=== PATIENT | male | born 1945 | race Caucasian/White ===

== ENCOUNTER → 2016-04-29 | Outpatient (CLI) | payer MEDICARE, OTHER | END | disposition home or self-care (01) | LOC: LABWHC1 13:28 | PROVIDERS: ATTEND Internal Medicine | DX: N40.1 Benign prostatic hyperplasia with lower urinary tract symptoms (principal) | CPT/HCPCS: 36415; 84153 ==

== ENCOUNTER → 2016-05-19 | Outpatient (CLI) | payer MEDICARE, OTHER ==
--- NOTE | 2016-05-19 12:52 | XR ---
EXAMINATION TYPE: XR cervical spine comp DATE OF EXAM: 05/19/2016 12:04 PM COMPARISON: 01/25/2016 HISTORY: Pain Odontoid, frontal, lateral, and bilateral oblique views of the cervical spine are submitted. The odontoid is intact. There are no compression deformities. The prevertebral soft tissue structur es are within normal limits. Calcification soft tissue the neck likely related carotid artery calcif ication. Previous surgery involving the mediastinum noted. Hypertrophic changes at all levels with moderate degenerative disc disease C5-6 and C6-C7 with facet arthropathy extending from level C3-T1. Foraminal encroachment level C3-C7 bilaterally. IMPRESSION: 1. Multilevel degenerative disc disease and facet arthropathy with foraminal encroachment as discusse d above..
--- NOTE | 2016-05-19 12:57 | XR ---
EXAMINATION TYPE: XR shoulder complete RT DATE OF EXAM: 05/19/2016 12:04 PM COMPARISON: NONE HISTORY: Pain TECHNIQUE: Three views are submitted. FINDINGS: The osseous structures are intact. There is no acute fracture or dislocation. The AC joint is narro wed with hypertrophic changes. IMPRESSION: 1. AC joint arthropathy correlate for rotator cuff impingement.
== END ==
LOC: RADXRMAIN 11:38
PROVIDERS: ATTEND Internal Medicine
DX: M19.011 Primary osteoarthritis, right shoulder (principal); M99.71 Connective tissue and disc stenosis of intervertebral foramina of cervical region; M50.30 Other cervical disc degeneration, unspecified cervical region; M46.82 Other specified inflammatory spondylopathies, cervical region
CPT/HCPCS: 72050

== ENCOUNTER → 2016-08-13 | Outpatient (CLI) | payer MEDICARE ==
--- NOTE | 2016-08-13 12:55 | US ---
EXAMINATION TYPE: US groin extremity RT DATE OF EXAM: 08/13/2016 11:22 AM COMPARISON: NONE CLINICAL HISTORY: R10.9 ABD/PELVIC PAIN. Right sharp pain in groin. Patient states it feel like bein g stabbed with a hot poker. Patient states he has not been lifting anything heavy, but has been walk ing a lot lately. Patient has large body habitus. Scanned area of pain in right groin. Lymph node appearing lesion seen = 2.4 x 1.5 x 0.8 cm. Promine nt isoechoic lesion seen = 3.3 x 2.7 cm- no peristalsing or movement seen during valsalva maneuvers. Contralateral image taken. IMPRESSION: 1. Lymphadenopathy. 2. No obvious bowel involved hernia. A nonbowel containing hernia is not excluded.
== END ==
LOC: RADUSWWP 10:52
PROVIDERS: ATTEND Internal Medicine
DX: R59.1 Generalized enlarged lymph nodes (principal)

== ENCOUNTER → 2016-12-02 | Outpatient (CLI) | payer MEDICARE, OTHER ==
[2016-12-08 16:03] LABS: Mis test requested (Blood) Narcolepsy Genotype
== END | disposition home or self-care (01) ==
LOC: LABWHC1 13:52
PROVIDERS: ATTEND Psychiatry & Neurology Neurology
DX: G25.81 Restless legs syndrome (principal); G47.19 Other hypersomnia; Z86.73 Personal history of transient ischemic attack (TIA), and cerebral infarction without residual deficits
CPT/HCPCS: 36415; 81383; 82550

== ENCOUNTER → 2016-12-10 | Outpatient (CLI) | payer MEDICARE, OTHER ==
--- NOTE | 2016-12-10 16:54 | CONS ---
CONSULTATION DATE OF SERVICE: 12/10/2016 This is a 71-year-old gentleman who has been evaluated in the sleep center for obstructive sleep apnea-hypopnea syndrome. HISTORY OF PRESENT ILLNESS/SLEEP-WAKE EVALUATION: Patient's usual sleep schedule is from around 10:30 p.m. and then he wakes up from sleep multiple times. Finally he gets up around 6 a.m. Sometimes he has problems with falling asleep. He has a TV set in the bedroom. He snores. He has restless leg symptoms while falling asleep. He has taken Requip for that. He sweats during the night. He has several episodes of nocturia during the night time. No history of hypnagogic hallucinations, sleep paralysis or cataplexy. During the day he usually does not have time to take naps. [place] Sleepiness Scale although is increased at 11. PAST MEDICAL HISTORY: 1. Coronary artery disease, status post several stent insertions. 2. Hypertension. PAST SURGICAL HISTORY: 1. Tonsillectomy. 2. Pacemaker insertion. 3. Stent insertion in coronary arteries. 4. Bilateral knee replacement. 5. Left hand amputation in 1971. MEDICATIONS: 1. Flomax. 2. Requip. 3. Lisinopril. 4. Blood pressure pill; he does not remember the name. FAMILY HISTORY: Hypertension, angina, heart problems, stroke, arthritis, sleep apnea, snoring, cancer, insomnia, narcolepsy, restless legs. REVIEW OF SYSTEMS: Awakenings from sleep. Sleepiness during the day. Swelling of the legs. PHYSICAL EXAM: A pleasant gentleman without distress. VITAL SIGNS: BP 151/100, HR 60, RR 16, height 5 feet 6 inches, weight 344, BMI 55.5. Neck 19 inches in circumference. Temperature 97.8, oxygen saturation on room air 97%. HEENT: PERRLA, EOMI. Evaluation of oropharynx showed tongue protrudes midline; extremely low position of soft palate. NECK: Supple. No JVD. Thyroid is not palpable. LUNGS: Clear to percussion and to auscultation. Good air exchange. No wheezing or rhonchi. HEART: S1, S2 irregularly irregular. ABDOMEN: Obese. EXTREMITIES: Two plus bilateral ankle edema with signs of dermatitis. Status post amputation of the left hand. CASER: Awake, alert and oriented x3. Cranial nerves 2 to 7 intact. There is no fasciculation or atrophy noted. No focal deficits observed. IMPRESSION: 1. Snoring, multiple awakenings from sleep, extremely low position of soft palate, sleepiness, [place] Sleepiness Scale increased to 11, big neck at 19 inches; obstructive sleep apnea-hypopnea syndrome. 2. Morbid obesity; BMI 55.5. Patient is possibly preparing for bariatric surgery. 3. Hypertension. 4. Coronary artery disease, status post several stent insertions to coronary arteries. 5. Status post permanent pacemaker insertion. 6. Status post bilateral knee replacement. 7. Status post tonsillectomy. 8. 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 9. History of restless leg syndrome, on treatment with Requip. PLAN: 1. Polysomnography for evaluation of patient's breathing during sleep. 2. CPAP/BiPAP titration if sleep study confirms obstructive sleep apnea-hypopnea syndrome. 3. Preferable position during sleep on the side. 4. No driving if patient feels any sleepiness. Patient is aware of civil and criminal liability for unsafe driving. 5. I will see patient for follow up visit to explain results of testing and following plan. Thank you very much for referring this patient for consultation. Sincerely, Todd Choi MD, PhD, FAASM Diplomat of [place] [employer] [place] [employer] Supervisor [facility] [place] MMODL / MYRNAN: [id number] /
== END | disposition home or self-care (01) ==
LOC: SLEEP 13:24
PROVIDERS: ATTEND Internal Medicine
DX: G47.33 Obstructive sleep apnea (adult) (pediatric) (principal); E66.01 Morbid (severe) obesity due to excess calories; I10 Essential (primary) hypertension; I25.10 Atherosclerotic heart disease of native coronary artery without angina pectoris; Z98.890 Other specified postprocedural states; Z68.43 Body mass index [BMI] 50.0-59.9, adult; Z79.899 Other long term (current) drug therapy
CPT/HCPCS: 99201

== ENCOUNTER → 2016-12-28 | Outpatient (CLI) | payer MEDICARE, OTHER ==
[2016-12-28 08:01] LABS: CH 29.5; CHCM 31.4; HCT 39.5 % (39.0-53.0); HDW 2.42; HGB 12.6 gm/dL (13.0-17.5); MCH 30.1 pg (25.0-35.0); MCHC 31.9 g/dL (31.0-37.0); MCV 94.4 fL (80.0-100.0); Mean Platelet Volume 6.5; RBC 4.18 m/uL (4.30-5.90); RDW 12.8 % (11.5-15.5)
[2016-12-28 09:00] LABS: ALT 30 U/L (21-72); AST 24 U/L (17-59); Alkaline Phosphatase 68 U/L (38-126); Anion Gap 9 mmol/L; Blood Urea Nitrogen 26 mg/dL (9-20); Calcium 8.8 mg/dL (8.4-10.2); Carbon Dioxide 23 mmol/L (22-30); Chloride 107 mmol/L (98-107); Cholesterol 126 mg/dL (<200); Glucose 105 mg/dL (74-99); HDL Cholesterol 58 mg/dL (40-60); Non-African American GFR(MDRD) >60 (>60 ml/min/1.73 sqM); Potassium 4.4 mmol/L (3.5-5.1); Sodium 139 mmol/L (137-145); Total Bilirubin 0.5 mg/dL (0.2-1.3); Total Protein 6.6 g/dL (6.3-8.2)
== END | disposition home or self-care (01) ==
LOC: LABWHC1 07:05
PROVIDERS: ATTEND Internal Medicine
DX: I25.10 Atherosclerotic heart disease of native coronary artery without angina pectoris (principal); E78.2 Mixed hyperlipidemia; K21.0 Gastro-esophageal reflux disease with esophagitis; I11.9 Hypertensive heart disease without heart failure
CPT/HCPCS: 36415; 80053; 80061; 82272; 84439; 84443; 85027

== ENCOUNTER 2017-01-04 14:14 | Emergency (ER) | payer MEDICARE, OTHER ==
[2017-01-04 14:22] VITALS: PULSE 60; RESP 18; TEMP 98.1
[2017-01-04] MEDS ORDERED: SODIUM CHLORIDE 0.9% 1,000 ML IV STA (14:32)
--- NOTE | 2017-01-04 14:40 | ED ---
General Adult HPI - General Chief complaint: Recheck/Abnormal Lab/Rx Stated complaint: spitting up blood Time Seen by Provider: 01/04/17 14:24 Source: patient, RN notes reviewed Mode of arrival: ambulatory Limitations: no limitations - History of Present Illness Initial comments: patient 71-year-old male who presents emergency room today with a chief complaint of hemoptysis. He does admit that last night he began having a cough. He states; she's noticed that he's been coughing up some bright red blood. Patient does not that he is currently on a blood thinner ulcer multiple. Patient admits to nausea. Patient denies any other complaints or symptoms. Patient denies any recent fever, chills, shortness of breath, chest pain, back pain, abdominal pain, vomiting, numbness or tingling, dysuria or hematuria, constipation or diarrhea, headaches or visual changes, or any other complaints. - Related Data Home Medications Medication Instructions Recorded Confirmed Aspirin [Adult Low Dose Aspirin EC] 81 mg PO DAILY 01/09/15 01/04/17 Gabapentin 300 mg PO TID 01/09/15 01/04/17 Primidone [Mysoline] 50 mg PO TID-W/MEALS 01/09/15 01/04/17 Tamsulosin [Flomax] 0.4 mg PO HS 01/09/15 01/04/17 rOPINIRole HCL [Ropinirole HCl] 2 mg PO QAM 01/09/15 01/04/17 rOPINIRole HCL [Ropinirole HCl] 4 mg PO HS 01/09/15 01/04/17 Furosemide [Lasix] 40 mg PO QAM 03/16/15 01/04/17 Ferrous Sulfate [Iron (65 MG 325 mg PO DAILY 08/19/15 01/04/17 Elemental)] Atorvastatin [Lipitor] 40 mg PO HS 09/20/15 01/04/17 Diazepam [Valium] 20 mg PO HS PRN 01/09/16 01/04/17 Lisinopril [Lisinopril] 5 mg PO HS 01/09/16 01/04/17 Lisinopril [Lisinopril] 10 mg PO QAM 01/09/16 01/04/17 Metoprolol Tartrate [Metoprolol 25 mg PO BID 01/09/16 01/04/17 Tartrate] Rivaroxaban [Xarelto] 20 mg PO W/SUPPER 01/09/16 01/04/17 Previous Rx's Medication Instructions Recorded traMADol HCl [Ultram] 50 mg PO Q4H PRN #15 tab 03/01/16 Allergies Allergy/AdvReac Type Severity Reaction Status Date / Time No Known Allergies Allergy Verified 01/04/17 14:22 Review of Systems ROS Statement: Those systems with pertinent positive or pertinent negative responses have been documented in the HPI. ROS Other: All systems not noted in ROS Statement are negative. Past Medical History Past Medical History: Atrial Fibrillation, Chest Pain / Angina, CVA/TIA, GI Bleed, Hyperlipidemia, Hypertension, Myocardial Infarction ([place]), Musculoskeletal Disorder, Osteoarthritis (OA), Pneumonia Additional Past Medical History / Comment(s): 06/06/15 CP, HAD C. CATH, THEN TRIPLE CABG. lower GI BLEED 02/2015. RLS. MILD STROKE 08/19/15. LFA AMPUTATION , HAS PROSTHESIS. [place] X2, LAST NSTEMI 05/2015. SSS, HAS PACEMAKER - [facility]. Last Myocardial Infarction Date:: 05/2015 History of Any Multi-Drug Resistant Organisms: None Reported Past Surgical History: Adenoidectomy, Coronary Bypass/CABG, Heart Catheterization With Stent, Joint Replacement, Orthopedic Surgery, Pacemaker, Tonsillectomy Additional Past Surgical History / Comment(s): 10/07/15 Revision total L knee. Other surgical hx: Pacemaker St Ed. stent in 2004 to LAD, STENTS X4. TOTAL [place] Knee. Lt Hand/LFA TRAUMATIC AMP. Colonoscopy/polys removed(benign). TRIPLE CABG 06/06/15 Past Anesthesia/Blood Transfusion Reactions: No Reported Reaction Additional Past Anesthesia/Blood Transfusion Reaction / Comment(s): clausterphobia Date of Last Stent Placement:: 2004 Type of Cardiac Device: Permanent Pacemaker Device Placement Date:: 2005 Past Psychological History: No Psychological Hx Reported Smoking Status: Never smoker Past Alcohol Use History: None Reported Past Drug Use History: None Reported - Past Family History Father Family Medical History: Cancer Additional Family Medical History / Comment(s): bone cancer Mother Family Medical History: Myocardial Infarction ([place]) General Exam - General Exam Comments Initial Comments: General: The patient is awake and alert, in no distress, and does not appear acutely ill. Eye: Pupils are equal, round and reactive to light, extra-ocular movements are intact. No nystagmus. There is normal conjunctiva bilaterally. No signs of icterus. Ears, nose, mouth and throat: There are moist mucous membranes and no oral lesions. Neck: The neck is supple, there is no tenderness or JVD. Cardiovascular: There is a regular rate and rhythm. No murmur, rub or gallop is appreciated. Respiratory: Lungs are clear to auscultation, respirations are non-labored, breath sounds are equal. No wheezes, stridor, rales, or rhonchi. Gastrointestinal: Soft, non-distended, non-tender abdomen without masses or organomegaly noted. There is no rebound or guarding present. No CVA tenderness. Bowel sounds are unremarkable. Musculoskeletal: Normal ROM, no tenderness. Strength 5/5. Sensation intact. Pulses equal bilaterally 2+. Neurological: A&O x 3. CN II-XII intact, There are no obvious motor or sensory deficits. Coordination appears grossly intact. Speech is normal. Skin: Skin is warm and dry and no rashes or lesions are noted. Psychiatric: Cooperative, appropriate mood & affect, normal judgment. Limitations: no limitations Course Vital Signs 01/04/17 01/04/17 14:18 15:05 Temperature 98.1 F Pulse Rate 60 Respiratory 18 Rate Blood Pressure 209/98 195/87 O2 Sat by Pulse 97 Oximetry Medical Decision Making - Medical Decision Making Patient's labs been reviewed. Patient's rhemoglobin 12.5. This is stable compared to previous labs. Patient's reexamined at this time shows no signs of distress sitting up comfortably in the stretcher. He denies any symptoms. Patient chest x-rays negative. Case discussed with attending physician Dr. Borrero. Patient advised to follow-up family doctor over the next 2 days. Advised return here to emergency room if any symptoms increase or worsen or for concerns for states understanding and is in agreement. - Lab Data Result diagrams: 01/04/17 14:57 01/04/17 14:57 Lab Results 01/04/17 01/04/17 01/04/17 Range/Units 14:57 14:57 14:57 WBC 8.2 (3.8-10.6) k/uL RBC 4.22 L (4.30-5.90) m/uL Hgb 12.5 L (13.0-17.5) gm/dL Hct 39.0 (39.0-53.0) % MCV 92.3 (80.0-100.0) fL MCH 29.6 (25.0-35.0) pg MCHC 32.1 (31.0-37.0) g/dL RDW 12.8 (11.5-15.5) % Plt Count 211 (150-450) k/uL Neutrophils % 66 % Lymphocytes % 22 % Monocytes % 6 % Eosinophils % 4 % Basophils % 0 % Neutrophils # 5.4 (1.3-7.7) k/uL Lymphocytes # 1.8 (1.0-4.8) k/uL Monocytes # 0.5 (0-1.0) k/uL Eosinophils # 0.3 (0-0.7) k/uL Basophils # 0.0 (0-0.2) k/uL PT 12.8 H (9.0-12.0) sec INR 1.3 H (<1.2) APTT 27.4 (22.0-30.0) sec Sodium 137 (137-145) mmol/L Potassium 4.3 (3.5-5.1) mmol/L Chloride 106 (98-107) mmol/L Carbon Dioxide 21 L (22-30) mmol/L Anion Gap 10 mmol/L BUN 22 H (9-20) mg/dL Creatinine 0.99 (0.66-1.25) mg/dL Est GFR (MDRD) Af Amer >60 (>60 ml/min/1.73 sqM) Est GFR (MDRD) Non-Af >60 (>60 ml/min/1.73 sqM) Glucose 97 (74-99) mg/dL Calcium 8.7 (8.4-10.2) mg/dL Total Bilirubin 0.6 (0.2-1.3) mg/dL AST 25 (17-59) U/L ALT 31 (21-72) U/L Alkaline Phosphatase 68 (38-126) U/L Total Protein 7.1 (6.3-8.2) g/dL Albumin 3.9 (3.5-5.0) g/dL Disposition Clinical Impression: Hemoptysis Disposition: HOME SELF-CARE Condition: Good Instructions: Hemoptysis (ED) Additional Instructions: Please call family doctor over the next 2 days. Please return here to emergency room if any symptoms increase or worsen or for any other concerns. Referrals: Neville Pierre MD [Primary Care Provider] - 1-2 days Time of Disposition: 15:42
[2017-01-04 15:11] LABS: Basophils % (A) 0 %; CH 29.6; CHCM 32.2; Eosinophils # (A) 0.3 k/uL (0-0.7); Eosinophils % (A) 4 %; HDW 2.49; HGB 12.5 gm/dL (13.0-17.5); Luc # (Auto) 0.15; Luc % (Auto) 2; Lymphocytes # (A) 1.8 k/uL (1.0-4.8); Lymphocytes % (A) 22 %; MCH 29.6 pg (25.0-35.0); MCHC 32.1 g/dL (31.0-37.0); MCV 92.3 fL (80.0-100.0); Mean Platelet Volume 6.9; Monocytes # (A) 0.5 k/uL (0-1.0); Monocytes % (A) 6 %; Neutrophils # (A) 5.4 k/uL (1.3-7.7); Neutrophils % (A) 66 %; RBC 4.22 m/uL (4.30-5.90); RDW 12.8 % (11.5-15.5); WBC 8.2 k/uL (3.8-10.6); WBC (Perox) 8.15
[2017-01-04 15:13] LABS: ALT 31 U/L (21-72); AST 25 U/L (17-59); Alkaline Phosphatase 68 U/L (38-126); Anion Gap 10 mmol/L; Blood Urea Nitrogen 22 mg/dL (9-20); Calcium 8.7 mg/dL (8.4-10.2); Carbon Dioxide 21 mmol/L (22-30); Chloride 106 mmol/L (98-107); Glucose 97 mg/dL (74-99); Non-African American GFR(MDRD) >60 (>60 ml/min/1.73 sqM); Potassium 4.3 mmol/L (3.5-5.1); Sodium 137 mmol/L (137-145); Total Bilirubin 0.6 mg/dL (0.2-1.3); Total Protein 7.1 g/dL (6.3-8.2)
--- NOTE | 2017-01-04 15:17 | XR ---
EXAMINATION TYPE: XR chest 2V DATE OF EXAM: 01/04/2017 COMPARISON: 02/17/2016 HISTORY: Hemoptysis TECHNIQUE: Frontal and lateral views of the chest are obtained. FINDINGS: There is no focal air space opacity, pleural effusion, or pneumothorax seen. Multilead le ft-sided cardiac device is appreciated as well as sternotomy wires and mediastinal surgical clips. He art is again enlarged. The osseous structures are intact. Minimal degenerative changes of the thoraci c spine and right acromioclavicular joint are seen. IMPRESSION: No acute cardiopulmonary process.
[2017-01-04 15:20] LABS: INR 1.3 (<1.2); Partial Thromboplastin Time 27.4 sec (22.0-30.0); Prothrombin Time 12.8 sec (9.0-12.0)
[2017-01-04 15:56] VITALS: BP 170/67
== END 2017-01-04 15:56 | disposition home or self-care (01) ==
LOC: EC 14:14
DX: R04.2 Hemoptysis (principal); I48.91 Unspecified atrial fibrillation; E78.5 Hyperlipidemia, unspecified; I10 Essential (primary) hypertension; I25.2 Old myocardial infarction; M19.90 Unspecified osteoarthritis, unspecified site; Z86.73 Personal history of transient ischemic attack (TIA), and cerebral infarction without residual deficits; Z95.0 Presence of cardiac pacemaker; Z95.1 Presence of aortocoronary bypass graft; Z79.01 Long term (current) use of anticoagulants; Z79.82 Long term (current) use of aspirin; Z79.899 Other long term (current) drug therapy
CPT/HCPCS: 36415; 71020; 80053; 85025; 85610; 85730; 96360; 99283

== ENCOUNTER → 2017-01-28 | Outpatient (CLI) | payer MEDICARE, OTHER ==
[2017-01-28 09:35] VITALS: BP 147/74; PULSE 59; RESP 15; TEMP 97.7; BMI 56.2
[2017-01-28 11:39] LABS: HCT 38.8 % (39.0-53.0); HGB 12.3 gm/dL (13.0-17.5); Hypochromasia Slight; MCH 29.3 pg (25.0-35.0); MCHC 31.6 g/dL (31.0-37.0); MCV 92.6 fL (80.0-100.0); Mean Platelet Volume 7.6; Platelet Count 200 k/uL (150-450); RBC 4.19 m/uL (4.30-5.90); RDW 13.8 % (11.5-15.5); WBC 5.6 k/uL (3.8-10.6)
[2017-01-28 11:48] LABS: ALT 41 U/L (21-72); AST 30 U/L (17-59); Alkaline Phosphatase 77 U/L (38-126); Anion Gap 7 mmol/L; Blood Urea Nitrogen 34 mg/dL (9-20); Carbon Dioxide 28 mmol/L (22-30); Chloride 104 mmol/L (98-107); Cholesterol 136 mg/dL (<200); Glucose 118 mg/dL (74-99); HDL Cholesterol 64 mg/dL (40-60); LDL Cholesterol,Calculated 63 mg/dL (0-99); Potassium 4.9 mmol/L (3.5-5.1); Sodium 139 mmol/L (137-145); Total Bilirubin 0.3 mg/dL (0.2-1.3); Total Protein 7.4 g/dL (6.3-8.2); Triglycerides 44 mg/dL (<150)
[2017-01-28 15:56] LABS: Iron Saturation 20.44 (15.00-50.00)
[2017-01-28 16:05] LABS: Vitamin D 25 Hydroxy 25.4 ng/mL (30.0-100.0)
[2017-01-28 16:31] LABS: Folate, Serum 18.2 ng/mL
[2017-01-28 17:02] LABS: Hemoglobin A1C 5.5 % (4.0-6.0)
--- NOTE | 2017-04-01 19:40 | P.HPBAR ---
Bariatric H&P - History & Physicial H&P Date: 01/28/17 History & Physicial: Visit/CC: bariatric consult Patient initial contact: Initial weight: 158.122 kg Initial weight in pounds: 348.60 Height: 5 ft 6 in Initial BMI: 56.2 Last weight: Current weight: 158.122 kg Current weight in pounds: 348.60 Current BMI: 56.2 [place] body weight (based on NIH guidelines): 64.41 kg Excess body weight loss: 0.0% The patient is a 71 year-old M who presents for Bariatric Assessment. DATE OF CONSULTATION: 01/28/2017 REASON FOR EVALUATION: Morbid obesity. HISTORY OF PRESENT ILLNESS: Chava Spence is a 71-year-old gentleman with history of super morbid obesity as his body mass index is 56.3. His highest personal weight was 348 pounds as he presents today. He has developed end-stage osteoarthritis of the knees requiring bilateral knee replacements, sleep apnea, hypertensive heart disease with cardiomyopathy as well as resultant cardiac arrhythmia. He has tried weight loss including carbohydrate restriction without success. He is looking over 100 pound weight loss. He is looking into a safe option as he is on blood thinners. He presents with his son at bedside. He reports approval of weight loss surgery from his medical doctor including knocker out. At his height of 5 foot 6, his ideal body weight is 154 pounds. He is 194 pounds overweight. PAST MEDICAL HISTORY: 1. Morbid obesity. 2. Atrial fibrillation 3. Hyperlipidemia. 4. Hypertensive cardiomyopathy. 5. Hyperlipidemia. 6. Obstructive uropathy. 7. Neuropathy. 8. Angina. 9. CVA/TIA 10. Myocardial infarction. 11. Pneumonia. 12. Osteoarthritis of the knees. 13. GI Bleed. 14. Restless leg syndrome. PAST SURGICAL HISTORY: 1. CABG x 3 2. Cardiac catheterization 3. Pacemaker, [facility]. 4. Left forearm amputation. 5. Bilateral knee replacement with revision. 6. Colonoscopy with polypectomy. 7. Tonsillectomy. 8. Adenoidectomy. MEDICATIONS: 1. Catarpes. 2. Ropinirole. 3. Lipitor. 4. Aspirin. 5. Gabapentin. 6. Lasix. 7. Metoprolol 8. Lisinopril 9. Xarelto 10. Primidone. 11. Flomax ALLERGIES: Denies. SOCIAL HISTORY: No past tobacco use. FAMILY HISTORY: Pertinent for super morbid obesity. No reports of stomach or esophageal cancers. No reports of GI malignancies. REVIEW OF SYSTEMS: CONSTITUTIONAL: No reports of fevers or chills. At his height of 5 foot 6, his ideal body weight is 154 pounds. He is 194 pounds overweight. His highest personal weight was 348 pounds. BMI of 56.3. HEENT: Denies any active troubles with vision or hearing. ENDOCRINE: No reports of hypothyroidism. No reports of blood sugar glucose intolerance. RESPIRATORY: Has obstructive sleep apnea with CPAP machine. CARDIOVASCULAR: History of chest pain. History of hypertensive heart disease. GI: Denies any diarrhea, constipation. Previous GI bleed. MUSCULOSKELETAL: Has diffuse joint pain involving the knees. Previous knee replacements. NEURO: No reports of seizure disorders. No history of headaches. PSYCH: No reports of depression or suicidal ideation. SKIN: No skin cancers. No diffuse rash. HEMATOLOGIC: No family history of DVTs or pulmonary embolism. He is on Xarelto. PHYSICAL EXAM: VITAL SIGNS: 5 feet 6, 348 pounds, body mass index 56.3 Vital Signs Temp 97.7 F 01/28/17 09:17 Pulse 59 L 01/28/17 09:17 Resp 15 01/28/17 09:17 BP 147/74 01/28/17 09:17 Pulse Ox GENERAL: Well-developed pleasant male in no acute distress. He ambulates with a cane. HEENT: No scleral icterus. Extraocular movements grossly intact. Moist buccal mucosa. No nasal drainage. Hears conversational speech. NECK: Supple without lymphadenopathy. Has mild JVD distention. CHEST: Unlabored respirations with equal bilateral excursions. CARDIOVASCULAR: Irregular rate, irregular rhythm. Distal 2+ pulses. ABDOMEN: Obese, soft, nontender, nondistended. MUSCULOSKELETAL: 2+ pitting edema bilaterally. No clubbing or cyanosis. Left forearm amputation. NEURO: No focal or lateralizing signs. Cranial nerves 2 through 12 grossly within normal limits. PSYCH: Appropriate affect. Alert and oriented to person, place and time. SKIN: Good skin tugor. No diffuse rash. ASSESSMENT: 1. Super morbid obesity. 2. BMI 56.3. 3. Hypertensive heart disease with cardiomyopathy. 4. Chronic atrial fibrillation. 5. End stage bilateral knee osteoarthritis. 6. Coronary artery disease s/p re-vascularization. 7. Obstructive sleep apnea. 8. Neuropathy. 9. Chronic anticoagulant use. 10. Hyperlipidemia. 11. Family history of morbid obesity. 12. Previous stroke. 13. Previous angina. PLAN: 1. With his multiple medical co-morbidities and goal of weight loss over 100- pounds, a potential sleeve gastrectomy was reveiwed. 2. I do recommend proceeding with an upper endoscopy as he is also evaluating for a sleeve gastrectomy as well. He is aware that should Gee disease or severe erosive esophagitis be encountered, then alternative gastrectomy procedure such as the gastric bypass may be pursued 2. Recommend obtaining a bariatric metabolic panel to evaluate for micro- including macronutrient deficiencies. 3. Referral to the bariatric dietitian was made for gastrectomy-type diets as well as medical supervised weight loss. 4. Will need multiple medical clearances including from his knocker out. 5. Recommend EKG for extent of surgical intervention. 6. Benefits and risks of procedures including a band, sleeve, gastric bypass were reviewed per the [facility] outcomes calculator. Alternatives of a gastric balloon including duodenal switch were described. 7. Recommend follow-up upon completion of studies and labs. Thank you very much for this kind consultation. ADDENDUM: Laboratory Last Values WBC 5.6 k/uL (3.8-10.6) 01/28/17 10:58 RBC 4.19 m/uL (4.30-5.90) L 01/28/17 10:58 Hgb 12.3 gm/dL (13.0-17.5) L 01/28/17 10:58 Hct 38.8 % (39.0-53.0) L 01/28/17 10:58 MCV 92.6 fL (80.0-100.0) 01/28/17 10:58 MCH 29.3 pg (25.0-35.0) 01/28/17 10:58 MCHC 31.6 g/dL (31.0-37.0) 01/28/17 10:58 RDW 13.8 % (11.5-15.5) 01/28/17 10:58 Plt Count 200 k/uL (150-450) 01/28/17 10:58 Hypochromasia Slight 01/28/17 10:58 Sodium 139 mmol/L (137-145) 01/28/17 10:58 Potassium 4.9 mmol/L (3.5-5.1) 01/28/17 10:58 Chloride 104 mmol/L (98-107) 01/28/17 10:58 Carbon Dioxide 28 mmol/L (22-30) 01/28/17 10:58 Anion Gap 7 mmol/L 01/28/17 10:58 BUN 34 mg/dL (9-20) H 01/28/17 10:58 Creatinine 1.16 mg/dL (0.66-1.25) 01/28/17 10:58 Est GFR (MDRD) Af Amer >60 (>60 ml/min/1.73 sqM) 01/28/17 10:58 Est GFR (MDRD) Non-Af >60 (>60 ml/min/1.73 sqM) 01/28/17 10:58 Glucose 118 mg/dL (74-99) H 01/28/17 10:[address] Glu mg/dL 111 01/28/17 10:58 Hemoglobin A1c 5.5 % (4.0-6.0) 01/28/17 10:58 Calcium 9.0 mg/dL (8.4-10.2) 01/28/17 10:58 Iron 56 ug/dL (65-175) L 01/28/17 10:58 TIBC 274 ug/dL (228-460) 01/28/17 10:58 Iron Saturation 20.44 (15.00-50.00) 01/28/17 10:58 Ferritin 156.3 ng/mL (22.0-322.0) 01/28/17 10:58 Total Bilirubin 0.3 mg/dL (0.2-1.3) 01/28/17 10:58 AST 30 U/L (17-59) 01/28/17 10:58 ALT 41 U/L (21-72) 01/28/17 10:58 Alkaline Phosphatase 77 U/L (38-126) 01/28/17 10:58 Total Protein 7.4 g/dL (6.3-8.2) 01/28/17 10:58 Albumin 4.0 g/dL (3.5-5.0) 01/28/17 10:58 Triglycerides 44 mg/dL (<150) 01/28/17 10:58 Cholesterol 136 mg/dL (<200) 01/28/17 10:58 LDL Cholesterol, Calc 63 mg/dL (0-99) 01/28/17 10:58 HDL Cholesterol 64 mg/dL (40-60) H 01/28/17 10:58 Vitamin B1 76 ug/L (38-122) 01/28/17 10:58 Vitamin B12 428.0 pg/mL (200.0-944.0) 01/28/17 10:58 Vitamin D 25-Hydroxy 25.4 ng/mL (30.0-100.0) L 01/28/17 10:58 Folate 18.2 ng/mL 01/28/17 10:58 TSH 1.550 mIU/L (0.465-4.680) 01/28/17 10:58 Past Medical History Past Medical History: Atrial Fibrillation, Chest Pain / Angina, CVA/TIA, GI Bleed, Hyperlipidemia, Hypertension, Myocardial Infarction ([place]), Musculoskeletal Disorder, Osteoarthritis (OA), Pneumonia Additional Past Medical History / Comment(s): 06/06/15 CP, HAD C. CATH, THEN TRIPLE CABG. lower GI BLEED 02/2015. Restless Leg Syndrome. MILD STROKE . LFA AMPUTATION , HAS PROSTHESIS. [place] X2, LAST NSTEMI 05/2015. SSS, HAS PACEMAKER - [facility]. Last Myocardial Infarction Date:: 05/2015 History of Any Multi-Drug Resistant Organisms: None Reported Past Surgical History: Adenoidectomy, Coronary Bypass/CABG, Heart Catheterization With Stent, Joint Replacement, Orthopedic Surgery, Pacemaker, Tonsillectomy Additional Past Surgical History / Comment(s): 10/07/15 Revision total L knee. Other surgical hx: Pacemaker St Ed. stent in 2004 to LAD, STENTS X4. TOTAL [place] Knee. Lt Hand/LFA TRAUMATIC AMP. Colonoscopy/polys removed(benign). TRIPLE CABG 06/06/15 Past Anesthesia/Blood Transfusion Reactions: No Reported Reaction Additional Past Anesthesia/Blood Transfusion Reaction / Comm: clausterphobia. No history of blood transfusions Date of Last Stent Placement:: 2004 Type of Cardiac Device: Permanent Pacemaker Device Placement Date:: 2005 Past Psychological History: No Psychological Hx Reported Additional Psychological History / Comment(s): pt lives with his signif other, Pt states he has a cane and walker that he uses to ambulate. He has used [facility]. Smoking Status: Never smoker Past Alcohol Use History: None Reported Past Drug Use History: None Reported - Past Family History Father Family Medical History: Cancer Additional Family Medical History / Comment(s): bone cancer ; at age 67 Mother Family Medical History: Myocardial Infarction ([place]) Additional Family Medical History / Comment(s): at age 80 Surgical - Exam Vital Signs Temp Pulse Resp BP 97.7 F 59 L 15 147/74 01/28/17 09:17 01/28/17 09:17 01/28/17 09:17 01/28/17 09:17 Results - Labs 01/28/17 10:58 01/28/17 10:58 Bariatric Checklist Checklist: Plan: Checklist: EGD: 1. Hiatal hernia: 2. H. Pylori: HgbA1c: Vitamin D: Smoking: Never smoker Primary care physician referral: yudith velarde Psychiatry clearance: Cardiology clearance: Sleep study: Diet journal: VTE risk score: VTE risk level: Rehab needs at discharge:
== END | disposition home or self-care (01) ==
LOC: BARWHC3 08:59
PROVIDERS: ATTEND Surgery Plastic and Reconstructive Surgery
DX: Z48.815 Encounter for surgical aftercare following surgery on the digestive system (principal); E66.01 Morbid (severe) obesity due to excess calories; I48.2 Chronic atrial fibrillation; I25.10 Atherosclerotic heart disease of native coronary artery without angina pectoris; G47.33 Obstructive sleep apnea (adult) (pediatric); G62.9 Polyneuropathy, unspecified; E78.5 Hyperlipidemia, unspecified; I10 Essential (primary) hypertension; I25.2 Old myocardial infarction; E89.1 Postprocedural hypoinsulinemia; D50.8 Other iron deficiency anemias; D50.9 Iron deficiency anemia, unspecified; K91.2 Postsurgical malabsorption, not elsewhere classified; E44.0 Moderate protein-calorie malnutrition; E55.9 Vitamin D deficiency, unspecified; E11.9 Type 2 diabetes mellitus without complications; G47.30 Sleep apnea, unspecified; Z68.43 Body mass index [BMI] 50.0-59.9, adult; Z79.01 Long term (current) use of anticoagulants; Z79.82 Long term (current) use of aspirin
CPT/HCPCS: 84425; 80061; 80053; 82607; 82728; 82746; 83540; 83550; 84443; 85027; 82306; 83036; 36415; G0463; 99211

== ENCOUNTER → 2017-01-29 | Outpatient (CLI) | payer MEDICARE, OTHER | END | disposition home or self-care (01) | LOC: LABWHC1 07:40 | PROVIDERS: ATTEND Surgery Plastic and Reconstructive Surgery | DX: Z01.810 Encounter for preprocedural cardiovascular examination (principal); Z01.812 Encounter for preprocedural laboratory examination; D50.8 Other iron deficiency anemias; K91.2 Postsurgical malabsorption, not elsewhere classified; E44.0 Moderate protein-calorie malnutrition; E55.9 Vitamin D deficiency, unspecified; E11.9 Type 2 diabetes mellitus without complications; I11.9 Hypertensive heart disease without heart failure; G47.30 Sleep apnea, unspecified | CPT/HCPCS: 36415; 93005 ==

== ENCOUNTER 2017-02-10 08:22 | Day surgery (SDC) | payer MEDICARE, OTHER ==
[2017-02-09 13:23] VITALS: BMI 51.3
--- NOTE | 2017-02-10 07:42 | P.GSHP ---
History of Present Illness H&P Date: 02/10/17 CHIEF COMPLAINT: GERD HISTORY OF PRESENT ILLNESS: The patient is a 71-year-old male who presents reports gastroesophageal reflux disease. Upper endoscopy was offered for further evaluation and management. PAST MEDICAL HISTORY: Please see list. PAST SURGICAL HISTORY: Please see list. MEDICATIONS: Please see list. ALLERGIES: Please see list. SOCIAL HISTORY: No illicit drug use FAMILY HISTORY: No reports of Crohn disease or ulcerative colitis. REVIEW OF ORGAN SYSTEMS: CONSTITUTIONAL: No reports of fevers or chills. GI: Denies any blood in stools or constipation. PHYSICAL EXAM: VITAL SIGNS: Stable GENERAL: Well-developed and pleasant in no acute distress. HEENT: No scleral icterus. Extraocular movements grossly intact. Moist buccal mucosa. NECK: Supple without lymphadenopathy. CHEST: Unlabored respirations. Equal bilateral excursions. CARDIOVASCULAR: Regular rate and rhythm. Distal 2+ pulses. ABDOMEN: Soft, nondistended. MUSCULOSKELETAL: No clubbing, cyanosis, or edema. ASSESSMENT: 1. Gastroesophageal reflux disease PLAN: 1. Recommend proceeding with an upper endoscopy Past Medical History Past Medical History: Atrial Fibrillation, Chest Pain / Angina, CVA/TIA, GI Bleed, Hyperlipidemia, Hypertension, Myocardial Infarction ([place]), Musculoskeletal Disorder, Osteoarthritis ([place]), Pneumonia Additional Past Medical History / Comment(s): 06/06/15 CP, HAD C. CATH, THEN TRIPLE CABG. lower GI BLEED 02/2015. Restless Leg Syndrome. MILD STROKE . LFA AMPUTATION 1969'S, HAS PROSTHESIS. [place] X2, LAST NSTEMI 05/2015. SSS, HAS PACEMAKER - [facility]. Last Myocardial Infarction Date:: 05/2015 History of Any Multi-Drug Resistant Organisms: None Reported Past Surgical History: Adenoidectomy, Coronary Bypass/CABG, Heart Catheterization With Stent, Joint Replacement, Orthopedic Surgery, Pacemaker, Tonsillectomy Additional Past Surgical History / Comment(s): 10/07/15 Revision total L knee. Other surgical hx: Pacemaker St Ed. stent in 2004 to LAD, STENTS X4. TOTAL [place] Knee. Lt Hand/LFA TRAUMATIC AMP. Colonoscopy/polys removed(benign). TRIPLE CABG 06/06/15, HAD A TOOTH PULLED TODAY Past Anesthesia/Blood Transfusion Reactions: No Reported Reaction Additional Past Anesthesia/Blood Transfusion Reaction / Comment(s): claustrophobia. No history of blood transfusions Date of Last Stent Placement:: 2004 Type of Cardiac Device: Permanent Pacemaker Device Placement Date:: 2005 Smoking Status: Never smoker - Past Family History Father Family Medical History: Cancer Additional Family Medical History / Comment(s): bone cancer ; at age 67 Mother Family Medical History: Myocardial Infarction ([place]) Additional Family Medical History / Comment(s): at age 80 Medications and Allergies Home Medications Medication Instructions Recorded Confirmed Type Aspirin [Adult Low Dose Aspirin EC] 81 mg PO DAILY 01/09/15 02/09/17 History Gabapentin 300 mg PO TID 01/09/15 02/09/17 History Primidone [Mysoline] 50 mg PO TID-W/MEALS 01/09/15 02/09/17 History Tamsulosin [Flomax] 0.4 mg PO HS 01/09/15 02/09/17 History rOPINIRole HCL [Ropinirole HCl] 2 mg PO QAM 01/09/15 02/09/17 History rOPINIRole HCL [Ropinirole HCl] 4 mg PO HS 01/09/15 02/09/17 History Atorvastatin [Lipitor] 40 mg PO HS 09/20/15 02/09/17 History Lisinopril [Lisinopril] 5 mg PO HS 01/09/16 02/09/17 History Lisinopril [Lisinopril] 10 mg PO QAM 01/09/16 02/09/17 History Metoprolol Tartrate [Metoprolol 25 mg PO BID 01/09/16 02/09/17 History Tartrate] Rivaroxaban [Xarelto] 20 mg PO W/SUPPER 01/09/16 02/09/17 History Furosemide [Lasix] 20 mg PO DAILY 01/28/17 02/09/17 History cloNIDine HCL [Catapres] 0.1 mg PO BID 01/28/17 02/09/17 History Allergies Allergy/AdvReac Type Severity Reaction Status Date / Time No Known Allergies Allergy Verified 02/09/17 13:20
[~2017-02-10 08:22] MED LIST: LACTATED RINGERS 1,000 ML IV SCH
[2017-02-10 09:31] VITALS: TEMP 97.4
[2017-02-10 09:35] LABS: Glucose,Whole Blood 112 mg/dL (75-99)
[2017-02-10] MEDS ORDERED: LIDOCAINE 1% 20 ML VIAL (10MG/ML) FOR IV START INTRADERMA ONE (09:42)
[2017-02-10] MEDS ORDERED: LIDOCAINE 1% INJ 10MG/ML (20 ML MDV) ONE (09:49)
[2017-02-10] MEDS ORDERED: PROPOFOL 10 MG/ML 20 ML VIAL IV ONE (09:49)
[2017-02-10] MEDS ORDERED: MIDAZOLAM 2 MG/2 ML VIAL ONE (09:49)
[2017-02-10] MEDS ORDERED: fentaNYL (PF) 50 MCG/ML 2 ML AMP ONE (09:49)
--- NOTE | 2017-02-10 10:01 | P.PCN ---
Date of Procedure: 02/10/17 Description of Procedure: PREOPERATIVE DIAGNOSIS: Gastroesophageal reflux disease. Morbid obesity. POSTOPERATIVE DIAGNOSIS: Morbid obesity. Gastritis, acute with recent bleeding. Gastroesophageal reflux disease. Diaphragmatic hiatal hernia without obstruction. OPERATION: Esophagogastroduodenoscopy with biopsies along antrum. SURGEON: Samantha Lugo MD ANESTHESIA: MAC. INDICATIONS: The patient is a 71-year-old female who presents with a history of reflux disease. Benefits and risks of the procedure were described. Informed consent was obtained. DESCRIPTION: The patient was brought into the endoscopy suite and laid in the left lateral decubitus position. An Olympus gastroscope was passed along the posterior oropharynx down to the distal esophagus where the squamocolumnar junction was encountered at 35 cm from the incisors. The stomach was entered and no bile reflux was found. Additional findings are listed below. Biopsies with cold forceps were obtained of the antrum. The first through third portion of the duodenum was examined and unremarkable. Retroflexion of the scope confirmed Hill grade 3 lower esophageal valve. The squamocolumnar junction demostrated early and acute LA grade A erosive esophagitis. The stomach was desufflated. The patient tolerated the procedure well. FINDINGS: Squamocolumnar junction 39 cm from the incisors. Diaphragmatic hiatus at 40 cm. Hiatal hernia 1 cm, sliding type. Hill grade 4 lower esophageal valve. LA grade A erosive esophagitis. No active duodenitis. Active gastritis with recent bleeding. RECOMMENDATIONS: Start medical therapy. Further recommendations pending results of pathology report. Upper endoscopy as needed. Plan - Discharge Summary New Discharge Prescriptions: No Action rOPINIRole HCL [Ropinirole HCl] 2 mg PO QAM rOPINIRole HCL [Ropinirole HCl] 4 mg PO HS Tamsulosin [Flomax] 0.4 mg PO HS Gabapentin 300 mg PO TID Aspirin [Adult Low Dose Aspirin EC] 81 mg PO DAILY Primidone [Mysoline] 50 mg PO TID-W/MEALS Atorvastatin [Lipitor] 40 mg PO HS Rivaroxaban [Xarelto] 20 mg PO W/SUPPER Metoprolol Tartrate [Metoprolol Tartrate] 25 mg PO BID Lisinopril [Lisinopril] 10 mg PO QAM Lisinopril [Lisinopril] 5 mg PO HS cloNIDine HCL [Catapres] 0.1 mg PO BID Furosemide [Lasix] 20 mg PO DAILY Discharge Medication List Aspirin [Adult Low Dose Aspirin EC] 81 mg PO DAILY 01/09/15 [History] Gabapentin 300 mg PO TID 01/09/15 [History] Primidone [Mysoline] 50 mg PO TID-W/MEALS 01/09/15 [History] Tamsulosin [Flomax] 0.4 mg PO HS 01/09/15 [History] rOPINIRole HCL [Ropinirole HCl] 2 mg PO QAM 01/09/15 [History] rOPINIRole HCL [Ropinirole HCl] 4 mg PO HS 01/09/15 [History] Atorvastatin [Lipitor] 40 mg PO HS 09/20/15 [History] Lisinopril [Lisinopril] 5 mg PO HS 01/09/16 [History] Lisinopril [Lisinopril] 10 mg PO QAM 01/09/16 [History] Metoprolol Tartrate [Metoprolol Tartrate] 25 mg PO BID 01/09/16 [History] Rivaroxaban [Xarelto] 20 mg PO W/SUPPER 01/09/16 [History] Furosemide [Lasix] 20 mg PO DAILY 01/28/17 [History] cloNIDine HCL [Catapres] 0.1 mg PO BID 01/28/17 [History]
[2017-02-10 10:34] VITALS: RESP 18
[2017-02-10 10:38] VITALS: BP 161/96; PULSE 62
== END 2017-02-10 10:55 | disposition home or self-care (01) ==
LOC: ORWHC2ENDO 08:22
PROVIDERS: ATTEND Surgery Plastic and Reconstructive Surgery
DX: K21.0 Gastro-esophageal reflux disease with esophagitis (principal); K29.50 Unspecified chronic gastritis without bleeding; K44.9 Diaphragmatic hernia without obstruction or gangrene; I25.10 Atherosclerotic heart disease of native coronary artery without angina pectoris; I10 Essential (primary) hypertension; E78.5 Hyperlipidemia, unspecified; I48.91 Unspecified atrial fibrillation; G47.33 Obstructive sleep apnea (adult) (pediatric); M19.90 Unspecified osteoarthritis, unspecified site; G25.81 Restless legs syndrome; I25.2 Old myocardial infarction; E66.01 Morbid (severe) obesity due to excess calories; Z68.43 Body mass index [BMI] 50.0-59.9, adult; Z79.82 Long term (current) use of aspirin; Z79.01 Long term (current) use of anticoagulants; Z79.899 Other long term (current) drug therapy; Z86.73 Personal history of transient ischemic attack (TIA), and cerebral infarction without residual deficits; Z95.1 Presence of aortocoronary bypass graft; Z95.5 Presence of coronary angioplasty implant and graft; Z95.0 Presence of cardiac pacemaker; Z96.60 Presence of unspecified orthopedic joint implant; Z89.212 Acquired absence of left upper limb below elbow; Z80.8 Family history of malignant neoplasm of other organs or systems; Z82.49 Family history of ischemic heart disease and other diseases of the circulatory system
CPT/HCPCS: 43239; 88305; 88342; J2250; J2001; J3010; J2704

== ENCOUNTER → 2017-02-26 | Outpatient (CLI) | payer MEDICARE, OTHER ==
[2017-02-26 13:05] VITALS: BP 191/100; PULSE 60; TEMP 98.1; BMI 58.1
--- NOTE | 2017-04-19 05:45 | P.PN ---
Subjective Progress Note Date: 02/26/17 DATE OF SERVICE: 02/26/2017 CHIEF COMPLAINT: Morbid obesity. HISTORY OF PRESENT ILLNESS: Chava Spence is a 71-year-old gentleman with history of super morbid obesity, body mass index is 56.3. His highest personal weight was 348 pounds as he presents today. He has developed end-stage osteoarthritis of the knees requiring bilateral knee replacements, sleep apnea, hypertensive heart disease with cardiomyopathy as well as resultant cardiac arrhythmia. Upon his last visit, he is evaluating for sleeve gastrectomy. He has completed an upper endoscopy. His findings included blood within the stomach. He reports intermittent coughing including with blood. He is on Xarelto. He presents today with moderate anxiety including his findings of a hiatal hernia. His son is at bedside. He comes in today with moderate weight gain of 11 pounds in 1 month. Today he comes in at 359 pounds. At his height of 5 foot 6, his ideal body weight is 154 pounds. He is 205 pounds overweight. His body mass index is increased to 58.1. PAST MEDICAL HISTORY: 1. Morbid obesity. 2. Atrial fibrillation 3. Hyperlipidemia. 4. Hypertensive cardiomyopathy. 5. Hyperlipidemia. 6. Obstructive uropathy. 7. Neuropathy. 8. Angina. 9. CVA/TIA 10. Myocardial infarction. 11. Pneumonia. 12. Osteoarthritis of the knees. 13. GI Bleed. 14. Restless leg syndrome. PAST SURGICAL HISTORY: 1. CABG x 3 2. Cardiac catheterization 3. Pacemaker, [facility]. 4. Left forearm amputation. 5. Bilateral knee replacement with revision. 6. Colonoscopy with polypectomy. 7. Tonsillectomy. 8. Adenoidectomy. 9. Upper endoscopy. MEDICATIONS: 1. Catarpes. 2. Ropinirole. 3. Lipitor. 4. Aspirin. 5. Gabapentin. 6. Lasix. 7. Metoprolol 8. Lisinopril 9. Xarelto 10. Primidone. 11. Flomax ALLERGIES: Denies. SOCIAL HISTORY: No past tobacco use. FAMILY HISTORY: Pertinent for super morbid obesity. No reports of stomach or esophageal cancers. No reports of GI malignancies. REVIEW OF SYSTEMS: CONSTITUTIONAL: No reports of fevers or chills. At his height of 5 foot 6, his ideal body weight is 154 pounds. He is 205 pounds overweight. His highest personal weight is up to 359 pounds. BMI of 58.1. HEENT: Denies any active troubles with vision or hearing. ENDOCRINE: No reports of hypothyroidism. No reports of blood sugar glucose intolerance. RESPIRATORY: Has obstructive sleep apnea with CPAP machine. CARDIOVASCULAR: History of chest pain. History of hypertensive heart disease. GI: Denies any diarrhea, constipation. Previous GI bleed. MUSCULOSKELETAL: Has diffuse joint pain involving the knees. Previous knee replacements. NEURO: No reports of seizure disorders. No history of headaches. PSYCH: No reports of depression or suicidal ideation. SKIN: No skin cancers. No diffuse rash. HEMATOLOGIC: No family history of DVTs or pulmonary embolism. He is on Xarelto. PHYSICAL EXAM: VITAL SIGNS: 5 feet 6, 359 pounds, body mass index 58.1 Vital Signs Temp 98.1 F 02/26/17 12:58 Pulse 60 02/26/17 12:58 Resp BP 191/100 02/26/17 12:58 Pulse Ox GENERAL: Well-developed pleasant male in no acute distress. He ambulates with a cane. HEENT: No scleral icterus. Extraocular movements grossly intact. Moist buccal mucosa. No nasal drainage. Hears conversational speech. NECK: Supple without lymphadenopathy. CHEST: Unlabored respirations with equal bilateral excursions. CARDIOVASCULAR: Irregular rate, irregular rhythm. Distal 2+ pulses. ABDOMEN: Obese, soft, nontender, nondistended. MUSCULOSKELETAL: 2+ pitting edema bilaterally. No clubbing or cyanosis. Left forearm amputation. NEURO: No focal or lateralizing signs. Cranial nerves 2 through 12 grossly within normal limits. PSYCH: Appropriate affect. Alert and oriented to person, place and time. SKIN: Good skin tugor. No diffuse rash. Laboratory Last Values WBC 5.6 k/uL (3.8-10.6) 01/28/17 10:58 RBC 4.19 m/uL (4.30-5.90) L 01/28/17 10:58 Hgb 12.3 gm/dL (13.0-17.5) L 01/28/17 10:58 Hct 38.8 % (39.0-53.0) L 01/28/17 10:58 MCV 92.6 fL (80.0-100.0) 01/28/17 10:58 MCH 29.3 pg (25.0-35.0) 01/28/17 10:58 MCHC 31.6 g/dL (31.0-37.0) 01/28/17 10:58 RDW 13.8 % (11.5-15.5) 01/28/17 10:58 Plt Count 200 k/uL (150-450) 01/28/17 10:58 Hypochromasia Slight 01/28/17 10:58 Sodium 139 mmol/L (137-145) 01/28/17 10:58 Potassium 4.9 mmol/L (3.5-5.1) 01/28/17 10:58 Chloride 104 mmol/L (98-107) 01/28/17 10:58 Carbon Dioxide 28 mmol/L (22-30) 01/28/17 10:58 Anion Gap 7 mmol/L 01/28/17 10:58 BUN 34 mg/dL (9-20) H 01/28/17 10:58 Creatinine 1.16 mg/dL (0.66-1.25) 01/28/17 10:58 Est GFR (MDRD) Af Amer >60 (>60 ml/min/1.73 sqM) 01/28/17 10:58 Est GFR (MDRD) Non-Af >60 (>60 ml/min/1.73 sqM) 01/28/17 10:58 Glucose 118 mg/dL (74-99) H 01/28/17 10:[address] Glu mg/dL 111 01/28/17 10:58 Hemoglobin A1c 5.5 % (4.0-6.0) 01/28/17 10:58 Calcium 9.0 mg/dL (8.4-10.2) 01/28/17 10:58 Iron 56 ug/dL (65-175) L 01/28/17 10:58 TIBC 274 ug/dL (228-460) 01/28/17 10:58 Iron Saturation 20.44 (15.00-50.00) 01/28/17 10:58 Ferritin 156.3 ng/mL (22.0-322.0) 01/28/17 10:58 Total Bilirubin 0.3 mg/dL (0.2-1.3) 01/28/17 10:58 AST 30 U/L (17-59) 01/28/17 10:58 ALT 41 U/L (21-72) 01/28/17 10:58 Alkaline Phosphatase 77 U/L (38-126) 01/28/17 10:58 Total Protein 7.4 g/dL (6.3-8.2) 01/28/17 10:58 Albumin 4.0 g/dL (3.5-5.0) 01/28/17 10:58 Triglycerides 44 mg/dL (<150) 01/28/17 10:58 Cholesterol 136 mg/dL (<200) 01/28/17 10:58 LDL Cholesterol, Calc 63 mg/dL (0-99) 01/28/17 10:58 HDL Cholesterol 64 mg/dL (40-60) H 01/28/17 10:58 Vitamin B1 76 ug/L (38-122) 01/28/17 10:58 Vitamin B12 428.0 pg/mL (200.0-944.0) 01/28/17 10:58 Vitamin D 25-Hydroxy 25.4 ng/mL (30.0-100.0) L 01/28/17 10:58 Folate 18.2 ng/mL 01/28/17 10:58 TSH 1.550 mIU/L (0.465-4.680) 01/28/17 10:58 Final Pathologic Diagnosis GASTRIC ANTRUM, BIOPSY: CHRONIC GASTRITIS. IMMUNOPEROXIDASE STAIN NEGATIVE FOR HELICOBACTER PYLORI ORGANISMS (CONTROLS APPROPRIATE). EGD FINDINGS: Squamocolumnar junction 39 cm from the incisors. Diaphragmatic hiatus at 40 cm. Hiatal hernia 1 cm, sliding type. Hill grade 4 lower esophageal valve. LA grade A erosive esophagitis. No active duodenitis. Active gastritis with recent bleeding. ASSESSMENT: 1. Super morbid obesity. 2. BMI 56.3 up to 58.1. 3. Hypertensive heart disease with cardiomyopathy. 4. Chronic atrial fibrillation. 5. End stage bilateral knee osteoarthritis. 6. Coronary artery disease s/p re-vascularization. 7. Obstructive sleep apnea. 8. Neuropathy. 9. Chronic anticoagulant use. 10. Hyperlipidemia. 11. Family history of morbid obesity. 12. Previous stroke. 13. Previous angina. 14. Hypertensive urgency. 15. Iron deficiency anemia. 16. Anemia due to chronic blood loss. 17. Vitamin D deficiency. PLAN: 1. Recommend omeprazole as protectant as he is taken Xarelto. 2. Labs were reviewed demonstrating deficiency anemia. Recommend start of iron supplement. 3. Also recommend vitamin D supplement daily. 4. He is pending cardiology clearance prior to surgical intervention. 5. For his increased risk, sleeve gastrectomy was also described in detail for which the patient and family agreed. 6. He has hypertensive urgency for which follow-up with editorial project manager has recommended. 7. He has gained weight and recommend evaluation with the dietitian including low carb high-protein diet. Objective - Vital Signs Vital signs: Vital Signs Temp 98.1 F 02/26/17 12:58 Pulse 60 02/26/17 12:58 Resp BP 191/100 02/26/17 12:58 Pulse Ox Intake & Output 02/25/17 02/26/17 02/26/17 18:59 06:59 18:59 Weight 163.339 kg
== END | disposition home or self-care (01) ==
LOC: BARWHC3 10:20
PROVIDERS: ATTEND Surgery Plastic and Reconstructive Surgery
DX: E66.01 Morbid (severe) obesity due to excess calories (principal); I11.0 Hypertensive heart disease with heart failure; I48.2 Chronic atrial fibrillation; M17.0 Bilateral primary osteoarthritis of knee; I25.10 Atherosclerotic heart disease of native coronary artery without angina pectoris; G47.33 Obstructive sleep apnea (adult) (pediatric); G62.9 Polyneuropathy, unspecified; K29.50 Unspecified chronic gastritis without bleeding; G25.81 Restless legs syndrome; E78.5 Hyperlipidemia, unspecified; I25.2 Old myocardial infarction; I42.9 Cardiomyopathy, unspecified; I16.0 Hypertensive urgency; D50.0 Iron deficiency anemia secondary to blood loss (chronic); E55.9 Vitamin D deficiency, unspecified; Z96.653 Presence of artificial knee joint, bilateral; Z68.43 Body mass index [BMI] 50.0-59.9, adult; Z95.1 Presence of aortocoronary bypass graft; Z79.01 Long term (current) use of anticoagulants; Z83.49 Family history of other endocrine, nutritional and metabolic diseases; Z95.0 Presence of cardiac pacemaker; Z79.82 Long term (current) use of aspirin; Z79.899 Other long term (current) drug therapy
CPT/HCPCS: 99211

== ENCOUNTER → 2017-03-08 | Outpatient (CLI) | payer MEDICARE ==
[2017-03-08 15:04] VITALS: BMI 56.2
--- NOTE | 2017-04-05 11:31 | CONS ---
CONSULTATION This is a 71-year-old white male who has been scheduled for bariatric sleeve surgery by Dr. Samantha Lugo to be done on 04/05/2017. The patient was seen in my office for preoperative medical evaluation and clearance on 03/16/2017. PAST MEDICAL HISTORY: The patient has a past medical history of coronary artery disease, hypertensive cardiovascular disease, morbid obesity, degenerative arthritis of multiple joints, hyperlipidemia and chronic atrial fibrillation and the patient has a past history of coronary artery bypass graft, pacemaker for sick sinus syndrome. He also has a history of multiple orthopedic surgeries for degenerative arthritis of multiple joints. He has no known drug allergies. He does not smoke and he does not drink alcohol. FAMILY HISTORY: Strongly positive for heart disease. MEDICATIONS: Current medications include aspirin 81 mg p.o. daily, Lipitor 40 mg p.o. daily, Flomax 0.4 mg daily, ferrous sulfate 325 mg p.o. daily, Lasix of 40 mg p.o. daily, lisinopril 10 mg daily, metoprolol 25 mg b.i.d., Neurontin 300 mg p.o. t.i.d., sublingual nitroglycerin p.r.n., primidone 50 mg t.i.d., Requip 2 mg 1 tablet daily a.m. and 2 tablets daily at bedtime, Valium 10 mg p.o. daily at bedtime p.r.n., Xarelto 20 mg daily. REVIEW OF SYSTEMS: Patient denies any headache. Appetite has been good. Bowels regular. He has no chest pain. He has no cough. He has no abdominal pain. He has no polyuria or dysuria. He has no neurological symptoms other than the restless legs syndrome. PHYSICAL EXAMINATION: Physical examination reveals a 71-year-old white male, morbidly obese. He is alert and oriented. There is no jaundice. There is no generalized lymphadenopathy. There are no petechia or bruises. EXAMINATION OF THE ENT: Negative. NECK: Supple. There is no jugular venous distention. There is no goiter and there is no carotid bruit. HEART: Heart is in regular rhythm. A grade 2/6 systolic murmur heard over the precordium. LUNGS: Shows diminished breath sounds over both bases. ABDOMEN: Soft and nontender. There is no mass palpable. Examination of the lower extremities reveal no pitting edema. Neurologic examination does not reveal any localizing signs. His CBC, CMP, PT and INR unremarkable. IMPRESSION: 1. Morbid obesity, scheduled for bariatric sleeve surgery by Dr. Lugo. 2. Coronary artery disease with past history of myocardial infarction and coronary artery bypass graft and stent placement. 3. Chronic atrial fibrillation. 4. Hypertensive cardiovascular disease. 5. Degenerative arthritis multiple joints. 6. Restless legs syndrome. This patient has been scheduled for sleeve gastrectomy for morbid obesity by Dr. Lugo. Follow. Because of his multiple cardiac problems, the patient was referred to his crisis worker for cardiac clearance for the surgery. Apparently, the patient has moderate to high risk, but there is no absolute contraindication for this surgery. So patient may go for the surgery and the recommendations by the crisis worker will be forwarded to Dr. Lugo and also patient is on Xarelto and aspirin and he was advised to hold the Xarelto for 72 hours prior to surgery as recommended by the crisis worker and also he may hold the aspirin for 4 or 5 days prior to surgery. Thank you for asking me to see this patient in consultation. MMODL / IJN: [id number] /
== END | disposition home or self-care (01) ==
LOC: BARWHC3 08:50
PROVIDERS: ATTEND Surgery Plastic and Reconstructive Surgery
DX: Z48.815 Encounter for surgical aftercare following surgery on the digestive system (principal); E66.01 Morbid (severe) obesity due to excess calories; I25.10 Atherosclerotic heart disease of native coronary artery without angina pectoris; I48.2 Chronic atrial fibrillation; I25.2 Old myocardial infarction; I11.9 Hypertensive heart disease without heart failure; M15.3 Secondary multiple arthritis; M15.9 Polyosteoarthritis, unspecified; G25.81 Restless legs syndrome; Z68.43 Body mass index [BMI] 50.0-59.9, adult; Z79.82 Long term (current) use of aspirin; Z79.899 Other long term (current) drug therapy; Z79.01 Long term (current) use of anticoagulants; Z95.828 Presence of other vascular implants and grafts; Z95.1 Presence of aortocoronary bypass graft; Z98.84 Bariatric surgery status
CPT/HCPCS: 97804

== ENCOUNTER → 2017-03-11 | Outpatient (CLI) | payer MEDICARE ==
[2017-03-11 12:06] LABS: CH 28.8; CHCM 31.8; HCT 37.7 % (39.0-53.0); HDW 2.41; HGB 12.1 gm/dL (13.0-17.5); MCH 29.1 pg (25.0-35.0); MCHC 32.1 g/dL (31.0-37.0); MCV 90.9 fL (80.0-100.0); Mean Platelet Volume 7.1; RBC 4.14 m/uL (4.30-5.90); RDW 13.9 % (11.5-15.5); WBC 5.1 k/uL (3.8-10.6)
[2017-03-11 12:17] LABS: Anion Gap 9 mmol/L; Blood Urea Nitrogen 23 mg/dL (9-20); Calcium 9.1 mg/dL (8.4-10.2); Carbon Dioxide 24 mmol/L (22-30); Chloride 104 mmol/L (98-107); Glucose 103 mg/dL (74-99); Non-African American GFR(MDRD) >60 (>60 ml/min/1.73 sqM); Potassium 4.7 mmol/L (3.5-5.1); Sodium 137 mmol/L (137-145)
[2017-03-11 12:19] LABS: Appearance,Urine Clear (Clear); Bilirubin,Urine Negative (Negative); Glucose,Urine (UA) Negative (Negative); Ketones,Urine Negative (Negative); Leukocyte Esterase,Urine Negative (Negative); Mucus,Urine Rare /hpf; Nitrite,Urine Negative (Negative); PH, Urine 6.5 (5.0-8.0); Particle Count 1355; Protein,Urine Trace (Negative); RBC,Urine 5 /hpf (0-5); Specific Gravity,Urine 1.019 (1.001-1.035); Squamous Epithelial Cell,Urine <1 /hpf (0-4); UA Billing (MACRO vs. MICRO) MICRO; WBC,Urine 1 /hpf (0-5)
[2017-03-11 12:27] LABS: INR 1.3 (<1.2); Prothrombin Time 12.5 sec (9.0-12.0)
== END | disposition home or self-care (01) ==
LOC: LABPAT 11:19
PROVIDERS: ATTEND Internal Medicine
DX: Z01.812 Encounter for preprocedural laboratory examination (principal); Z79.01 Long term (current) use of anticoagulants
CPT/HCPCS: 36415; 80048; 81001; 85027; 85610; 85730

== ENCOUNTER → 2017-04-21 | Outpatient (CLI) | payer MEDICARE ==
[2017-04-21 14:34] VITALS: BP 176/75; PULSE 60; RESP 15; TEMP 97.8; BMI 54.0
--- NOTE | 2017-05-23 18:05 | P.PN ---
Subjective Progress Note Date: 04/21/17 DATE OF SERVICE: 04/21/2017 CHIEF COMPLAINT: Morbid obesity. HISTORY OF PRESENT ILLNESS: Chava Spence is a 71-year-old gentleman with history morbid obesity including hyperlipidemia, hypertensive heart disease, osteoarthritis and sleep apnea. He takes chronic anticoagulant for atrial fibrillation. He has completed dietary classes. His highest weight in the program is 359 pounds. Today he comes in with 25 pound weight loss since his last visit 2 months ago. He weighs 334 pounds. He is evaluating for sleeve gastrectomy. At his height of 5 foot 6, his ideal body weight is 154 pounds. He is 180 pounds overweight. His body mass index is increased to 54.1. PAST MEDICAL HISTORY: 1. Morbid obesity. 2. Atrial fibrillation 3. Hyperlipidemia. 4. Hypertensive cardiomyopathy. 5. Hyperlipidemia. 6. Obstructive uropathy. 7. Neuropathy. 8. Angina. 9. CVA/TIA 10. Myocardial infarction. 11. Pneumonia. 12. Osteoarthritis of the knees. 13. GI Bleed. 14. Restless leg syndrome. PAST SURGICAL HISTORY: 1. CABG x 3 2. Cardiac catheterization 3. Pacemaker, [facility]. 4. Left forearm amputation. 5. Bilateral knee replacement with revision. 6. Colonoscopy with polypectomy. 7. Tonsillectomy. 8. Adenoidectomy. 9. Upper endoscopy. MEDICATIONS: 1. Catarpes. 2. Ropinirole. 3. Lipitor. 4. Aspirin. 5. Gabapentin. 6. Lasix. 7. Metoprolol 8. Lisinopril 9. Xarelto 10. Primidone. 11. Flomax ALLERGIES: Denies. SOCIAL HISTORY: No past tobacco use. FAMILY HISTORY: Pertinent for super morbid obesity. No reports of stomach or esophageal cancers. No reports of GI malignancies. REVIEW OF SYSTEMS: CONSTITUTIONAL: No reports of fevers or chills. At his height of 5 foot 6, his ideal body weight is 154 pounds. He is 180 pounds overweight. His highest personal weight is up to 359 pounds. BMI of 58.1. HEENT: Denies any active troubles with vision or hearing. ENDOCRINE: No reports of hypothyroidism. No reports of blood sugar glucose intolerance. RESPIRATORY: Has obstructive sleep apnea with CPAP machine. CARDIOVASCULAR: History of chest pain. History of hypertensive heart disease. GI: Denies any diarrhea, constipation. Previous GI bleed. MUSCULOSKELETAL: Has diffuse joint pain involving the knees. Previous knee replacements. NEURO: No reports of seizure disorders. No history of headaches. PSYCH: No reports of depression or suicidal ideation. SKIN: No skin cancers. No diffuse rash. HEMATOLOGIC: No family history of DVTs or pulmonary embolism. He is on Xarelto. PHYSICAL EXAM: VITAL SIGNS: 5 feet 6, 334 pounds, body mass index 54.1 Vital Signs Temp 97.8 F 04/21/17 14:29 Pulse 60 04/21/17 14:29 Resp 15 04/21/17 14:29 BP 176/75 04/21/17 14:29 Pulse Ox GENERAL: Well-developed pleasant male in no acute distress. He ambulates with a cane. HEENT: No scleral icterus. Extraocular movements grossly intact. Moist buccal mucosa. No nasal drainage. Hears conversational speech. NECK: Supple without lymphadenopathy. CHEST: Unlabored respirations with equal bilateral excursions. CARDIOVASCULAR: Irregular rate, irregular rhythm. Distal 2+ pulses. ABDOMEN: Obese, soft, nontender, nondistended. MUSCULOSKELETAL: 1+ pitting edema bilaterally. No clubbing or cyanosis. Left forearm amputation. NEURO: No focal or lateralizing signs. Cranial nerves 2 through 12 grossly within normal limits. PSYCH: Appropriate affect. Alert and oriented to person, place and time. SKIN: Good skin tugor. No diffuse rash. ASSESSMENT: 1. Super morbid obesity. 2. BMI 58.1 down to 54.1. 3. Hypertensive heart disease with cardiomyopathy. 4. Chronic atrial fibrillation. 5. End stage bilateral knee osteoarthritis. 6. Coronary artery disease s/p re-vascularization. 7. Obstructive sleep apnea. 8. Neuropathy. 9. Chronic anticoagulant use. 10. Hyperlipidemia. 11. Family history of morbid obesity. 12. Previous stroke. 13. Previous angina. 14. Hypertensive urgency. 15. Iron deficiency anemia. 16. Anemia due to chronic blood loss. 17. Vitamin D deficiency. 18. Chronic anticoagulant use. PLAN: 1. Bariatric options between a sleeve, band and a Meek-en-Y gastric bypass were reviewed in detail. She elected for a Meek-en-Y gastric bypass. Robotic assisted approach described. 2. The [place] [facility] Data was also reviewed with benefits and risks as described. 3. An 8 page second-generation bariatric consent form was reviewed in detail including potential of bleeding, infection, leaks, adequate weight loss, nutritional deficiencies which he demonstrated understanding of the risks. 4. He has completed 2 week high-protein low caloric 800 kcal diet to address hepatomegaly. 5. Preoperative labs including compress metabolic panel and CBC with type and screen. 6. DVT prophylaxis per [place] [facility]. 7. Antibiotic prophylaxis. 8. Inpatient hospitalization anticipated for more than 2 nights. 9. All questions and concerns were addressed with the patient. 10. He is on a blood thinner and recommend discontinuing at least 3 days preprocedure. Objective - Vital Signs Vital signs: Vital Signs Temp 97.8 F 04/21/17 14:29 Pulse 60 04/21/17 14:29 Resp 15 04/21/17 14:29 BP 176/75 04/21/17 14:29 Pulse Ox Intake & Output 04/20/17 04/21/17 04/21/17 18:59 06:59 18:59 Weight 151.908 kg
== END | disposition home or self-care (01) ==
LOC: BARWHC3 13:27
PROVIDERS: ATTEND Surgery Plastic and Reconstructive Surgery
DX: E66.01 Morbid (severe) obesity due to excess calories (principal); E78.5 Hyperlipidemia, unspecified; I11.9 Hypertensive heart disease without heart failure; I48.2 Chronic atrial fibrillation; N13.9 Obstructive and reflux uropathy, unspecified; G62.9 Polyneuropathy, unspecified; I25.2 Old myocardial infarction; J18.9 Pneumonia, unspecified organism; I16.0 Hypertensive urgency; D50.9 Iron deficiency anemia, unspecified; E55.9 Vitamin D deficiency, unspecified; D50.0 Iron deficiency anemia secondary to blood loss (chronic); I42.9 Cardiomyopathy, unspecified; M17.0 Bilateral primary osteoarthritis of knee; I25.10 Atherosclerotic heart disease of native coronary artery without angina pectoris; G47.33 Obstructive sleep apnea (adult) (pediatric); K92.2 Gastrointestinal hemorrhage, unspecified; G25.81 Restless legs syndrome; Z95.1 Presence of aortocoronary bypass graft; Z95.0 Presence of cardiac pacemaker; Z89.212 Acquired absence of left upper limb below elbow; Z86.73 Personal history of transient ischemic attack (TIA), and cerebral infarction without residual deficits; Z96.653 Presence of artificial knee joint, bilateral; Z98.84 Bariatric surgery status; Z79.82 Long term (current) use of aspirin; Z79.899 Other long term (current) drug therapy; Z68.43 Body mass index [BMI] 50.0-59.9, adult; Z79.01 Long term (current) use of anticoagulants; Z83.49 Family history of other endocrine, nutritional and metabolic diseases
CPT/HCPCS: 99211

== ENCOUNTER → 2017-04-21 | Outpatient (CLI) | payer MEDICARE ==
[2017-04-21 16:14] LABS: Basophils # (A) 0.1 k/uL (0-0.2); Basophils % (A) 1 %; Eosinophils # (A) 0.6 k/uL (0-0.7); Eosinophils % (A) 9 %; HCT 39.5 % (39.0-53.0); HGB 13.2 gm/dL (13.0-17.5); Lymphocytes # (A) 1.9 k/uL (1.0-4.8); Lymphocytes % (A) 28 %; MCH 29.2 pg (25.0-35.0); MCHC 33.4 g/dL (31.0-37.0); MCV 87.3 fL (80.0-100.0); Mean Platelet Volume 7.6; Monocytes # (A) 0.4 k/uL (0-1.0); Monocytes % (A) 5 %; Neutrophils # (A) 3.8 k/uL (1.3-7.7); Neutrophils % (A) 56 %; Platelet Count 204 k/uL (150-450); RBC 4.53 m/uL (4.30-5.90); RDW 13.7 % (11.5-15.5); WBC 6.9 k/uL (3.8-10.6)
[2017-04-21 16:27] LABS: ALT 23 U/L (21-72); AST 31 U/L (17-59); Albumin 4.2 g/dL (3.5-5.0); Alkaline Phosphatase 85 U/L (38-126); Anion Gap 12 mmol/L; Blood Urea Nitrogen 42 mg/dL (9-20); Calcium 9.5 mg/dL (8.4-10.2); Carbon Dioxide 22 mmol/L (22-30); Chloride 103 mmol/L (98-107); Glucose 98 mg/dL (74-99); Potassium 4.7 mmol/L (3.5-5.1); Sodium 137 mmol/L (137-145); Total Bilirubin 0.5 mg/dL (0.2-1.3); Total Protein 7.5 g/dL (6.3-8.2)
== END | disposition home or self-care (01) ==
LOC: LABPAT 15:09
PROVIDERS: ATTEND Surgery Plastic and Reconstructive Surgery
DX: Z01.818 Encounter for other preprocedural examination (principal)
CPT/HCPCS: 36415; 80053; 85025; 86850; 86900; 86901

== ENCOUNTER 2017-04-26 06:32 | Inpatient (IN) | payer MEDICARE ==
[2017-04-19 13:48] VITALS: BMI 47.7
[~2017-04-26 06:32] MED LIST changes: +ENOXAPARIN 40 MG/0.4 ML SYRINGE SQ STA; -LACTATED RINGERS 1,000 ML IV SCH; +MIDAZOLAM 2 MG/2 ML VIAL IV PRN; +ceFAZolin 3 GM in SODIUM CHLORIDE 0.9% 100 ML IVPB NR
[2017-04-26] MEDS: ONDANSETRON 4 MG/2 ML VIAL IVP ONE ×2 (07:30→07:40)
[2017-04-26] MEDS: PANTOPRAZOLE 40 MG/10 ML VIAL IV STA ×2 (07:30→07:40)
[2017-04-26] MEDS: LIDOCAINE 1% 20 ML VIAL (10MG/ML) FOR IV START INTRADERMA PRN ×2 (07:30→07:39)
[2017-04-26] MEDS ORDERED: LIDOCAINE 1% 20 ML VIAL (10MG/ML) FOR IV START INTRADERMA ONE ×2 (07:30→07:39)
[2017-04-26] MEDS: DEXAMETHASONE SOD PHOSPHATE 10 MG/ML 1 ML VIAL IV ONE ×2 (07:30→07:40)
[2017-04-26] MEDS: CHLORHEXIDINE GLUCONATE 15 ML CUP MUCOUS MEM ONE ×2 (07:30→07:40)
[2017-04-26] MEDS: LACTATED RINGERS 1,000 ML IV SCH ×2 (07:30→07:38)
[2017-04-26] MEDS: SCOPOLAMINE 1.5MG/72HR PATCH TRANSDERM ONE ×2 (07:30→07:40)
--- NOTE | 2017-04-26 07:38 | P.GSHP ---
History of Present Illness H&P Date: 04/26/17 DATE OF SERVICE: 04/26/2017 CHIEF COMPLAINT: Morbid obesity. HISTORY OF PRESENT ILLNESS: Chava Spence is a 71-year-old gentleman with history of super morbid obesity, body mass index is 56.3. His highest personal weight was 348 pounds as he presents today. He has developed end-stage osteoarthritis of the knees requiring bilateral knee replacements, sleep apnea, hypertensive heart disease with cardiomyopathy as well as resultant cardiac arrhythmia. Upon his last visit, he is evaluating for sleeve gastrectomy. PAST MEDICAL HISTORY: 1. Morbid obesity. 2. Atrial fibrillation 3. Hyperlipidemia. 4. Hypertensive cardiomyopathy. 5. Hyperlipidemia. 6. Obstructive uropathy. 7. Neuropathy. 8. Angina. 9. CVA/TIA 10. Myocardial infarction. 11. Pneumonia. 12. Osteoarthritis of the knees. 13. GI Bleed. 14. Restless leg syndrome. PAST SURGICAL HISTORY: 1. CABG x 3 2. Cardiac catheterization 3. Pacemaker, St. Ed. 4. Left forearm amputation. 5. Bilateral knee replacement with revision. 6. Colonoscopy with polypectomy. 7. Tonsillectomy. 8. Adenoidectomy. 9. Upper endoscopy. MEDICATIONS: 1. Catarpes. 2. Ropinirole. 3. Lipitor. 4. Aspirin. 5. Gabapentin. 6. Lasix. 7. Metoprolol 8. Lisinopril 9. Xarelto 10. Primidone. 11. Flomax ALLERGIES: Denies. SOCIAL HISTORY: No past tobacco use. FAMILY HISTORY: Pertinent for super morbid obesity. No reports of stomach or esophageal cancers. No reports of GI malignancies. REVIEW OF SYSTEMS: CONSTITUTIONAL: No reports of fevers or chills. At his height of 5 foot 6, his ideal body weight is 154 pounds. He is 205 pounds overweight. His highest personal weight is up to 359 pounds. BMI of 58.1. HEENT: Denies any active troubles with vision or hearing. ENDOCRINE: No reports of hypothyroidism. No reports of blood sugar glucose intolerance. RESPIRATORY: Has obstructive sleep apnea with CPAP machine. CARDIOVASCULAR: History of chest pain. History of hypertensive heart disease. GI: Denies any diarrhea, constipation. Previous GI bleed. MUSCULOSKELETAL: Has diffuse joint pain involving the knees. Previous knee replacements. NEURO: No reports of seizure disorders. No history of headaches. PSYCH: No reports of depression or suicidal ideation. SKIN: No skin cancers. No diffuse rash. HEMATOLOGIC: No family history of DVTs or pulmonary embolism. He is on Xarelto. PHYSICAL EXAM: VITAL SIGNS: 5 feet 6, 359 pounds, body mass index 58.1 GENERAL: Well-developed pleasant male in no acute distress. He ambulates with a cane. HEENT: No scleral icterus. Extraocular movements grossly intact. Moist buccal mucosa. No nasal drainage. Hears conversational speech. NECK: Supple without lymphadenopathy. CHEST: Unlabored respirations with equal bilateral excursions. CARDIOVASCULAR: Irregular rate, irregular rhythm. Distal 2+ pulses. ABDOMEN: Obese, soft, nontender, nondistended. MUSCULOSKELETAL: 2+ pitting edema bilaterally. No clubbing or cyanosis. Left forearm amputation. NEURO: No focal or lateralizing signs. Cranial nerves 2 through 12 grossly within normal limits. PSYCH: Appropriate affect. Alert and oriented to person, place and time. SKIN: Good skin tugor. No diffuse rash. ASSESSMENT: 1. Super morbid obesity. 2. BMI 56.3 up to 58.1. 3. Hypertensive heart disease with cardiomyopathy. 4. Chronic atrial fibrillation. 5. End stage bilateral knee osteoarthritis. 6. Coronary artery disease s/p re-vascularization. 7. Obstructive sleep apnea. 8. Neuropathy. 9. Chronic anticoagulant use. 10. Hyperlipidemia. 11. Family history of morbid obesity. 12. Previous stroke. 13. Previous angina. 14. Hypertensive urgency. 15. Iron deficiency anemia. 16. Anemia due to chronic blood loss. 17. Vitamin D deficiency. PLAN: 1. He has agreed to proceed with a robotic-assisted sleeve gastrectomy. 2. Inpatient hospitalization more than 2 nights. 3. DVT prophylaxis. 4. Antibody prophylaxis. Past Medical History Past Medical History: Coronary Artery Disease (CAD), CVA/TIA, Hyperlipidemia, Hypertension, Myocardial Infarction (CO), Sleep Apnea/CPAP/BIPAP Additional Past Medical History / Comment(s): Restless Leg Syndrome. MILD STROKE 08/19/15-no effects, HAS PROSTHESIS on left hand. CO X2, Last Myocardial Infarction Date:: 2014 History of Any Multi-Drug Resistant Organisms: None Reported Past Surgical History: Adenoidectomy, Coronary Bypass/CABG, Heart Catheterization With Stent, Joint Replacement, Orthopedic Surgery, Pacemaker, Tonsillectomy Additional Past Surgical History / Comment(s): STENTS X 3. [place] Knee replacements/later revision of left knee. 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, TRIPLE CABG 06/06/15, Past Anesthesia/Blood Transfusion Reactions: No Reported Reaction Additional Past Anesthesia/Blood Transfusion Reaction / Comment(s): claustrophobia Date of Last Stent Placement:: 2004 Type of Cardiac Device: Permanent Pacemaker Device Placement Date:: 2005-St Ed Past Psychological History: No Psychological Hx Reported Additional Psychological History / Comment(s): claustrophobia Smoking Status: Never smoker Past Alcohol Use History: None Reported Past Drug Use History: None Reported - Past Family History Father Family Medical History: Cancer Additional Family Medical History / Comment(s): bone cancer Mother Family Medical History: Myocardial Infarction ([place]) Additional Family Medical History / Comment(s): at age 80 Medications and Allergies Home Medications Medication Instructions Recorded Confirmed Type Aspirin [Adult Low Dose Aspirin EC] 81 mg PO DAILY 01/09/15 04/21/17 History Gabapentin 300 mg PO TID 01/09/15 04/21/17 History Primidone [Mysoline] 50 mg PO TID 01/09/15 04/21/17 History Tamsulosin [Flomax] 0.4 mg PO HS 01/09/15 04/21/17 History rOPINIRole HCL [Ropinirole HCl] 2 mg PO QAM 01/09/15 04/21/17 History rOPINIRole HCL [Ropinirole HCl] 4 mg PO HS 01/09/15 04/21/17 History Atorvastatin [Lipitor] 40 mg PO HS 09/20/15 04/21/17 History Lisinopril [Lisinopril] 5 mg PO HS 01/09/16 04/21/17 History Lisinopril [Lisinopril] 10 mg PO QAM 01/09/16 04/21/17 History Rivaroxaban [Xarelto] 20 mg PO W/SUPPER 01/09/16 04/21/17 History Furosemide [Lasix] 20 mg PO DAILY 01/28/17 04/21/17 History cloNIDine HCL [Catapres] 0.2 mg PO BID 01/28/17 04/21/17 History Ferrous Sulfate [Feosol] 325 mg PO DAILY 02/28/17 04/21/17 History Cholecalciferol (Vitamin D3) 10,000 unit PO DAILY 04/19/17 04/21/17 History [Vitamin D3] Metoprolol Tartrate [Lopressor] 25 mg PO BID 04/19/17 04/21/17 History Omeprazole [PriLOSEC] 40 mg PO 1200 04/19/17 04/21/17 History Allergies Allergy/AdvReac Type Severity Reaction Status Date / Time No Known Allergies Allergy Verified 04/26/17 06:51
[2017-04-26] MEDS ORDERED: LIDOCAINE 1% INJ 10MG/ML (20 ML MDV) ONE (07:40)
[2017-04-26] MEDS ORDERED: GLYCOPYRROLATE 0.2 MG/ML 2 ML VIAL ONE (07:40)
[2017-04-26] MEDS ORDERED: SUCCINYLCHOLINE CHLORIDE 100 MG/5 ML SYR IV ONE (07:40)
[2017-04-26] MEDS ORDERED: MIDAZOLAM 2 MG/2 ML VIAL ONE (07:40)
[2017-04-26] MEDS ORDERED: ROCURONIUM BROMIDE 10 MG/ML 10 ML VIAL IV ONE (07:40)
[2017-04-26] MEDS ORDERED: PROPOFOL 10 MG/ML 20 ML VIAL IV ONE (07:40)
[2017-04-26] MEDS ORDERED: PHENYLEPHRINE-0.9% NACL SYG 1 MG/10 ML SYRINGE ONE (07:40)
[2017-04-26] MEDS ORDERED: NEOSTIGMINE 1 MG/ML 10 ML VIAL ONE (07:40)
[2017-04-26] MEDS ORDERED: fentaNYL (PF) 50 MCG/ML 2 ML AMP ONE (07:40)
[2017-04-26] MEDS ORDERED: BUPIVACAINE (PF) 0.25% 30 ML VIAL SQ ONE (08:13)
[2017-04-26] MEDS ORDERED: LACTATED RINGERS 1,000 ML IV ONE (09:55)
--- NOTE | 2017-04-26 10:53 | P.PCN ---
Date of Procedure: 04/26/17 Preoperative Diagnosis: morbid obesity Postoperative Diagnosis: morbid obesity Procedure(s) Performed: robotic-assisted sleeve gastrectomy, 40-[place] bougie, intraoperative EGD Anesthesia: GETA, local Surgeon: Samantha Lugo Estimated Blood Loss (ml): 20 Pathology: other (leeve gastrectomy) Condition: stable Disposition: floor Operative Findings: Thoracic length 22 cm, 9 [place], 2 greens negative leak test, no hepatomegaly
[2017-04-26] MEDS: HYDROmorphone 0.5 MG/0.5 ML SYRINGE IVP PRN ×4 (10:56→11:47)
[2017-04-26] MEDS ORDERED: NALOXONE 0.4 MG/ML 1 ML VIAL IV PRN (11:02)
[2017-04-26] MEDS ORDERED: diphenhydrAMINE 50 MG/ML 1 ML VIAL IVP PRN (11:02)
[2017-04-26] MEDS: MAGNESIUM SULFATE-D5W PMX 1 GM in DEXTROSE/WATER 1 100ML.BAG IVPB SCH ×2 (13:45→15:07)
[2017-04-26] MEDS: SIMETHICONE 40 MG/0.6 ML DROPS 2,000 MG/30 ML BOTTLE PO SCH ×3 (13:46→23:36)
[2017-04-26] MEDS: HYOSCYAMINE ORAL DROPS 1.875 MG/15 ML BOTTLE PO SCH ×3 (13:47→23:37)
[2017-04-26] MEDS: ALBUTEROL NEBULIZED 2.5 MG/3 ML INHALATION SCH ×3 (14:05→19:37)
[2017-04-26] MEDS: PRIMIDONE 50 MG TAB PO SCH ×2 (15:13→23:36)
[2017-04-26] MEDS: HYDROmorphone 4 MG/ML 1 ML SYRINGE IVP PRN ×2 (16:57→20:42)
[2017-04-26] MEDS: SODIUM FERRIC GLUCONAT-SUCROSE 125 MG in SODIUM CHLORIDE 0.9% 100 ML IVPB SCH (19:33)
[2017-04-26] MEDS: TAMSULOSIN 0.4 MG CAP.ER.24H PO SCH (20:43)
[2017-04-26] MEDS: cloNIDine HCL 0.2 MG TAB PO SCH (20:43)
[2017-04-26] MEDS: rOPINIRole HCL 4 MG TABLET PO SCH (20:43)
[2017-04-26] MEDS: METOPROLOL TARTRATE 25 MG TAB PO SCH (20:43)
[2017-04-26] MEDS: LISINOPRIL 5 MG TAB PO SCH (20:43)
[2017-04-27] MEDS: HYDROcodone/APAP 15 ML SOLUTION PO PRN ×3 (04:56→16:26)
[2017-04-27] MEDS: SIMETHICONE 40 MG/0.6 ML DROPS 2,000 MG/30 ML BOTTLE PO SCH ×3 (05:31→18:37)
[2017-04-27] MEDS: HYOSCYAMINE ORAL DROPS 1.875 MG/15 ML BOTTLE PO SCH ×3 (05:31→18:35)
[2017-04-27 07:04] LABS: Basophils % (A) 0 %; Eosinophils # (A) 0.1 k/uL (0-0.7); Eosinophils % (A) 1 %; HCT 36.5 % (39.0-53.0); HGB 11.7 gm/dL (13.0-17.5); Lymphocytes # (A) 1.4 k/uL (1.0-4.8); Lymphocytes % (A) 19 %; MCH 29.4 pg (25.0-35.0); MCHC 32.1 g/dL (31.0-37.0); MCV 91.8 fL (80.0-100.0); Mean Platelet Volume 7.1; Monocytes # (A) 0.4 k/uL (0-1.0); Monocytes % (A) 6 %; Neutrophils # (A) 5.7 k/uL (1.3-7.7); Neutrophils % (A) 73 %; Platelet Count 192 k/uL (150-450); RBC 3.97 m/uL (4.30-5.90); WBC 7.8 k/uL (3.8-10.6)
[2017-04-27 07:21] LABS: Anion Gap 6 mmol/L; Blood Urea Nitrogen 35 mg/dL (9-20); Calcium 8.7 mg/dL (8.4-10.2); Carbon Dioxide 27 mmol/L (22-30); Chloride 103 mmol/L (98-107); Magnesium 2.3 mg/dL (1.6-2.3); Phosphorus 3.8 mg/dL (2.5-4.5); Potassium 4.8 mmol/L (3.5-5.1); Sodium 136 mmol/L (137-145)
[2017-04-27 08:00] VITALS: RESP 16
[2017-04-27] MEDS: HYDROmorphone 4 MG/ML 1 ML SYRINGE IVP PRN ×2 (08:03→18:34)
[2017-04-27] MEDS: ALBUTEROL NEBULIZED 2.5 MG/3 ML INHALATION SCH ×4 (09:12→20:10)
[2017-04-27] MEDS: 1: MVI, ADULT NO.4 WITH VIT K 10 ML, THIAMINE 100 MG, FOLIC ACID 1 MG, POTASSIUM CHLORID IV SCH ×12 (09:47→21:37)
[2017-04-27] MEDS: FUROSEMIDE 20 MG TAB PO SCH (09:47)
[2017-04-27] MEDS: LISINOPRIL 10 MG TAB PO SCH (09:48)
[2017-04-27] MEDS: METOPROLOL TARTRATE 25 MG TAB PO SCH ×2 (09:48→21:36)
[2017-04-27] MEDS: cloNIDine HCL 0.2 MG TAB PO SCH ×2 (09:48→21:37)
[2017-04-27] MEDS: PANTOPRAZOLE 40 MG/10 ML VIAL IV SCH (09:48)
[2017-04-27] MEDS: PRIMIDONE 50 MG TAB PO SCH ×3 (09:48→21:37)
[2017-04-27] MEDS: ENOXAPARIN 40 MG/0.4 ML SYRINGE SQ SCH (09:48)
--- NOTE | 2017-04-27 11:59 | P.PN ---
Subjective Progress Note Date: 04/27/17 71-year-old male seen and examined. Physical therapy ambulating patient in the hallway this morning pulse ox sat on room air with activity 98% area heart rate in the 70s. States pain medication effective for pain control no nausea no vomiting surgical incision sites no redness noted Patient is postop april robotic-assisted sleeve gastrectomy, interoperative EGD for morbid obesity BMI 47 labs reviewed all within normal limits Objective - Vital Signs Vital signs: Vital Signs Temp 97.8 F 04/27/17 07:58 Pulse 60 04/27/17 07:58 Resp 16 04/27/17 07:58 BP 144/79 04/27/17 07:58 Pulse Ox 93 L 04/27/17 09:15 Intake & Output 04/26/17 04/27/17 04/27/17 18:59 06:59 18:59 Intake Total 1650 1690 Output Total 350 300 350 Balance 1300 1390 -350 Weight 151.046 kg Intake: IV 1650 Intake, IV Titration 1000 Amount Lactated Ringers 1,000 ml 1000 As IV .HeadMix ONE Rx#: [id number] Oral 690 Output: Urine 330 300 350 Estimated Blood Loss 20 Other: Voiding Method Urinal # Voids 1 1 1 - Exam Physical exam Pleasant 71-year-old gentleman oriented 3 cooperative Lungs adequate air movement bilaterally on room air sats are 98% no cough noted Heart S1-S2 audible regular no murmur noted denying chest pain Abdomen obese soft surgical tenderness appropriate surgical incision sites dressings dry no redness nondistended Extremities chronic venous stasis to the lower extremities left forearm amputation - Labs CBC & Chem 7: 04/27/17 06:38 04/27/17 06:38 Labs: Abnormal Lab Results - Last 24 Hours (Table) 04/27/17 04/27/17 Range/Units 06:38 06:38 RBC 3.97 L (4.30-5.90) m/uL Hgb 11.7 L (13.0-17.5) gm/dL Hct 36.5 L (39.0-53.0) % Sodium 136 L (137-145) mmol/L BUN 35 H (9-20) mg/dL Assessment and Plan Assessment: Impression Super Morbid obesity BMI 47 due to excessive calorie Hyperlipidemia Osteoarthritis bilateral knees Left forearm amputation Known coronary artery disease with prior coronary artery bypass grafting Sick sinus syndrome with a St. Ed pacemaker Family history of morbid obesity BMI 56 up from 47 Vitamin D deficiency Iron deficiency anemia Chronic anticoagulation use History of chronic atrial fibrillation on Xarelto Plan Continue postop bariatric surgical care PT OT eval Resume home meds as appropriate DVT and GI prophylaxis Pain control The above impression and plan of care have been discussed and directed by signing physician. Gosia Costa nurse practitioner acting as scribe for signing physician.
[2017-04-27 13:44] LABS: HCT 36.8 % (39.0-53.0); HGB 11.8 gm/dL (13.0-17.5); MCH 29.7 pg (25.0-35.0); MCHC 32.2 g/dL (31.0-37.0); MCV 92.4 fL (80.0-100.0); Mean Platelet Volume 6.6; Platelet Count 210 k/uL (150-450); RBC 3.98 m/uL (4.30-5.90); WBC 8.6 k/uL (3.8-10.6)
[2017-04-27] MEDS: SODIUM FERRIC GLUCONAT-SUCROSE 125 MG in SODIUM CHLORIDE 0.9% 100 ML IVPB SCH (18:43)
[2017-04-27] MEDS: rOPINIRole HCL 4 MG TABLET PO SCH (21:37)
[2017-04-27] MEDS: TAMSULOSIN 0.4 MG CAP.ER.24H PO SCH (21:37)
[2017-04-27] MEDS: LISINOPRIL 5 MG TAB PO SCH (21:37)
[2017-04-28] MEDS: HYDROcodone/APAP 15 ML SOLUTION PO PRN ×3 (00:55→11:34)
[2017-04-28] MEDS: HYOSCYAMINE ORAL DROPS 1.875 MG/15 ML BOTTLE PO SCH ×4 (00:56→11:36)
[2017-04-28] MEDS: SIMETHICONE 40 MG/0.6 ML DROPS 2,000 MG/30 ML BOTTLE PO SCH ×3 (00:56→11:35)
[2017-04-28] MEDS: 1: MVI, ADULT NO.4 WITH VIT K 10 ML, THIAMINE 100 MG, FOLIC ACID 1 MG, POTASSIUM CHLORID IV SCH ×6 (05:07)
[2017-04-28 07:09] VITALS: BP 118/62; TEMP 97.9
[2017-04-28] MEDS: ALBUTEROL NEBULIZED 2.5 MG/3 ML INHALATION SCH ×2 (08:00→11:44)
[2017-04-28 08:18] VITALS: PULSE 80
[2017-04-28] MEDS: ENOXAPARIN 40 MG/0.4 ML SYRINGE SQ SCH (09:04)
[2017-04-28] MEDS: METOPROLOL TARTRATE 25 MG TAB PO SCH (09:10)
[2017-04-28] MEDS: FUROSEMIDE 20 MG TAB PO SCH (09:10)
[2017-04-28] MEDS: cloNIDine HCL 0.2 MG TAB PO SCH (09:10)
[2017-04-28] MEDS: PRIMIDONE 50 MG TAB PO SCH (09:11)
[2017-04-28] MEDS: LISINOPRIL 10 MG TAB PO SCH (09:11)
[2017-04-28] MEDS: PANTOPRAZOLE 40 MG/10 ML VIAL IV SCH (09:11)
--- NOTE | 2017-04-28 10:29 | P.DS ---
Providers Date of admission: 04/26/17 06:32 Expected date of discharge: 04/28/17 Attending physician: Samantha Lugo Primary care physician: Stated None Hospital Course: 71-year-old male with a history of super morbid obesity with a BMI 56 developed end-stage osteoarthritis of the knees requiring bilateral knee replacement presented to undergo a robotic-assisted sleeve gastrectomy for morbid obesity.. There were no postop events. Patient was started on Lovenox postop. Patient does have a history of chronic atrial fibrillation on Xarelto outpatient. The decision was to hold his Xarelto this would be re-resumed in the outpatient setting by Dr. lugo patient was given instructions on how to give Lovenox subcu injections. Patient verbalized an understanding patient was seen by physical and occupational therapy able to ambulate in the hallway with the use of a cane . Tolerating the bariatric clear diet surgical incision sites the day of discharge were benign no redness. Abdomen was soft no nausea no vomiting. Patient was felt to be hemodynamically stable and appropriate proceed with a discharge to home Impression discharge diagnosis Super Morbid obesity BMI 47 due to excessive calorie Hyperlipidemia Osteoarthritis bilateral knees Left forearm amputation Known coronary artery disease with prior coronary artery bypass grafting Sick sinus syndrome with a St. Ed pacemaker Family history of morbid obesity BMI 56 up from 47 Vitamin D deficiency Iron deficiency anemia Chronic anticoagulation use History of chronic atrial fibrillation on Xarelto postop april robotic-assisted sleeve gastrectomy, interoperative EGD for morbid obesity BMI 47 The above impression and plan of care have been discussed and directed by signing physician. Gosia Costa nurse practitioner acting as scribe for signing physician. Plan - Discharge Summary Discharge Rx Participant: Yes New Discharge Prescriptions: New Enoxaparin [Lovenox] 40 mg SQ Q12H #5 syringe HYDROcodone/APAP [[place] Elixir 7.5-325Mg/15Ml] 15 ml PO Q6H PRN #300 solution PRN Reason: Pain Bisacodyl [Dulcolax] 5 mg PO DAILY PRN #10 tablet. PRN Reason: Constipation Ondansetron Odt [Zofran Odt] 4 mg PO Q8HR PRN #9 tab PRN Reason: Nausea Simethicone 40 mg/0.6 ml Drops [Mylicon Drops] 40 mg PO PCHS PRN #30 ml PRN Reason: Gas Continue Tamsulosin [Flomax] 0.4 mg PO HS Gabapentin 300 mg PO TID Primidone [Mysoline] 50 mg PO TID Lisinopril 5 mg PO HS Furosemide [Lasix] 20 mg PO DAILY Metoprolol Tartrate [Lopressor] 25 mg PO BID cloNIDine HCL [Catapres] 0.2 mg PO BID Lisinopril [Zestril] 10 mg PO DAILY rOPINIRole HCL [Requip] 4 mg PO HS rOPINIRole HCL [Requip] 2 mg PO DAILY Discontinued Aspirin [Adult Low Dose Aspirin EC] 81 mg PO DAILY Atorvastatin [Lipitor] 40 mg PO HS Rivaroxaban [Xarelto] 20 mg PO W/SUPPER Ferrous Sulfate [Feosol] 325 mg PO DAILY Cholecalciferol (Vitamin D3) [Vitamin D3] 10,000 unit PO DAILY No Action Omeprazole [PriLOSEC] 40 mg PO DAILY@1200 Discharge Medication List Gabapentin 300 mg PO TID 01/09/15 [History] Primidone [Mysoline] 50 mg PO TID 01/09/15 [History] Tamsulosin [Flomax] 0.4 mg PO HS 01/09/15 [History] Lisinopril 5 mg PO HS 01/09/16 [History] Furosemide [Lasix] 20 mg PO DAILY 01/28/17 [History] Metoprolol Tartrate [Lopressor] 25 mg PO BID 04/19/17 [History] Omeprazole [PriLOSEC] 40 mg PO DAILY@1200 04/19/17 [History] Lisinopril [Zestril] 10 mg PO DAILY 04/26/17 [History] cloNIDine HCL [Catapres] 0.2 mg PO BID 04/26/17 [History] rOPINIRole HCL [Requip] 2 mg PO DAILY 04/26/17 [History] rOPINIRole HCL [Requip] 4 mg PO HS 04/26/17 [History] Bisacodyl [Dulcolax] 5 mg PO DAILY PRN #10 tablet. 04/27/17 [Rx] Enoxaparin [Lovenox] 40 mg SQ Q12H #5 syringe 04/27/17 [Rx] HYDROcodone/APAP [[place] Elixir 7.5-325Mg/15Ml] 15 ml PO Q6H PRN #300 solution [Rx] Ondansetron Odt [Zofran Odt] 4 mg PO Q8HR PRN #9 tab 04/27/17 [Rx] Simethicone 40 mg/0.6 ml Drops [Mylicon Drops] 40 mg PO PCHS PRN #30 ml [Rx] Follow up Appointment(s)/Referral(s): [facility], [NON-STAFF] - Bariat[facility] Center,. [NON-STAFF] - 04/29/17 9:00 am (Call to confirm time) Patient Instructions/Handouts: Nutrition after Bariatric Surgery (GEN), Bowel Management After Bariatric Surgery (DC), Laparoscopic Sleeve Gastrectomy (DC) Activity/Diet/Wound Care/Special Instructions: No lifting over 4 pounds in 4 weeks. May shower. No bathtub soaks. Discharge Disposition: HOME WITH HOME HEALTH SERVICES
--- NOTE | 2017-05-19 22:57 | P.OP ---
Date of Procedure: 04/26/17 Description of Procedure: SURGEON: BRENDA MAHONEY MD DIAMOND EXPERT: 1. Zuly Taylor. PREOPERATIVE DIAGNOSES: 1. Super morbid obesity. 2. BMI 56.3 up to 58.1. 3. Hypertensive heart disease with cardiomyopathy. 4. Chronic atrial fibrillation. 5. End stage bilateral knee osteoarthritis. 6. Coronary artery disease s/p re-vascularization. 7. Obstructive sleep apnea. 8. Neuropathy. 9. Chronic anticoagulant use. 10. Hyperlipidemia. 11. Family history of morbid obesity. 12. Previous stroke. 13. Previous angina. 14. Hypertensive urgency. 15. Iron deficiency anemia. 16. Anemia due to chronic blood loss. 17. Vitamin D deficiency. POSTOPERATIVE DIAGNOSES: 1. Super morbid obesity. 2. BMI 56.3 up to 58.1. 3. Hypertensive heart disease with cardiomyopathy. 4. Chronic atrial fibrillation. 5. End stage bilateral knee osteoarthritis. 6. Coronary artery disease s/p re-vascularization. 7. Obstructive sleep apnea. 8. Neuropathy. 9. Chronic anticoagulant use. 10. Hyperlipidemia. 11. Family history of morbid obesity. 12. Previous stroke. 13. Previous angina. 14. Hypertensive urgency. 15. Iron deficiency anemia. 16. Anemia due to chronic blood loss. 17. Vitamin D deficiency. OPERATION: 1. Robotic assisted daVinci Xi laparoscopic sleeve gastrectomy with 40-Korean bougie, multiport. 2. Intraoperative esophagogastroduodenoscopy. ANESTHESIA: GETA, local ESTIMATED BLOOD LOSS: 20 mL SPECIMENS REMOVED: Sleeve gastrectomy COMPLICATIONS: None. Condition: stable Disposition: floor INDICATIONS: The patient is a 71-year-old male who comes in for evaluation in the bariatric program. At height of 5 feet 6 inches, he came in weighing 359 pounds. His ideal body weight is 154 pounds. Today he comes in weighing 332 pounds. He is 178 pounds overweight. He comes in for evaluation for sleeve gastrectomy. He did complete an upper endoscopy with findings consistent with gastritis. No moderate gastroesophageal reflux disease was identified at the time of his evaluation. Separately, he reports lifelong history of troubles with his weight. Now he presents for further evaluation and management. He has developed hypertension, obstructive sleep apnea including bilateral knee pain, hip pain, and back pain from osteoarthritis. He is evaluating for a sleeve gastrectomy. All surgical options for morbid obesity had been described using the [place] bariatric surgery collaborative comorbidity resolution including complication risk score. A second-generation bariatric consent form was described in detail including the possibility of protein malnutrition, leaks, gastrojejunal stricture, venous thrombosis, gastroesophageal reflux disease, need for further surgery for which she demonstrated understanding. Benefits and risks of the procedure were described at length. Informed consent was obtained. DESCRIPTION: The patient was brought into the operating room theater. He was placed on a split leg table. Preoperatively he had received Lovenox subcutaneously for DVT prophylaxis. Additionally he had undergone Peridex oral solution as an oral decontaminant. After general induction, the abdomen was prepped and draped in standard sterile fashion. The patient had previously voided prior to coming to the operating room. An [place] draping was placed along the abdomen. A robotic da Peyman Xi system was prepped and primed. At 15 cm from the xiphoid, proposed port sites were marked with indelible marker along the anterior axillary line bilaterally, mid axillary line bilaterally with each ports were marked 10 to 15 cm from each other. The administrative sales assistant port was marked along the left lateral abdominal wall. The robotic stapler port was marked for the right midclavicular line. A 5 mm 0 degrees laparoscopic trocar entry was performed along the left upper quadrant. The abdomen was insufflated to 15 mmHg pressure he tolerated well. Diagnostic laparoscopy demonstrated no injury to bowel, viscera, or mesentery. The liver surface was unremarkable. The liver edge was sharp consistent with high protein and low carb diet. No injury had occurred to the small bowel or viscera. Along the hiatus no evidence of large prominent hiatal hernia was encountered. Two 8 mm port was placed along the left upper abdominal wall after exchanging the 5 mm port. Please note that the ports were placed at least 20 cm away from the target anatomy. Care was taken to check each robotic arms were safely away from collision with the bed or the patient. At the epigastrium, a medium sized Wisam liver retractor was placed under direct visualization with the Iron Blueprint Assembler placed over the right shoulder of the patient. All robotic arms were used. Next, 12-mm robot stapler port was placed along the epigastrium. The camera 8- mm port was maintained along left upper quadrant. The patient was repositioned in reverse Trendelenburg position at 14-degrees after lowering the bed. The robot was docked along the left side of the patient. Using a grasper for arm 3, a vessel sealer for arm 2, including grasper for arm 1, the robotic system was docked and primed as described. Instruments were interchanged by the administrative sales assistant for stapler loads. The camera was placed at 30- degrees down. I had sat at the console. The pylorus was identified and 6 cm proximally along the greater curvature of the stomach, the short gastrics were mobilized towards to the angle of His using a vessel sealer. Hemostasis was excellent during this portion of the procedure. Next, the upper pole of the stomach was adherent to the left brandon, which was gently dissected free using atraumatic grasper. Moderate redundancy of the posterior upper pole of the stomach was identified. The nursing color blender placed a 40-Korean blunted bougie into the stomach. Robotic stapler green 45-mm loads followed by blue 45 mm loads were used to create the sleeve. Initial firing was across the antrum of the stomach towards the angle of His. The staple line was completely hemostatic and linear without corkscrewing. Hemostasis was excellent. The space from the angularis incisura of the sleeve was approximately 4 cm. I then went to the head of the bed to perform the intraoperative esophagogastroduodenoscopy leak test. The upper pole of the stomach was bathed using normal saline solution. The scope was withdrawn with careful inspection along the staple line for which no leaks were found along the entire length. Additionally, the sleeve was completely hemostatic without any encroachment along the angularis incisura. Its topology was a straight tube. No stricture was encountered upon placement of the scope. The GI tract was desufflated. The patient tolerated this portion of the procedure well. The scope was completely withdrawn. The robot was undocked. I then rescrubbed into case, whereby the irrigation fluid was aspirated from the abdominal cavity. Tisseel fibrin sealant was placed along the entire staple length. Once dried the Wisam liver retractor was removed. Attention was now brought to removal of the specimen. The distal end of the sleeve gastrectomy specimen was brought out through the 12 mm port. The specimen was gently removed en total sleeve gastrectomy specimen. No contamination had occurred during this process. All instruments and pneumoperitoneum including irrigation fluid was removed from the abdominal cavity. The 12 mm port site was irrigated with warm normal saline solution and diluted hydron peroxide. The 12-mm port site was reapproximated using 0 Vicryl and Sánchez-Laisha. The final incisions were closed using subcuticular running suture of 4-0 Monocryl. Dermabond was applied to the skin once the skin had been cleansed. OptiFoam dressing was placed along the stomach extraction site. At the end of the procedure, needle, sponge, and instrument count was verified correct by the reproduction technician. The patient was taken to the postanesthesia care unit in stable condition. He had tolerated the procedure well. Intraoperative films and findings were reviewed with the patient's family. FINDINGS: 1. Negative intraoperative esophagogastrojejunoscopy leak test. 2. No hepatomegaly or hiatus hernia. 3. Total of 9 staplers used including 2 - 45 mm green robot varsha and 7 - 45 mm blue robot loads used to create the gastric sleeve. 4. Xiphoid to umbilicus of 22 cm. 5. Moderate redundant upper posterior pole of the stomach.
== END 2017-04-28 12:20 | disposition home health service (06) | DRG 621 ==
LOC: 2ORWHC 06:32 → 3SUR 10:36
PROVIDERS: ADMIT Surgery Plastic and Reconstructive Surgery; ATTEND Surgery Plastic and Reconstructive Surgery
PROC: 8E0W4CZ Robotic Assisted Procedure of Trunk Region, Percutaneous Endoscopic Approach (ICD-10-PCS; 2017-04-26)
PROC: 0DJ08ZZ Inspection of Upper Intestinal Tract, Via Natural or Artificial Opening Endoscopic (ICD-10-PCS; 2017-04-26)
PROC: 0DB64Z3 Excision of Stomach, Percutaneous Endoscopic Approach, Vertical (ICD-10-PCS; principal; 2017-04-26 07:30)
DX: E66.01 Morbid (severe) obesity due to excess calories (principal); G62.9 Polyneuropathy, unspecified; I48.2 Chronic atrial fibrillation; D50.0 Iron deficiency anemia secondary to blood loss (chronic); I49.5 Sick sinus syndrome; E55.9 Vitamin D deficiency, unspecified; E78.5 Hyperlipidemia, unspecified; Z68.43 Body mass index [BMI] 50.0-59.9, adult; G25.81 Restless legs syndrome; F40.240 Claustrophobia; K29.70 Gastritis, unspecified, without bleeding; M47.9 Spondylosis, unspecified; M15.9 Polyosteoarthritis, unspecified; G47.33 Obstructive sleep apnea (adult) (pediatric); I11.9 Hypertensive heart disease without heart failure; I16.0 Hypertensive urgency; I25.10 Atherosclerotic heart disease of native coronary artery without angina pectoris; I25.2 Old myocardial infarction; K21.9 Gastro-esophageal reflux disease without esophagitis; Z79.01 Long term (current) use of anticoagulants; Z79.82 Long term (current) use of aspirin; Z79.899 Other long term (current) drug therapy; Z86.73 Personal history of transient ischemic attack (TIA), and cerebral infarction without residual deficits; Z95.1 Presence of aortocoronary bypass graft; Z96.653 Presence of artificial knee joint, bilateral; Z95.5 Presence of coronary angioplasty implant and graft; Z95.0 Presence of cardiac pacemaker; Z82.49 Family history of ischemic heart disease and other diseases of the circulatory system
CPT/HCPCS: 80051; 82310; 82565; 83735; 84100; 84520; 85025; 85027; 86850; 86900; 86901; 88307; 94640; 94760; 94762

== ENCOUNTER → 2017-05-03 | Outpatient (CLI) | payer MEDICARE ==
[2017-05-03 12:23] VITALS: BMI 52.6
--- NOTE | 2017-05-03 13:49 | US ---
EXAMINATION TYPE: US gallbladder DATE OF EXAM: 05/03/2017 COMPARISON: NONE CLINICAL HISTORY: Abdominal pain r 10.13. Epigastric pain and nausea x 2 days, morbidly obese patient EXAM MEASUREMENTS: Liver Length: 19.9 cm Gallbladder Wall: 0.2 cm CBD: 0.3 cm Right Kidney: 9.9 x 5.4 x 5.5 cm Difficult and limited study due to patient body habitus Pancreas: obscured by overlying midline bowel gas Liver: enlarged at 19.9cm Gallbladder: low level echoes seen within dependant portion Evidence for sonographic Modi's sign: no CBD: visualized portions wnl, limited by overlying bowel gas Right Kidney: cortical thinning IMPRESSION: 1. Hepatomegaly. Assessment for mass limited as discussed above. 2. Findings are most typical of gallbladder sludge with no evidence of wall thickening. 3. Correlate for chronic medical renal disease.
[2017-05-03 14:24] LABS: ALT 37 U/L (21-72); AST 38 U/L (17-59); Albumin 3.9 g/dL (3.5-5.0); Alkaline Phosphatase 86 U/L (38-126); Amylase 38 U/L (30-110); Anion Gap 10 mmol/L; Blood Urea Nitrogen 26 mg/dL (9-20); Calcium 9.1 mg/dL (8.4-10.2); Carbon Dioxide 29 mmol/L (22-30); Chloride 101 mmol/L (98-107); Glucose 96 mg/dL (74-99); Lipase 47 U/L (23-300); Magnesium 1.9 mg/dL (1.6-2.3); Potassium 4.5 mmol/L (3.5-5.1); Sodium 140 mmol/L (137-145); Total Bilirubin 0.5 mg/dL (0.2-1.3); Total Protein 6.9 g/dL (6.3-8.2)
[2017-05-03 14:47] LABS: HGB 11.6 gm/dL (13.0-17.5); MCH 29.2 pg (25.0-35.0); MCHC 31.4 g/dL (31.0-37.0); MCV 92.9 fL (80.0-100.0); Mean Platelet Volume 7.1; Platelet Count 232 k/uL (150-450); RBC 3.98 m/uL (4.30-5.90); WBC 5.5 k/uL (3.8-10.6)
[2017-05-06 17:28] VITALS: BP 180/69; PULSE 59; RESP 15; TEMP 97.6
--- NOTE | 2017-05-23 18:12 | P.PN ---
Subjective Progress Note Date: 05/03/17 DATE OF SERVICE: 05/03/2017 CHIEF COMPLAINT: Status post sleeve gastrectomy HISTORY OF PRESENT ILLNESS: Chava Spence is a 71-year-old gentleman who is status post sleeve gastrectomy 04/26/2017. He is 1 week out. He reports doing well at home. He has home healthcare. He complains of occasional epigastric abdominal pain extending to the back. He is tolerating liquids. Had a bowel movement without blood. He completed his Lovenox. His highest weight in the program is 359 pounds. He comes in weighing 325 pounds. He has lost 9 pounds in 2 weeks. Total lifetime weight loss is 34 pounds. At his height of 5 foot 6 , his ideal body weight is 154 pounds. Percent excess weight loss is 16 %. He is 171 pounds overweight. His body mass index is decreased from 58.1 to 52.6. PHYSICAL EXAM: VITAL SIGNS: 5 feet 6, 325 pounds, body mass index 52.6 Vital Signs Temp 97.6 F 05/03/17 12:11 Pulse 59 L 05/03/17 12:11 Resp 15 05/03/17 12:11 BP 180/69 05/03/17 12:11 Pulse Ox GENERAL: Well-developed and in no acute distress. HEENT: No scleral icterus. Extraocular movements grossly intact. Moist buccal mucosa. No nasal drainage. Hears conversational speech. NECK: Supple without lymphadenopathy. CHEST: Unlabored respirations with equal bilateral excursions. CARDIOVASCULAR: Irregular rate, irregular rhythm. Distal 2+ pulses. ABDOMEN: Obese, soft, nondistended. All incisions well approximated. No signs of infection or cellulitis. MUSCULOSKELETAL: 1+ pitting edema bilaterally. No clubbing or cyanosis. Left forearm amputation. NEURO: No focal or lateralizing signs. Cranial nerves 2 through 12 grossly within normal limits. PSYCH: Appropriate affect. Alert and oriented to person, place and time. SKIN: Good skin tugor. No diffuse rash. ASSESSMENT: 1. Super morbid obesity. 2. BMI 58.1 down to 52.6. 3. Hypertensive heart disease with cardiomyopathy. 4. Chronic atrial fibrillation. 5. End stage bilateral knee osteoarthritis. 6. Coronary artery disease s/p re-vascularization. 7. Obstructive sleep apnea. 8. Neuropathy. 9. Chronic anticoagulant use. 10. Hyperlipidemia. 11. Family history of morbid obesity. 12. Previous stroke. 13. Previous angina. 14. Hypertensive urgency. 15. Iron deficiency anemia. 16. Anemia due to chronic blood loss. 17. Vitamin D deficiency. 18. Status post sleeve gastrectomy 19. Epigastric abdominal pain. PLAN: 1. May start blood thinner tomorrow. 2. Immediate studies of ultrasound of gallbladder including amylase lipase to exclude pancreatitis ordered. 3. Follow-up in one week. Objective - Vital Signs Vital signs: Intake & Output 05/02/17 05/03/17 05/03/17 18:59 06:59 18:59 Weight 147.871 kg - Labs CBC & Chem 7: 05/03/17 13:45 05/03/17 13:45
== END | disposition home or self-care (01) ==
LOC: BARWHC3 11:53
PROVIDERS: ATTEND Surgery Plastic and Reconstructive Surgery
DX: K82.8 Other specified diseases of gallbladder (principal); R16.0 Hepatomegaly, not elsewhere classified; E66.01 Morbid (severe) obesity due to excess calories; Z68.43 Body mass index [BMI] 50.0-59.9, adult
CPT/HCPCS: 36415; 76705; 80053; 82150; 83690; 83735; 83970; 85027; 97803; 99213

== ENCOUNTER → 2017-05-05 | Outpatient (CLI) | payer MEDICARE ==
--- NOTE | 2017-05-05 10:14 | FL ---
EXAMINATION TYPE: FL barium swallow DATE OF EXAM: 05/05/2017 LAP BANDING LIMITED ESOPHAGRAM: CLINICAL HISTORY: Gastric sleeve procedure TECHNIQUE: Limited esophagram is performed utilizing 2-3 oz of barium. COMPARISON: None. FINDINGS: There are findings compatible with previous surgery. There is mild distention of the distal esophagus but no evidence of obstruction. Contrast freely passes from the esophagus into the stomach and subsequently small bowel. No reflux. There are tertiary contractions of esophagus no extravasati on. IMPRESSION: 1. No definite acute process. Postsurgical changes noted.
== END | disposition home or self-care (01) ==
LOC: RADFLWHC 09:04
PROVIDERS: ATTEND Surgery Plastic and Reconstructive Surgery
DX: R10.13 Epigastric pain (principal); Z98.890 Other specified postprocedural states
CPT/HCPCS: 74220

== ENCOUNTER → 2017-05-05 | Outpatient (CLI) | payer MEDICARE ==
[~2017-05-05] MED LIST changes: -ENOXAPARIN 40 MG/0.4 ML SYRINGE SQ STA; -MIDAZOLAM 2 MG/2 ML VIAL IV PRN; +ONDANSETRON 4 MG/2 ML VIAL IVP ONE; +SCOPOLAMINE 1.5MG/72HR PATCH TRANSDERM ONE; -ceFAZolin 3 GM in SODIUM CHLORIDE 0.9% 100 ML IVPB NR
[2017-05-05 10:25] VITALS: BP 153/71; PULSE 60; TEMP 97.5
[2017-05-05] MEDS: SODIUM CHLORIDE 0.9% 1,000 ML IV SCH ×2 (10:49→11:55)
[2017-05-05 13:45] VITALS: RESP 16; BMI 46.7
--- NOTE | 2017-05-23 18:18 | P.PN ---
Subjective Progress Note Date: 05/05/17 DATE OF SERVICE: 05/05/2017 CHIEF COMPLAINT: Status post sleeve gastrectomy HISTORY OF PRESENT ILLNESS: Chava Spence is a 71-year-old gentleman who is status post sleeve gastrectomy 04/26/2017. He is 2 weeks out. He has restarted his Xarelto. He comes in complaining of left flank pain. He is drinking large size gulps. He has a personal history of kidney stones. He presents with dehydration. Otherwise no reports of fevers or chills. His previous history of epigastric abdominal pain is completely resolved. His highest weight in the program is 359 pounds. He comes in weighing 325 pounds. He has lost 0 pounds in 2 days. Total lifetime weight loss is 34 pounds. At his height of 5 foot 6, his ideal body weight is 154 pounds. Percent excess weight loss is 16 %. He is 171 pounds overweight. His body mass index is decreased from 58.1 to 52.6. PHYSICAL EXAM: VITAL SIGNS: 5 feet 6, 325 pounds, body mass index 52.6 Vital Signs Temp 97.5 F L 05/05/17 15:30 Pulse 60 05/05/17 15:30 Resp 16 05/05/17 15:30 BP 153/71 05/05/17 10:20 Pulse Ox GENERAL: Well-developed and in no acute distress. HEENT: No scleral icterus. Extraocular movements grossly intact. Moist buccal mucosa. No nasal drainage. Hears conversational speech. NECK: Supple without lymphadenopathy. CHEST: Unlabored respirations with equal bilateral excursions. CARDIOVASCULAR: Irregular rate, irregular rhythm. Distal 2+ pulses. ABDOMEN: Obese, soft, nondistended. All incisions well approximated. No signs of infection or cellulitis. Tender along the left flank. MUSCULOSKELETAL: 1+ pitting edema bilaterally. No clubbing or cyanosis. Left forearm amputation. NEURO: No focal or lateralizing signs. Cranial nerves 2 through 12 grossly within normal limits. PSYCH: Appropriate affect. Alert and oriented to person, place and time. SKIN: Good skin tugor. No diffuse rash. ASSESSMENT: 1. Super morbid obesity. 2. BMI 58.1 down to 52.6. 3. Hypertensive heart disease with cardiomyopathy. 4. Chronic atrial fibrillation. 5. End stage bilateral knee osteoarthritis. 6. Coronary artery disease s/p re-vascularization. 7. Obstructive sleep apnea. 8. Neuropathy. 9. Chronic anticoagulant use. 10. Hyperlipidemia. 11. Family history of morbid obesity. 12. Previous stroke. 13. Previous angina. 14. Hypertensive urgency. 15. Iron deficiency anemia. 16. Anemia due to chronic blood loss. 17. Vitamin D deficiency. 18. Status post sleeve gastrectomy 19. Epigastric abdominal pain, resolved. 20. Left flank pain. 21. Personal history kidney stones. 22. Dietary surveillance and counseling. 23. Medical noncompliance to bariatric diet. PLAN: 1. Recommend completion of esophagram. 2. Bariatric labs negative for leukocytosis of infection. 3. Recommend CT of the abdomen and pelvis kidney stone protocol. 4. Recommend IV fluid hydration. 5. Recommend evaluation with bariatric dietitian as he is not following the dietary plan. ADDENDUM: Esophagram reviewed negative for leaks or reflux. Objective - Vital Signs Vital signs: Vital Signs Temp 97.5 F L 05/05/17 10:20 Pulse 60 05/05/17 10:20 Resp 18 05/05/17 10:20 BP 153/71 05/05/17 10:20 Pulse Ox Intake & Output 05/04/17 05/05/17 05/05/17 18:59 06:59 18:59 Weight 147.871 kg
== END | disposition home or self-care (01) ==
LOC: PROCWHC3 09:58
PROVIDERS: ATTEND Surgery Plastic and Reconstructive Surgery
DX: E66.01 Morbid (severe) obesity due to excess calories (principal); I11.9 Hypertensive heart disease without heart failure; I42.9 Cardiomyopathy, unspecified; I48.2 Chronic atrial fibrillation; M17.0 Bilateral primary osteoarthritis of knee; I25.10 Atherosclerotic heart disease of native coronary artery without angina pectoris; G47.33 Obstructive sleep apnea (adult) (pediatric); G62.9 Polyneuropathy, unspecified; E78.5 Hyperlipidemia, unspecified; I16.0 Hypertensive urgency; D50.9 Iron deficiency anemia, unspecified; D50.0 Iron deficiency anemia secondary to blood loss (chronic); E55.9 Vitamin D deficiency, unspecified; R10.9 Unspecified abdominal pain; Z71.3 Dietary counseling and surveillance; Z91.19 Patient's noncompliance with other medical treatment and regimen; Z86.79 Personal history of other diseases of the circulatory system; Z86.73 Personal history of transient ischemic attack (TIA), and cerebral infarction without residual deficits; Z87.442 Personal history of urinary calculi; Z98.84 Bariatric surgery status; Z83.49 Family history of other endocrine, nutritional and metabolic diseases; Z79.01 Long term (current) use of anticoagulants; Z68.43 Body mass index [BMI] 50.0-59.9, adult
CPT/HCPCS: 96360; 96361; 96374; J2405; G0463; 99211

== ENCOUNTER 2017-05-19 17:01 | Inpatient (IN) | payer MEDICARE ==
[2017-05-19 17:19] LABS: Glucose,Whole Blood 102 mg/dL (75-99)
--- NOTE | 2017-05-19 17:41 | ED ---
General Adult HPI - General Chief complaint: Weakness Stated complaint: Weakness Time Seen by Provider: 05/19/17 17:05 Source: patient, RN notes reviewed, old records reviewed Mode of arrival: EMS Limitations: no limitations - History of Present Illness Initial comments: This is a 71-year-old male to the ER for evaluation. This patient presents today for evaluation regards to weakness, restless leg, not feeling well. Patient has medical history of similar issue. Multiple medical comorbidities multiple falls, followed probable loss of consciousness, after patient's family was unable to get up stand and walk. Patient severely emotional describing events it isn't able to ambulate versus weakness - Related Data Home Medications Medication Instructions Recorded Confirmed Gabapentin 300 mg PO TID 01/09/15 05/19/17 Primidone [Mysoline] 50 mg PO TID 01/09/15 05/19/17 Tamsulosin [Flomax] 0.4 mg PO HS 01/09/15 05/19/17 Lisinopril 5 mg PO HS 01/09/16 05/19/17 Furosemide [Lasix] 20 mg PO QAM 01/28/17 05/19/17 Metoprolol Tartrate [Lopressor] 25 mg PO BID 04/19/17 05/19/17 Omeprazole [PriLOSEC] 40 mg PO QAM 04/19/17 05/19/17 Lisinopril [Zestril] 10 mg PO QAM 04/26/17 05/19/17 Aspirin [Adult Low Dose Aspirin EC] 81 mg PO QAM 05/05/17 05/19/17 Atorvastatin [Lipitor] 40 mg PO HS 05/05/17 05/19/17 Ferrous Sulfate [Feosol] 325 mg PO QAM 05/05/17 05/19/17 Rivaroxaban [Xarelto] 20 mg PO W/SUPPER 05/05/17 05/19/17 Cholecalciferol (Vitamin D3) 10,000 unit PO QAM 05/19/17 05/19/17 [Vitamin D3] cloNIDine HCL [Catapres] 0.1 mg PO BID 05/19/17 05/19/17 rOPINIRole HCL [Requip] 2 mg PO QAM 05/19/17 05/19/17 rOPINIRole HCL [Requip] 4 mg PO HS 02/28/18 02/28/18 Allergies Allergy/AdvReac Type Severity Reaction Status Date / Time No Known Allergies Allergy Verified 05/19/17 17:42 Review of Systems ROS Statement: Those systems with pertinent positive or pertinent negative responses have been documented in the HPI. ROS Other: All systems not noted in ROS Statement are negative. Past Medical History Past Medical History: Coronary Artery Disease (CAD), CVA/TIA, Hyperlipidemia, Hypertension, Myocardial Infarction (CA), Sleep Apnea/CPAP/BIPAP Additional Past Medical History / Comment(s): Restless Leg Syndrome. MILD STROKE 08/19/15-no effects, HAS PROSTHESIS on left hand. CA X2. DEHYDRATION. Bariatric sx on 04/26/2017 Last Myocardial Infarction Date:: 2014 History of Any Multi-Drug Resistant Organisms: None Reported Past Surgical History: Adenoidectomy, Coronary Bypass/CABG, Heart Catheterization With Stent, Joint Replacement, Orthopedic Surgery, Pacemaker, Tonsillectomy Additional Past Surgical History / Comment(s): STENTS X 3. [place] Knee replacements/later revision of left knee. 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, TRIPLE CABG 06/06/15, Past Anesthesia/Blood Transfusion Reactions: No Reported Reaction Additional Past Anesthesia/Blood Transfusion Reaction / Comment(s): claustrophobia Date of Last Stent Placement:: 2004 Type of Cardiac Device: Permanent Pacemaker Device Placement Date:: 2005-St Ed Past Psychological History: No Psychological Hx Reported Smoking Status: Never smoker - Past Family History Father Family Medical History: Cancer Additional Family Medical History / Comment(s): bone cancer Mother Family Medical History: Myocardial Infarction (CA) Additional Family Medical History / Comment(s): at age 80 General Exam - General Exam Comments Initial Comments: Restless legs, patient unable to sit still Limitations: no limitations General appearance: alert, anxious, in distress Head exam: Present: atraumatic, normocephalic, normal inspection Eye exam: Present: normal appearance, PERRL, EOMI. Absent: scleral icterus, conjunctival injection, periorbital swelling ENT exam: Present: normal exam, mucous membranes moist Neck exam: Present: normal inspection. Absent: tenderness, meningismus, lymphadenopathy Respiratory exam: Present: normal lung sounds bilaterally. Absent: respiratory distress, wheezes, rales, rhonchi, stridor Cardiovascular Exam: Present: regular rate, normal rhythm, normal heart sounds. Absent: systolic murmur, diastolic murmur, rubs, gallop, clicks GI/Abdominal exam: Present: soft, normal bowel sounds. Absent: distended, tenderness, guarding, rebound, rigid Extremities exam: Present: normal inspection, full ROM, normal capillary refill. Absent: tenderness, pedal edema, joint swelling, calf tenderness Back exam: Present: normal inspection Neurological exam: Present: alert, oriented X3, CN II-XII intact Psychiatric exam: Present: normal affect, normal mood Skin exam: Present: warm, dry, intact, normal color. Absent: rash Course Vital Signs 05/19/17 05/19/17 05/19/17 17:04 17:10 18:50 Temperature 97.9 F Pulse Rate 59 L 60 67 Respiratory 18 18 18 Rate Blood Pressure 161/72 172/75 176/81 O2 Sat by Pulse 100 97 97 Oximetry 05/19/17 05/19/17 19:00 20:12 Temperature Pulse Rate 66 60 Respiratory 18 18 Rate Blood Pressure 176/81 111/51 O2 Sat by Pulse 97 97 Oximetry - Reevaluation(s) Reevaluation #1: 05/19/17 19:18 Patient has mild improvement in symptoms with symptomatic management Reevaluation #2: 05/19/17 20:58 Patient account out get up and family, patient is unable to ambulate EKG Findings - EKG Comments: EKG Findings:: EKG shows paced rhythm rate of 60, WA 310, QRS 138, QTc 476 Medical Decision Making - Medical Decision Making 71 male the ER for evaluation of fall. Fall with weakness and inability to ambulate. Patient will be admitted for neurological evaluation. - Lab Data Result diagrams: 05/19/17 17:30 05/19/17 17:30 Lab Results 05/19/17 05/19/17 05/19/17 Range/Units 17:16 17:30 17:30 WBC 8.7 (3.8-10.6) k/uL RBC 4.31 (4.30-5.90) m/uL Hgb 12.7 L (13.0-17.5) gm/dL Hct 38.2 L (39.0-53.0) % MCV 88.6 (80.0-100.0) fL MCH 29.5 (25.0-35.0) pg MCHC 33.3 (31.0-37.0) g/dL RDW 13.2 (11.5-15.5) % Plt Count 235 (150-450) k/uL Neutrophils % 70 % Lymphocytes % 20 % Monocytes % 6 % Eosinophils % 3 % Basophils % 0 % Neutrophils # 6.1 (1.3-7.7) k/uL Lymphocytes # 1.7 (1.0-4.8) k/uL Monocytes # 0.5 (0-1.0) k/uL Eosinophils # 0.3 (0-0.7) k/uL Basophils # 0.0 (0-0.2) k/uL PT (9.0-12.0) sec INR (<1.2) APTT (22.0-30.0) sec Sodium (137-145) mmol/L Potassium (3.5-5.1) mmol/L Chloride (98-107) mmol/L Carbon Dioxide (22-30) mmol/L Anion Gap mmol/L BUN (9-20) mg/dL Creatinine (0.66-1.25) mg/dL Est GFR (MDRD) Af Amer (>60 ml/min/1.73 sqM) Est GFR (MDRD) Non-Af (>60 ml/min/1.73 sqM) Glucose (74-99) mg/dL POC Glucose (mg/dL) 102 H (75-99) mg/dL POC Glu Nursing Information Systems Coordinator ID Ambar Casanova Calcium (8.4-10.2) mg/dL Phosphorus (2.5-4.5) mg/dL Magnesium (1.6-2.3) mg/dL Total Bilirubin (0.2-1.3) mg/dL AST (17-59) U/L ALT (21-72) U/L Alkaline Phosphatase (38-126) U/L Total Creatine Kinase 217 H (55-170) U/L CK-MB (CK-2) 3.5 H* (0.0-2.4) ng/mL CK-MB (CK-2) Rel Index 1.6 Troponin I <0.012 (0.000-0.034) ng/mL Total Protein (6.3-8.2) g/dL Albumin (3.5-5.0) g/dL 05/19/17 05/19/17 Range/Units 17:30 17:30 WBC (3.8-10.6) k/uL RBC (4.30-5.90) m/uL Hgb (13.0-17.5) gm/dL Hct (39.0-53.0) % MCV (80.0-100.0) fL MCH (25.0-35.0) pg MCHC (31.0-37.0) g/dL RDW (11.5-15.5) % Plt Count (150-450) k/uL Neutrophils % % Lymphocytes % % Monocytes % % Eosinophils % % Basophils % % Neutrophils # (1.3-7.7) k/uL Lymphocytes # (1.0-4.8) k/uL Monocytes # (0-1.0) k/uL Eosinophils # (0-0.7) k/uL Basophils # (0-0.2) k/uL PT 14.5 H (9.0-12.0) sec INR 1.6 H (<1.2) APTT 28.9 (22.0-30.0) sec Sodium 141 (137-145) mmol/L Potassium 4.4 (3.5-5.1) mmol/L Chloride 104 (98-107) mmol/L Carbon Dioxide 26 (22-30) mmol/L Anion Gap 11 mmol/L BUN 20 (9-20) mg/dL Creatinine 1.00 (0.66-1.25) mg/dL Est GFR (MDRD) Af Amer >60 (>60 ml/min/1.73 sqM) Est GFR (MDRD) Non-Af >60 (>60 ml/min/1.73 sqM) Glucose 99 (74-99) mg/dL POC Glucose (mg/dL) (75-99) mg/dL POC Glu Nursing Information Systems Coordinator ID Calcium 9.8 (8.4-10.2) mg/dL Phosphorus 3.3 (2.5-4.5) mg/dL Magnesium 2.0 (1.6-2.3) mg/dL Total Bilirubin 0.6 (0.2-1.3) mg/dL AST 27 (17-59) U/L ALT 24 (21-72) U/L Alkaline Phosphatase 85 (38-126) U/L Total Creatine Kinase (55-170) U/L CK-MB (CK-2) (0.0-2.4) ng/mL CK-MB (CK-2) Rel Index Troponin I (0.000-0.034) ng/mL Total Protein 7.3 (6.3-8.2) g/dL Albumin 4.2 (3.5-5.0) g/dL - Radiology Data Radiology results: report reviewed (CT brain chest x-ray negative for acute disease), image reviewed Disposition Clinical Impression: Dizziness, Ataxia, Leg weakness, Fall, Head injury Disposition: ADMITTED IP TO THIS HOSP Condition: Fair Referrals: Neville Pierre MD [Primary Care Provider] - 1-2 days
[2017-05-19] MEDS ORDERED: diphenhydrAMINE 50 MG/ML 1 ML VIAL IVP STA (17:54)
[2017-05-19] MEDS ORDERED: MORPHINE SULFATE 4 MG/ML SYRINGE IVP STA (17:54)
[2017-05-19] MEDS ORDERED: LORazepam 2 MG/ML INJ IV STA (17:54)
[2017-05-19 18:28] LABS: Basophils % (A) 0 %; Eosinophils # (A) 0.3 k/uL (0-0.7); Eosinophils % (A) 3 %; HCT 38.2 % (39.0-53.0); HGB 12.7 gm/dL (13.0-17.5); Lymphocytes # (A) 1.7 k/uL (1.0-4.8); Lymphocytes % (A) 20 %; MCH 29.5 pg (25.0-35.0); MCHC 33.3 g/dL (31.0-37.0); MCV 88.6 fL (80.0-100.0); Mean Platelet Volume 7.4; Monocytes # (A) 0.5 k/uL (0-1.0); Monocytes % (A) 6 %; Neutrophils # (A) 6.1 k/uL (1.3-7.7); Neutrophils % (A) 70 %; Platelet Count 235 k/uL (150-450); RBC 4.31 m/uL (4.30-5.90); RDW 13.2 % (11.5-15.5); WBC 8.7 k/uL (3.8-10.6)
--- NOTE | 2017-05-19 18:38 | CT ---
EXAMINATION TYPE: CT brain [facility] [place] DATE OF EXAM: 05/19/2017 COMPARISON: 01/25/2016 HISTORY: multiple recent falls CT DLP: 1997 mGycm Automated exposure control for dose reduction was used. TECHNIQUE: CT scan of the head and cervical spine are performed without contrast. FINDINGS: There is a wedge-shaped 4 cm area of hypodensity in the right occipital lobe related to o ld cortical infarct. There is no mass effect nor midline shift. There is no sign of intracranial hemo rrhage. The calvarium is intact. There is no evidence of a fracture. Evaluation of cervical spine is limited due to motion. As best as one can tell the vertebra have normal alignment. There is mild face t arthropathy and endplate spur formation in the mid and lower cervical spine. The skull base is inta ct. IMPRESSION: There is old right occipital lobe cortical infarct. No acute intracranial abnormality. Cerebral atrop hy. No significant change compared to old exam. Spondylotic changes in the cervical spine. No acute abnormality. No significant change compared to ol d exam.
[2017-05-19 18:41] LABS: ALT 24 U/L (21-72); AST 27 U/L (17-59); Albumin 4.2 g/dL (3.5-5.0); Alkaline Phosphatase 85 U/L (38-126); Anion Gap 11 mmol/L; Blood Urea Nitrogen 20 mg/dL (9-20); Calcium 9.8 mg/dL (8.4-10.2); Carbon Dioxide 26 mmol/L (22-30); Chloride 104 mmol/L (98-107); Glucose 99 mg/dL (74-99); Phosphorus 3.3 mg/dL (2.5-4.5); Potassium 4.4 mmol/L (3.5-5.1); Sodium 141 mmol/L (137-145); Total Bilirubin 0.6 mg/dL (0.2-1.3); Total Protein 7.3 g/dL (6.3-8.2)
[2017-05-19 18:43] LABS: Creatine Kinase 217 U/L (55-170)
[2017-05-19 18:45] LABS: INR 1.6 (<1.2); Partial Thromboplastin Time 28.9 sec (22.0-30.0); Prothrombin Time 14.5 sec (9.0-12.0)
[2017-05-19 19:18] LABS: Troponin I <0.012 ng/mL (0.000-0.034)
--- NOTE | 2017-05-19 19:31 | XR ---
EXAMINATION TYPE: XR chest 2V DATE OF EXAM: 05/19/2017 COMPARISON: 01/04/2017 HISTORY: Altered mental status. Fell today. Weakness. TECHNIQUE: Frontal and lateral views of the chest are obtained. FINDINGS: There is mild pulmonary vascular congestion. Heart appears enlarged. There is a left axill ailyn pacemaker with the lead tips in the right ventricle. There are sternal wires. IMPRESSION: There is new heart failure compared to old exam. No pulmonary consolidation.
[2017-05-19 19:32] LABS: Creatine Kinase MB 3.5 ng/mL (0.0-2.4)
[2017-05-19 22:18] VITALS: BMI 51.7
[2017-05-19] MEDS ORDERED: HYDROcodone/APAP 7.5-325MG 1 EACH TAB PO PRN (22:35)
[2017-05-20] MEDS: HYDROcodone/APAP 7.5-325MG 1 EACH TAB PO PRN ×3 (06:24→20:37)
[2017-05-20] MEDS: CHOLECALCIFEROL 1,000 UNIT TAB PO SCH (08:46)
[2017-05-20] MEDS: ASPIRIN 81 MG PO SCH (08:47)
[2017-05-20] MEDS: GABAPENTIN 300 MG CAP PO SCH ×3 (08:47→20:38)
[2017-05-20] MEDS: PANTOPRAZOLE 40 MG TABLET PO SCH (08:47)
[2017-05-20] MEDS: FERROUS SULFATE 325 MG TAB PO SCH (08:47)
[2017-05-20] MEDS: LISINOPRIL 10 MG TAB PO SCH (08:47)
[2017-05-20] MEDS: cloNIDine HCL 0.1 MG TAB PO SCH ×2 (08:47→20:38)
[2017-05-20] MEDS: FUROSEMIDE 20 MG TAB PO SCH (08:47)
[2017-05-20] MEDS: PRIMIDONE 50 MG TAB PO SCH ×3 (08:47→20:38)
[2017-05-20] MEDS: METOPROLOL TARTRATE 25 MG TAB PO SCH ×2 (08:47→20:38)
[2017-05-20 08:59] LABS: Appearance,Urine Clear (Clear); Bilirubin,Urine Negative (Negative); Blood,Urine Trace (Negative); Color,Urine Yellow; Glucose,Urine (UA) Negative (Negative); Ketones,Urine Negative (Negative); Leukocyte Esterase,Urine Negative (Negative); Mucus,Urine Rare /hpf; PH, Urine 5.5 (5.0-8.0); Protein,Urine Negative (Negative); RBC,Urine 3 /hpf (0-5); Specific Gravity,Urine 1.015 (1.001-1.035); Urobilinogen,Urine <2.0 mg/dL (<2.0)
[2017-05-20] MEDS ORDERED: ENOXAPARIN 40 MG/0.4 ML SYRINGE SQ SCH (09:00)
--- NOTE | 2017-05-20 09:44 | P.CNNES ---
History of Present Illness Consult date: 05/20/17 Reason for Consult: Patient admitted with weakness and falls. History of Present Illness: This patient is a 71-year-old right-handed white male who was in his usual state of health until yesterday. The patient states that he had visited day pain specialist in [place] and was being considered for possible treatment for severe venous stasis in his lower extremities. Patient returned home and apparently yesterday evening had multiple falls. The patient states he was in his living room and fell over the couch and had to be helped up by his . He then went to the bathroom and apparently fell in the shower and EMS was called to the home. The patient was transported by EMS to the emergency room for further evaluation. He has a history of previous stroke in the past. He was seen in the ER by Dr. Borrero and was found to have evidence of some generalized weakness. He was sent for a computed tomography scan of the brain which revealed evidence of an old right occipital stroke. There was cerebral atrophy with no evidence of acute stroke or hemorrhage. CT of the cervical spine revealed no acute abnormality. Patient was evaluated with NIH stroke scale in the ER by Dr. Borrero and his NIH scale was 1.0. This was documented that 17:20 yesterday evening. Patient was subtotally admitted to hospital for further evaluation. He states he has been having weakness in both of his legs. He does have history of having undergone bilateral knee replacements as well as having restless leg syndrome and varicose veins in both lower extremities. He underwent bariatric surgery on 04/26/2017 as well for weight loss. The patient does have history of coronary artery bypass grafting done in 2005. He has a permanent pacemaker as well. He is currently taking Xarelto as he has a history of chronic atrial fibrillation. Cardiology has been consulted for further evaluation. Patient states he has been noticing generalized weakness. Does been harder for him to walk at home. He does have a walker that he uses to get about. We are recommending physical therapy to evaluate the patient and also Dr. Ponce for possible inpatient rehab. Patient states he did not experience any slurred speech or visual changes. He is being treated for his restless leg syndrome with Requip. He states he has not had multiple falls until the last few days. He also complains of generalized weakness. He does have some degree of anxiety and emotional disturbance causing him to be emotionally upset at times very easily. He is now doing better since admission. He states he does use his walker at home but in the bathroom specifically in the shower he fell due to generalized weakness. The patient does not appear to have suffered acute stroke based on his computed tomography scan of the brain results. We have recommended a follow-up computed tomography scan of the brain to be done tomorrow to further evaluate for acute stroke. He is unable to go for MRI of the brain as he has a permanent pacemaker. We will await further recommendations from cardiology regarding his chronic atrial fibrillation and use of his Xarelto. We will consult physical therapy and Dr. Ponce for further evaluation. Review of Systems Constitutional: Denies chills, Denies fever Eyes: denies blurred vision, denies pain Ears, nose, mouth and throat: Denies headache, Denies sore throat Cardiovascular: Denies chest pain, Denies shortness of breath Respiratory: Denies cough Gastrointestinal: Denies abdominal pain, Denies diarrhea, Denies nausea, Denies vomiting Musculoskeletal: Denies myalgias Integumentary: Denies pruritus, Denies rash Neurological: Reports ataxia, Reports gait dysfunction, Reports motor disturbance, Reports paresthesias, Denies numbness, Denies weakness Psychiatric: Denies anxiety, Denies depression Endocrine: Denies fatigue, Denies weight change Past Medical History Past Medical History: Atrial Fibrillation, Coronary Artery Disease (CAD), CVA/ TIA, Hyperlipidemia, Hypertension, Myocardial Infarction ([place]), Sleep Apnea/CPAP/ BIPAP Additional Past Medical History / Comment(s): morbid obesity, Restless Leg Syndrome. MILD STROKE 08/19/15-no effects, HAS PROSTHESIS on left hand. [place] X2. DEHYDRATION, BLE PVD and neuropathy Last Myocardial Infarction Date:: 2014 History of Any Multi-Drug Resistant Organisms: None Reported Past Surgical History: Adenoidectomy, Bariatric Surgery, Coronary Bypass/CABG, Heart Catheterization With Stent, Joint Replacement, Orthopedic Surgery, Pacemaker, Tonsillectomy Additional Past Surgical History / Comment(s): STENTS X 3. [place] Knee replacements/later revision of left knee. 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, TRIPLE CABG 06/06/15, Sleeve gastrectomy 04/26/17 Past Anesthesia/Blood Transfusion Reactions: No Reported Reaction Additional Past Anesthesia/Blood Transfusion Reaction / Comment(s): claustrophobia Date of Last Stent Placement:: 2004 Type of Cardiac Device: Permanent Pacemaker Device Placement Date:: 2005-St Ed Past Psychological History: No Psychological Hx Reported Additional Psychological History / Comment(s): claustrophobia Smoking Status: Never smoker Past Alcohol Use History: None Reported Past Drug Use History: None Reported - Past Family History Father Family Medical History: Cancer Additional Family Medical History / Comment(s): bone cancer Mother Family Medical History: Myocardial Infarction ([place]) Additional Family Medical History / Comment(s): at age 80 Medications and Allergies Home Medications Medication Instructions Recorded Confirmed Type Gabapentin 300 mg PO TID 01/09/15 05/19/17 History Primidone [Mysoline] 50 mg PO TID 01/09/15 05/19/17 History Tamsulosin [Flomax] 0.4 mg PO HS 01/09/15 05/19/17 History Lisinopril 5 mg PO HS 01/09/16 05/19/17 History Furosemide [Lasix] 20 mg PO QAM 01/28/17 05/19/17 History Metoprolol Tartrate [Lopressor] 25 mg PO BID 04/19/17 05/19/17 History Omeprazole [PriLOSEC] 40 mg PO QAM 04/19/17 05/19/17 History Lisinopril [Zestril] 10 mg PO QAM 04/26/17 05/19/17 History Aspirin [Adult Low Dose Aspirin EC] 81 mg PO QAM 05/05/17 05/19/17 History Atorvastatin [Lipitor] 40 mg PO HS 05/05/17 05/19/17 History Ferrous Sulfate [Feosol] 325 mg PO QAM 05/05/17 05/19/17 History Rivaroxaban [Xarelto] 20 mg PO W/SUPPER 05/05/17 05/19/17 History Cholecalciferol (Vitamin D3) 10,000 unit PO QAM 05/19/17 05/19/17 History [Vitamin D3] cloNIDine HCL [Catapres] 0.1 mg PO BID 05/19/17 05/19/17 History rOPINIRole HCL [Requip] 2 mg PO QAM 05/19/17 05/19/17 History rOPINIRole HCL [Requip] 4 mg PO HS 05/19/17 05/19/17 History Allergies Allergy/AdvReac Type Severity Reaction Status Date / Time No Known Allergies Allergy Verified 05/19/17 17:42 Physical Examination - Vital Signs Vital Signs: Vital Signs Temp Pulse Pulse Resp BP BP Pulse Ox 05/20/17 08:00 97.5 F L 60 18 117/46 100 05/20/17 04:00 60 16 05/19/17 23:20 60 16 05/19/17 22:05 98.2 F 63 16 140/53 99 05/19/17 21:46 98.3 F 60 18 113/56 97 05/19/17 20:12 60 18 111/51 97 05/19/17 19:00 66 18 176/81 97 05/19/17 18:50 67 18 176/81 97 05/19/17 17:10 60 18 172/75 97 05/19/17 17:04 97.9 F 59 L 18 161/72 100 Intake and Output 05/19/17 05/20/17 05/20/17 22:59 06:59 14:59 Intake Total 240 Output Total 150 Balance 90 Intake: Oral 240 Output: Urine 150 Other: Weight 163.747 kg 163.747 kg - Constitutional General appearance: average body habitus, cooperative - EENT EENT: PERRL, mucous membranes moist - Respiratory Respiratory: lungs clear, normal breath sounds - Cardiovascular Cardiovascular: regular rate, normal S1, normal S2 Extremities: no peripheral edema bilaterally - Gastrointestinal Gastrointestinal: normoactive bowel sounds - Integumentary Integumentary: normal - Neurologic Cranial nerve examination: PERRL, EOMI, VFF, V1/V2/V3 grossly intact, face symmetric, intact gag reflex, intact corneal reflex, normal palatal elevation Speech examination: intact Sensorimotor examination: intact Motor examination - right side: 3/5: hip flexors, knee extensors, dorsiflexion, toe extension (EHL), plantarflexion, 4/5: biceps, triceps, 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, 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, 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 Motor 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 - left side: 3/5: hip flexors, knee extensors, dorsiflexion, toe extension (EHL), plantarflexion, 4/5: biceps, triceps Detailed sensory examination: intact Reflex and gait examination: intact Reflexes: 1+: ankle, bicep, knee, tricep - Musculoskeletal Musculoskeletal: no pain - Psychiatric Psychiatric: mood/affect appropriate, cooperative Results - Laboratory Findings CBC and BMP: 05/19/17 17:30 05/19/17 17:30 Abnormal Lab Findings: Abnormal Labs 05/19/17 05/19/17 05/19/17 08:35 17:16 17:30 Hgb Hct PT INR POC Glucose (mg/dL) 102 H Total Creatine Kinase 217 H CK-MB (CK-2) 3.5 H* Urine Blood Trace H Urine Mucus Rare H 05/19/17 05/19/17 17:30 17:30 Hgb 12.7 L Hct 38.2 L PT 14.5 H INR 1.6 H POC Glucose (mg/dL) Total Creatine Kinase CK-MB (CK-2) Urine Blood Urine Mucus Assessment and Plan (1) Generalized weakness Current Visit: Yes Status: Acute Code(s): R53.1 - WEAKNESS SNOMED Code(s) : 72026711 (2) Atrial fibrillation Current Visit: Yes Status: Acute Code(s): I48.91 - UNSPECIFIED ATRIAL FIBRILLATION SNOMED Code(s): 01388812 (3) Multiple falls Current Visit: Yes Status: Acute Code(s): R29.6 - REPEATED FALLS SNOMED Code(s): 947587441 (4) Ataxic gait Current Visit: Yes Status: Acute Code(s): R26.0 - ATAXIC GAIT SNOMED Code( s): 74492086 Plan: This patient is a 71-year-old male with multiple complex medical issues including history of paroxysmal and chronic atrial fibrillation. He is currently on Xarelto for treatment of this condition. He was brought into the emergency room yesterday for evaluation of multiple falls. He had at least 3 falls at home one in the bathroom. EMS was called to the home and he was transported to the emergency room yesterday for evaluation. He was seen in the ER by Dr. Borrero. His NIH stroke scale was 1.0. He underwent computed tomography scan of the brain results which are noted above. Patient complains of generalized weakness. He does have multiple medical problems including history of bilateral knee surgeries and failed left knee replacement surgery. He has been ambulating at home with a walker. He is admitted for evaluation of TIA versus stroke. We have recommended a complete stroke evaluation for the patient. Patient will be evaluated by cardiology and physiatry regarding possible inpatient rehab placement due to his generalized weakness. We will have a repeat computed tomography scan of the brain done tomorrow for further evaluation. He is unable to have MRI of the brain as he has a permanent pacemaker. We will await further recommendations from the other specialists regarding his condition. His overall prognosis at this time remains very guarded. We will continue to follow his progress closely during this admission. Time with Patient: Greater than 30
[2017-05-20] MEDS ORDERED: FUROSEMIDE 20 MG TAB PO STA (13:07)
--- NOTE | 2017-05-20 15:19 | HP ---
HISTORY AND PHYSICAL DATE OF SERVICE: 05/20/2017. DATE OF ADMISSION: 05/19/2017 CHIEF COMPLAINT: Fall in the bathroom and unable to get up and ambulate and change in mental status. This is a 71-year-old white male who has multiple chronic medical problems and patient had a recurrent fall yesterday and patient then fell in his bathroom and he was extremely weak and he was not able to get up by himself and the EMS was called and patient was brought to the emergency room. Patient was evaluated extensively in the emergency room and he had a CT scan of the brain, which did not show any acute changes and this showed evidence of old stroke. Patient's chest x-ray showed mild congestion, otherwise no acute process. EKG did not show any acute changes. A he has a pacemaker. CBC showed a WBC count of 8.7, hemoglobin 12.7, platelet count 235,000 and sodium 141, potassium 4.9, BUN 20, creatinine 1.00, glucose 99. The patient was admitted to the hospital for further evaluation and treatment. PAST MEDICAL HISTORY: Reveals that he has history of coronary artery disease, acute myocardial infarction in the past and coronary artery bypass graft and also stent placement in the past. He also has advanced arthritis in multiple joints and has had bilateral total knee arthroplasties in the past. He also has a history of atrial fibrillation, restless legs syndrome, and recently he had a bariatric surgery and he has been losing weight following that. CURRENT MEDICATIONS: Include gabapentin 300 mg p.o. t.i.d., primidone 50 mg p.o. t.i.d., Flomax 0.4 mg p.o. daily at bedtime, lisinopril 5 mg p.o. daily at bedtime, Lasix 20 mg p.o. daily a.m., Lopressor 25 mg p.o. b.i.d., omeprazole 40 mg p.o. daily, lisinopril 10 mg p.o. daily, aspirin 81 mg p.o. daily, Lipitor 40 mg p.o. daily, ferrous sulfate 325 mg p.o. daily, Xarelto 20 mg p.o. daily. He is also taking vitamin D3 and clonidine 0.1 mg p.o. b.i.d., Requip 2 mg p.o. daily a.m. and Requip 4 mg p.o. daily at bedtime. Patient has no known drug allergies. FAMILY HISTORY: Positive for heart disease and arthritis. REVIEW OF SYSTEMS: Patient denies any headache. Appetite has been poor lately. Patient had recent bariatric surgery. He denies any chest pain or cough. He has no abdominal pain. He has no polyuria or dysuria. He has no neurological symptoms. PHYSICAL EXAMINATION: Reveals a 71-year-old white male, obese. He is alert and oriented, but he still has some memory problem, especially he does not remember what happened to him when the EMS came. His temperature 98.2, blood pressure 140/57. Examination of the ENT negative. Neck is supple. There is no jugular venous distention. There is no goiter and there is no carotid bruit. Heart is in sinus rhythm. The heart is an irregular. Lungs reveal diminished breath sounds of both bases. No rales or rhonchi. Abdomen is soft and nontender. There is no mass palpable. Examination of the lower extremities reveal no pitting edema. Neurologic examination does not reveal localizing signs. IMPRESSION: 1. Transient ischemic attack, rule out cerebrovascular accident. 2. Mental confusion and altered mental status. 3. Coronary artery disease with a past history of acute myocardial infarction and coronary artery bypass graft and stent placement and also has a pacemaker. 4. Hypertensive cardiovascular disease. 5. Hyperlipidemia. 6. Benign prostatic hypertrophy. 7. Degenerative arthritis multiple joints, status post bilateral total knee arthroplasty. 8. Restless legs syndrome. 9. Hyperlipidemia. PLAN: Patient will be admitted to the hospital and will have a Neurology consultation and also Cardiology consultation. Overall prognosis guarded. The diagnosis, prognosis and therapeutic plans were discussed in detail with the patient. MMODL / IJN: [id number] /
--- NOTE | 2017-05-20 17:03 | P.CONS ---
History of Present Illness - Chief Complaint Gait disturbance, recent frequent falls - History of Present Illness I had the op to see patient for inpatient rehab consultation with regard to gait disturbance and recent frequent falls. He was admitted to [facility] May 19, yesterday, with the above. Seen by Dr. Luke Baltazar who notes ataxic gait and weakness. PT reports minimal assistance for bed mobility, transfers, gait 30 feet with roller walker. Chest x-ray demonstrates new CHF. Head CT demonstrates old right cerebral infarct. C-spine CT demonstrates mild facet changes lower C-spine. CT is compromised by movement artifacts. Previous functional history as elicited from patient: 71-year-old right-handed white male who lives with significant other in one floor home. Retired. Significant other does cooking, laundry, driving. Patient describes independent with standing shower and gait with roller walker. Doesn't smoke or drink and never did. Family history mother with CT and father with cancer. Review of Systems Review of systems: ENT: Denies sneezes or discharge. Eyes: Denies discharge or photophobia. Cardiac: Denies chest pain or palpitation. Pulmonary: Denies cough or shortness of breath. Gastrointestinal: Denies nausea, emesis, constipation, diarrhea. Genitourinary: Denies discharge or frequency. Musculoskeletal: Pain in knees and legs. Neurologic: Perhaps mild generalized weakness. Endocrine: Denies shakes or sweats. Oncology: Denies cancers. Dermatologic: Denies rash, itching, pruritus. ALLERGY/immunology: Denies sneezes, rashes. Past Medical History Past Medical History: Atrial Fibrillation, Coronary Artery Disease (CAD), CVA/ TIA, Hyperlipidemia, Hypertension, Myocardial Infarction ([place]), Sleep Apnea/CPAP/ BIPAP Additional Past Medical History / Comment(s): morbid obesity, Restless Leg Syndrome. MILD STROKE 08/19/15-no effects, HAS PROSTHESIS on left hand. CT X2. DEHYDRATION, BLE PVD and neuropathy Last Myocardial Infarction Date:: 2014 History of Any Multi-Drug Resistant Organisms: None Reported Past Surgical History: Adenoidectomy, Bariatric Surgery, Coronary Bypass/CABG, Heart Catheterization With Stent, Joint Replacement, Orthopedic Surgery, Pacemaker, Tonsillectomy Additional Past Surgical History / Comment(s): STENTS X 3. [place] Knee replacements/later revision of left knee. 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, TRIPLE CABG 06/06/15, Sleeve gastrectomy 2/5/18 Past Anesthesia/Blood Transfusion Reactions: No Reported Reaction Additional Past Anesthesia/Blood Transfusion Reaction / Comm: claustrophobia Date of Last Stent Placement:: 2004 Type of Cardiac Device: Permanent Pacemaker Device Placement Date:: 2005-St Ed Past Psychological History: No Psychological Hx Reported Additional Psychological History / Comment(s): claustrophobia Smoking Status: Never smoker Past Alcohol Use History: None Reported Past Drug Use History: None Reported - Past Family History Father Family Medical History: Cancer Additional Family Medical History / Comment(s): bone cancer Mother Family Medical History: Myocardial Infarction ([place]) Additional Family Medical History / Comment(s): at age 80 Medications and Allergies Home Medications Medication Instructions Recorded Confirmed Type Gabapentin 300 mg PO TID 01/09/15 05/19/17 History Primidone [Mysoline] 50 mg PO TID 01/09/15 05/19/17 History Tamsulosin [Flomax] 0.4 mg PO HS 01/09/15 05/19/17 History Lisinopril 5 mg PO HS 01/09/16 05/19/17 History Furosemide [Lasix] 20 mg PO QAM 01/28/17 05/19/17 History Metoprolol Tartrate [Lopressor] 25 mg PO BID 04/19/17 05/19/17 History Omeprazole [PriLOSEC] 40 mg PO QAM 04/19/17 05/19/17 History Lisinopril [Zestril] 10 mg PO QAM 04/26/17 05/19/17 History Aspirin [Adult Low Dose Aspirin EC] 81 mg PO QAM 05/05/17 05/19/17 History Atorvastatin [Lipitor] 40 mg PO HS 05/05/17 05/19/17 History Ferrous Sulfate [Feosol] 325 mg PO QAM 05/05/17 05/19/17 History Rivaroxaban [Xarelto] 20 mg PO W/SUPPER 05/05/17 05/19/17 History Cholecalciferol (Vitamin D3) 10,000 unit PO QAM 05/19/17 05/19/17 History [Vitamin D3] cloNIDine HCL [Catapres] 0.1 mg PO BID 05/19/17 05/19/17 History rOPINIRole HCL [Requip] 2 mg PO QAM 05/19/17 05/19/17 History rOPINIRole HCL [Requip] 4 mg PO HS 05/19/17 05/19/17 History Allergies Allergy/AdvReac Type Severity Reaction Status Date / Time No Known Allergies Allergy Verified 05/19/17 17:42 Physical Exam Vitals: Vital Signs Temp Pulse Pulse Resp BP BP Pulse Ox 05/20/17 16:00 97.8 F 60 18 175/77 100 05/20/17 12:00 97.4 F L 60 18 140/66 99 05/20/17 08:00 97.5 F L 60 18 117/46 100 05/20/17 04:00 60 16 05/19/17 23:20 60 16 05/19/17 22:05 98.2 F 63 16 140/53 99 05/19/17 21:46 98.3 F 60 18 113/56 97 05/19/17 20:12 60 18 111/51 97 05/19/17 19:00 66 18 176/81 97 05/19/17 18:50 67 18 176/81 97 05/19/17 17:10 60 18 172/75 97 05/19/17 17:04 97.9 F 59 L 18 161/72 100 Intake and Output 05/20/17 05/20/17 05/20/17 06:59 14:59 22:59 Intake Total 540 Output Total 150 Balance 390 Intake: Oral 440 Other 100 Output: Urine 150 Other: Voiding Method Urinal # Voids 200 Weight 163.747 kg Skin: Atrophic. Cellulitic changes noted lower legs. General: Medium build and comfortable appearance. Head: Normocephalic, atraumatic. Eyes: Symmetric. Pupils equal round. Ears: Symmetric. Hearing within normal limits. Mouth: Clear. Neck: Supple. Carotid without bruit. Cardiac: Regular rate and rhythm. Lungs: Clear anteriorly and posteriorly. Abdomen: Soft active nontender. Extremities: Normal tone. See skin above. At least moderate arthritic changes noted all major joints. Neurological: Mental status: Alert, cooperative, pleasant. Cranial nerves: Symmetric facial tone and trapezius. Motor: Can elevate limbs off of bed. Sensation: Intact throughout. Hypersensitive in lowers, particularly forelegs. DTRs: Symmetric and equal throughout. Mobility: Would require obvious moderate assistance for bed mobility and sitting.. Results CBC & Chem 7: 05/19/17 17:30 05/19/17 17:30 Labs: Abnormal Lab Results - Last 24 Hours (Table) 05/19/17 05/19/17 05/19/17 Range/Units 08:35 17:16 17:30 Hgb (13.0-17.5) gm/dL Hct (39.0-53.0) % PT (9.0-12.0) sec INR (<1.2) POC Glucose (mg/dL) 102 H (75-99) mg/dL Total Creatine Kinase 217 H (55-170) U/L CK-MB (CK-2) 3.5 H* (0.0-2.4) ng/mL Urine Blood Trace H (Negative) Urine Mucus Rare H (None) /hpf 05/19/17 05/19/17 Range/Units 17:30 17:30 Hgb 12.7 L (13.0-17.5) gm/dL Hct 38.2 L (39.0-53.0) % PT 14.5 H (9.0-12.0) sec INR 1.6 H (<1.2) POC Glucose (mg/dL) (75-99) mg/dL Total Creatine Kinase (55-170) U/L CK-MB (CK-2) (0.0-2.4) ng/mL Urine Blood (Negative) Urine Mucus (None) /hpf Microbiology - Last 24 Hours (Table) 05/19/17 08:35 Urine Culture - Preliminary Urine,Voided Chest x-ray: report reviewed (New CHF.) CT Scan - head: report reviewed (Movement artifacts noted. Head CT with old right occipital attenuation. C-spine with mild facet changes lower C-spine.) Assessment and Plan (1) Ataxic gait Current Visit: Yes Status: Acute Code(s): R26.0 - ATAXIC GAIT SNOMED Code( s): 63468234 Plan: Impression: 1. Gait disturbance. 2. Ataxic gait. 3. Lower extremity weakness. 4. Lower extremity cellulitis. 5. Coronary artery disease with history of CT. 6. Active fibrillation. 7. Hypertension. 8. Dyslipidemia. 9. Sleep apnea. 10. History of stroke. Comments and plan: At this time PT ongoing. I have added OT. We'll follow therapies with yourself. Noted rehab unit currently full.
[2017-05-20] MEDS: MORPHINE SULFATE 4 MG/ML SYRINGE IVP PRN (17:57)
--- NOTE | 2017-05-20 18:55 | P.GSCN ---
History of Present Illness Consult date: 05/20/17 History of present illness: CHIEF COMPLAINT: Status post sleeve gastrectomy. HISTORY OF PRESENT ILLNESS: Chava Spence is a 71-year-old gentleman with history of super morbid obesity. His highest personal weight was 359 pounds. He has less than 4 weeks out from a sleeve gastrectomy. Despite multiple phone calls to the patient including request for follow-up at the bariatric center, the patient has missed at least 2 appointments in the last 2 weeks. He now presents after falling and having loss of consciousness. He denies any abdominal pain. Multiple diagnostic studies has been negative for acute bleed or hemorrhage of the brain. Since his procedure, his weight is unchanged. He has had difficulty following his post sleeve diet. He reports multiple social stressors including family members in the hospital. He denies any blood in stools. PAST MEDICAL HISTORY: 1. Morbid obesity. 2. Atrial fibrillation 3. Hyperlipidemia. 4. Hypertensive cardiomyopathy. 5. Hyperlipidemia. 6. Obstructive uropathy. 7. Neuropathy. 8. Angina. 9. CVA/TIA 10. Myocardial infarction. 11. Pneumonia. 12. Osteoarthritis of the knees. 13. GI Bleed. 14. Restless leg syndrome. PAST SURGICAL HISTORY: 1. CABG x 3 2. Cardiac catheterization 3. Pacemaker, St. Ed. 4. Left forearm amputation. 5. Bilateral knee replacement with revision. 6. Colonoscopy with polypectomy. 7. Tonsillectomy. 8. Adenoidectomy. 9. Upper endoscopy. 10. Sleeve gastrectomy. MEDICATIONS: 1. Catarpes. 2. Ropinirole. 3. Lipitor. 4. Aspirin. 5. Gabapentin. 6. Lasix. 7. Metoprolol 8. Lisinopril 9. Xarelto 10. Primidone. 11. Flomax ALLERGIES: Denies. SOCIAL HISTORY: No past tobacco use. FAMILY HISTORY: Pertinent for super morbid obesity. No reports of stomach or esophageal cancers. No reports of GI malignancies. REVIEW OF SYSTEMS: CONSTITUTIONAL: No reports of fevers or chills. His highest personal weight is up to 359 pounds. BMI of 58.1. HEENT: Denies any active troubles with vision or hearing. ENDOCRINE: No reports of hypothyroidism. No reports of blood sugar glucose intolerance. RESPIRATORY: Has obstructive sleep apnea with CPAP machine. CARDIOVASCULAR: History of chest pain. History of hypertensive heart disease. GI: Denies any diarrhea, constipation. Previous GI bleed. MUSCULOSKELETAL: Has diffuse joint pain involving the knees. Previous knee replacements. NEURO: No reports of seizure disorders. No history of headaches. PSYCH: No reports of depression or suicidal ideation. SKIN: No skin cancers. No diffuse rash. HEMATOLOGIC: No family history of DVTs or pulmonary embolism. He is on Xarelto. PHYSICAL EXAM: VITAL SIGNS: 5 feet 10, 360 pounds, body mass index 51.8 GENERAL: Well-developed pleasant male in no acute distress. HEENT: No scleral icterus. Extraocular movements grossly intact. Moist buccal mucosa. No nasal drainage. Hears conversational speech. NECK: Supple without lymphadenopathy. CHEST: Unlabored respirations with equal bilateral excursions. CARDIOVASCULAR: Irregular rate, irregular rhythm. Distal 2+ pulses. ABDOMEN: Obese, soft, nontender, nondistended. MUSCULOSKELETAL: No clubbing or cyanosis. Left forearm amputation. Superficial lacerations on bilateral anterior tibias. NEURO: No focal or lateralizing signs. Cranial nerves 2 through 12 grossly within normal limits. PSYCH: Appropriate affect. Alert and oriented to person, place and time. SKIN: Good skin tugor. No diffuse rash. Laboratory Last Values WBC 8.7 k/uL (3.8-10.6) 05/19/17 17:30 RBC 4.31 m/uL (4.30-5.90) 05/19/17 17:30 Hgb 12.7 gm/dL (13.0-17.5) L 05/19/17 17:30 Hct 38.2 % (39.0-53.0) L 05/19/17 17:30 MCV 88.6 fL (80.0-100.0) 05/19/17 17:30 MCH 29.5 pg (25.0-35.0) 05/19/17 17:30 MCHC 33.3 g/dL (31.0-37.0) 05/19/17 17:30 RDW 13.2 % (11.5-15.5) 05/19/17 17:30 Plt Count 235 k/uL (150-450) 05/19/17 17:30 Neutrophils % 70 % 05/19/17 17:30 Lymphocytes % 20 % 05/19/17 17:30 Monocytes % 6 % 05/19/17 17:30 Eosinophils % 3 % 05/19/17 17:30 Basophils % 0 % 05/19/17 17:30 Neutrophils # 6.1 k/uL (1.3-7.7) 05/19/17 17:30 Lymphocytes # 1.7 k/uL (1.0-4.8) 05/19/17 17:30 Monocytes # 0.5 k/uL (0-1.0) 05/19/17 17:30 Eosinophils # 0.3 k/uL (0-0.7) 05/19/17 17:30 Basophils # 0.0 k/uL (0-0.2) 05/19/17 17:30 PT 14.5 sec (9.0-12.0) H 05/19/17 17:30 INR 1.6 (<1.2) H 05/19/17 17:30 APTT 28.9 sec (22.0-30.0) 05/19/17 17:30 Sodium 141 mmol/L (137-145) 05/19/17 17:30 Potassium 4.4 mmol/L (3.5-5.1) 05/19/17 17:30 Chloride 104 mmol/L (98-107) 05/19/17 17:30 Carbon Dioxide 26 mmol/L (22-30) 05/19/17 17:30 Anion Gap 11 mmol/L 05/19/17 17:30 BUN 20 mg/dL (9-20) 05/19/17 17:30 Creatinine 1.00 mg/dL (0.66-1.25) 05/19/17 17:30 Est GFR (MDRD) Af Amer >60 (>60 ml/min/1.73 sqM) 05/19/17 17:30 Est GFR (MDRD) Non-Af >60 (>60 ml/min/1.73 sqM) 05/19/17 17:30 Glucose 99 mg/dL (74-99) 05/19/17 17:30 POC Glucose (mg/dL) 102 mg/dL (75-99) H 05/19/17 17:16 POC Glu Boy'S Adviser ID Ambar Casanova 05/19/17 17:16 Calcium 9.8 mg/dL (8.4-10.2) 05/19/17 17:30 Phosphorus 3.3 mg/dL (2.5-4.5) 05/19/17 17:30 Magnesium 2.0 mg/dL (1.6-2.3) 05/19/17 17:30 Total Bilirubin 0.6 mg/dL (0.2-1.3) 05/19/17 17:30 AST 27 U/L (17-59) 05/19/17 17:30 ALT 24 U/L (21-72) 05/19/17 17:30 Alkaline Phosphatase 85 U/L (38-126) 05/19/17 17:30 Total Creatine Kinase 217 U/L (55-170) H 05/19/17 17:30 CK-MB (CK-2) 3.5 ng/mL (0.0-2.4) H* 05/19/17 17:30 CK-MB (CK-2) Rel Index 1.6 05/19/17 17:30 Troponin I <0.012 ng/mL (0.000-0.034) 05/19/17 17:30 NT-Pro-B Natriuret Pep 1490 pg/mL 05/19/17 17:30 Total Protein 7.3 g/dL (6.3-8.2) 05/19/17 17:30 Albumin 4.2 g/dL (3.5-5.0) 05/19/17 17:30 Urine Color Yellow 05/19/17 08:35 Urine Appearance Clear (Clear) 05/19/17 08:35 Urine pH 5.5 (5.0-8.0) 05/19/17 08:35 Ur Specific [place] 1.015 (1.001-1.035) 05/19/17 08:35 Urine Protein Negative (Negative) 05/19/17 08:35 Urine Glucose (UA) Negative (Negative) 05/19/17 08:35 Urine Ketones Negative (Negative) 05/19/17 08:35 Urine Blood Trace (Negative) H 05/19/17 08:35 Urine Nitrite Negative (Negative) 05/19/17 08:35 Urine Bilirubin Negative (Negative) 05/19/17 08:35 Urine Urobilinogen <2.0 mg/dL (<2.0) 05/19/17 08:35 Ur Leukocyte Esterase Negative (Negative) 05/19/17 08:35 Urine RBC 3 /hpf (0-5) 05/19/17 08:35 Urine Mucus Rare /hpf (None) H 05/19/17 08:35 ASSESSMENT: 1. Super morbid obesity. 2. BMI 51.8 3. Hypertensive heart disease with cardiomyopathy. 4. Chronic atrial fibrillation. 5. End stage bilateral knee osteoarthritis. 6. Coronary artery disease s/p re-vascularization. 7. Obstructive sleep apnea. 8. Neuropathy. 9. Chronic anticoagulant use. 10. Hyperlipidemia. 11. Family history of morbid obesity. 12. Previous stroke. 13. Previous angina. 14. Hypertensive urgency. 15. Iron deficiency anemia. 16. Anemia due to chronic blood loss. 17. Vitamin D deficiency. 18. Status post sleeve gastrectomy. 19. Status post fall following loss of consciousness. PLAN: 1. He is due for bariatric labs as he is almost 1 month out. 2. His sleeve diet has been adjusted to low fiber including no straws and no carbonated beverages and low-carb high protein diet. 3. Patient is due for follow-up on May 24, should he be discharged within 24 hours. 4. Patient is stable from a surgical standpoint. Past Medical History Past Medical History: Atrial Fibrillation, Coronary Artery Disease (CAD), CVA/ TIA, Hyperlipidemia, Hypertension, Myocardial Infarction (ND), Sleep Apnea/CPAP/ BIPAP Additional Past Medical History / Comment(s): morbid obesity, Restless Leg Syndrome. MILD STROKE 08/19/15-no effects, HAS PROSTHESIS on left hand. [place] X2. DEHYDRATION, BLE PVD and neuropathy Last Myocardial Infarction Date:: 2014 History of Any Multi-Drug Resistant Organisms: None Reported Past Surgical History: Adenoidectomy, Bariatric Surgery, Coronary Bypass/CABG, Heart Catheterization With Stent, Joint Replacement, Orthopedic Surgery, Pacemaker, Tonsillectomy Additional Past Surgical History / Comment(s): STENTS X 3. [place] Knee replacements/later revision of left knee. 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, TRIPLE CABG 06/06/15, Sleeve gastrectomy 04/26/17 Past Anesthesia/Blood Transfusion Reactions: No Reported Reaction Additional Past Anesthesia/Blood Transfusion Reaction / Comm: claustrophobia Date of Last Stent Placement:: 2004 Type of Cardiac Device: Permanent Pacemaker Device Placement Date:: 2005-St Ed Past Psychological History: No Psychological Hx Reported Additional Psychological History / Comment(s): claustrophobia Smoking Status: Never smoker Past Alcohol Use History: None Reported Past Drug Use History: None Reported - Past Family History Father Family Medical History: Cancer Additional Family Medical History / Comment(s): bone cancer Mother Family Medical History: Myocardial Infarction (ND) Additional Family Medical History / Comment(s): at age 80 Medications and Allergies Home Medications Medication Instructions Recorded Confirmed Type Gabapentin 300 mg PO TID 01/09/15 05/19/17 History Primidone [Mysoline] 50 mg PO TID 01/09/15 05/19/17 History Tamsulosin [Flomax] 0.4 mg PO HS 01/09/15 05/19/17 History Lisinopril 5 mg PO HS 01/09/16 05/19/17 History Furosemide [Lasix] 20 mg PO QAM 01/28/17 05/19/17 History Metoprolol Tartrate [Lopressor] 25 mg PO BID 04/19/17 05/19/17 History Omeprazole [PriLOSEC] 40 mg PO QAM 04/19/17 05/19/17 History Lisinopril [Zestril] 10 mg PO QAM 04/26/17 05/19/17 History Aspirin [Adult Low Dose Aspirin EC] 81 mg PO QAM 05/05/17 05/19/17 History Atorvastatin [Lipitor] 40 mg PO HS 05/05/17 05/19/17 History Ferrous Sulfate [Feosol] 325 mg PO QAM 05/05/17 05/19/17 History Rivaroxaban [Xarelto] 20 mg PO W/SUPPER 05/05/17 05/19/17 History Cholecalciferol (Vitamin D3) 10,000 unit PO QAM 05/19/17 05/19/17 History [Vitamin D3] cloNIDine HCL [Catapres] 0.1 mg PO BID 05/19/17 05/19/17 History rOPINIRole HCL [Requip] 2 mg PO QAM 05/19/17 05/19/17 History rOPINIRole HCL [Requip] 4 mg PO HS 05/19/17 05/19/17 History Allergies Allergy/AdvReac Type Severity Reaction Status Date / Time No Known Allergies Allergy Verified 05/19/17 17:42 Surgical - Exam Vital Signs Temp Pulse Resp BP Pulse Ox 97.9 F 59 L 18 161/72 100 05/19/17 17:04 05/19/17 17:04 05/19/17 17:04 05/19/17 17:04 05/19/17 17:04 Results - Labs 05/19/17 17:30 05/19/17 17:30 Abnormal Lab Results - Last 24 Hours (Table) 05/19/17 05/19/17 05/19/17 Range/Units 08:35 17:30 17:30 PT 14.5 H (9.0-12.0) sec INR 1.6 H (<1.2) Total Creatine Kinase 217 H (55-170) U/L CK-MB (CK-2) 3.5 H* (0.0-2.4) ng/mL Urine Blood Trace H (Negative) Urine Mucus Rare H (None) /hpf Microbiology - Last 24 Hours (Table) 05/19/17 08:35 Urine Culture - Preliminary Urine,Voided
--- NOTE | 2017-05-20 18:56 | XR ---
EXAMINATION TYPE: XR knee complete bilateral DATE OF EXAM: 05/20/2017 COMPARISON: NONE HISTORY: Knee pain TECHNIQUE: 7 views FINDINGS: There are bilateral knee prostheses. Right components appear in intact. The left tibial com ponent has some lucency at the tibial condyles. I see no fracture. IMPRESSION: Bilateral knee prosthesis. There is some lucency on the tibial component of the prosthesi s at the tibial condyles of the left knee that may indicate some loosening. This could be a change co mpared to old exam of 10/07/2015.
[2017-05-20] MEDS: LISINOPRIL 5 MG TAB PO SCH (20:38)
[2017-05-20] MEDS: TAMSULOSIN 0.4 MG CAP.ER.24H PO SCH (20:38)
[2017-05-20] MEDS: rOPINIRole HCL 4 MG TABLET PO SCH (20:38)
[2017-05-20] MEDS: ATORVASTATIN 40 MG TAB PO SCH (20:38)
[2017-05-21] MEDS: MORPHINE SULFATE 4 MG/ML SYRINGE IVP PRN (02:55)
--- NOTE | 2017-05-21 08:43 | CT ---
EXAMINATION TYPE: CT brain wo con DATE OF EXAM: 05/21/2017 HISTORY: Multiple falls. History of stroke. Follow up scan. CT DLP: 1012.70 mGycm. Automated Exposure Control for Dose Reduction was Utilized. TECHNIQUE: CT scan of the head is performed without contrast. COMPARISON: CT scan of brain from 2 days ago and older studies. FINDINGS: There is artifact in the posterior fossa related to patient's strap buttons making evaluati on slightly suboptimal. There is no acute intracranial hemorrhage or midline shift identified. There is diffuse ventricular and sulcal prominence consistent with diffuse age-related cerebral atrophy. There is low-attenuation in the periventricular white matter consistent with chronic small vessel isc hemic change. There is old infarct right parietal level in the posterior watershed region redemonstra doroteo near axial image 29. Patchy soft tissue density bilateral external auditory canals is felt to ref lect cerumen. The globes are intact and the visualized sinuses are clear. The calvarium remains int act. IMPRESSION: No acute intracranial hemorrhage or midline shift. There is mild to moderate diffuse ag e-related cerebral atrophy and chronic small vessel ischemic change as well as old right occipital lo be infarct all redemonstrated. No significant change from prior studies.
[2017-05-21] MEDS: cloNIDine HCL 0.1 MG TAB PO SCH ×2 (09:12→20:43)
[2017-05-21] MEDS: ASPIRIN 81 MG PO SCH (09:12)
[2017-05-21] MEDS: CHOLECALCIFEROL 1,000 UNIT TAB PO SCH (09:12)
[2017-05-21] MEDS: FERROUS SULFATE 325 MG TAB PO SCH (09:12)
[2017-05-21] MEDS: LISINOPRIL 10 MG TAB PO SCH (09:13)
[2017-05-21] MEDS: FUROSEMIDE 20 MG TAB PO SCH (09:13)
[2017-05-21] MEDS: GABAPENTIN 300 MG CAP PO SCH ×3 (09:13→20:44)
[2017-05-21] MEDS: METOPROLOL TARTRATE 25 MG TAB PO SCH ×2 (09:13→20:44)
[2017-05-21] MEDS: PANTOPRAZOLE 40 MG TABLET PO SCH (09:14)
[2017-05-21] MEDS: PRIMIDONE 50 MG TAB PO SCH ×3 (09:14→20:44)
[2017-05-21] MEDS: HYDROcodone/APAP 7.5-325MG 1 EACH TAB PO PRN ×2 (09:23→16:13)
--- NOTE | 2017-05-21 12:34 | PN ---
PROGRESS NOTE DATE OF SERVICE: 05/21/2017 This is a 71-year-old white male who was admitted to the hospital following a fall in the bathroom and he was not able to get up by himself because of pain and weakness and the patient was brought to the emergency room and he has a history of stroke in the past and also he has multiple other comorbid conditions and he has coronary artery disease and has had a coronary artery bypass graft in the past. Also has had a stent placement. He also has degenerative arthritis of multiple joints and has had a total knee arthroplasty bilaterally. Recently, he had bariatric surgery for morbid obesity and he also has chronic atrial fibrillation. He has been on Xarelto. Patient was admitted to the hospital for further evaluation and treatment. The CT scan of the head did not show any evidence of any acute stroke and patient was seen by Dr. Ortiz in consultation. According to Dr. Ortiz patient might have had a TIA and patient was started on physical therapy and currently patient is improving. Patient was [facility] by [facility] and also by Dr. Ponce for evaluation for inpatient rehab. Patient is also getting physical therapy and occupational therapy, and patient is requesting that he will go for outpatient physical therapy when discharged. Clinically, patient is improving and his x-ray of the knees was taken because of his severe pain and it shows that there may be some loosening of the prosthesis in the left knee and will have Dr. Guzmán, who did the surgery, see the patient in consultation. Overall prognosis is guarded. MMODL / MYRNAN: [id number] /
--- NOTE | 2017-05-21 14:12 | P.PN ---
Subjective Progress Note Date: 05/21/17 This patient is a 71-year-old right-handed white male who is being evaluated for possible TIA versus stroke. Patient admitted yesterday with symptoms of weakness and difficulty walking. He underwent an initial computed tomography scan of the brain which failed to reveal any evidence of acute stroke. His symptoms suggest possibility of TIA. He is currently on Xarelto for treatment of chronic atrial fibrillation. He was seen by Dr. Avendano yesterday for possible inpatient rehab. Apparently he is a possible candidate for inpatient rehab. Patient himself however would like to go for outpatient physical therapy one discharge. He does have difficulty with bilateral knee arthritis. He is also undergone recent abdominal surgery and is being followed closely by Dr. Lugo. The patient had a repeat computed tomography scan of the brain done today which reveals no evidence of acute stroke. There was mild to moderate degree of diffuse cortical atrophy and small vessel ischemic changes. There was evidence of an old right occipital infarct which is unchanged from previous study. Patient has been doing better today. He is feeling some improvement in his strength in general. As noted he is being considered for possible discharge with outpatient PT OT evaluation. Patient states he is feeling better today. This case was discussed today with Dr. Pierre. Plan is for possible discharge home tomorrow. We will continue close neurological follow-up of this patient during this admission. His overall prognosis at this time remains guarded. Objective - Vital Signs Vital signs: Vital Signs Temp 97.5 F L 05/21/17 08:00 Pulse 60 05/21/17 08:00 Resp 20 05/21/17 08:00 BP 93/54 05/21/17 08:00 Pulse Ox 96 05/21/17 08:00 Intake & Output 05/20/17 05/21/17 05/21/17 18:59 06:59 18:59 Intake Total 940 240 Output Total 750 500 Balance 190 -260 Weight 145.5 kg Intake: Oral 840 240 Other 100 Output: Urine 750 500 Other: Voiding Method Urinal Urinal Urinal # Voids 200 1 - Exam Physical examination: PHYSICAL EXAMINATION: Patient is resting comfortably in bed. VITAL SIGNS: Blood pressure is [93/54]. Heart rate is [60]. Respiration is [20] . Temperature is [97.5]. HEENT: Head is atraumatic, neck is supple, there were no carotid bruits. CHEST: Lungs are clear to auscultation and percussion. CARDIAC: S1, S2 normal rate and rhythm. There is no murmur. ABDOMEN: Soft and nontender. Bowel sounds are present. EXTREMITIES: There is no pedal edema. Peripheral pulses are present. Neurological examination: Patient's neurological examination is unchanged from yesterday. Patient is more awake and alert today. Neurological examination is nonfocal. - Labs CBC & Chem 7: 05/19/17 17:30 05/19/17 17:30 Labs: Microbiology - Last 24 Hours (Table) 05/19/17 08:35 Urine Culture - Final Urine,Voided Assessment and Plan (1) Generalized weakness Current Visit: Yes Status: Acute Code(s): R53.1 - WEAKNESS SNOMED Code(s) : 22759056 (2) Atrial fibrillation Current Visit: Yes Status: Acute Code(s): I48.91 - UNSPECIFIED ATRIAL FIBRILLATION SNOMED Code(s): 25812823 (3) Multiple falls Current Visit: Yes Status: Acute Code(s): R29.6 - REPEATED FALLS SNOMED Code(s): 839198478 (4) Ataxic gait Current Visit: Yes Status: Acute Code(s): R26.0 - ATAXIC GAIT SNOMED Code( s): 18853276 Plan: This patient is a 71-year-old gentleman who is being followed for recent episode of generalized weakness and possible TIA versus stroke. Patient had a seconds CAT scan of the brain done today the results of which are noted above. There is no evidence of acute stroke or hemorrhage. He has evidence of an old right occipital lobe infarct. Patient has been evaluated by Dr. Ponce for possible inpatient rehab. Patient apparently once to do outpatient PT OT evaluation at discharge. He is being followed up with his general surgeon as he had recent abdominal surgery. Apparently his findings are stable. We will continue close neurological follow-up for the patient. He is to continue on Xarelto for management of his chronic atrial fibrillation. Patient would like to work with outpatient PT OT rather than inpatient rehab. This case was discussed today with Dr. Pierre. Plan is for possible discharge of this patient to home tomorrow. He should follow-up with outpatient physical therapy at [facility] as directed. His overall prognosis at this time remains guarded. We will continue close neurological follow-up of this patient during this admission.
--- NOTE | 2017-05-21 15:16 | CONS ---
CONSULTATION This is a 71-year-old gentleman with a history of chronic atrial fibrillation, underlying pacemaker, hypertension, hyperlipidemia, previous PCI and also aortocoronary bypass surgery. About 3 to 4 weeks ago, he underwent a gastric sleeve operation. Since then, apparently has not lost as much weight and he has been complaining of weakness, lack of energy and falling. He has also a lot of emotional issues as well. I was asked to see him mainly because of his underlying CAD. His CAD is pretty much stable with previous bypass surgery. He has undergone a gastric sleeve operation uneventfully. He has gone through his gastric sleeve operation uneventfully. He also has a history of hypertension, hyperlipidemia, both of which are under good control. He is here mainly because of complaining of weakness, lack of energy, and also falling spells. Patient indicates to me that he has fallen before, but now he is able to walk around and he does not want to go to any rehab facility, he wishes to go home. He feels very strongly that he has lost nearly 25 pounds since the sleeve operation, but Dr. Browning note suggests that the patient really has not lost much weight. Apparently is less than 4 weeks out from his gastric sleeve operation. He has not been very compliant and he is not following the diet as advised as well. However, he denies any chest discomfort. He is resting comfortably without symptoms. His depression seems to be better. He is actually doing well. His lower extremities reveal some ecchymotic changes, but no major issues. PAST MEDICAL HISTORY: 1. CAD with prior bypass surgery. 2. History of sick sinus syndrome with a permanent pacemaker. 3. Chronic atrial fibrillation. 4. Hypertension. 5. Hyperlipidemia. 6. Status post gastric sleeve surgery. PHYSICAL EXAMINATION: Blood pressure is 114/70, pulse rate is 64 per minute, regular. HEENT: Unremarkable. Fundus was not examined by me. NECK: Supple, there is JVD of 1 cm. No carotid bruit. Heart exam reveals S1, S2 with a short systolic murmur. Lungs revealed decent air entry. Abdomen is soft. Lower extremities reveal ecchymotic changes on the legs with some open wounds which may be related to some falling, but these are healing. EKG revealed an atrial paced with ventricular sensed beats, leftward axis, nonspecific ST-T changes and right bundle branch block pattern. IMPRESSION: 1. Patient is status post gastric sleeve surgery without much weight reduction. 2. Complains of some dizziness, lightheadedness and falls, but none of these are substantiated. Patient denies all of these and he tells me that he is quite stable, walks around and wishes to go home. 3. Stable coronary artery disease without any evidence of ongoing myocardial ischemia. 4. Hypertension. 5. Status post prior aortocoronary bypass surgery and no evidence of any ischemia. Stress test prior to his sleeve surgery did not reveal any significant ischemia. RECOMMENDATIONS: From a cardiac standpoint, no intervention necessary. He has a lot of social issues. These are being addressed by his PCP and Dr. Lugo. Patient can be discharged whenever it is okay with them, same medications cardiac-moreno including Xarelto which he takes for his atrial fibrillation. Thank you very much for the consult. KRYSTIANL / IJN: [id number] /
[2017-05-21] MEDS ORDERED: RIVAROXABAN 20 MG TAB PO SCH (17:30)
[2017-05-21] MEDS: ATORVASTATIN 40 MG TAB PO SCH (20:43)
[2017-05-21] MEDS: LISINOPRIL 5 MG TAB PO SCH (20:43)
[2017-05-21] MEDS: TAMSULOSIN 0.4 MG CAP.ER.24H PO SCH (20:44)
[2017-05-21] MEDS: rOPINIRole HCL 4 MG TABLET PO SCH (20:44)
[2017-05-21] MEDS: MORPHINE ORAL SOLN 10 MG/5 ML CUP PO PRN (20:48)
[2017-05-22] MEDS: HYDROcodone/APAP 7.5-325MG 1 EACH TAB PO PRN (05:41)
[2017-05-22 09:17] VITALS: RESP 16; TEMP 96.7
[2017-05-22] MEDS: MORPHINE ORAL SOLN 10 MG/5 ML CUP PO PRN (09:24)
[2017-05-22] MEDS: ASPIRIN 81 MG PO SCH (09:26)
[2017-05-22] MEDS: CHOLECALCIFEROL 1,000 UNIT TAB PO SCH (09:26)
[2017-05-22] MEDS: cloNIDine HCL 0.1 MG TAB PO SCH (09:26)
[2017-05-22] MEDS: FERROUS SULFATE 325 MG TAB PO SCH (09:26)
[2017-05-22] MEDS: FUROSEMIDE 20 MG TAB PO SCH (09:27)
[2017-05-22] MEDS: METOPROLOL TARTRATE 25 MG TAB PO SCH (09:27)
[2017-05-22] MEDS: GABAPENTIN 300 MG CAP PO SCH (09:27)
[2017-05-22] MEDS: LISINOPRIL 10 MG TAB PO SCH (09:27)
[2017-05-22] MEDS: PRIMIDONE 50 MG TAB PO SCH (09:28)
[2017-05-22] MEDS: PANTOPRAZOLE 40 MG TABLET PO SCH (09:28)
[2017-05-22 11:39] VITALS: BP 112/65; PULSE 62
--- NOTE | 2017-05-22 11:50 | P.CNOR ---
History of Present Illness - [facility] Consult date: 05/22/17 Consult reason: joint pain (Bilateral knee pain) History of present illness: This is a 71-year-old male admitted to [facility] with generalized weakness and inability to ambulate. He is approximately 4 weeks status post a gastric sleeve for weight loss. The patient states that he was a bit dizzy and lost his balance. He states that his knees have been painful recently. He has history of knee replacement with Dr. Guzmán. His most recent surgery was a revision of the left knee a couple of years ago. He states that while he is admitted in the hospital he would like his knees evaluated. He reports no fever or chills. Past Medical History Past Medical History: Atrial Fibrillation, Coronary Artery Disease (CAD), CVA/ TIA, Hyperlipidemia, Hypertension, Myocardial Infarction (AK), Sleep Apnea/CPAP/ BIPAP Additional Past Medical History / Comment(s): morbid obesity, Restless Leg Syndrome. MILD STROKE 08/19/15-no effects, HAS PROSTHESIS on left hand. [place] X2. DEHYDRATION, BLE PVD and neuropathy Last Myocardial Infarction Date:: 2014 History of Any Multi-Drug Resistant Organisms: None Reported Past Surgical History: Adenoidectomy, Bariatric Surgery, Coronary Bypass/CABG, Heart Catheterization With Stent, Joint Replacement, Orthopedic Surgery, Pacemaker, Tonsillectomy Additional Past Surgical History / Comment(s): STENTS X 3. [place] Knee replacements/later revision of left knee. 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, TRIPLE CABG 06/06/15, Sleeve gastrectomy 04/26/17 Past Anesthesia/Blood Transfusion Reactions: No Reported Reaction Additional Past Anesthesia/Blood Transfusion Reaction / Comm: claustrophobia Date of Last Stent Placement:: 2004 Type of Cardiac Device: Permanent Pacemaker Device Placement Date:: 2005- Past Psychological History: No Psychological Hx Reported Additional Psychological History / Comment(s): claustrophobia Smoking Status: Never smoker Past Alcohol Use History: None Reported Past Drug Use History: None Reported - Past Family History Father Family Medical History: Cancer Additional Family Medical History / Comment(s): bone cancer Mother Family Medical History: Myocardial Infarction ([place]) Additional Family Medical History / Comment(s): at age 80 Medications and Allergies Home Medications Medication Instructions Recorded Confirmed Type Gabapentin 300 mg PO TID 01/09/15 05/19/17 History Primidone [Mysoline] 50 mg PO TID 01/09/15 05/19/17 History Tamsulosin [Flomax] 0.4 mg PO HS 01/09/15 05/19/17 History Lisinopril 5 mg PO HS 01/09/16 05/19/17 History Furosemide [Lasix] 20 mg PO QAM 01/28/17 05/19/17 History Metoprolol Tartrate [Lopressor] 25 mg PO BID 04/19/17 05/19/17 History Omeprazole [PriLOSEC] 40 mg PO QAM 04/19/17 05/19/17 History Lisinopril [Zestril] 10 mg PO QAM 04/26/17 05/19/17 History Aspirin [Adult Low Dose Aspirin EC] 81 mg PO QAM 05/05/17 05/19/17 History Atorvastatin [Lipitor] 40 mg PO HS 05/05/17 05/19/17 History Ferrous Sulfate [Feosol] 325 mg PO QAM 05/05/17 05/19/17 History Rivaroxaban [Xarelto] 20 mg PO W/SUPPER 05/05/17 05/19/17 History Cholecalciferol (Vitamin D3) 10,000 unit PO QAM 05/19/17 05/19/17 History [Vitamin D3] cloNIDine HCL [Catapres] 0.1 mg PO BID 05/19/17 05/19/17 History rOPINIRole HCL [Requip] 2 mg PO QAM 05/19/17 05/19/17 History rOPINIRole HCL [Requip] 4 mg PO HS 05/19/17 05/19/17 History Allergies Allergy/AdvReac Type Severity Reaction Status Date / Time No Known Allergies Allergy Verified 05/19/17 17:42 Physical Examination This is a pleasant 71-year-old male in no acute distress. He is alert and oriented 3. Exam of the lower extremities reveals erythema and wounds to the anterior aspect of the lower legs. There are findings consistent with peripheral vascular disease and chronic venous stasis area evaluation of the knees reveals no obvious deformity. There is trace effusion to either knee. There is no erythema or ecchymosis. The patient can bend each knee to about 90 and has full extension. There is minimal pain with palpation about the medial or lateral joint line or to the patella. He has full foot ankle motion without difficulty or pain. Results X-rays of bilateral knees reveal a press fitted total knee components in the right knee which appears to be in good position and alignment with no evidence of loosening. X-rays of the left knee reveal a revised component in place. The femoral component is well-seated. The tibial component is in good position and alignment with some lucency noted under the implant. No fractures identified. - Labs Labs: Microbiology - Last 24 Hours (Table) 05/19/17 08:35 Urine Culture - Final Urine,Voided H & H 05/19/17 Range/Units 17:30 Hgb 12.7 L (13.0-17.5) gm/dL Hct 38.2 L (39.0-53.0) % Coagulation 05/19/17 Range/Units 17:30 INR 1.6 H (<1.2) Result Diagrams: 05/19/17 17:30 05/19/17 17:30 Assessment and Plan (1) Status post bilateral knee replacements Current Visit: Yes Status: Acute Code(s): Z96.653 - PRESENCE OF ARTIFICIAL KNEE JOINT, BILATERAL SNOMED Code(s): 061656905 (2) Generalized weakness Current Visit: Yes Status: Acute Code(s): R53.1 - WEAKNESS SNOMED Code(s) : 02229084 (3) Leg weakness Current Visit: Yes Status: Acute Code(s): M62.81 - MUSCLE WEAKNESS ( GENERALIZED) SNOMED Code(s): 358129392 (4) Peripheral vascular disease Current Visit: Yes Status: Acute Code(s): I73.9 - PERIPHERAL VASCULAR DISEASE, UNSPECIFIED SNOMED Code(s): 962941175 Plan: The clinical and x-ray findings are discussed with the patient. With his gait instability, is recommended that he have a brace for the left knee and use a walker for ambulation. It is discussed that it would require further workup to know for sure if there is some loosening to his tibial component. That may be done as an outpatient. There is also discussed that even if there were some loosening it would be a big surgery to revise the component. The patient is okay to remain in the brace and is to use a walker for ambulation at this time. The plan of care is discussed with the patient's stepson over the phone. The patient is to follow-up with Dr. Guzmán as an outpatient.
--- NOTE | 2017-05-22 13:26 | P.PN ---
Subjective Progress Note Date: 05/22/17 This patient is a 71-year-old male who was initially admitted to hospital with generalized weakness and possible TIA. Patient underwent recent follow-up CAT scan of the brain which came back negative for any evidence of acute stroke. He was seen today by orthopedic surgery for bilateral knee pain. He does have history of bilateral knee replacements. He was recommended to use a brace for his left knee and to use a walker for ambulation. Surgery was also discussed but this would be a major undertaking. Patient wants to use the brace and the walker to see how he is able to get along at home. Patient will follow-up with Dr. Guzmán as outpatient. We will continue to monitor his progress closely. Patient is being considered for possible discharge home with outpatient physical therapy to be done at [facility] once he is discharged. We will continue follow his progress closely. Objective - Vital Signs Vital signs: Vital Signs Temp 96.7 F L 05/22/17 09:16 Pulse 62 05/22/17 11:35 Resp 16 05/22/17 11:35 BP 112/65 05/22/17 11:35 Pulse Ox 98 05/22/17 11:35 Intake & Output 05/21/17 05/22/17 05/22/17 18:59 06:59 18:59 Intake Total 658 180 240 Output Total 250 Balance 408 180 240 Weight 140.1 kg Intake: Oral 658 180 240 Output: Urine 250 Other: Voiding Method Urinal Urinal # Voids 1 - Exam Physical examination: PHYSICAL EXAMINATION: Patient is resting comfortably in bed. VITAL SIGNS: Blood pressure is [112/65]. Heart rate is [62]. Respiration is [16] . Temperature is [97.0]. HEENT: Head is atraumatic, neck is supple, there were no carotid bruits. CHEST: Lungs are clear to auscultation and percussion. CARDIAC: S1, S2 normal rate and rhythm. There is no murmur. ABDOMEN: Soft and nontender. Bowel sounds are present. EXTREMITIES: There is no pedal edema. Peripheral pulses are present. Neurological examination: Patient's neurological examination is unchanged from yesterday. Patient is more awake and alert today. Neurological examination is nonfocal. - Labs CBC & Chem 7: 05/19/17 17:30 05/19/17 17:30 Labs: Microbiology - Last 24 Hours (Table) 05/19/17 08:35 Urine Culture - Final Urine,Voided Assessment and Plan (1) Generalized weakness Current Visit: Yes Status: Acute Code(s): R53.1 - WEAKNESS SNOMED Code(s) : 40986555 (2) Atrial fibrillation Current Visit: Yes Status: Acute Code(s): I48.91 - UNSPECIFIED ATRIAL FIBRILLATION SNOMED Code(s): 07503784 (3) Multiple falls Current Visit: Yes Status: Acute Code(s): R29.6 - REPEATED FALLS SNOMED Code(s): 988946301 (4) Ataxic gait Current Visit: Yes Status: Acute Code(s): R26.0 - ATAXIC GAIT SNOMED Code( s): 79039618 Plan: This patient is a 71-year-old gentleman who is being followed for recent episode of generalized weakness and possible TIA versus stroke. Patient had a seconds CAT scan of the brain done today the results of which are noted above. There is no evidence of acute stroke or hemorrhage. He has evidence of an old right occipital lobe infarct. Patient has been evaluated by Dr. Ponce for possible inpatient rehab. Patient apparently once to do outpatient PT OT evaluation at discharge. He is being followed up with his general surgeon as he had recent abdominal surgery. Apparently his findings are stable. We will continue close neurological follow-up for the patient. He is to continue on Xarelto for management of his chronic atrial fibrillation. Patient would like to work with outpatient PT OT rather than inpatient rehab. This case was discussed today with Dr. Pierre. Plan is for possible discharge of this patient to home tomorrow. He should follow-up with outpatient physical therapy at [facility] as directed. Patient was seen by orthopedic surgery today. They are recommending that he use a brace for the left knee and a walker for ambulation. His overall prognosis at this time remains guarded. We will continue close neurological follow-up of this patient during this admission. His overall prognosis at this time remains guarded.
== END 2017-05-22 15:20 | disposition home health service (06) | DRG 69 ==
LOC: EC 17:01 → 3OBS 20:55 → OBSVTOIN 05-20 09:59 → 6SEL 05-20 21:26
PROVIDERS: ADMIT Internal Medicine; ATTEND Internal Medicine
DX: G45.9 Transient cerebral ischemic attack, unspecified (principal); L03.119 Cellulitis of unspecified part of limb; G62.9 Polyneuropathy, unspecified; I48.2 Chronic atrial fibrillation; S09.90XA Unspecified injury of head, initial encounter; E66.01 Morbid (severe) obesity due to excess calories; D50.0 Iron deficiency anemia secondary to blood loss (chronic); E55.9 Vitamin D deficiency, unspecified; E78.5 Hyperlipidemia, unspecified; F32.9 Major depressive disorder, single episode, unspecified; F40.240 Claustrophobia; G25.81 Restless legs syndrome; G47.33 Obstructive sleep apnea (adult) (pediatric); I16.0 Hypertensive urgency; I25.10 Atherosclerotic heart disease of native coronary artery without angina pectoris; I25.2 Old myocardial infarction; I11.9 Hypertensive heart disease without heart failure; I73.9 Peripheral vascular disease, unspecified; I83.93 Asymptomatic varicose veins of bilateral lower extremities; N40.0 Benign prostatic hyperplasia without lower urinary tract symptoms; R29.6 Repeated falls; I87.8 Other specified disorders of veins; Z68.43 Body mass index [BMI] 50.0-59.9, adult; Z79.01 Long term (current) use of anticoagulants; Z79.82 Long term (current) use of aspirin; Z79.899 Other long term (current) drug therapy; Z98.84 Bariatric surgery status; Z96.653 Presence of artificial knee joint, bilateral; Z95.5 Presence of coronary angioplasty implant and graft; Z95.1 Presence of aortocoronary bypass graft; Z95.0 Presence of cardiac pacemaker; Z86.73 Personal history of transient ischemic attack (TIA), and cerebral infarction without residual deficits; Z89.112 Acquired absence of left hand; Z82.49 Family history of ischemic heart disease and other diseases of the circulatory system; W18.2XXA Fall in (into) shower or empty bathtub, initial encounter; Y93.E1 Activity, personal bathing and showering; Y92.002 Bathroom of unspecified non-institutional (private) residence as the place of occurrence of the external cause
CPT/HCPCS: 36415; 70450; 71046; 72125; 80053; 81001; 82550; 82553; 83735; 83880; 84100; 84484; 85025; 85610; 85730; 87086; 93005; 96374; 96375; 99285

== ENCOUNTER 2017-05-24 03:18 | Emergency (ER) | payer MEDICARE ==
[2017-05-24 03:37] VITALS: BP 112/72; PULSE 60; RESP 28
[2017-05-24] MEDS ORDERED: KETOROLAC 60 MG/2 ML VIAL IM STA (03:51)
--- NOTE | 2017-05-24 03:53 | ED ---
General Adult HPI - General Chief complaint: Extremity Injury, Lower Stated complaint: KNEE PAIN Time Seen by Provider: 05/24/17 03:20 Source: patient, RN notes reviewed Mode of arrival: wheelchair Limitations: no limitations - History of Present Illness Initial comments: This is a 8-year-old male who presents emergency Department complaining of right knee pain. Patient states he fell a couple days ago and then he came to the hospital at his knees evaluated he saw an orthopedic surgeon as well. Patient states he comes in tonight because the pain in the right knee is causing it to give out. Patient states he is taking his hydrocodone but is not working. Patient comes in today because he is wanting some more pain medicine however he drove himself in. Patient denies any new injury. - Related Data Home Medications Medication Instructions Recorded Confirmed Gabapentin 300 mg PO TID 01/09/15 05/19/17 Primidone [Mysoline] 50 mg PO TID 01/09/15 05/19/17 Tamsulosin [Flomax] 0.4 mg PO HS 01/09/15 05/19/17 Lisinopril 5 mg PO HS 01/09/16 05/19/17 Furosemide [Lasix] 20 mg PO QAM 01/28/17 05/19/17 Metoprolol Tartrate [Lopressor] 25 mg PO BID 04/19/17 05/19/17 Omeprazole [PriLOSEC] 40 mg PO QAM 04/19/17 05/19/17 Lisinopril [Zestril] 10 mg PO QAM 04/26/17 05/19/17 Aspirin [Adult Low Dose Aspirin EC] 81 mg PO QAM 05/05/17 05/19/17 Atorvastatin [Lipitor] 40 mg PO HS 05/05/17 05/19/17 Ferrous Sulfate [Feosol] 325 mg PO QAM 05/05/17 05/19/17 Rivaroxaban [Xarelto] 20 mg PO W/SUPPER 05/05/17 05/19/17 Cholecalciferol (Vitamin D3) 10,000 unit PO QAM 05/19/17 05/19/17 [Vitamin D3] cloNIDine HCL [Catapres] 0.1 mg PO BID 05/19/17 05/19/17 rOPINIRole HCL [Requip] 2 mg PO QAM 05/19/17 05/19/17 rOPINIRole HCL [Requip] 4 mg PO HS 05/19/17 05/19/17 Previous Rx's Medication Instructions Recorded HYDROcodone/APAP 7.5-325MG [[place] 1 tab PO Q8HR PRN #1 tab 05/22/17 7.5-325] Sulfamethox-Tmp 800-160Mg [Bactrim 1 tab PO Q12HR #1 tab 05/22/17 DS 800-160 mg] Allergies Allergy/AdvReac Type Severity Reaction Status Date / Time No Known Allergies Allergy Verified 05/24/17 03:37 Review of Systems ROS Statement: Those systems with pertinent positive or pertinent negative responses have been documented in the HPI. ROS Other: All systems not noted in ROS Statement are negative. Past Medical History Past Medical History: Atrial Fibrillation, Coronary Artery Disease (CAD), CVA/ TIA, Hyperlipidemia, Hypertension, Myocardial Infarction ([place]), Sleep Apnea/CPAP/ BIPAP Additional Past Medical History / Comment(s): morbid obesity, Restless Leg Syndrome. MILD STROKE 08/19/15-no effects, HAS PROSTHESIS on left hand. [place] X2. DEHYDRATION, BLE PVD and neuropathy Last Myocardial Infarction Date:: 2014 History of Any Multi-Drug Resistant Organisms: None Reported Past Surgical History: Adenoidectomy, Bariatric Surgery, Coronary Bypass/CABG, Heart Catheterization With Stent, Joint Replacement, Orthopedic Surgery, Pacemaker, Tonsillectomy Additional Past Surgical History / Comment(s): STENTS X 3. [place] Knee replacements/later revision of left knee. 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, TRIPLE CABG 06/06/15, Sleeve gastrectomy 04/26/17 Past Anesthesia/Blood Transfusion Reactions: No Reported Reaction Additional Past Anesthesia/Blood Transfusion Reaction / Comment(s): claustrophobia Date of Last Stent Placement:: 2004 Type of Cardiac Device: Permanent Pacemaker Device Placement Date:: 2005-St Ed Past Psychological History: No Psychological Hx Reported Smoking Status: Never smoker Past Alcohol Use History: None Reported Past Drug Use History: None Reported - Past Family History Father Family Medical History: Cancer Additional Family Medical History / Comment(s): bone cancer Mother Family Medical History: Myocardial Infarction ([place]) Additional Family Medical History / Comment(s): at age 80 General Exam - General Exam Comments Initial Comments: GENERAL Patient is well-developed and well-nourished. Patient is in mild distress. EYES Patient's pupils are equal and round. Extraocular motion is intact SKIN Unremarkable NEURO The patient is alert and oriented 3 PYSCH Patient has normal interpersonal interactions. MUSCULOSKELETAL Left knee is tender in the inferior medial aspect. Limitations: no limitations Course Vital Signs 05/24/17 03:32 Temperature 972 F H Pulse Rate 60 Respiratory 28 H Rate Blood Pressure 112/72 O2 Sat by Pulse 98 Oximetry Medical Decision Making - Medical Decision Making Acute the patient a shot of Toradol. I told the patient could give him any narcotics because he was driving home he stated that he just as soon go home and take some of his [place] and follow-up with the orthopedic surgeons. Disposition Clinical Impression: Knee pain Disposition: HOME SELF-CARE Instructions: Knee Pain (ED) Referrals: Neville Pierre MD [Primary Care Provider] - 1-2 days Time of Disposition: 04:05
[2017-05-24 04:30] VITALS: TEMP 97.2
== END 2017-05-24 04:17 | disposition home or self-care (01) ==
LOC: EC 03:18
DX: M25.561 Pain in right knee (principal); I48.91 Unspecified atrial fibrillation; I25.10 Atherosclerotic heart disease of native coronary artery without angina pectoris; E78.5 Hyperlipidemia, unspecified; I10 Essential (primary) hypertension; I25.2 Old myocardial infarction; I73.9 Peripheral vascular disease, unspecified; G25.81 Restless legs syndrome; G47.30 Sleep apnea, unspecified; Z99.89 Dependence on other enabling machines and devices; E66.01 Morbid (severe) obesity due to excess calories; Z68.41 Body mass index [BMI] 40.0-44.9, adult; Z86.73 Personal history of transient ischemic attack (TIA), and cerebral infarction without residual deficits; Z98.84 Bariatric surgery status; Z95.1 Presence of aortocoronary bypass graft; Z95.5 Presence of coronary angioplasty implant and graft; Z96.653 Presence of artificial knee joint, bilateral; Z79.82 Long term (current) use of aspirin; Z79.899 Other long term (current) drug therapy; W19.XXXD Unspecified fall, subsequent encounter
CPT/HCPCS: 99283; 96372; J1885

== ENCOUNTER 2017-10-11 10:55 | Emergency (ER) | payer MEDICARE ==
[2017-10-11 11:03] VITALS: TEMP 97.8
[2017-10-11] MEDS ORDERED: MORPHINE SULFATE 2 MG/ML SYRINGE IVP STA (11:09)
[2017-10-11] MEDS ORDERED: SODIUM CHLORIDE 0.9% 500 ML IV STA (11:09)
[2017-10-11] MEDS ORDERED: ONDANSETRON 4 MG/2 ML VIAL IVP STA (11:09)
--- NOTE | 2017-10-11 11:15 | ED ---
Extremity Problem HPI - General Source: patient, RN notes reviewed Mode of arrival: wheelchair Limitations: no limitations <Salvador Hall - Last Filed: 10/11/17 14:09> <Nik Jha - Last Filed: 10/11/17 14:24> - General Chief complaint: Extremity Problem,Nontraumatic Stated complaint: Groin pain Time Seen by Provider: 10/11/17 11:04 - History of Present Illness Initial comments: 71-year-old male presents emergency Department chief complaint right groin pain. Patient had worsening pain last 3 days with no injury. Patient states she is not sure if he has a hernia or something else. Denies any dysuria, hematuria, diarrhea constipation. Patient states that he had bariatric surgery over one year ago said no comp patients. Patient states his surgeon was Dr. Lugo. Patient states that this pain is groin is worse with movement. Patient denies any trauma. Patient states pain radiates towards his right buttocks and right groin region. (Salvador Hall) - Related Data Home Medications Medication Instructions Recorded Confirmed Gabapentin 300 mg PO TID 01/09/15 10/11/17 Primidone [Mysoline] 50 mg PO TID 01/09/15 10/11/17 Tamsulosin [Flomax] 0.4 mg PO HS 01/09/15 10/11/17 Lisinopril 5 mg PO HS 01/09/16 10/11/17 Furosemide [Lasix] 20 mg PO QAM 01/28/17 10/11/17 Metoprolol Tartrate [Lopressor] 25 mg PO BID 04/19/17 10/11/17 Omeprazole [PriLOSEC] 40 mg PO QAM 04/19/17 10/11/17 Lisinopril [Zestril] 10 mg PO QAM 04/26/17 10/11/17 Aspirin [Adult Low Dose Aspirin EC] 81 mg PO QAM 05/05/17 10/11/17 Atorvastatin [Lipitor] 40 mg PO HS 05/05/17 10/11/17 Ferrous Sulfate [Feosol] 325 mg PO QAM 05/05/17 10/11/17 Rivaroxaban [Xarelto] 20 mg PO AC-SUPPER 05/05/17 10/11/17 Cholecalciferol (Vitamin D3) 10,000 unit PO DAILY 05/19/17 10/11/17 [Vitamin D3] cloNIDine HCL [Catapres] 0.1 mg PO BID 05/19/17 10/11/17 rOPINIRole HCL [Requip] 2 mg PO QAM 05/19/17 10/11/17 rOPINIRole HCL [Requip] 4 mg PO HS 05/19/17 10/11/17 Allergies Allergy/AdvReac Type Severity Reaction Status Date / Time No Known Allergies Allergy Verified 10/11/17 11:46 Review of Systems ROS Other: All systems not noted in ROS Statement are negative. <Salvador Hall - Last Filed: 10/11/17 14:09> ROS Other: All systems not noted in ROS Statement are negative. <Nik Jha - Last Filed: 10/11/17 14:24> ROS Statement: Those systems with pertinent positive or pertinent negative responses have been documented in the HPI. Past Medical History Past Medical History: Atrial Fibrillation, Coronary Artery Disease (CAD), CVA/ TIA, Hyperlipidemia, Hypertension, Myocardial Infarction ([place]), Sleep Apnea/CPAP/ BIPAP Additional Past Medical History / Comment(s): morbid obesity, Restless Leg Syndrome. MILD STROKE 08/19/15-no effects, HAS PROSTHESIS on left hand. [place] X2. DEHYDRATION, BLE PVD and neuropathy Last Myocardial Infarction Date:: 2014 History of Any Multi-Drug Resistant Organisms: None Reported Past Surgical History: Adenoidectomy, Bariatric Surgery, Coronary Bypass/CABG, Heart Catheterization With Stent, Joint Replacement, Orthopedic Surgery, Pacemaker, Tonsillectomy Additional Past Surgical History / Comment(s): STENTS X 3. [place] Knee replacements/later revision of left knee. 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, TRIPLE CABG 06/06/15, Sleeve gastrectomy 04/26/17 Past Anesthesia/Blood Transfusion Reactions: No Reported Reaction Additional Past Anesthesia/Blood Transfusion Reaction / Comment(s): claustrophobia Date of Last Stent Placement:: 2004 Type of Cardiac Device: Permanent Pacemaker Device Placement Date:: 2005-St Ed Past Psychological History: No Psychological Hx Reported Smoking Status: Never smoker Past Alcohol Use History: None Reported Past Drug Use History: None Reported - Past Family History Father Family Medical History: Cancer Additional Family Medical History / Comment(s): bone cancer Mother Family Medical History: Myocardial Infarction ([place]) Additional Family Medical History / Comment(s): at age 80 <IsabelSalvador - Last Filed: 10/11/17 14:09> General Exam Limitations: no limitations General appearance: alert, in no apparent distress Neck exam: Present: normal inspection, full ROM. Absent: tenderness, meningismus, lymphadenopathy Respiratory exam: Present: normal lung sounds bilaterally. Absent: respiratory distress, wheezes, rales, rhonchi, stridor Cardiovascular Exam: Present: regular rate, normal rhythm, normal heart sounds. Absent: systolic murmur, diastolic murmur, rubs, gallop, clicks GI/Abdominal exam: Present: soft, normal bowel sounds. Absent: distended, tenderness, guarding, rebound, rigid exam: Present: normal inspection, other (Tenderness the right groin) Back exam: Absent: CVA tenderness (R), CVA tenderness (L) Skin exam: Present: warm, dry, intact, normal color. Absent: rash <IsabelSalvador Joyce - Last Filed: 10/11/17 14:09> Course <IsabelSalvador Maria Del Carmen - Last Filed: 10/11/17 14:09> <Nik Jha - Last Filed: 10/11/17 14:24> Vital Signs 10/11/17 10/11/17 11:02 14:15 Temperature 97.8 F Pulse Rate 60 61 Respiratory 20 16 Rate Blood Pressure 112/69 151/78 O2 Sat by Pulse 97 98 Oximetry - Reevaluation(s) Reevaluation #1: 10/11/17 14:22 I, Dr. Nik Jha, personally saw and examined the patient. I have reviewed and agree with the PA/TRANSFORMER BUILDER findings including all diagnostic interpretation and treatment plan. I was present for belcher portions of any procedures performed and the inclusive time noted for any critical care statement. Nik Jha D.O. (Nik Jha) Medical Decision Making - Lab Data Result diagrams: 10/11/17 12:05 10/11/17 12:05 <IsabelSalvador Maria Del Carmen - Last Filed: 10/11/17 14:09> - Lab Data Result diagrams: 10/11/17 12:05 10/11/17 12:05 <Nik Jha - Last Filed: 10/11/17 14:24> - Medical Decision Making 71-year-old male presents from for right-sided abdominal pain. Patient has a right inguinal hernia containing mesenteric fat. Patient has no other acute findings on CT. Patient's labwork was reviewed which is unremarkable. Patient follow-up with his surgeon Dr. Lugo. (Salvador Hall) - Lab Data Lab Results 10/11/17 10/11/17 10/11/17 Range/Units 12:05 12:05 12:14 WBC 4.8 (3.8-10.6) k/uL RBC 4.14 L (4.30-5.90) m/uL Hgb 12.1 L (13.0-17.5) gm/dL Hct 36.9 L (39.0-53.0) % MCV 89.3 (80.0-100.0) fL MCH 29.4 (25.0-35.0) pg MCHC 32.9 (31.0-37.0) g/dL RDW 13.1 (11.5-15.5) % Plt Count 176 (150-450) k/uL Neutrophils % 49 % Lymphocytes % 36 % Monocytes % 8 % Eosinophils % 5 % Basophils % 1 % Neutrophils # 2.4 (1.3-7.7) k/uL Lymphocytes # 1.7 (1.0-4.8) k/uL Monocytes # 0.4 (0-1.0) k/uL Eosinophils # 0.3 (0-0.7) k/uL Basophils # 0.0 (0-0.2) k/uL Sodium 138 (137-145) mmol/L Potassium 4.2 (3.5-5.1) mmol/L Chloride 107 (98-107) mmol/L Carbon Dioxide 24 (22-30) mmol/L Anion Gap 7 mmol/L BUN 20 (9-20) mg/dL Creatinine 1.00 (0.66-1.25) mg/dL Est GFR (CKD-EPI)AfAm 88 (>60 ml/min/1.73 sqM) Est GFR (CKD-EPI)NonAf 76 (>60 ml/min/1.73 sqM) Glucose 103 H (74-99) mg/dL Calcium 8.9 (8.4-10.2) mg/dL Total Bilirubin 0.4 (0.2-1.3) mg/dL AST 21 (17-59) U/L ALT 25 (21-72) U/L Alkaline Phosphatase 75 (38-126) U/L Total Protein 6.4 (6.3-8.2) g/dL Albumin 3.8 (3.5-5.0) g/dL Amylase 38 (30-110) U/L Lipase 76 (23-300) U/L Urine Color Colorless Urine Appearance Clear (Clear) Urine pH 5.0 (5.0-8.0) Ur Specific [place] 1.006 (1.001-1.035) Urine Protein Negative (Negative) Urine Glucose (UA) Negative (Negative) Urine Ketones Negative (Negative) Urine Blood Negative (Negative) Urine Nitrite Negative (Negative) Urine Bilirubin Negative (Negative) Urine Urobilinogen <2.0 (<2.0) mg/dL Ur Leukocyte Esterase Negative (Negative) Disposition Is patient prescribed a controlled substance at d/c from ED?: No Time of Disposition: 14:10 <Salvador Hall - Last Filed: 10/11/17 14:09> <Nik Jha - Last Filed: 10/11/17 14:24> Clinical Impression: Right inguinal hernia Disposition: HOME SELF-CARE Condition: Stable Instructions: Inguinal Hernia (ED) Additional Instructions: Please return to the Emergency Department if symptoms worsen or any other concerns. Referrals: Neville Pierre MD [Primary Care Provider] - 1-2 days Samantha Lugo MD [STAFF PHYSICIAN] - 1-2 days
[2017-10-11 12:24] LABS: Basophils % (A) 1 %; Eosinophils # (A) 0.3 k/uL (0-0.7); Eosinophils % (A) 5 %; HCT 36.9 % (39.0-53.0); HGB 12.1 gm/dL (13.0-17.5); Lymphocytes # (A) 1.7 k/uL (1.0-4.8); Lymphocytes % (A) 36 %; MCH 29.4 pg (25.0-35.0); MCHC 32.9 g/dL (31.0-37.0); MCV 89.3 fL (80.0-100.0); Mean Platelet Volume 8.5; Monocytes # (A) 0.4 k/uL (0-1.0); Monocytes % (A) 8 %; Neutrophils # (A) 2.4 k/uL (1.3-7.7); Neutrophils % (A) 49 %; Platelet Count 176 k/uL (150-450); RBC 4.14 m/uL (4.30-5.90); RDW 13.1 % (11.5-15.5); WBC 4.8 k/uL (3.8-10.6)
[2017-10-11 12:33] LABS: Albumin 3.8 g/dL (3.5-5.0); Calcium 8.9 mg/dL (8.4-10.2); Potassium 4.2 mmol/L (3.5-5.1); Total Bilirubin 0.4 mg/dL (0.2-1.3); Total Protein 6.4 g/dL (6.3-8.2)
[2017-10-11 12:40] LABS: Appearance,Urine Clear (Clear); Bilirubin,Urine Negative (Negative); Blood,Urine Negative (Negative); Color,Urine Colorless; Glucose,Urine (UA) Negative (Negative); Ketones,Urine Negative (Negative); Leukocyte Esterase,Urine Negative (Negative); Nitrite,Urine Negative (Negative); Protein,Urine Negative (Negative); Specific Gravity,Urine 1.006 (1.001-1.035); Urobilinogen,Urine <2.0 mg/dL (<2.0)
--- NOTE | 2017-10-11 14:06 | CT ---
EXAMINATION TYPE: CT abdomen pelvis w con DATE OF EXAM: 10/11/2017 COMPARISON: 05/10/2017 INDICATION: Abdominal pain DLP: 1991.6 mGycm, Automated exposure control for dose reduction was used. CONTRAST: 100 ml mL of Isovue 300. Study performed without Oral Contrast TECHNIQUE: Axial images were obtained from above the diaphragm to the pubic rami in the axial plane a t 5 mm thick sections. Reconstructed images are reviewed on the computer in the coronal plane. FINDINGS: Limited CT sections are obtained the lung bases. The lung bases are clear. Hiatal hernia is present . Postsurgical changes are within the stomach. CT ABDOMEN: Liver: Normal Spleen: Normal Pancreas: Normal Adrenal glands: The adrenal glands are normal. Gallbladder: Normal Kidneys: No masses are evident. No hydronephrosis is present. No cysts are present. Delayed images were obtained through the kidneys, which remain unremarkable. Aorta: Vascular calcification is within the aorta. Inferior vena cava: Normal. CT PELVIS: Loops of bowel within the abdomen and pelvis are normal. Scattered diverticuli are within the sigmo id colon. Study is performed without oral contrast limiting the evaluation. Appendix: Normal as visualized. Urinary bladder: Normal. Genitourinary structures: Prostate is slightly prominent median impression on the urinary bladder. No te is made of a right inguinal hernia containing mesenteric fat. Osseous structures: No suspicious lytic or sclerotic lesions. IMPRESSIONS: 1. Sigmoid diverticulosis without acute diverticulitis. 2. Slight prostate prominence. 3. Mesenteric fat containing right inguinal hernia. 4. Hiatal hernia.
[2017-10-11 14:16] VITALS: BP 151/78; PULSE 61; RESP 16
[2017-10-11] MEDS ORDERED: ACET/COD 300 MG/30 MG STARTER PACK 6 TAB BTL PO STA (14:23)
== END 2017-10-11 14:41 | disposition home or self-care (01) ==
LOC: EC 10:55
DX: K40.90 Unilateral inguinal hernia, without obstruction or gangrene, not specified as recurrent (principal); I48.91 Unspecified atrial fibrillation; I25.10 Atherosclerotic heart disease of native coronary artery without angina pectoris; E78.5 Hyperlipidemia, unspecified; I10 Essential (primary) hypertension; I25.2 Old myocardial infarction; G25.81 Restless legs syndrome; I73.9 Peripheral vascular disease, unspecified; G47.30 Sleep apnea, unspecified; E66.01 Morbid (severe) obesity due to excess calories; Z68.38 Body mass index [BMI] 38.0-38.9, adult; Z86.73 Personal history of transient ischemic attack (TIA), and cerebral infarction without residual deficits; Z95.1 Presence of aortocoronary bypass graft; Z95.5 Presence of coronary angioplasty implant and graft; Z95.0 Presence of cardiac pacemaker; Z96.653 Presence of artificial knee joint, bilateral; Z98.84 Bariatric surgery status; Z79.82 Long term (current) use of aspirin; Z79.01 Long term (current) use of anticoagulants; Z79.899 Other long term (current) drug therapy
CPT/HCPCS: 36415; 80053; 82150; 83690; 85025; 81003; 74177; 99284; 96374; 96375; 96361 ×2; J2405; J2270

== ENCOUNTER → 2017-10-27 | Outpatient (CLI) | payer MEDICARE ==
[2017-10-27 13:45] VITALS: BMI 43.5
[2017-10-27 14:00] VITALS: BP 142/84; PULSE 65; TEMP 98.2
--- NOTE | 2017-10-27 14:15 | P.PN ---
Subjective Progress Note Date: 10/27/17 HPI: Oly reports moving to [place] and was lost to follow up. He has not lost any weight. PLAN: 1. Hernia repair in 2 days 2. Get labs. 3. Follow-up next week. Objective - Vital Signs Vital signs: Vital Signs Temp 98.2 F 10/27/17 13:57 Pulse 65 10/27/17 13:57 Resp BP 142/84 10/27/17 13:57 Pulse Ox Intake & Output 10/26/17 10/27/17 10/27/17 18:59 06:59 18:59 Weight 122.47 kg
[2017-10-27 15:11] LABS: HCT 37.2 % (39.0-53.0); HGB 12.3 gm/dL (13.0-17.5); MCH 29.6 pg (25.0-35.0); MCHC 32.9 g/dL (31.0-37.0); MCV 89.9 fL (80.0-100.0); Mean Platelet Volume 7.7; Platelet Count 170 k/uL (150-450); RBC 4.14 m/uL (4.30-5.90); RDW 13.1 % (11.5-15.5); WBC 5.8 k/uL (3.8-10.6)
[2017-10-27 15:18] LABS: ALT 29 U/L (21-72); AST 21 U/L (17-59); Albumin 3.9 g/dL (3.5-5.0); Alkaline Phosphatase 74 U/L (38-126); Anion Gap 5 mmol/L; Blood Urea Nitrogen 23 mg/dL (9-20); Carbon Dioxide 27 mmol/L (22-30); Chloride 105 mmol/L (98-107); Cholesterol 113 mg/dL (<200); Glucose 96 mg/dL (74-99); HDL Cholesterol 47 mg/dL (40-60); LDL Cholesterol,Calculated 56 mg/dL (0-99); Magnesium 1.8 mg/dL (1.6-2.3); Phosphorus 2.9 mg/dL (2.5-4.5); Potassium 4.2 mmol/L (3.5-5.1); Sodium 137 mmol/L (137-145); Total Bilirubin 0.4 mg/dL (0.2-1.3); Total Protein 6.6 g/dL (6.3-8.2); Triglycerides 50 mg/dL (<150)
[2017-10-27 15:21] LABS: INR 1.3 (<1.2); Partial Thromboplastin Time 26.3 sec (22.0-30.0); Prothrombin Time 11.9 sec (9.0-12.0)
[2017-10-27 19:17] LABS: Iron Saturation 36.68 (15.00-50.00)
[2017-10-27 19:25] LABS: Folate, Serum 7.7 ng/mL; Vitamin D 25 Hydroxy 24.4 ng/mL (30.0-100.0)
[2017-10-27 20:49] LABS: Parathyroid Hormone Intact 61.5 pg/mL (14.0-72.0)
[2017-10-28 00:55] LABS: Hemoglobin A1C 5.3 % (4.0-6.0)
[2017-10-28 15:08] LABS: Zinc, Serum 62 ug/dL (60-130)
[2017-10-29 05:17] LABS: Vitamin B1 56 ug/L (38-122)
[2017-10-29 05:30] LABS: Vitamin A 52 ug/dL (38-106)
[2017-10-29 16:50] LABS: Selenium 114 mcg/L (63-160)
== END | disposition home or self-care (01) ==
LOC: BARWHC3 13:07
PROVIDERS: ATTEND Surgery Plastic and Reconstructive Surgery
DX: E66.01 Morbid (severe) obesity due to excess calories (principal); E21.1 Secondary hyperparathyroidism, not elsewhere classified; E89.1 Postprocedural hypoinsulinemia; D50.9 Iron deficiency anemia, unspecified; E44.0 Moderate protein-calorie malnutrition; E55.9 Vitamin D deficiency, unspecified; K74.1 Hepatic sclerosis; N19 Unspecified kidney failure; K50.90 Crohn's disease, unspecified, without complications; Z68.41 Body mass index [BMI] 40.0-44.9, adult
CPT/HCPCS: 84255; 84134; 84425; 80061; 80053; 82607; 82728; 82525; 82746; 83540; 83550; 83735; 84100; 84443; 84590; 84630; 85027; 85610; 85730; 82306; 83970; 83036; 97803; 36415; G0463; 99211

== ENCOUNTER → 2017-10-29 | Day surgery (SDC) | payer MEDICARE ==
[2017-10-22 15:12] VITALS: BMI 38.1
[~2017-10-29] MED LIST changes: +DEXAMETHASONE SOD PHOSPHATE 10 MG/ML 1 ML VIAL IV ONE; +GLYCOPYRROLATE 0.2 MG/ML 2 ML VIAL ONE; +HEPARIN SODIUM,PORCINE 5,000 UNIT/ML 1 ML VIAL SQ ONE; +LIDOCAINE 1% 20 ML VIAL (10MG/ML) FOR IV START INTRADERMA ONE; +LIDOCAINE 1% INJ 10MG/ML (20 ML MDV) ONE; +LIDOCAINE 1%-EPI 1:100,000 30 ML VIAL SQ ONE; +MIDAZOLAM 2 MG/2 ML VIAL IV PRN; +MIDAZOLAM 2 MG/2 ML VIAL ONE; +NEOSTIGMINE 1 MG/ML 10 ML VIAL ONE; +ONDANSETRON 4 MG/2 ML VIAL ONE; +PROPOFOL 10 MG/ML 20 ML VIAL IV ONE; +ROCURONIUM BROMIDE 10 MG/ML 10 ML VIAL IV ONE; -SCOPOLAMINE 1.5MG/72HR PATCH TRANSDERM ONE; +SUCCINYLCHOLINE CHLORIDE VIAL 200 MG/10 ML VIAL IV ONE; +diphenhydrAMINE 50 MG/ML 1 ML VIAL IVP ONE; +diphenhydrAMINE 50 MG/ML 1 ML VIAL IVP PRN; +fentaNYL (PF) 50 MCG/ML 2 ML AMP ONE
--- NOTE | 2017-10-29 07:00 | P.GSHP ---
History of Present Illness H&P Date: 10/29/17 CHIEF COMPLAINT: Inguinal hernia, right. HISTORY OF PRESENT ILLNESS: The patient is a 71-year-old male who presents with a history of swelling and pain along the right groin. He's noted increased swelling including pain of the area. Now he presents for repair of his inguinal hernia. PAST MEDICAL HISTORY: Please see list. PAST SURGICAL HISTORY: Please see list. MEDICATIONS: Please see list. ALLERGIES: Please see list. SOCIAL HISTORY: No illicit drug use FAMILY HISTORY: No reports of Crohn disease or ulcerative colitis. REVIEW OF ORGAN SYSTEMS: CONSTITUTIONAL: No reports of fevers or chills. No reports of weight loss despite prior attempts. GI: Denies any blood in stools or constipation. PHYSICAL EXAM: VITAL SIGNS: Stable GENERAL: Well-developed pleasant male in no acute distress. HEENT: No scleral icterus. Extraocular movements grossly intact. Moist buccal mucosa. NECK: Supple without lymphadenopathy. CHEST: Unlabored respirations. Equal bilateral excursions. CARDIOVASCULAR: Regular rate and rhythm. Distal 2+ pulses. ABDOMEN: Soft, nondistended. No peritoneal signs. Palpable defect of the right groin. MUSCULOSKELETAL: No clubbing, cyanosis, or edema. ASSESSMENT: 1. Inguinal hernia, right PLAN: 1. Recommend proceeding with a robotic inguinal repair with mesh with possible bilateral approach. 2. Benefits and risks of surgical intervention was discussed including possibility of open technique. 3. DVT prophylaxis. 4. Antibiotic prophylaxis. Past Medical History Past Medical History: Atrial Fibrillation, Coronary Artery Disease (CAD), CVA/ TIA, Hyperlipidemia, Hypertension, Myocardial Infarction ([place]), Sleep Apnea/CPAP/ BIPAP Additional Past Medical History / Comment(s): Restless Leg Syndrome. MILD STROKE 08/19/15-no effects, HAS PROSTHESIS on left hand. [place] X2. DEHYDRATION, BLE PVD and neuropathy Last Myocardial Infarction Date:: 2014 History of Any Multi-Drug Resistant Organisms: None Reported Past Surgical History: Adenoidectomy, Bariatric Surgery, Coronary Bypass/CABG, Heart Catheterization With Stent, Joint Replacement, Orthopedic Surgery, Pacemaker, Tonsillectomy Additional Past Surgical History / Comment(s): STENTS X 3. [place] Knee replacements/later revision of left knee. 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, TRIPLE CABG 06/06/15, Sleeve gastrectomy 04/26/17 Past Anesthesia/Blood Transfusion Reactions: Motion Sickness Additional Past Anesthesia/Blood Transfusion Reaction / Comment(s): claustrophobia Date of Last Stent Placement:: 2004 Type of Cardiac Device: Permanent Pacemaker Device Placement Date:: 2005-St Ed Smoking Status: Never smoker - Past Family History Father Family Medical History: Cancer Additional Family Medical History / Comment(s): bone cancer Mother Family Medical History: Myocardial Infarction ([place]) Additional Family Medical History / Comment(s): at age 80 Medications and Allergies Home Medications Medication Instructions Recorded Confirmed Type Gabapentin 300 mg PO TID 01/09/15 10/27/17 History Primidone [Mysoline] 50 mg PO TID 01/09/15 10/27/17 History Tamsulosin [Flomax] 0.4 mg PO HS 01/09/15 10/27/17 History Lisinopril 5 mg PO HS 01/09/16 10/27/17 History Furosemide [Lasix] 20 mg PO QAM 01/28/17 10/27/17 History Metoprolol Tartrate [Lopressor] 25 mg PO BID 04/19/17 10/27/17 History Omeprazole [PriLOSEC] 40 mg PO QAM 04/19/17 10/27/17 History Lisinopril [Zestril] 10 mg PO QAM 04/26/17 10/27/17 History Aspirin [Adult Low Dose Aspirin EC] 81 mg PO QAM 05/05/17 10/27/17 History Atorvastatin [Lipitor] 40 mg PO HS 05/05/17 10/27/17 History Ferrous Sulfate [Feosol] 325 mg PO QAM 05/05/17 10/27/17 History Cholecalciferol (Vitamin D3) 10,000 unit PO DAILY 05/19/17 10/27/17 History [Vitamin D3] cloNIDine HCL [Catapres] 0.1 mg PO BID 05/19/17 10/27/17 History rOPINIRole HCL [Requip] 2 mg PO QAM 05/19/17 10/27/17 History rOPINIRole HCL [Requip] 4 mg PO HS 05/19/17 10/27/17 History Acetaminophen Tab [Tylenol Tab] 650 mg PO Q4H PRN 10/22/17 10/27/17 History Rivaroxaban [Xarelto] 20 mg PO 1800 10/22/17 10/27/17 History Allergies Allergy/AdvReac Type Severity Reaction Status Date / Time No Known Allergies Allergy Verified 10/27/17 13:55
[2017-10-29] MEDS: LACTATED RINGERS 1,000 ML IV SCH ×2 (09:47→10:58)
[2017-10-29 09:57] LABS: INR 1.3 (<1.2); Prothrombin Time 12.3 sec (9.0-12.0)
--- NOTE | 2017-10-29 12:30 | P.OP ---
Date of Procedure: 10/29/17 Description of Procedure: SURGEON: BRENDA MAHONEY MD PREOPERATIVE DIAGNOSES: 1. Initial right inguinal hernia. 2. Ischemic cardiomyopathy 3. Morbid obesity due to excess calories, BMI 38.2 4. History of sleeve gastrectomy 5. Hypertensive heart disease POSTOPERATIVE DIAGNOSES: 1. Initial right inguinal hernia. 2. Ischemic cardiomyopathy 3. Morbid obesity due to excess calories, BMI 38.2 4. History of sleeve gastrectomy 5. Hypertensive heart disease OPERATION: 1. Robotic-assisted da Peyman Xi laparoscopic right inguinal hernia repair with mesh, 11.[address] ANESTHESIA: General with local anesthetic ESTIMATED BLOOD LOSS: 5 mL. SPECIMENS REMOVED: Incarcerated right inguinal hernia sac COMPLICATIONS: None. INDICATIONS: The patient is a 71-year-old gentleman who presents with history of right groin pain. Now presents for definitive surgical intervention. Laparoscopic versus open and robotic approaches were discussed. Benefits and risks including bleeding, infection, injury to the vas deferens as well as sterility and chronic groin pain were reviewed. Placement of mesh was also described. Informed consent was obtained. DESCRIPTION: In the preoperative area, the patient was marked with indelible marker along the inguinal hernia. The patient was brought to the operating room and initially laid in supine position. The abdomen had been prepped and draped in standard sterile fashion. Ioban draping was also placed. Prior to incision, a timeout protocol was confirmed with surgical team regarding patient's name including procedures to be performed and location along the right groin. Initial positioning for the robotic assisted ports were selected whereby 20 cm superior to the target anatomy, 0 degree 5 mm laparoscopic trocar entry was performed at the left upper quadrant. The abdomen was insufflated to 15 mmHg which he had tolerated well. Diagnostic laparoscopy demonstrated a indirect inguinal hernia along the right groin. Next, along the epigastrium, 8 mm robot trocar was placed. An 8-mm robotic trocar was placed under direct visualization at the right upper quadrant. An 8 mm port was placed at the left upper quadrant. All trocars were positioned between 8 to 10-cm apart from each other. The [employer] robot was primed, draped, prepared for docking along the left side of the patient. I then went to the 27 bards console. The hospital aides and assistants teacher was at bedside for exchange of the robot arms and equipment. No hernia was identified along the left groin. The right inguinal hernia sac was evaginated whereby the peritoneum was scored using Endo scissors with cautery. Once completely reduced into the abdominal cavity, the peritoneal sac of the hernia was stripped along a indirect inguinal hernia. The sac was resected and then passed off for further pathological analysis. The size of the hernia defect was 3 cm with intraoperative films obtained. Using a 2-0 VLOC, the peritoneal defect of the right inguinal hernia site was closed using a running suture. The defect was found to be completely closed with complete reduction of the right direct inguinal hernia was confirmed. As an onlay, an 11.[address] mesh by [employer] was initially cut in half and entered into the abdominal cavity via the 8 mm trocar. The mesh was tacked to the pelvis using 2-0 VLOC 9-inch length sutures. The robot was undocked from the patient's bedside. I then rescrubbed into the case. Insufflation was released from the abdominal cavity and all instruments were removed from the abdominal cavity. The rest of incisions were reapproximated using 4-0 Monocryl in a running subcuticular fashion. Local anesthetic was placed along the incision including for a right groin block. Incisions were cleansed using dilute hydrogen peroxide. Liquid glue was applied to the skin. At the end of the procedure, the needle, sponge and instrument counts had been verified correct by the surgical forceps fabricator. The patient had tolerated the procedure well and was taken to the postanesthesia care unit in stable condition. Console time 26 minutes Plan - Discharge Summary New Discharge Prescriptions: No Action Tamsulosin [Flomax] 0.4 mg PO HS Gabapentin 300 mg PO TID Primidone [Mysoline] 50 mg PO TID Lisinopril 5 mg PO HS Furosemide [Lasix] 20 mg PO QAM Omeprazole [PriLOSEC] 40 mg PO QAM Metoprolol Tartrate [Lopressor] 25 mg PO BID Lisinopril [Zestril] 10 mg PO QAM Aspirin [Adult Low Dose Aspirin EC] 81 mg PO QAM Ferrous Sulfate [Feosol] 325 mg PO QAM Atorvastatin [Lipitor] 40 mg PO HS rOPINIRole HCL [Requip] 4 mg PO HS cloNIDine HCL [Catapres] 0.1 mg PO BID rOPINIRole HCL [Requip] 2 mg PO QAM Cholecalciferol (Vitamin D3) [Vitamin D3] 10,000 unit PO DAILY Rivaroxaban [Xarelto] 20 mg PO 1800 Acetaminophen Tab [Tylenol Tab] 650 mg PO Q4H PRN PRN Reason: Pain Discharge Medication List Gabapentin 300 mg PO TID 01/09/15 [History] Primidone [Mysoline] 50 mg PO TID 01/09/15 [History] Tamsulosin [Flomax] 0.4 mg PO HS 01/09/15 [History] Lisinopril 5 mg PO HS 01/09/16 [History] Furosemide [Lasix] 20 mg PO QAM 01/28/17 [History] Metoprolol Tartrate [Lopressor] 25 mg PO BID 04/19/17 [History] Omeprazole [PriLOSEC] 40 mg PO QAM 04/19/17 [History] Lisinopril [Zestril] 10 mg PO QAM 04/26/17 [History] Aspirin [Adult Low Dose Aspirin EC] 81 mg PO QAM 05/05/17 [History] Atorvastatin [Lipitor] 40 mg PO HS 05/05/17 [History] Ferrous Sulfate [Feosol] 325 mg PO QAM 05/05/17 [History] Cholecalciferol (Vitamin D3) [Vitamin D3] 10,000 unit PO DAILY 05/19/17 [History ] cloNIDine HCL [Catapres] 0.1 mg PO BID 05/19/17 [History] rOPINIRole HCL [Requip] 2 mg PO QAM 05/19/17 [History] rOPINIRole HCL [Requip] 4 mg PO HS 05/19/17 [History] Acetaminophen Tab [Tylenol Tab] 650 mg PO Q4H PRN 10/22/17 [History] Rivaroxaban [Xarelto] 20 mg PO 1800 10/22/17 [History]
[2017-10-29] MEDS: fentaNYL (PF) 50 MCG/ML 2 ML AMP IV PRN ×2 (12:36→12:41)
[2017-10-29 12:45] VITALS: TEMP 97.8
[2017-10-29 12:52] VITALS: PULSE 60
[2017-10-29 13:06] VITALS: RESP 16
[2017-10-29] MEDS: HYDROmorphone 1 MG/ML 1 ML SYRINGE IVP ONE ×2 (13:13→13:22)
[2017-10-29 14:23] VITALS: BP 105/53
== END | disposition home or self-care (01) ==
LOC: OR 07:21
PROVIDERS: ATTEND Surgery Plastic and Reconstructive Surgery
DX: K40.90 Unilateral inguinal hernia, without obstruction or gangrene, not specified as recurrent (principal); I48.91 Unspecified atrial fibrillation; I25.10 Atherosclerotic heart disease of native coronary artery without angina pectoris; E78.5 Hyperlipidemia, unspecified; I11.9 Hypertensive heart disease without heart failure; I25.2 Old myocardial infarction; G47.33 Obstructive sleep apnea (adult) (pediatric); G25.81 Restless legs syndrome; I73.9 Peripheral vascular disease, unspecified; I25.5 Ischemic cardiomyopathy; K21.9 Gastro-esophageal reflux disease without esophagitis; G62.9 Polyneuropathy, unspecified; E66.01 Morbid (severe) obesity due to excess calories; Z68.38 Body mass index [BMI] 38.0-38.9, adult; Z79.01 Long term (current) use of anticoagulants; Z79.82 Long term (current) use of aspirin; Z79.899 Other long term (current) drug therapy; Z86.73 Personal history of transient ischemic attack (TIA), and cerebral infarction without residual deficits; Z99.89 Dependence on other enabling machines and devices; Z95.1 Presence of aortocoronary bypass graft; Z95.5 Presence of coronary angioplasty implant and graft; Z96.653 Presence of artificial knee joint, bilateral; Z95.810 Presence of automatic (implantable) cardiac defibrillator; Z98.84 Bariatric surgery status; Z80.8 Family history of malignant neoplasm of other organs or systems
CPT/HCPCS: 49650; 85610; 88302; C1781; J2250; J0330; J1200; J1644; J1100; J2710; J0690; J2405; J2001; J3010; J1170; J2704

== ENCOUNTER → 2018-06-15 | Outpatient (CLI) | payer MEDICARE ==
--- NOTE | 2018-06-15 12:07 | XR ---
EXAM TYPE: LUMBAR SPINE X RAY SERIES COMPARISON: NONE HISTORY: Pain TECHNIQUE: 4 views are submitted. FINDINGS: Alignment is anatomic. The pedicles are intact. The transverse processes are intact. There is no s pondylolysis or spondylolisthesis. Hypertrophic and degenerative changes are seen with multilevel fa cet arthropathy. No definite compression deformities. No anterolisthesis. IMPRESSION: 1. Multilevel moderate to severe hypertrophic and degenerative disc disease with facet arthropathy. S uspect foraminal encroachment at levels L4-S1.
--- NOTE | 2018-06-15 12:09 | XR ---
EXAMINATION TYPE: XR thoracic spine complete DATE OF EXAM: 06/15/2018 COMPARISON: NONE HISTORY: Pain Alignment is anatomic. There is no compression deformities. Postsurgical changes involving the media stinum and cardiac device noted. There is multilevel moderate to severe hypertrophic and degenerative disc disease. No compression deformities. IMPRESSION: 1. Multilevel moderate to severe degenerative disc disease
== END | disposition home or self-care (01) ==
LOC: RADXRMAIN 11:39
PROVIDERS: ATTEND Internal Medicine
DX: M51.37 Other intervertebral disc degeneration, lumbosacral region (principal); M51.34 Other intervertebral disc degeneration, thoracic region; M46.97 Unspecified inflammatory spondylopathy, lumbosacral region
CPT/HCPCS: 72072; 72110

== ENCOUNTER 2018-08-02 18:14 | Emergency (ER) | payer MEDICARE ==
[2018-08-02 18:20] VITALS: PULSE 89; TEMP 97.3
[2018-08-02] MEDS ORDERED: ACETAMINOPHEN TAB 325 MG TAB PO STA (18:31)
[2018-08-02] MEDS ORDERED: KETOROLAC 30 MG/ML 1 ML VIAL IM STA (18:31)
[2018-08-02] MEDS ORDERED: LIDOCAINE 5% PATCH TOPICAL STA (18:31)
[2018-08-02] MEDS ORDERED: DIAZEPAM 5 MG/ML 2 ML INJ IM ONE (18:31)
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
[2018-08-02 18:56] VITALS: BP 176/78; RESP 18
== END 2018-08-02 19:43 | disposition home or self-care (01) ==
LOC: EC 18:14
DX: M62.838 Other muscle spasm (principal); M25.511 Pain in right shoulder; I48.91 Unspecified atrial fibrillation; I25.10 Atherosclerotic heart disease of native coronary artery without angina pectoris; E78.5 Hyperlipidemia, unspecified; I10 Essential (primary) hypertension; I25.2 Old myocardial infarction; G47.30 Sleep apnea, unspecified; G25.81 Restless legs syndrome; Z79.82 Long term (current) use of aspirin; Z79.01 Long term (current) use of anticoagulants; Z79.899 Other long term (current) drug therapy; Z91.048 Other nonmedicinal substance allergy status; Z95.1 Presence of aortocoronary bypass graft; Z95.5 Presence of coronary angioplasty implant and graft; Z96.653 Presence of artificial knee joint, bilateral; Z95.0 Presence of cardiac pacemaker
CPT/HCPCS: 99283; 96372 ×2; J3360; J1885

== ENCOUNTER → 2018-12-02 | Outpatient (CLI) | payer MEDICARE ==
[2018-12-02 17:31] LABS: African American GFR (CKD) 53.1 (60.0-200.0); BUN/Creat Ratio 21.33 Ratio (12.00-20.00); Calcium 9.3 mg/dL (8.7-10.3); Non-African American GFR(CKD) 45.9 (60.0-200.0); Potassium 4.4 mmol/L (3.5-5.5)
== END | disposition home or self-care (01) ==
LOC: LABWHC1 09:11
PROVIDERS: ATTEND Nurse Practitioner
DX: I10 Essential (primary) hypertension (principal); R60.1 Generalized edema
CPT/HCPCS: 36415; 80048; 83735

== ENCOUNTER 2019-02-09 12:39 | Inpatient (IN) | payer OTHER, MEDICARE ==
[2019-02-09] MEDS ORDERED: DIPH,PERTUS(ACELL)TETVAC-LF 0.5 ML VIAL IM ONE (12:45)
[2019-02-09] MEDS ORDERED: MORPHINE SULFATE 4 MG/ML SYRINGE IVP STA (12:47)
[2019-02-09] MEDS ORDERED: HYDROmorphone 1 MG/ML 1 ML SYRINGE IVP STA (13:33)
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
--- NOTE | 2019-02-09 13:43 | XR ---
AP pelvis HISTORY: Trauma and pain Single frontal view of the pelvis Bone mineralization is mildly reduced. Mild joint space loss in the hips. Alignment is maintained. De generative disc changes in the visualized spine. Suspect vascular calcifications are present. Patient is rotated. IMPRESSION: No radiographically apparent fracture or dislocation. Follow-up as indicated.
--- NOTE | 2019-02-09 13:45 | XR ---
Left leg HISTORY: Trauma and pain Frontal and lateral views of the left leg submitted on a total 4 images, correlation to prior knee 05/20/2017 Bone mineralization is reduced. There is soft tissue swelling present. Patient is status post left kn ee arthroplasty, heterotopic new bone present about the knee. Alignment is stable. Surgical clips are present in the soft tissues of the medial left leg. There is a plantar calcaneal spur. Enthesophyte present at the insertion of the Achilles tendon. Degenerative changes are present at the intertarsal joints. IMPRESSION: No fracture or dislocation is evident.
[2019-02-09 14:38] LABS: Appearance,Urine Clear (Clear); Bilirubin,Urine Negative (Negative); Blood,Urine Negative (Negative); Color,Urine Light Yellow; Glucose,Urine (UA) Negative (Negative); Ketones,Urine Negative (Negative); Leukocyte Esterase,Urine Negative (Negative); Nitrite,Urine Negative (Negative); PH, Urine 6.5 (5.0-8.0); Protein,Urine Negative (Negative); Specific Gravity,Urine 1.009 (1.001-1.035); Urobilinogen,Urine <2.0 mg/dL (<2.0)
[2019-02-09] MEDS ORDERED: LIDOCAINE 1% INJ 10MG/ML (20 ML MDV) SQ ONE (14:43)
[2019-02-09 14:44] LABS: Total Bilirubin 0.9 mg/dL (0.2-1.3); Total Protein 7.3 g/dL (6.3-8.2)
[2019-02-09 14:45] LABS: Potassium 4.6 mmol/L (3.5-5.1)
[2019-02-09 14:47] LABS: Basophils # (A) 0.1 k/uL (0-0.2); Basophils % (A) 1 %; Eosinophils # (A) 0.3 k/uL (0-0.7); Eosinophils % (A) 3 %; HCT 36.4 % (39.0-53.0); HGB 12.3 gm/dL (13.0-17.5); Lymphocytes # (A) 1.8 k/uL (1.0-4.8); Lymphocytes % (A) 21 %; MCH 30.3 pg (25.0-35.0); MCV 89.3 fL (80.0-100.0); Mean Platelet Volume 6.4; Monocytes # (A) 0.4 k/uL (0-1.0); Monocytes % (A) 5 %; Neutrophils # (A) 5.8 k/uL (1.3-7.7); Neutrophils % (A) 68 %; Platelet Count 205 k/uL (150-450); RBC 4.07 m/uL (4.30-5.90); RDW 13.1 % (11.5-15.5); WBC 8.5 k/uL (3.8-10.6)
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
[2019-02-09 15:35] LABS: INR 1.2 (<1.2); Partial Thromboplastin Time 30.6 sec (22.0-30.0); Prothrombin Time 12.8 sec (9.0-12.0)
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
[2019-02-09] MEDS ORDERED: LIDOCAINE 1%-EPI 1:100,000 20 ML VIAL SQ STA (15:54)
[2019-02-09 15:58] LABS: Amphetamine Screen,Urine Not Detected (NotDetected); Barbiturate Screen,Urine Not Detected (NotDetected); Benzodiazepines Screen,Urine Not Detected (NotDetected); Cocaine Screen,Urine Not Detected (NotDetected); Methadone Screen, Urine Not Detected (NotDetected); Opiate Screen,Urine Detected (NotDetected); Oxycodone Screen, Urine Not Detected (NotDetected); Phencyclidine Screen,Urine Not Detected (NotDetected); Tricyclic Antidepressant,Urine Not Detected (NotDetected); Urn Cannabinoid Scrn Not Detected (NotDetected)
[2019-02-09] MEDS ORDERED: NALOXONE 0.4 MG/ML 1 ML VIAL IV PRN (16:59)
[2019-02-09] MEDS: ONDANSETRON 4 MG/2 ML VIAL IVP PRN (17:21)
[2019-02-09] MEDS: HYDROmorphone 1 MG/ML 1 ML SYRINGE IVP PRN (18:31)
[2019-02-09 18:40] VITALS: BMI 38.2
[2019-02-09] MEDS: METOPROLOL TARTRATE 25 MG TAB PO SCH (21:55)
[2019-02-09] MEDS: ATORVASTATIN 40 MG TAB PO SCH (21:55)
[2019-02-09] MEDS: CHOLECALCIFEROL 1,000 UNIT TAB PO SCH (21:55)
[2019-02-09] MEDS: PRIMIDONE 50 MG TAB PO SCH (21:55)
[2019-02-09] MEDS: rOPINIRole HCL 4 MG TABLET PO SCH (21:55)
[2019-02-09] MEDS: TAMSULOSIN 0.4 MG CAP.ER.24H PO SCH (21:55)
[2019-02-09] MEDS: cloNIDine HCL 0.2 MG TAB PO SCH (21:55)
[2019-02-09] MEDS: LISINOPRIL 5 MG TAB PO SCH (21:55)
[2019-02-09 23:49] LABS: Glucose,Whole Blood 151 mg/dL (75-99)
[2019-02-10] MEDS: ONDANSETRON 4 MG/2 ML VIAL IVP PRN ×2 (00:51→10:48)
[2019-02-10 01:09] LABS: Basophils # (A) 0.1 k/uL (0-0.2); Basophils % (A) 1 %; Eosinophils % (A) 0 %; HGB 11.1 gm/dL (13.0-17.5); Lymphocytes # (A) 1.3 k/uL (1.0-4.8); Lymphocytes % (A) 17 %; MCH 29.8 pg (25.0-35.0); MCHC 32.7 g/dL (31.0-37.0); MCV 91.1 fL (80.0-100.0); Mean Platelet Volume 6.7; Monocytes # (A) 0.5 k/uL (0-1.0); Monocytes % (A) 7 %; Neutrophils # (A) 5.8 k/uL (1.3-7.7); Neutrophils % (A) 75 %; Platelet Count 208 k/uL (150-450); RBC 3.74 m/uL (4.30-5.90); RDW 13.3 % (11.5-15.5); WBC 7.8 k/uL (3.8-10.6)
[2019-02-10 01:18] LABS: Calcium 8.7 mg/dL (8.4-10.2); Potassium 4.6 mmol/L (3.5-5.1)
[2019-02-10 01:35] LABS: Glucose,Whole Blood 136 mg/dL (75-99)
[2019-02-10 01:40] LABS: Creatine Kinase MB 2.5 ng/mL (0.0-2.4)
[2019-02-10 01:42] LABS: Troponin I 0.095 ng/mL (0.000-0.034)
[2019-02-10] MEDS: SODIUM CHLORIDE 0.9% 1,000 ML IV SCH ×2 (02:16→12:06)
[2019-02-10 07:08] LABS: Basophils # (A) 0.2 k/uL (0-0.2); Basophils % (A) 3 %; Eosinophils % (A) 0 %; HCT 37.6 % (39.0-53.0); HGB 11.6 gm/dL (13.0-17.5); Hypochromasia Moderate; Lymphocytes # (A) 0.9 k/uL (1.0-4.8); Lymphocytes % (A) 15 %; MCHC 30.8 g/dL (31.0-37.0); Monocytes # (A) 0.4 k/uL (0-1.0); Monocytes % (A) 6 %; Neutrophils # (A) 4.8 k/uL (1.3-7.7); Neutrophils % (A) 75 %; Platelet Count 195 k/uL (150-450); RBC 3.87 m/uL (4.30-5.90); RDW 13.2 % (11.5-15.5); WBC 6.3 k/uL (3.8-10.6)
[2019-02-10 07:09] LABS: Magnesium 2.1 mg/dL (1.6-2.3); Phosphorus 3.4 mg/dL (2.5-4.5); Potassium 4.6 mmol/L (3.5-5.1)
[2019-02-10 07:17] LABS: MCV 97.3 fL (80.0-100.0)
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
[2019-02-10] MEDS ORDERED: HYDROcodone/APAP 5-325MG 1 EACH TAB PO PRN ×2 (07:57)
[2019-02-10] MEDS: CHOLECALCIFEROL 1,000 UNIT TAB PO SCH ×2 (08:04→21:02)
[2019-02-10] MEDS: PRIMIDONE 50 MG TAB PO SCH ×3 (08:04→21:01)
[2019-02-10] MEDS: FERROUS SULFATE 325 MG TAB PO SCH (08:04)
[2019-02-10] MEDS: PANTOPRAZOLE 40 MG/10 ML VIAL IV SCH (08:05)
[2019-02-10] MEDS ORDERED: ASPIRIN 81 MG PO SCH (09:00)
[2019-02-10] MEDS: METOPROLOL TARTRATE 25 MG TAB PO SCH ×2 (09:24→21:01)
[2019-02-10] MEDS: FUROSEMIDE 40 MG TAB PO SCH (09:32)
[2019-02-10] MEDS: LISINOPRIL 10 MG TAB PO SCH (10:12)
[2019-02-10] MEDS: cloNIDine HCL 0.2 MG TAB PO SCH ×2 (10:12→21:01)
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
[2019-02-10] MEDS ORDERED: METOCLOPRAMIDE 5 MG/ML 2 ML VIAL IVP PRN (11:08)
[2019-02-10] MEDS ORDERED: METOCLOPRAMIDE 5 MG/ML 2 ML VIAL IVP STA (11:08)
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
[2019-02-10 11:44] LABS: Glucose,Whole Blood 144 mg/dL (75-99)
--- NOTE | 2019-02-10 12:05 | ECHOF ---
Referral Reason:low BP/ lethargic MEASUREMENTS -------- HEIGHT: 0.0 cm WEIGHT: 0.0 kg BP: RVIDd: 3.6 cm (< 3.3) IVSd: 1.6 cm (0.6 - 1.1) LVIDd: 4.6 cm (3.9 - 5.3) LVPWd: 1.6 cm (0.6 - 1.1) IVSs: 2.2 cm LVIDs: 3.0 cm LVPWs: 2.2 cm LA Diam: 4.2 cm (2.7 - 3.8) Ao Diam: 3.6 cm (2.0 - 3.7) AV Cusp: 2.5 cm (1.5 - 2.6) MV EXCURSION: 12.685 mm (> 18.000) MV EF SLOPE: 45 mm/s (70 - 150) EPSS: 0.6 cm MV E Darin: 0.77 m/s MV DecT: 259 ms MV A Darin: 0.69 m/s MV E/A Ratio: 1.11 AR PHT: 1252 ms RAP: 5.00 mmHg RVSP: 42.20 mmHg FINDINGS -------- Paced rhythm. This was a technically difficult study with suboptimal apical views. The left ventricular size is normal. There is moderate concentric left ventricular hypertrophy. O verall left ventricular systolic function is normal with, an EF between 55 - 60 %. The right ventricle is mildly enlarged. The left atrium is mildly dilated. The right atrium is normal in size. 5.0mg of Lumason was utilized for enhancement of images Interatrial and interventricular septum intact. Lipomatous Hypertrophy of the atrial septum is pre sent Aortic valve is trileaflet and is mildly thickened. Trace to mild aortic regurgitation. The mitral valve leaflets are mildly thickened. There is trace to mild mitral regurgitation. Mild tricuspid regurgitation present. There is mild pulmonary hypertension. The right ventricular systolic pressure, as measured by Doppler, is 42.20mmHg. Trace/mild (physiologic) pulmonic regurgitation. The aortic root size is normal. Normal inferior vena cava with normal inspiratory collapse consistent with estimated right atrial pre ssure of 5 mmHg. There is no pericardial effusion. CONCLUSIONS -------- 1. Paced rhythm. 2. This was a technically difficult study with suboptimal apical views. 3. The left ventricular size is normal. 4. There is moderate concentric left ventricular hypertrophy. 5. Overall left ventricular systolic function is normal with, an EF between 55 - 60 %. 6. The right ventricle is mildly enlarged. 7. The left atrium is mildly dilated. 8. The right atrium is normal in size. 9. 5.0mg of Lumason was utilized for enhancement of images 10. Interatrial and interventricular septum intact. 11. Lipomatous Hypertrophy of the atrial septum is present 12. Aortic valve is trileaflet and is mildly thickened. 13. Trace to mild aortic regurgitation. 14. The mitral valve leaflets are mildly thickened. 15. There is trace to mild mitral regurgitation. 16. Mild tricuspid regurgitation present. 17. There is mild pulmonary hypertension. 18. The right ventricular systolic pressure, as measured by Doppler, is 42.20mmHg. 19. Trace/mild (physiologic) pulmonic regurgitation. 20. The aortic root size is normal. 21. Normal inferior vena cava with normal inspiratory collapse consistent with estimated right atrial pressure of 5 mmHg. 22. There is no pericardial effusion. [employer]ER: GABY Ennis
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
[2019-02-10] MEDS ORDERED: IPRATROPIUM-ALBUTEROL 3 ML NEB INHALATION PRN (13:43)
[2019-02-10] MEDS: ACETAMINOPHEN IV (For NPO) 1,000 MG in EMPTY BAG 1 BAG IVPB SCH ×2 (13:47→17:32)
[2019-02-10] MEDS: IPRATROPIUM-ALBUTEROL 3 ML NEB INHALATION SCH ×2 (15:47→19:15)
[2019-02-10] MEDS: traMADol 50 MG TAB PO PRN (16:35)
[2019-02-10] MEDS ORDERED: RIVAROXABAN 20 MG TAB PO SCH (17:30)
[2019-02-10] MEDS: TAMSULOSIN 0.4 MG CAP.ER.24H PO SCH (21:01)
[2019-02-10] MEDS: rOPINIRole HCL 4 MG TABLET PO SCH (21:01)
[2019-02-10] MEDS: HEPARIN SODIUM,PORCINE 5,000 UNIT/ML 1 ML VIAL SQ SCH (21:01)
[2019-02-10] MEDS: ATORVASTATIN 40 MG TAB PO SCH (21:02)
[2019-02-10] MEDS: LISINOPRIL 5 MG TAB PO SCH (21:02)
[2019-02-11] MEDS: ACETAMINOPHEN IV (For NPO) 1,000 MG in EMPTY BAG 1 BAG IVPB SCH ×2 (00:06→06:57)
[2019-02-11] MEDS: traMADol 50 MG TAB PO PRN ×3 (01:35→18:09)
[2019-02-11] MEDS: SODIUM CHLORIDE 0.9% 1,000 ML IV SCH ×2 (01:38→17:06)
[2019-02-11 05:27] LABS: Magnesium 1.8 mg/dL (1.6-2.3); Phosphorus 2.9 mg/dL (2.5-4.5)
[2019-02-11 05:41] LABS: HCT 29.3 % (39.0-53.0); MCH 30.5 pg (25.0-35.0); MCHC 33.8 g/dL (31.0-37.0); Mean Platelet Volume 6.2; Platelet Count 168 k/uL (150-450); RBC 3.24 m/uL (4.30-5.90); WBC 6.1 k/uL (3.8-10.6)
[2019-02-11 05:49] LABS: Calcium 8.2 mg/dL (8.4-10.2); Potassium 3.7 mmol/L (3.5-5.1)
[2019-02-11 05:50] LABS: HGB 9.9 gm/dL (13.0-17.5); MCV 90.3 fL (80.0-100.0)
[2019-02-11] MEDS: IPRATROPIUM-ALBUTEROL 3 ML NEB INHALATION SCH ×4 (07:55→19:11)
[2019-02-11] MEDS: LISINOPRIL 10 MG TAB PO SCH (09:40)
[2019-02-11] MEDS: PRIMIDONE 50 MG TAB PO SCH ×3 (09:41→21:07)
[2019-02-11] MEDS: FERROUS SULFATE 325 MG TAB PO SCH (09:41)
[2019-02-11] MEDS: CHOLECALCIFEROL 1,000 UNIT TAB PO SCH ×2 (09:41→21:07)
[2019-02-11] MEDS: METOPROLOL TARTRATE 25 MG TAB PO SCH ×2 (09:41→21:07)
[2019-02-11] MEDS: cloNIDine HCL 0.2 MG TAB PO SCH ×2 (09:41→21:07)
[2019-02-11] MEDS: HEPARIN SODIUM,PORCINE 5,000 UNIT/ML 1 ML VIAL SQ SCH ×2 (09:42→21:08)
[2019-02-11] MEDS: PANTOPRAZOLE 40 MG/10 ML VIAL IV SCH (09:42)
[2019-02-11] MEDS: FUROSEMIDE 40 MG TAB PO SCH (09:42)
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
[2019-02-11] MEDS: ONDANSETRON 4 MG/2 ML VIAL IVP PRN ×2 (12:58→21:08)
[2019-02-11] MEDS: LISINOPRIL 5 MG TAB PO SCH (21:07)
[2019-02-11] MEDS: ATORVASTATIN 40 MG TAB PO SCH (21:07)
[2019-02-11] MEDS: TAMSULOSIN 0.4 MG CAP.ER.24H PO SCH (21:07)
[2019-02-11] MEDS: HYDROmorphone 1 MG/ML 1 ML SYRINGE IVP PRN (21:08)
[2019-02-11] MEDS: rOPINIRole HCL 4 MG TABLET PO SCH (21:08)
[2019-02-12] MEDS: SODIUM CHLORIDE 0.9% 1,000 ML IV SCH ×2 (04:56→22:31)
[2019-02-12] MEDS ORDERED: PANTOPRAZOLE 40 MG TABLET PO SCH (07:30)
[2019-02-12] MEDS: IPRATROPIUM-ALBUTEROL 3 ML NEB INHALATION SCH ×4 (08:36→19:58)
[2019-02-12] MEDS: FUROSEMIDE 40 MG TAB PO SCH (09:41)
[2019-02-12] MEDS: HEPARIN SODIUM,PORCINE 5,000 UNIT/ML 1 ML VIAL SQ SCH ×2 (09:41→20:13)
[2019-02-12] MEDS: LISINOPRIL 10 MG TAB PO SCH (09:42)
[2019-02-12] MEDS: FERROUS SULFATE 325 MG TAB PO SCH (09:42)
[2019-02-12] MEDS: METOPROLOL TARTRATE 25 MG TAB PO SCH ×2 (09:42→20:10)
[2019-02-12] MEDS: PRIMIDONE 50 MG TAB PO SCH ×3 (09:42→20:10)
[2019-02-12] MEDS: CHOLECALCIFEROL 1,000 UNIT TAB PO SCH ×2 (09:42→20:10)
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
[2019-02-12] MEDS ORDERED: diphenhydrAMINE 50 MG/ML 1 ML VIAL ONE (10:31)
[2019-02-12] MEDS ORDERED: diphenhydrAMINE 50 MG/ML 1 ML VIAL IVP STA ×2 (10:31→10:33)
[2019-02-12] MEDS ORDERED: methylPREDNISolone SOD SUCCI 125 MG/2 ML VIAL IV STA (10:31)
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
[2019-02-12] MEDS: cloNIDine HCL 0.2 MG TAB PO SCH ×2 (14:55→20:11)
[2019-02-12] MEDS ORDERED: diphenhydrAMINE 50 MG/ML 1 ML VIAL IVP PRN (15:19)
[2019-02-12] MEDS: traMADol 50 MG TAB PO PRN (18:02)
[2019-02-12] MEDS: ATORVASTATIN 40 MG TAB PO SCH (20:10)
[2019-02-12] MEDS: TAMSULOSIN 0.4 MG CAP.ER.24H PO SCH (20:10)
[2019-02-12] MEDS: rOPINIRole HCL 4 MG TABLET PO SCH (20:11)
[2019-02-13 05:45] LABS: Basophils # (A) 0.1 k/uL (0-0.2); Basophils % (A) 1 %; Eosinophils % (A) 0 %; HGB 11.7 gm/dL (13.0-17.5); Lymphocytes % (A) 12 %; MCH 30.7 pg (25.0-35.0); MCHC 34.5 g/dL (31.0-37.0); Mean Platelet Volume 6.5; Monocytes # (A) 0.4 k/uL (0-1.0); Monocytes % (A) 4 %; Neutrophils # (A) 7.5 k/uL (1.3-7.7); Neutrophils % (A) 83 %; Platelet Count 211 k/uL (150-450); RBC 3.82 m/uL (4.30-5.90); RDW 13.2 % (11.5-15.5)
[2019-02-13 06:03] LABS: ALT 15 U/L (21-72); AST 22 U/L (17-59); African American GFR (CKD) >90 (>60 ml/min/1.73 sqM); Albumin 3.4 g/dL (3.5-5.0); Alkaline Phosphatase 66 U/L (38-126); Anion Gap 6 mmol/L; Blood Urea Nitrogen 24 mg/dL (9-20); Calcium 8.6 mg/dL (8.4-10.2); Carbon Dioxide 27 mmol/L (22-30); Chloride 104 mmol/L (98-107); Glucose 119 mg/dL (74-99); Non-African American GFR(CKD) 80 (>60 ml/min/1.73 sqM); Potassium 3.9 mmol/L (3.5-5.1); Sodium 137 mmol/L (137-145); Total Bilirubin 0.5 mg/dL (0.2-1.3); Total Protein 6.1 g/dL (6.3-8.2)
[2019-02-13] MEDS ORDERED: ceFAZolin 1,000 MG in SODIUM CHLORIDE 0.9% IRRIGATIO 250 ML IRRIGATION ONE (06:34)
[2019-02-13 06:45] LABS: Glucose,Whole Blood 98 mg/dL (75-99)
[2019-02-13] MEDS ORDERED: SODIUM CHLORIDE 0.9% 1,000 ML IV SCH (06:45)
[2019-02-13] MEDS: PANTOPRAZOLE 40 MG/10 ML VIAL IVP SCH (06:47)
[2019-02-13] MEDS: IPRATROPIUM-ALBUTEROL 3 ML NEB INHALATION SCH ×4 (07:27→19:41)
[2019-02-13] MEDS ORDERED: LIDOCAINE 1% INJ 10MG/ML (20 ML MDV) ONE ×2 (07:49→08:22)
[2019-02-13] MEDS ORDERED: MIDAZOLAM 2 MG/2 ML VIAL IVP ONE ×2 (07:55→08:10)
[2019-02-13] MEDS ORDERED: LIDOCAINE 1% INJ 10MG/ML (20 ML MDV) SQ ONE ×2 (07:57→08:23)
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
[2019-02-13] MEDS ORDERED: fentaNYL (PF) 50 MCG/ML 2 ML AMP ONE (08:18)
[2019-02-13] MEDS ORDERED: fentaNYL (PF) 50 MCG/ML 2 ML AMP IVP ONE (08:23)
[2019-02-13] MEDS ORDERED: IV FLUID CONTINUATION 1,000 ML IV ONE (08:27)
[2019-02-13] MEDS ORDERED: HYDROmorphone 1 MG/ML 1 ML SYRINGE IVP ONE (08:35)
[2019-02-13] MEDS ORDERED: predniSONE 10 MG TAB PO SCH (09:00)
[2019-02-13] MEDS ORDERED: PANTOPRAZOLE 40 MG/10 ML VIAL IVP SCH (09:00)
[2019-02-13] MEDS ORDERED: ACETAMINOPHEN TAB 325 MG TAB PO PRN (09:01)
[2019-02-13] MEDS ORDERED: HEPARIN SODIUM,PORCINE 5,000 UNIT/ML 1 ML VIAL SQ STA (09:11)
--- NOTE | 2019-02-13 09:35 | CE ---
CARDIAC ELECTROPHYSIOLOGY REPORT DATE OF SERVICE: 02/13/2019. PROCEDURE: 1. Transvenous temporary pacemaker placement from right femoral venous approach. 2. Explantation of existing pulse generator, which was a [employer] device from the left infraclavicular location. 3. Placement of a new [employer] pulse generator. PERFORMED BY: Dr. Bianca Ron Moderate conscious sedation time was 44 minutes. Patient was administered Versed, Dilaudid and fentanyl. His oxygen saturation, hemodynamics and EKG were monitored closely. CLINICAL INFORMATION: Mr. Chava Spence is a gentleman with history of CAD, prior bypass surgery, sick sinus syndrome, paroxysmal atrial fibrillation who also has sick sinus syndrome with an underlying permanent pacemaker that was placed in 2005. Because of battery depletion in [facility], he was advised to have procedure performed on February 24, but prior to that, he came to the hospital with an episode of syncope, but there was no clear documentation whether there was pacemaker malfunction or not. However, he was advised to have a pulse generator change while he was in the hospital. His Xarelto was held and he was advised to have the pulse generator performed today. Risks, benefits, options and rationale were explained. The patient understood all details and wished to proceed with the procedure. DETAILS OF THE PROCEDURE: Under strict aseptic precautions and local anesthesia, a 6-[place] introducer was placed in the right femoral vein. Under fluoroscopic guidance, a 5-[place] balloon tipped pacemaker was positioned in the right ventricular apex. Good position was achieved under fluoroscopic guidance and the thresholds were obtained. The threshold was 0.3 mV. The patient was set at a backup rate of 50 with a mA of 5. I then and proceeded with the pulse generator change. The patient was administered antibiotic as per protocol as I began the incision. Under fluoroscopic guidance, the pulse generator was visualized. A linear incision was made parallel to the previous existing incision somewhat medial to it. Blunt dissection was carried out carefully and the pulse generator was explanted. This was in a unipolar mode and therefore the backup pacemaker kicked in, which was a temporary pacemaker. The leads were unscrewed from pulse generator and the new pulse generator was then used and the leads were again attached to the new pulse generator and screwed in appropriately. The lead numbers were checked prior to the screwing in the leads. The pulse generator was then placed in the old pocket and the wound was closed in 2 layers with excellent hemostasis. Patient tolerated the procedure well without complications. 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 Atrial lead which was an old lead was reconnected. It was also manufactured by [employer] Tendril SDX 1688TC/52, serial number [id number]. Initial implant was in 2005 and the same lead was used today. 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 Tendril SDX 1688TC/58, serial number [id number]. Initial implant date was January 18, 2010 and the same lead was now used. Atrial threshold was 0.75 V at 0.4 milliseconds with an atrial sensing P waves of 2.8. The lead impedance was 410 ohms. Ventricular threshold was 1.375 V at 0.4 milliseconds in a bipolar mode. The underlying temporary pacemaker leads were sensed at R-wave of 6.9, lead impedance was 400 ohms. Pacemaker was set at DDDR mode with a low rate of 60, high rate of 120, AV paced delay of 180 milliseconds and sensed AV delay of 150 milliseconds. The patient tolerated the procedure well and he will be sent to the room in the next few minutes. There was no family members available. Details were discussed with the patient. MMNICKOLASL / IJN: [id number] /
[2019-02-13] MEDS: SODIUM CHLORIDE 0.9% 1,000 ML IV SCH ×3 (09:51→15:36)
[2019-02-13] MEDS: CHOLECALCIFEROL 1,000 UNIT TAB PO SCH ×2 (09:52→20:42)
[2019-02-13] MEDS: cloNIDine HCL 0.2 MG TAB PO SCH ×2 (09:53→20:43)
[2019-02-13] MEDS: FUROSEMIDE 40 MG TAB PO SCH (09:53)
[2019-02-13] MEDS: PRIMIDONE 50 MG TAB PO SCH ×3 (09:53→20:43)
[2019-02-13] MEDS: FERROUS SULFATE 325 MG TAB PO SCH (09:53)
[2019-02-13] MEDS: METOPROLOL TARTRATE 25 MG TAB PO SCH ×2 (09:53→20:43)
[2019-02-13] MEDS: predniSONE 20 MG TAB PO SCH (10:55)
[2019-02-13] MEDS: HEPARIN SODIUM,PORCINE 5,000 UNIT/ML 1 ML VIAL SQ SCH (11:47)
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
[2019-02-13] MEDS: traMADol 50 MG TAB PO PRN (16:12)
[2019-02-13] MEDS ORDERED: RIVAROXABAN 20 MG TAB PO SCH (17:30)
[2019-02-13] MEDS: rOPINIRole HCL 4 MG TABLET PO SCH (18:35)
[2019-02-13] MEDS: ATORVASTATIN 40 MG TAB PO SCH (20:42)
[2019-02-13] MEDS: TAMSULOSIN 0.4 MG CAP.ER.24H PO SCH (20:43)
[2019-02-14 05:32] LABS: Basophils % (A) 1 %; Eosinophils % (A) 0 %; HCT 31.9 % (39.0-53.0); HGB 10.8 gm/dL (13.0-17.5); Lymphocytes # (A) 1.8 k/uL (1.0-4.8); Lymphocytes % (A) 25 %; MCH 30.6 pg (25.0-35.0); MCHC 33.7 g/dL (31.0-37.0); MCV 90.7 fL (80.0-100.0); Mean Platelet Volume 6.1; Monocytes # (A) 0.3 k/uL (0-1.0); Monocytes % (A) 4 %; Neutrophils % (A) 69 %; Platelet Count 244 k/uL (150-450); RBC 3.52 m/uL (4.30-5.90); RDW 13.8 % (11.5-15.5); WBC 7.2 k/uL (3.8-10.6)
[2019-02-14 05:33] VITALS: TEMP 97.6
[2019-02-14 05:36] LABS: Calcium 8.6 mg/dL (8.4-10.2); Potassium 3.4 mmol/L (3.5-5.1)
[2019-02-14] MEDS: SODIUM CHLORIDE 0.9% 1,000 ML IV SCH (06:51)
[2019-02-14 07:46] VITALS: RESP 12
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
[2019-02-14] MEDS: IPRATROPIUM-ALBUTEROL 3 ML NEB INHALATION SCH ×2 (08:23→11:04)
[2019-02-14] MEDS: CHOLECALCIFEROL 1,000 UNIT TAB PO SCH (08:53)
[2019-02-14] MEDS: METOPROLOL TARTRATE 25 MG TAB PO SCH (08:55)
[2019-02-14] MEDS: FUROSEMIDE 40 MG TAB PO SCH (08:55)
[2019-02-14] MEDS: PRIMIDONE 50 MG TAB PO SCH (08:55)
[2019-02-14] MEDS: cloNIDine HCL 0.2 MG TAB PO SCH (08:55)
[2019-02-14] MEDS: FERROUS SULFATE 325 MG TAB PO SCH (08:55)
[2019-02-14] MEDS: PANTOPRAZOLE 40 MG/10 ML VIAL IVP SCH (08:55)
[2019-02-14] MEDS: predniSONE 20 MG TAB PO SCH (08:55)
[2019-02-14] MEDS ORDERED: NEOMYCIN-BACITRACIN-POLY OINT 14 GM TUBE TOPICAL SCH (09:00)
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
[2019-02-14] MEDS ORDERED: Potassium Replacement Protocol 1 EACH MISC MISCELLANE PRN (10:07)
[2019-02-14] MEDS ORDERED: POTASSIUM CHLORIDE ER 20 MEQ TAB.ER PO STA (10:29)
[2019-02-14 10:48] VITALS: BP 146/84; PULSE 60
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
[2019-02-18] MEDS ORDERED: predniSONE 20 MG TAB PO SCH (09:00)
[2019-02-21] MEDS ORDERED: predniSONE 10 MG TAB PO SCH (09:00)
[2019-02-24] MEDS ORDERED: predniSONE 20 MG TAB PO SCH (09:00)
[2019-02-26] MEDS ORDERED: predniSONE 10 MG TAB PO SCH (09:00)
== END 2019-02-14 13:09 | disposition home or self-care (01) | DRG 988 ==
LOC: EC 12:39 → 3SCARD 17:00 → 2SICU 02-10 01:43
PROVIDERS: ADMIT Family Medicine; ATTEND Family Medicine
PROC: 3E0234Z Introduction of Serum, Toxoid and Vaccine into Muscle, Percutaneous Approach (ICD-10-PCS; 2019-02-09)
PROC: 0HQLXZZ Repair Left Lower Leg Skin, External Approach (ICD-10-PCS; 2019-02-09)
PROC: 05HC33Z Insertion of Infusion Device into Left Basilic Vein, Percutaneous Approach (ICD-10-PCS; 2019-02-13)
PROC: 0JPT0PZ Removal of Cardiac Rhythm Related Device from Trunk Subcutaneous Tissue and Fascia, Open Approach (ICD-10-PCS; principal; 2019-02-13 07:30)
PROC: 0JH606Z Insertion of Pacemaker, Dual Chamber into Chest Subcutaneous Tissue and Fascia, Open Approach (ICD-10-PCS; 2019-02-13 17:35)
DX: S20.219A Contusion of unspecified front wall of thorax, initial encounter (principal); J98.11 Atelectasis; I48.19 Other persistent atrial fibrillation; I95.9 Hypotension, unspecified; G62.9 Polyneuropathy, unspecified; I49.5 Sick sinus syndrome; I07.1 Rheumatic tricuspid insufficiency; S81.812A Laceration without foreign body, left lower leg, initial encounter; Z45.010 Encounter for checking and testing of cardiac pacemaker pulse generator [battery]; Z23 Encounter for immunization; I45.10 Unspecified right bundle-branch block; T78.3XXA Angioneurotic edema, initial encounter; T46.4X5A Adverse effect of angiotensin-converting-enzyme inhibitors, initial encounter; R41.82 Altered mental status, unspecified; E78.5 Hyperlipidemia, unspecified; I25.10 Atherosclerotic heart disease of native coronary artery without angina pectoris; I25.2 Old myocardial infarction; I10 Essential (primary) hypertension; G47.33 Obstructive sleep apnea (adult) (pediatric); G25.81 Restless legs syndrome; M21.932 Unspecified acquired deformity of left forearm; K40.20 Bilateral inguinal hernia, without obstruction or gangrene, not specified as recurrent; E66.9 Obesity, unspecified; R79.89 Other specified abnormal findings of blood chemistry; R51 Headache; R29.6 Repeated falls; I73.9 Peripheral vascular disease, unspecified; Z79.01 Long term (current) use of anticoagulants; Z79.899 Other long term (current) drug therapy; Z98.84 Bariatric surgery status; Z95.0 Presence of cardiac pacemaker; Z86.73 Personal history of transient ischemic attack (TIA), and cerebral infarction without residual deficits; Z98.890 Other specified postprocedural states; Z95.1 Presence of aortocoronary bypass graft; Z95.5 Presence of coronary angioplasty implant and graft; Z96.653 Presence of artificial knee joint, bilateral; Z91.048 Other nonmedicinal substance allergy status; Z88.8 Allergy status to other drugs, medicaments and biological substances; V43.52XA Car driver injured in collision with other type car in traffic accident, initial encounter; Y92.414 Local residential or business street as the place of occurrence of the external cause; Z82.49 Family history of ischemic heart disease and other diseases of the circulatory system; Z80.8 Family history of malignant neoplasm of other organs or systems
CPT/HCPCS: 12004; 33228; 36410; 36415; 70450; 71045; 71275; 72125; 72170; 76937; 80048; 80053; 80306; 80320; 81003; 82550; 82553; 83735; 84100; 84484; 85025; 85027; 85610; 85730; 86850; 86900; 86901; 90471; 90715; 93005; 93306; 94640; 96374; 96375; 99285

== ENCOUNTER → 2019-03-07 | Outpatient (CLI) | payer MEDICARE | END | disposition home or self-care (01) | LOC: RADUSWWP 11:56 | PROVIDERS: ATTEND Family Medicine | DX: I73.9 Peripheral vascular disease, unspecified (principal); Z88.8 Allergy status to other drugs, medicaments and biological substances | CPT/HCPCS: 93922 ==

== ENCOUNTER 2019-11-15 17:09 | Emergency (ER) | payer MEDICARE, OTHER ==
[2019-11-15 17:27] VITALS: PULSE 60; TEMP 98.1
[2019-11-15] MEDS ORDERED: SODIUM CHLORIDE 0.9% 500 ML 500 ML IV STA (17:53)
[2019-11-15] MEDS ORDERED: SODIUM CHLORIDE 0.9% 1,000 ML IV STA (17:53)
[2019-11-15 18:23] LABS: Basophils % (A) 1 %; Eosinophils # (A) 0.2 k/uL (0-0.7); Eosinophils % (A) 4 %; HCT 36.3 % (39.0-53.0); Lymphocytes # (A) 1.6 k/uL (1.0-4.8); Lymphocytes % (A) 30 %; MCH 28.8 pg (25.0-35.0); MCV 87.2 fL (80.0-100.0); Mean Platelet Volume 7.4; Monocytes # (A) 0.3 k/uL (0-1.0); Monocytes % (A) 5 %; Neutrophils # (A) 3.2 k/uL (1.3-7.7); Neutrophils % (A) 59 %; Platelet Count 175 k/uL (150-450); RBC 4.16 m/uL (4.30-5.90); RDW 13.2 % (11.5-15.5); WBC 5.4 k/uL (3.8-10.6)
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
[2019-11-15 18:31] LABS: Albumin 3.5 g/dL (3.5-5.0); Calcium 8.6 mg/dL (8.4-10.2); Magnesium 1.8 mg/dL (1.6-2.3); Potassium 3.7 mmol/L (3.5-5.1); Total Bilirubin 0.4 mg/dL (0.2-1.3)
[2019-11-15 18:38] VITALS: RESP 16
[2019-11-15 18:40] VITALS: BP 107/65
== END 2019-11-15 18:47 | disposition home or self-care (01) ==
LOC: EC 17:09
DX: I95.9 Hypotension, unspecified (principal); E86.0 Dehydration; G25.81 Restless legs syndrome; I48.91 Unspecified atrial fibrillation; I25.10 Atherosclerotic heart disease of native coronary artery without angina pectoris; E78.5 Hyperlipidemia, unspecified; I10 Essential (primary) hypertension; G47.33 Obstructive sleep apnea (adult) (pediatric); I25.2 Old myocardial infarction; Z79.01 Long term (current) use of anticoagulants; Z79.82 Long term (current) use of aspirin; Z79.899 Other long term (current) drug therapy; Z88.8 Allergy status to other drugs, medicaments and biological substances; Z91.048 Other nonmedicinal substance allergy status; Z95.0 Presence of cardiac pacemaker; Z95.1 Presence of aortocoronary bypass graft; Z95.5 Presence of coronary angioplasty implant and graft; Z96.653 Presence of artificial knee joint, bilateral; Z89.112 Acquired absence of left hand; Z86.73 Personal history of transient ischemic attack (TIA), and cerebral infarction without residual deficits
CPT/HCPCS: 36415; 80053; 82550; 83735; 85025; 93005; 96360; 99285

== ENCOUNTER 2020-06-03 02:40 | Emergency (ER) | payer MEDICARE, OTHER ==
[2020-06-03 02:54] VITALS: RESP 20; TEMP 97.9
[2020-06-03 03:40] LABS: Basophils # (A) 0.1 k/uL (0-0.2); Basophils % (A) 1 %; Eosinophils # (A) 0.5 k/uL (0-0.7); Eosinophils % (A) 7 %; HCT 42.7 % (39.0-53.0); HGB 14.1 gm/dL (13.0-17.5); Lymphocytes # (A) 2.1 k/uL (1.0-4.8); Lymphocytes % (A) 31 %; MCH 29.5 pg (25.0-35.0); MCHC 33.1 g/dL (31.0-37.0); MCV 89.3 fL (80.0-100.0); Mean Platelet Volume 7.4; Monocytes # (A) 0.5 k/uL (0-1.0); Monocytes % (A) 7 %; Neutrophils # (A) 3.5 k/uL (1.3-7.7); Neutrophils % (A) 52 %; Platelet Count 251 k/uL (150-450); RBC 4.79 m/uL (4.30-5.90); RDW 12.7 % (11.5-15.5); WBC 6.7 k/uL (3.8-10.6)
[2020-06-03 03:48] LABS: INR 1.1 (<1.2); Partial Thromboplastin Time 25.4 sec (22.0-30.0)
--- NOTE | 2020-06-03 03:48 | ED ---
Syncope HPI - General Chief Complaint: Syncope Stated Complaint: Syncope Time Seen by Provider: 06/03/20 02:43 Source: EMS Mode of arrival: EMS Limitations: no limitations - History of Present Illness Initial Comments: This patient is a 74-year-old man who presents to be evaluated after having syncopal episode. The patient states that he had been seated and then does not remember the rest of episode. Bystanders had stated that his eyes rolled back a nd he passed out. There was no trauma. He had been in a sitting position. The patient denies chest pain, palpitations, dyspnea or other symptoms. MD Complaint: loss of consciousness Onset/Timin -: hour(s) Prodromal Symptoms: other -: second(s) Witnessed: yes - by bystander Injuries Sustained Associated with Event: None Current Symptoms: back to baseline Context: at rest Treatments Prior to Arrival: none - Related Data Home Medications Medication Instructions Recorded Confirmed Primidone [Mysoline] 50 mg PO TID 01/09/15 11/15/19 Tamsulosin [Flomax] 0.4 mg PO DAILY 01/09/15 11/15/19 Metoprolol Tartrate [Lopressor] 25 mg PO BID 04/19/17 11/15/19 Ferrous Sulfate [Iron (65 MG 325 mg PO DAILY 05/05/17 11/15/19 Elemental)] rOPINIRole HCL [Requip] 4 mg PO BID 05/19/17 11/15/19 Rivaroxaban [Xarelto] 20 mg PO PC-BRKFST 10/22/17 11/15/19 Cholecalciferol [Vitamin D3 (25 5,000 unit PO BID 02/09/19 11/15/19 Mcg = 1000 Iu)] Eszopiclone [Lunesta] 3 mg PO HS 02/09/19 11/15/19 Furosemide [Lasix] 40 mg PO DAILY PRN 02/09/19 11/15/19 cloNIDine HCL [Catapres] 0.2 mg PO BID 02/09/19 11/15/19 Aspirin EC [Ecotrin Low Dose] 81 mg PO DAILY 11/15/19 11/15/19 Losartan Potassium 50 mg PO DAILY 11/15/19 11/15/19 Nitroglycerin Sl Tabs [Nitrostat] 0.4 mg SUBLINGUAL Q5M PRN 11/15/19 11/15/19 Previous Rx's Medication Instructions Recorded Acetaminophen Tab [Tylenol] 650 mg PO Q6HR PRN tab 02/14/19 Allergies Allergy/AdvReac Type Severity Reaction Status Date / Time adhesive tape Allergy Rash/Hives Verified 11/15/19 18:28 lisinopril Allergy Rash/Hives Verified 11/15/19 18:28 Review of Systems ROS Statement: Those systems with pertinent positive or pertinent negative responses have been documented in the HPI. ROS Other: All systems not noted in ROS Statement are negative. Constitutional: Denies: fever, chills Respiratory: Denies: cough, dyspnea Cardiovascular: Reports: syncope. Denies: chest pain, palpitations, orthopnea, edema Gastrointestinal: Denies: abdominal pain, nausea, vomiting, diarrhea Genitourinary: Denies: dysuria, hematuria Musculoskeletal: Denies: back pain Skin: Denies: rash Neurological: Denies: headache, weakness, numbness, paresthesias, confusion, vertigo Past Medical History Past Medical History: Atrial Fibrillation, Coronary Artery Disease (CAD), CVA/TIA, Hyperlipidemia, Hypertension, Myocardial Infarction ([place]), Sleep Apnea/CPAP/BIPAP Additional Past Medical History / Comment(s): Restless Leg Syndrome. MILD STROKE 08/19/15-no effects, HAS PROSTHESIS on left hand. [place] X2. DEHYDRATION, BLE PVD and neuropathy, September 2017: dx with Bilateral inguinal hernia Last Myocardial Infarction Date:: 2014 History of Any Multi-Drug Resistant Organisms: None Reported Past Surgical History: Adenoidectomy, Bariatric Surgery, Coronary Bypass/CABG, Heart Catheterization With Stent, Joint Replacement, Orthopedic Surgery, Pacemaker, Tonsillectomy Additional Past Surgical History / Comment(s): STENTS X 3. [place] Knee replacements/later revision of left knee. 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, TRIPLE CABG 06/06/15, Sleeve gastrectomy 04/26/17 Past Anesthesia/Blood Transfusion Reactions: Motion Sickness Additional Past Anesthesia/Blood Transfusion Reaction / Comment(s): claustrophobia Date of Last Stent Placement:: 2004 Type of Cardiac Device: Permanent Pacemaker Device Placement Date:: 2005- Past Psychological History: No Psychological Hx Reported Smoking Status: Never smoker Past Alcohol Use History: None Reported Past Drug Use History: None Reported - Past Family History Father Family Medical History: Cancer Additional Family Medical History / Comment(s): bone cancer Mother Family Medical History: Myocardial Infarction ([place]) Additional Family Medical History / Comment(s): at age 80 General Exam Limitations: no limitations General appearance: alert, in no apparent distress Head exam: Present: atraumatic, normocephalic Eye exam: Present: normal appearance. Absent: scleral icterus, conjunctival injection ENT exam: Present: normal oropharynx Neck exam: Present: normal inspection, full ROM Respiratory exam: Present: normal lung sounds bilaterally. Absent: respiratory distress, wheezes, rales, rhonchi, stridor Cardiovascular Exam: Present: regular rate, normal rhythm, normal heart sounds. Absent: systolic murmur, diastolic murmur, rubs, gallop GI/Abdominal exam: Present: soft. Absent: distended, tenderness, guarding, rebound, rigid, mass Extremities exam: Present: normal inspection, normal capillary refill, other (Left hand amputation). Absent: pedal edema, calf tenderness Back exam: Present: normal inspection Neurological exam: Present: alert, oriented X3, CN II-XII intact. Absent: motor sensory deficit Skin exam: Present: warm, dry, intact, normal color. Absent: rash Course Vital Signs 06/03/20 06/03/20 02:46 03:57 Temperature 97.9 F Pulse Rate 71 76 Respiratory 20 20 Rate Blood Pressure 197/82 196/97 O2 Sat by Pulse 99 99 Oximetry EKG Findings - EKG Results: EKG: interpreted by GISEL, sinus rhythm (With PVC, rate 73 bpm) - Blocks, [place], Hypertrophy, ST Abn: AV and intraventricular conduction: left bundle branch block (fixe d/intermittent, complete/incomplete) QRS axis and voltage: right axis deviation (+90 to +180) Medical Decision Making - Medical Decision Making This patient is 74-year-old man here for evaluation of syncopal episode. Fol lowing the workup he states that he has continued to feel well and he would like to go home. We discussed that at this point there is no weight to rule out life-threatening intermittent arrhythmia. The patient states she understands this, but there is a lot going on with his sister's health and that he must leave. He states he will follow-up with the vtc technician and he is able. He will return should there be any further symptoms. - Lab Data Result diagrams: 06/03/20 03:29 06/03/20 03:29 Lab Results 06/03/20 06/03/20 06/03/20 Range/Units 03:29 03:29 03:29 WBC 6.7 (3.8-10.6) k/uL RBC 4.79 (4.30-5.90) m/uL Hgb 14.1 (13.0-17.5) gm/dL Hct 42.7 (39.0-53.0) % MCV 89.3 (80.0-100.0) fL MCH 29.5 (25.0-35.0) pg MCHC 33.1 (31.0-37.0) g/dL RDW 12.7 (11.5-15.5) % Plt Count 251 (150-450) k/uL MPV 7.4 Neutrophils % 52 % Lymphocytes % 31 % Monocytes % 7 % Eosinophils % 7 % Basophils % 1 % Neutrophils # 3.5 (1.3-7.7) k/uL Lymphocytes # 2.1 (1.0-4.8) k/uL Monocytes # 0.5 (0-1.0) k/uL Eosinophils # 0.5 (0-0.7) k/uL Basophils # 0.1 (0-0.2) k/uL PT 12.0 (9.0-12.0) sec INR 1.1 (<1.2) APTT 25.4 (22.0-30.0) sec Sodium (137-145) mmol/L Potassium (3.5-5.1) mmol/L Chloride (98-107) mmol/L Carbon Dioxide (22-30) mmol/L Anion Gap mmol/L BUN (9-20) mg/dL Creatinine (0.66-1.25) mg/dL Est GFR (CKD-EPI)AfAm (>60 ml/min/1.73 sqM) Est GFR (CKD-EPI)NonAf (>60 ml/min/1.73 sqM) Glucose (74-99) mg/dL Calcium (8.4-10.2) mg/dL Total Bilirubin (0.2-1.3) mg/dL AST (17-59) U/L ALT (4-49) U/L Alkaline Phosphatase (38-126) U/L Troponin I (0.000-0.034) ng/mL Total Protein (6.3-8.2) g/dL Albumin (3.5-5.0) g/dL Urine Color Yellow Urine Appearance Clear (Clear) Urine pH 5.5 (5.0-8.0) Ur Specific [place] 1.025 (1.001-1.035) Urine Protein Negative (Negative) Urine Glucose (UA) Negative (Negative) Urine Ketones Negative (Negative) Urine Blood Small H (Negative) Urine Nitrite Negative (Negative) Urine Bilirubin Negative (Negative) Urine Urobilinogen <2.0 (<2.0) mg/dL Ur Leukocyte Esterase Negative (Negative) Urine RBC 5 (0-5) /hpf Urine WBC 2 (0-5) /hpf Amorphous Sediment Rare H (None) /hpf Hyaline Casts 1 (0-2) /lpf Urine Mucus Occasional H (None) /hpf 06/03/20 06/03/20 Range/Units 03:29 03:29 WBC (3.8-10.6) k/uL RBC (4.30-5.90) m/uL Hgb (13.0-17.5) gm/dL Hct (39.0-53.0) % MCV (80.0-100.0) fL MCH (25.0-35.0) pg MCHC (31.0-37.0) g/dL RDW (11.5-15.5) % Plt Count (150-450) k/uL MPV Neutrophils % % Lymphocytes % % Monocytes % % Eosinophils % % Basophils % % Neutrophils # (1.3-7.7) k/uL Lymphocytes # (1.0-4.8) k/uL Monocytes # (0-1.0) k/uL Eosinophils # (0-0.7) k/uL Basophils # (0-0.2) k/uL PT (9.0-12.0) sec INR (<1.2) APTT (22.0-30.0) sec Sodium 143 (137-145) mmol/L Potassium 4.3 (3.5-5.1) mmol/L Chloride 109 H (98-107) mmol/L Carbon Dioxide 27 (22-30) mmol/L Anion Gap 7 mmol/L BUN 21 H (9-20) mg/dL Creatinine 0.99 (0.66-1.25) mg/dL Est GFR (CKD-EPI)AfAm 87 (>60 ml/min/1.73 sqM) Est GFR (CKD-EPI)NonAf 75 (>60 ml/min/1.73 sqM) Glucose 99 (74-99) mg/dL Calcium 9.3 (8.4-10.2) mg/dL Total Bilirubin 0.5 (0.2-1.3) mg/dL AST 23 (17-59) U/L ALT 9 (4-49) U/L Alkaline Phosphatase 65 (38-126) U/L Troponin I <0.012 (0.000-0.034) ng/mL Total Protein 7.2 (6.3-8.2) g/dL Albumin 4.2 (3.5-5.0) g/dL Urine Color Urine Appearance (Clear) Urine pH (5.0-8.0) Ur Specific [place] (1.001-1.035) Urine Protein (Negative) Urine Glucose (UA) (Negative) Urine Ketones (Negative) Urine Blood (Negative) Urine Nitrite (Negative) Urine Bilirubin (Negative) Urine Urobilinogen (<2.0) mg/dL Ur Leukocyte Esterase (Negative) Urine RBC (0-5) /hpf Urine WBC (0-5) /hpf Amorphous Sediment (None) /hpf Hyaline Casts (0-2) /lpf Urine Mucus (None) /hpf Disposition Clinical Impression: Syncope, HTN (hypertension) Disposition: Left Against Medical Advice Condition: Undetermined Instructions (If sedation given, give patient instructions): Syncope (ED), H ypertension (ED) Is patient prescribed a controlled substance at d/c from ED?: No Referrals: Davey Srivastava MD [Primary Care Provider] - 1-2 days
[2020-06-03 03:51] LABS: Albumin 4.2 g/dL (3.5-5.0); Calcium 9.3 mg/dL (8.4-10.2); Potassium 4.3 mmol/L (3.5-5.1); Total Bilirubin 0.5 mg/dL (0.2-1.3); Total Protein 7.2 g/dL (6.3-8.2)
[2020-06-03 03:59] VITALS: BP 196/97; PULSE 76
[2020-06-03 04:21] LABS: Amorphous Sediment,Urine Rare /hpf; Appearance,Urine Clear (Clear); Bilirubin,Urine Negative (Negative); Blood,Urine Small (Negative); Color,Urine Yellow; Glucose,Urine (UA) Negative (Negative); Hyaline Casts,Urine 1 /lpf (0-2); Ketones,Urine Negative (Negative); Leukocyte Esterase,Urine Negative (Negative); Mucus,Urine Occasional /hpf; Nitrite,Urine Negative (Negative); PH, Urine 5.5 (5.0-8.0); Protein,Urine Negative (Negative); RBC,Urine 5 /hpf (0-5); Specific Gravity,Urine 1.025 (1.001-1.035); Urobilinogen,Urine <2.0 mg/dL (<2.0); WBC,Urine 2 /hpf (0-5)
--- NOTE | 2020-06-03 04:22 | XR ---
EXAM: XR Chest, 2 Views CLINICAL HISTORY: ITS.REASON XR Reason: syncope TECHNIQUE: Frontal and lateral views of the chest. COMPARISON: Chest x-ray dated 02/14/2019 FINDINGS: Lungs: Unremarkable. Pleural space: Unremarkable. Heart: Unremarkable. Mediastinum: Unremarkable. Bones/joints: Evidence of prior median sternotomy. Tubes, lines and devices: Dual-chamber cardiac pacemaker is noted. IMPRESSION: No acute findings in the chest.
== END 2020-06-03 05:24 | disposition left against medical advice (07) ==
LOC: EC 02:40
DX: R55 Syncope and collapse (principal); I10 Essential (primary) hypertension; I25.10 Atherosclerotic heart disease of native coronary artery without angina pectoris; I25.2 Old myocardial infarction; I48.91 Unspecified atrial fibrillation; Z79.82 Long term (current) use of aspirin; Z86.73 Personal history of transient ischemic attack (TIA), and cerebral infarction without residual deficits
CPT/HCPCS: 36415; 71046; 80053; 81001; 84484; 85025; 85610; 85730; 93005; 99284

== ENCOUNTER → 2021-05-21 | Outpatient (CLI) | payer MEDICARE ==
[2021-05-21 13:13] LABS: Basophils # (A) 0.04 X 10*3/uL (0.00-0.10); Basophils % (A) 0.8 %; Eosinophils # (A) 0.32 X 10*3/uL (0.04-0.35); Eosinophils % (A) 6.3 %; HCT 34.6 % (39.6-50.0); HGB 10.9 g/dL (13.0-17.0); Immature Grans, Automated 0.2 %; Lymphocytes # (A) 1.82 X 10*3/uL (0.90-5.00); Lymphocytes % (A) 35.9 %; MCH 28.5 pg (27.0-32.0); MCHC 31.5 g/dL (32.0-37.0); MCV 90.3 fL (80.0-97.0); Mean Platelet Volume 10.4 fL (9.5-12.2); Monocytes # (A) 0.36 X 10*3/uL (0.20-1.00); Monocytes % (A) 7.1 %; NRBC Per 100 WBC 0 /100 WBCS (0.0-0.0); Neutrophils # (A) 2.52 X 10*3/uL (1.80-7.70); Neutrophils % (A) 49.7 %; Platelet Count 230 X 10*3/uL (140-440); RBC 3.83 X 10*6/uL (4.40-5.60); RDW 13.4 % (11.5-14.5); WBC 5.07 X 10*3/uL (4.50-10.00)
== END | disposition home or self-care (01) ==
LOC: LABWHC1 07:14
PROVIDERS: ATTEND Internal Medicine Gastroenterology
DX: K92.1 Melena (principal)
CPT/HCPCS: 36415; 85025

== ENCOUNTER 2021-11-23 07:33 | Emergency (ER) | payer MEDICARE ==
[2021-11-23 07:45] VITALS: RESP 18; TEMP 97.5
[2021-11-23] MEDS ORDERED: ORPHENADRINE 30 MG/ML 2 ML VIAL IM STA (07:49)
[2021-11-23] MEDS ORDERED: KETOROLAC 15 MG/ML 1 ML VIAL IVP STA (07:49)
[2021-11-23] MEDS ORDERED: KETOROLAC 15 MG/ML 1 ML VIAL IM STA (08:05)
--- NOTE | 2021-11-23 08:08 | ED ---
Neck Injury/Pain HPI - General Chief Complaint: Neck Pain/Injury Stated Complaint: Neck pain Time Seen by Provider: 11/23/21 07:49 Source: patient, RN notes reviewed Mode of arrival: ambulatory Limitations: no limitations - History of Present Illness Initial Comments: Patient is a 76-year-old male presenting to the emergency room with complaints of neck pain and stiffness. He reports that he had some mild neck pain when he went to bed last night and when he woke this morning the pain was significant with impaired range of motion in all directions due to pain. He denies any headache, sore throat, dizziness, focal neurological deficits, nausea, vomiting, chest pain, shortness of breath, or chills. He has not taking any medication at home for his symptoms. He has had issues with neck pain in the past but has been quite some time since the pain was severe. He has a past medical history significant for hypertension, hyperlipidemia, sleep apnea, CAD with [place], TIA and restless leg syndrome. - Related Data Home Medications Medication Instructions Recorded Confirmed Primidone [Mysoline] 50 mg PO TID@0600,08,209901/09/15 04/25/21 Tamsulosin [Flomax] 0.4 mg PO DAILY@1800 01/09/15 04/25/21 Metoprolol Tartrate [Lopressor] 25 mg PO BID@599,209904/19/17 04/25/21 Ferrous Sulfate [Iron (65 MG 325 mg PO DAILY@0600 05/05/17 04/25/21 Elemental)] rOPINIRole HCL [Requip] 2 mg PO DAILY@0600 PRN 05/19/17 04/25/21 Rivaroxaban [Xarelto] 20 mg PO -BRKFST 10/22/17 04/25/21 Furosemide [Lasix] 40 mg PO DAILY@0600 02/09/19 04/25/21 cloNIDine HCL [Catapres] 0.2 mg PO BID@599,209902/09/19 04/25/21 Aspirin EC [Ecotrin Low Dose] 81 mg PO PC-BRKFST 11/15/19 04/25/21 Losartan Potassium 50 mg PO DAILY@0600 11/15/19 04/25/21 Cholecalciferol (Vitamin D3) 250 mcg PO HS@209904/25/21 04/25/21 [Vitamin D3 (125 MCG = 5,000 IU)] rOPINIRole HCL [Requip] 4 mg PO HS@2100 PRN 04/25/21 04/25/21 Previous Rx's Medication Instructions Recorded Cyclobenzaprine HCl 5 mg PO TID 5 Days #15 tab 11/23/21 Allergies Allergy/AdvReac Type Severity Reaction Status Date / Time adhesive tape Allergy Rash/Hives Verified 11/23/21 07:45 lisinopril Allergy Rash/Hives Verified 11/23/21 07:45 Review of Systems ROS Statement: Those systems with pertinent positive or pertinent negative responses have been documented in the HPI. ROS Other: All systems not noted in ROS Statement are negative. Past Medical History Past Medical History: No Reported History, Atrial Fibrillation, Coronary Artery Disease (CAD), CVA/TIA, Hyperlipidemia, Hypertension, Myocardial Infarction ([place]), Sleep Apnea/CPAP/BIPAP Additional Past Medical History / Comment(s): Restless Leg Syndrome. MILD STROKE 08/19/15-no effects, HAS PROSTHESIS on left hand. [place] X2. DEHYDRATION, BLE PVD and neuropathy, September 2017: dx with Bilateral inguinal hernia Last Myocardial Infarction Date:: 2014 History of Any Multi-Drug Resistant Organisms: None Reported Past Surgical History: Adenoidectomy, Bariatric Surgery, Coronary Bypass/CABG, Heart Catheterization With Stent, Joint Replacement, Orthopedic Surgery, Pacemaker, Tonsillectomy Additional Past Surgical History / Comment(s): STENTS X 3. [place] Knee replacements/later revision of left knee. 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, TRIPLE CABG 06/06/15, Sleeve gastrectomy 04/26/17 Past Anesthesia/Blood Transfusion Reactions: Motion Sickness Additional Past Anesthesia/Blood Transfusion Reaction / Comment(s): claustrophobia Date of Last Stent Placement:: 2004 Type of Cardiac Device: Permanent Pacemaker Device Placement Date:: 2005- Past Psychological History: No Psychological Hx Reported Smoking Status: Never smoker Past Alcohol Use History: None Reported Past Drug Use History: None Reported - Past Family History Father Family Medical History: Cancer Additional Family Medical History / Comment(s): bone cancer Mother Family Medical History: Myocardial Infarction ([place]) Additional Family Medical History / Comment(s): at age 80 General Exam General appearance: alert, in no apparent distress Head exam: Present: atraumatic, normocephalic, normal inspection Eye exam: Present: normal appearance, PERRL, EOMI. Absent: scleral icterus, conjunctival injection, periorbital swelling ENT exam: Present: normal exam, mucous membranes moist Neck exam: Present: tenderness. Absent: meningismus, full ROM, lymphadenopathy Respiratory exam: Absent: respiratory distress, accessory muscle use Extremities exam: Present: normal inspection. Absent: pedal edema, joint swelling Back exam: Present: normal inspection, muscle spasm (Cervical spine), paraspinal tenderness (Cervical spine), vertebral tenderness (Cervical spine) Neurological exam: Present: alert, oriented X3, CN II-XII intact Psychiatric exam: Present: normal affect, normal mood Skin exam: Present: warm, dry, intact, normal color. Absent: rash Course Vital Signs 11/23/21 11/23/21 07:43 09:28 Temperature 97.5 F L Pulse Rate 55 L 60 Respiratory 18 18 Rate Blood Pressure 163/77 163/94 O2 Sat by Pulse 99 100 Oximetry Medical Decision Making - Medical Decision Making 76-year-old male presenting to the emergency room with complaints of severe neck pain without radiation or trauma. Due to severity will check x-ray of the cervical spine. No indication for other diagnostic imaging or laboratory studies at this time. Will give muscle relaxer along with anti-inflammatory monitor response. Mild improvement from Toradol and Norflex still with significant pain and range of motion impairment. Will give Solu-Medrol IM. X-ray shows no acute fractures or dislocations mild degenerative disc disease and soft tissue within normal l imits. No indication for further diagnostic imaging. Pain stable after steroid injection. No indication for further imaging or workup. Will discharge home with muscle relaxer. Range of motion encouraged. Case discussed with Dr. Nicole - Radiology Data Radiology results: report reviewed, image reviewed X-ray cervical spine shows no fracture or dislocation. Mild degenerative disc disease. Soft tissue within normal limits. Disposition Clinical Impression: Torticollis Disposition: HOME SELF-CARE Condition: Stable Instructions (If sedation given, give patient instructions): Spasmodic Torticollis (ED) Additional Instructions: Please utilize muscle relaxer as needed for neck pain. Utilize Tylenol and ibuprofen [id number] as needed for pain as well. Range of motion as tolerated encouraged. Avoid prolonged stationary position of the neck. Please follow-up with your primary care provider. Please return to the Emergency Department if symptoms worsen or any other concerns. Prescriptions: Cyclobenzaprine HCl 5 mg PO TID 5 Days #15 tab Is patient prescribed a controlled substance at d/c from ED?: No Referrals: None,Stated [REFERRING] - 1-2 days Time of Disposition: 09:12
--- NOTE | 2021-11-23 08:35 | XR ---
EXAMINATION TYPE: XR cervical spine comp DATE OF EXAM: 11/23/2021 8:28 AM INDICATION: Patient age:Male; 76 years old; Reason for study: neck pain; PHH. COMPARISON: CT brain C-spine 02/09/2019, cervical spine radiographs 05/19/2016. TECHNIQUE: The cervical spine was imaged in 4 projections. Frontal, lateral, odontoid and bilateral o blique. FINDINGS: No acute fracture. Grade 1 anterolisthesis of C4 on C5 is redemonstrated. There are osteophytes noted throughout the cervical spine on the anterior and lateral aspects of the vertebral bodies. Multileve l disc space narrowing is most pronounced at C5-C6. Pedicles are intact. Soft tissues are within nor mal limits. The odontoid appears intact. Partial visualization of cardiac pacemaking leads. Postsurgi sherly changes in the mediastinum with surgical clips. Median sternotomy wires. IMPRESSION: 1. No fracture or dislocation. 2. Mild degenerative disc disease changes of the cervical spine.
[2021-11-23] MEDS ORDERED: methylPREDNISolone SOD SUCCI 125 MG/2 ML VIAL IM ONE (08:59)
[2021-11-23 09:29] VITALS: BP 163/94; PULSE 60
== END 2021-11-23 10:08 | disposition home or self-care (01) ==
LOC: EC 07:33
DX: M43.6 Torticollis (principal); I48.91 Unspecified atrial fibrillation; I10 Essential (primary) hypertension; I25.2 Old myocardial infarction; E78.5 Hyperlipidemia, unspecified; I25.10 Atherosclerotic heart disease of native coronary artery without angina pectoris; Z86.73 Personal history of transient ischemic attack (TIA), and cerebral infarction without residual deficits; Z95.1 Presence of aortocoronary bypass graft; Z91.048 Other nonmedicinal substance allergy status; Z88.8 Allergy status to other drugs, medicaments and biological substances; Z79.899 Other long term (current) drug therapy; Z79.02 Long term (current) use of antithrombotics/antiplatelets; Z79.82 Long term (current) use of aspirin
CPT/HCPCS: 72050; 99283; 96372; J2360; J2930; J1885

== ENCOUNTER 2021-11-23 23:46 | Emergency (ER) | payer MEDICARE ==
[2021-11-24 00:01] VITALS: TEMP 97.5
[2021-11-24 01:46] LABS: Appearance,Urine Clear (Clear); Bilirubin,Urine Negative (Negative); Blood,Urine Trace (Negative); Color,Urine Yellow; Glucose,Urine (UA) 3+ (Negative); Hyaline Casts,Urine 5 /lpf (0-2); Ketones,Urine Trace (Negative); Leukocyte Esterase,Urine Negative (Negative); Mucus,Urine Few /hpf; Nitrite,Urine Negative (Negative); PH, Urine 5.5 (5.0-8.0); Protein,Urine 1+ (Negative); RBC,Urine 6 /hpf (0-5); Specific Gravity,Urine 1.035 (1.001-1.035); Squamous Epithelial Cell,Urine <1 /hpf (0-4); WBC,Urine 2 /hpf (0-5)
--- NOTE | 2021-11-24 01:50 | US ---
EXAMINATION TYPE: US scrotum with doppler. Grayscale and color Doppler Duplex imaging performed of michael bustos scrotum. DATE OF EXAM: 11/24/2021 COMPARISON: NONE CLINICAL HISTORY: right testicle pain. Right testicular pain EXAM MEASUREMENTS: TESTICLES: Right Testicle: 4.1 x 1.8 x 2.4 cm, mildly heterogeneous Left Testicle: 5.0 x 2.3 x 2.9 cm, mildly heterogeneous EPIDIDYMIS HEAD: Right Epididymis: 1.1 cm Left Epididymis: 1.5 cm Doppler performed to assess for testicular vascularity; good bilateral color flow seen, difficult to obtain waveforms due to patient constantly moving his legs during exam. Presence of hydroceles: Bilateral Presence of varicoceles: no IMPRESSION: Exam somewhat limited as above. No evidence of testicular torsion or mass. There is bilat eral hydroceles
[2021-11-24] MEDS ORDERED: LEVOFLOXACIN 500 MG TAB PO STA (02:58)
[2021-11-24] MEDS ORDERED: HYDROcodone/APAP 5-325MG 1 EACH TAB PO STA (02:58)
--- NOTE | 2021-11-24 03:05 | ED ---
General Adult HPI - General Chief complaint: Urogenital Stated complaint: Pain in Genitals Time Seen by Provider: 11/24/21 02:35 Source: patient, RN notes reviewed, old records reviewed Mode of arrival: ambulatory Limitations: no limitations - History of Present Illness Initial comments: Patient is a 76-year-old male with past medical history remarkable for cardiac disease, hypertension is presents emergency Department complaining of right- sided testicular pain. Pain has been ongoing for multiple days, however it seems to be getting worse over the last day or so. Describes it as sharp. Radiates from his testicle up into his groin. Worse when bending over. Denies any hip pain. Denies any abdominal pain, nausea and vomiting. Denies any chest pain, shortness of breath. His no other acute complaints at this time. Denies nausea or vomiting. Denies any urethral discharge. His pain is somewhat relieved when elevating testicle. I evaluated the patient when he was placed in a room. - Related Data Home Medications Medication Instructions Recorded Confirmed Primidone [Mysoline] 50 mg PO TID@0600,08,209901/09/15 04/25/21 Tamsulosin [Flomax] 0.4 mg PO DAILY@1800 01/09/15 04/25/21 Metoprolol Tartrate [Lopressor] 25 mg PO BID@06,209904/19/17 04/25/21 Ferrous Sulfate [Iron (65 MG 325 mg PO DAILY@0600 05/05/17 04/25/21 Elemental)] rOPINIRole HCL [Requip] 2 mg PO DAILY@0600 PRN 05/19/17 04/25/21 [facility]aroxaban [[facility]to] [facility] 10/22/17 04/25/21 Furosemide [Lasix] 40 mg PO DAILY@0600 02/09/19 04/25/21 cloNIDine HCL [Catapres] 0.2 mg PO BID@599,209902/09/19 04/25/21 Aspirin EC [Ecotrin Low Dose] 81 mg PO -[facility] 11/15/19 04/25/21 Losartan Potassium 50 mg PO DAILY@0600 11/15/19 04/25/21 Cholecalciferol (Vitamin D3) 250 mcg PO HS@209904/25/21 04/25/21 [Vitamin D3 (125 MCG = 5,000 IU)] rOPINIRole HCL [Requip] 4 mg PO HS@2100 PRN 04/25/21 04/25/21 Previous Rx's Medication Instructions Recorded Cyclobenzaprine HCl 5 mg PO TID 5 Days #15 tab 11/23/21 levoFLOXacin 500 mg PO DAILY 10 Days #10 tablet 11/24/21 Allergies Allergy/AdvReac Type Severity Reaction Status Date / Time adhesive tape Allergy Rash/Hives Verified 11/23/21 07:45 lisinopril Allergy Rash/Hives Verified 11/23/21 07:45 Review of Systems ROS Statement: Those systems with pertinent positive or pertinent negative responses have been documented in the HPI. Review of Systems: CONST: Denies fever EYES: Denies blurry vision ENT: Denies nasal congestion C/V: Denies Chest pain RESP: Denies shortness of breath GI: Denies abdominal pain : Endorses right-sided testicular pain. SKIN: Denies rash. MSK: Denies joint pain. NEURO: Denies headache ROS Other: All systems not noted in ROS Statement are negative. Past Medical History Past Medical History: Atrial Fibrillation, Coronary Artery Disease (CAD), CVA/TIA, Hyperlipidemia, Hypertension, Myocardial Infarction ([place]), Sleep Apne a/CPAP/BIPAP Additional Past Medical History / Comment(s): Restless Leg Syndrome. MILD STROKE 08/19/15-no effects, HAS PROSTHESIS on left hand. [place] X2. DEHYDRATION, BLE PVD and neuropathy, September 2017: dx with Bilateral inguinal hernia Last Myocardial Infarction Date:: 2014 History of Any Multi-Drug Resistant Organisms: None Reported Past Surgical History: Adenoidectomy, Bariatric Surgery, Coronary Bypass/CABG, Heart Catheterization With Stent, Joint Replacement, Orthopedic Surgery, Pacemaker, Tonsillectomy Additional Past Surgical History / Comment(s): STENTS X 3. [place] Knee replacements/later revision of left knee. 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, TRIPLE CABG 06/06/15, Sleeve gastrectomy 04/26/17 Past Anesthesia/Blood Transfusion Reactions: Motion Sickness Additional Past Anesthesia/Blood Transfusion Reaction / Comment(s): claustrophobia Date of Last Stent Placement:: 2004 Type of Cardiac Device: Permanent Pacemaker Device Placement Date:: 2005-St Ed Past Psychological History: No Psychological Hx Reported Smoking Status: Never smoker Past Alcohol Use History: None Reported Past Drug Use History: None Reported - Past Family History Father Family Medical History: Cancer Additional Family Medical History / Comment(s): bone cancer Mother Family Medical History: Myocardial Infarction ([place]) Additional Family Medical History / Comment(s): at age 80 General Exam - General Exam Comments Initial Comments: General: Appears in no acute distress. HEAD: Normal with no signs of head trauma. EYES: EOMI ENT: Hearing grossly intact, normal oropharynx. RESPIRATORY: Clear breath sounds bilaterally. No wheezes, rales, or rhonchi. C/V: Regular rate and rhythm. S1 and S2 auscultated, no edema, peripheral pulses 2+ and intact throughout ABD: Abd is soft, nontender, nondistended : Testicle mildly tender on palpation. No skin changes. Tenderness seems to radiate up towards groin. No urethral discharge. No other findings. EXT: Normal range of motion, no obvious deformity SKIN: No rashes or lesions observed on exposed skin. NEURO: Alert and oriented 4. Limitations: no limitations Course Vital Signs 11/23/21 23:55 Temperature 97.5 F L Pulse Rate 70 Respiratory 16 Rate Blood Pressure 171/77 O2 Sat by Pulse 98 Oximetry Medical Decision Making - Medical Decision Making Based on the patient's presentation and physical exam, he presents with complaints of right testicular pain. Patient was evaluated in triage initially. Urine studies were obtained as well as a ultrasound of the scrotum. Urinalysis is remarkable for 3+ glucose, trace ketones, trace blood. No signs of acute infection. Scrotal ultrasound revealed bilateral hydroceles. No evidence of torsion. On evaluation when he was placed in a room, after the patient. Exam was as above. I discussed with him that I'm concerned that he may have epididymitis. He will be started on antibiotics and given a dose here. He'll be given [place]. He is ibuprofen and Motrin as needed. He was in agreement with this plan. Strict return precautions were discussed. Discussed elevating the testicle for further pain relief. I will provide the patient with a prescription for levofloxacin 500 mg daily for 7 days. I instructed the patient to follow up with their PCP in the next 1-3 days. I explained that the patient should return to the emergency department if they experience any worsening symptoms. Strict return precautions were discussed with the patient. The patient expressed understanding of these instructions. I answered all questions that the patient had. The patient was discharged home in good condition with their prescriptions and follow up tricia leonard. - Lab Data Lab Results 11/24/21 Range/Units 01:14 Urine Color Yellow Urine Appearance Clear (Clear) Urine pH 5.5 (5.0-8.0) Ur Specific [place] 1.035 (1.001-1.035) Urine Protein 1+ H (Negative) Urine Glucose (UA) 3+ H (Negative) Urine Ketones Trace H (Negative) Urine Blood Trace H (Negative) Urine Nitrite Negative (Negative) Urine Bilirubin Negative (Negative) Urine Urobilinogen 2.0 (<2.0) mg/dL Ur Leukocyte Esterase Negative (Negative) Urine RBC 6 H (0-5) /hpf Urine WBC 2 (0-5) /hpf Ur Squamous Epith Cells <1 (0-4) /hpf Hyaline Casts 5 H (0-2) /lpf Urine Mucus Few H (None) /hpf Disposition Clinical Impression: Epididymitis Disposition: HOME SELF-CARE Condition: Good Instructions (If sedation given, give patient instructions): Epididymitis (ED) Prescriptions: levoFLOXacin 500 mg PO DAILY 10 Days #10 tablet Is patient prescribed a controlled substance at d/c from ED?: No Referrals: Davey Srivastava MD [Primary Care Provider] - 1-2 days Time of Disposition: 03:05
[2021-11-24 03:45] VITALS: BP 141/75; PULSE 74; RESP 18
== END 2021-11-24 03:45 | disposition home or self-care (01) ==
LOC: EC 23:46
DX: Z91.048 Other nonmedicinal substance allergy status (principal); N45.1 Epididymitis; E78.5 Hyperlipidemia, unspecified; Z82.49 Family history of ischemic heart disease and other diseases of the circulatory system; Z88.8 Allergy status to other drugs, medicaments and biological substances
CPT/HCPCS: 76870; 81001; 93975; 99284

== ENCOUNTER 2021-12-03 00:18 | Emergency (ER) | payer MEDICARE ==
[2021-12-03 00:46] VITALS: BP 147/88; PULSE 94; RESP 16; TEMP 97.6
[2021-12-03] MEDS ORDERED: ONDANSETRON 4 MG/2 ML VIAL IVP STA (02:01)
[2021-12-03] MEDS ORDERED: SODIUM CHLORIDE 0.9% 1,000 ML IV STA (02:01)
[2021-12-03] MEDS ORDERED: HYDROmorphone 1 MG/ML 1 ML SYRINGE IVP STA (02:01)
--- NOTE | 2021-12-03 02:43 | CT ---
EXAMINATION TYPE: CT abdomen pelvis wo con DATE OF EXAM: 12/03/2021 COMPARISON: None HISTORY: Right groin pain. Pt has epididymitis. CT DLP: 886.3 mGycm Automated exposure control for dose reduction was used. Images obtained from the diaphragm to the floor the pelvis with no contrast. Lung bases are clear. No pleural effusion. Heart size is normal. No pericardial effusion. Liver and s pleen are intact. There is previous gastric surgery. No pancreatic mass. Gallbladder appears normal. The bile ducts are not dilated. There is no adrenal mass. Kidneys have normal size. No hydronephrosis. Ureters are not dilated. No re troperitoneal adenopathy. Appendix is posterior and inferior and appears normal. Bladder distends smo othly. There is minimal prostate calcification. Prostate measures 5.4 cm. No inguinal hernia. No free fluid in the pelvis. No pelvic mass. There are multiple sigmoid diverticula. There is no mesenteric edema. No ascites or free air. No sign of a bowel obstruction. The lumbar vert ebrae have normal alignment. No compression fracture. There is degenerative spurring in the lumbar sp ine. The bony pelvis is intact. The hip joints are intact. There is mild disc space narrowing at L4-5 . IMPRESSION: Normal appendix. Sigmoid diverticulosis without diverticulitis. Enlarged prostate.
--- NOTE | 2021-12-03 02:49 | ED ---
General Adult HPI - General Source: patient, RN notes reviewed Mode of arrival: wheelchair Limitations: no limitations <Sachin Nixon - Last Filed: 12/03/21 02:53> <Ajay Lamb - Last Filed: 12/03/21 04:07> - General Chief complaint: Urogenital Stated complaint: Hernia Pain Time Seen by Provider: 12/03/21 01:53 - History of Present Illness Initial comments: This is a pleasant 76-year-old male with a history of atrial fibrillation, CVA, and coronary artery disease. Patient presents today with ongoing right groin pain. Patient was seen here on November 22 and had an ultrasound done and was subsequently treated for epididymitis. Patient saw his primary care physician this morning and was told he likely had a right inguinal hernia. Patient has an appointment in the morning with Dr. Valenzuela but due to the pain he was unable to wait for evaluation. Patient states the pain is in the right groin. Exacerbated by palpation. No alleviating factors. No headache, no fever or chills, no changes in vision or hearing, no sore throat or difficulty with speech, no neck pain, no chest pain or shortness of breath, no nausea or vomiting, no changes in urination or bowel movements, no numbness or tingling, no extremity pain, no skin rashes or lesions. Past medical, surgical, social, and family history reviewed. (Sachin Nixon) - Related Data Home Medications Medication Instructions Recorded Confirmed Primidone [Mysoline] 50 mg PO TID@0600,0800,209901/09/15 04/25/21 Tamsulosin [Flomax] 0.4 mg PO DAILY@1800 01/09/15 04/25/21 Metoprolol Tartrate [Lopressor] 25 mg PO BID@0600,2100 04/19/17 04/25/21 Ferrous Sulfate [Iron (65 MG 325 mg PO DAILY@0600 05/05/17 04/25/21 Elemental)] rOPINIRole HCL [Requip] 2 mg PO DAILY@0600 PRN 05/19/17 04/25/21 Rivaroxaban [Xarelto] 20 mg PO PC-[facility] 10/22/17 04/25/21 Furosemide [Lasix] 40 mg PO DAILY@0600 02/09/19 04/25/21 cloNIDine HCL [Catapres] 0.2 mg PO BID@0600,2100 02/09/19 04/25/21 Aspirin EC [Ecotrin Low Dose] 81 mg PO PC-[facility] 11/15/19 04/25/21 Losartan Potassium 50 mg PO DAILY@0600 11/15/19 04/25/21 Cholecalciferol (Vitamin D3) 250 mcg PO HS@2100 04/25/21 04/25/21 [Vitamin D3 (125 MCG = 5,000 IU)] rOPINIRole HCL [Requip] 4 mg PO HS@2100 PRN 04/25/21 04/25/21 Previous Rx's Medication Instructions Recorded Cyclobenzaprine HCl 5 mg PO TID 5 Days #15 tab 11/23/21 levoFLOXacin 500 mg PO DAILY 10 Days #10 tablet 11/24/21 Allergies Allergy/AdvReac Type Severity Reaction Status Date / Time adhesive tape Allergy Rash/Hives Verified 11/23/21 07:45 lisinopril Allergy Rash/Hives Verified 11/23/21 07:45 Review of Systems ROS Other: All systems not noted in ROS Statement are negative. <Sachin Nixon - Last Filed: 12/03/21 02:53> ROS Other: All systems not noted in ROS Statement are negative. <Ajay Lamb - Last Filed: 12/03/21 04:07> ROS Statement: Those systems with pertinent positive or pertinent negative responses have been documented in the HPI. Past Medical History Past Medical History: Atrial Fibrillation, Coronary Artery Disease (CAD), CVA/TIA, Hyperlipidemia, Hypertension, Myocardial Infarction ([place]), Sleep Apnea/CPAP/BIPAP Additional Past Medical History / Comment(s): Restless Leg Syndrome. MILD STROKE 08/19/15-no effects, HAS PROSTHESIS on left hand. [place] X2. DEHYDRATION, BLE PVD and neuropathy, September 2017: dx with Bilateral inguinal hernia Last Myocardial Infarction Date:: 2014 History of Any Multi-Drug Resistant Organisms: None Reported Past Surgical History: Adenoidectomy, Bariatric Surgery, Coronary Bypass/CABG, Heart Catheterization With Stent, Joint Replacement, Orthopedic Surgery, Pacemaker, Tonsillectomy Additional Past Surgical History / Comment(s): STENTS X 3. [place] Knee replacements/later revision of left knee. 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, TRIPLE CABG 06/06/15, Sleeve gastrectomy 04/26/17 Past Anesthesia/Blood Transfusion Reactions: Motion Sickness Additional Past Anesthesia/Blood Transfusion Reaction / Comment(s): claustrophobia Date of Last Stent Placement:: 2004 Type of Cardiac Device: Permanent Pacemaker Device Placement Date:: 2005-St Ed Past Psychological History: No Psychological Hx Reported Smoking Status: Never smoker Past Alcohol Use History: None Reported Past Drug Use History: None Reported - Past Family History Father Family Medical History: Cancer Additional Family Medical History / Comment(s): bone cancer Mother Family Medical History: Myocardial Infarction ([place]) Additional Family Medical History / Comment(s): at age 80 <HussainSachin Alison Ybarra Filed: 12/03/21 02:53> General Exam Limitations: no limitations General appearance: alert, in no apparent distress, in distress (Secondary to pain) Head exam: Present: atraumatic, normocephalic, normal inspection Eye exam: Present: normal appearance, PERRL, EOMI. Absent: scleral icterus, conjunctival injection, periorbital swelling ENT exam: Present: normal exam, normal oropharynx, mucous membranes moist, normal external ear exam Neck exam: Present: normal inspection, full ROM. Absent: tenderness, menin gismus, lymphadenopathy Respiratory exam: Present: normal lung sounds bilaterally. Absent: respiratory distress, wheezes, rales, rhonchi, stridor, chest wall tenderness, accessory muscle use Cardiovascular Exam: Present: regular rate, normal rhythm, normal heart sounds. Absent: systolic murmur, diastolic murmur, rubs, gallop, clicks GI/Abdominal exam: Present: soft, normal bowel sounds. Absent: distended, tenderness, guarding, rebound, rigid exam: Present: normal inspection, vertical testicular lie, circumcision, other (Patient has tenderness in the right inguinal area on palpation. There is no rash or lesion. No erythema.). Absent: testicular tenderness, urethral discharge, scrotal swelling Extremities exam: Present: normal inspection, full ROM, normal capillary refill. Absent: tenderness, pedal edema, joint swelling, calf tenderness Back exam: Present: normal inspection Neurological exam: Present: alert, oriented X3, CN II-XII intact Psychiatric exam: Present: normal affect, normal mood Skin exam: Present: warm, dry, intact, normal color. Absent: rash <HussainSachin Alison Ybarra Filed: 12/03/21 02:53> - General Exam Comments Initial Comments: Vital signs stable, patient afebrile. Patient does not appear to be ill or toxic. (Sachin Nixon) Course Vital Signs 12/03/21 00:43 Temperature 97.6 F Pulse Rate 94 Respiratory 16 Rate Blood Pressure 147/88 O2 Sat by Pulse 98 Oximetry Medical Decision Making <Sachin Nixon - Last Filed: 12/03/21 02:53> - Lab Data Result diagrams: 12/03/21 03:20 12/03/21 03:20 <Ajay Lamb - Last Filed: 12/03/21 04:07> - Medical Decision Making Patient's computed tomography scan shows no evidence of renal stone. No evidence of hernia. No definitive cause for the patient's right groin/inguinal pain. The case was discussed in detail with ED attending physician. Presentation, findings, treatment plan discussed in detail. Supervising physician Dr. Lamb Patient will be endorsed to the supervisor contact and service clerks physician at 3 AM for further evaluation and disposition. (Sachin Nixon) Laboratory testing unremarkable, on exam the patient does have a reducible right inguinal hernia. He has an appointment at 11 AM with general surgery today which is 5 hours away. His pain is controlled in the emergency department. Stable for discharge. (Ajay Lamb) - Lab Data Lab Results 12/03/21 12/03/21 12/03/21 Range/Units 03:20 03:20 03:20 WBC 6.6 (3.8-10.6) k/uL RBC 4.14 L (4.30-5.90) m/uL Hgb 12.6 L (13.0-17.5) gm/dL Hct 37.5 L (39.0-53.0) % MCV 90.5 (80.0-100.0) fL MCH 30.5 (25.0-35.0) pg MCHC 33.7 (31.0-37.0) g/dL RDW 13.1 (11.5-15.5) % Plt Count 226 (150-450) k/uL MPV 7.5 Neutrophils % 75 % Lymphocytes % 16 % Monocytes % 5 % Eosinophils % 2 % Basophils % 1 % Neutrophils # 5.0 (1.3-7.7) k/uL Lymphocytes # 1.1 (1.0-4.8) k/uL Monocytes # 0.3 (0-1.0) k/uL Eosinophils # 0.1 (0-0.7) k/uL Basophils # 0.0 (0-0.2) k/uL Sodium 133 L (137-145) mmol/L Potassium 4.3 (3.5-5.1) mmol/L Chloride 99 (98-107) mmol/L Carbon Dioxide 25 (22-30) mmol/L Anion Gap 9 mmol/L BUN 34 H (9-20) mg/dL Creatinine 1.22 (0.66-1.25) mg/dL Est GFR (CKD-EPI)AfAm 67 (>60 ml/min/1.73 sqM) Est GFR (CKD-EPI)NonAf 58 (>60 ml/min/1.73 sqM) Glucose 120 H (74-99) mg/dL Plasma Lactic Acid Teddy (0.7-2.0) mmol/L Calcium 8.6 (8.4-10.2) mg/dL Total Bilirubin 0.7 (0.2-1.3) mg/dL AST 26 (17-59) U/L ALT 12 (4-49) U/L Alkaline Phosphatase 77 (38-126) U/L Total Protein 6.3 (6.3-8.2) g/dL Albumin 3.9 (3.5-5.0) g/dL Lipase 149 (23-300) U/L Urine Color Yellow Urine Appearance Cloudy (Clear) Urine pH 5.5 (5.0-8.0) Ur Specific [place] 1.026 (1.001-1.035) Urine Protein Trace H (Negative) Urine Glucose (UA) Negative (Negative) Urine Ketones 1+ H (Negative) Urine Blood Negative (Negative) Urine Nitrite Negative (Negative) Urine Bilirubin Negative (Negative) Urine Urobilinogen 4.0 (<2.0) mg/dL Ur Leukocyte Esterase Negative (Negative) Urine RBC 2 (0-5) /hpf Urine WBC 1 (0-5) /hpf Ur Squamous Epith Cells <1 (0-4) /hpf Calcium Oxalate Crystal Many H (None) /hpf Hyaline Casts 67 H (0-2) /lpf Urine Mucus Moderate H (None) /hpf Urine Yeast (Budding) Rare H (None) /hpf 09/14/22 Range/Units 03:20 WBC (3.8-10.6) k/uL RBC (4.30-5.90) m/uL Hgb (13.0-17.5) gm/dL Hct (39.0-53.0) % MCV (80.0-100.0) fL MCH (25.0-35.0) pg MCHC (31.0-37.0) g/dL RDW (11.5-15.5) % Plt Count (150-450) k/uL MPV Neutrophils % % Lymphocytes % % Monocytes % % Eosinophils % % Basophils % % Neutrophils # (1.3-7.7) k/uL Lymphocytes # (1.0-4.8) k/uL Monocytes # (0-1.0) k/uL Eosinophils # (0-0.7) k/uL Basophils # (0-0.2) k/uL Sodium (137-145) mmol/L Potassium (3.5-5.1) mmol/L Chloride (98-107) mmol/L Carbon Dioxide (22-30) mmol/L Anion Gap mmol/L BUN (9-20) mg/dL Creatinine (0.66-1.25) mg/dL Est GFR (CKD-EPI)AfAm (>60 ml/min/1.73 sqM) Est GFR (CKD-EPI)NonAf (>60 ml/min/1.73 sqM) Glucose (74-99) mg/dL Plasma Lactic Acid Teddy 1.1 (0.7-2.0) mmol/L Calcium (8.4-10.2) mg/dL Total Bilirubin (0.2-1.3) mg/dL AST (17-59) U/L ALT (4-49) U/L Alkaline Phosphatase (38-126) U/L Total Protein (6.3-8.2) g/dL Albumin (3.5-5.0) g/dL Lipase (23-300) U/L Urine Color Urine Appearance (Clear) Urine pH (5.0-8.0) Ur Specific [place] (1.001-1.035) Urine Protein (Negative) Urine Glucose (UA) (Negative) Urine Ketones (Negative) Urine Blood (Negative) Urine Nitrite (Negative) Urine Bilirubin (Negative) Urine Urobilinogen (<2.0) mg/dL Ur Leukocyte Esterase (Negative) Urine RBC (0-5) /hpf Urine WBC (0-5) /hpf Ur Squamous Epith Cells (0-4) /hpf Calcium Oxalate Crystal (None) /hpf Hyaline Casts (0-2) /lpf Urine Mucus (None) /hpf Urine Yeast (Budding) (None) /hpf Disposition <Sachin Nixon - Last Filed: 12/03/21 02:53> Is patient prescribed a controlled substance at d/c from ED?: No Time of Disposition: 04:07 <Ajay Lamb - Last Filed: 12/03/21 04:07> Clinical Impression: Right groin pain, Inguinal hernia Disposition: HOME SELF-CARE Condition: Fair Instructions (If sedation given, give patient instructions): Inguinal Hernia (ED) Referrals: Davey Srivastava MD [Primary Care Provider] - 1-2 days Bhavin Valenzuela DO [Doctor of Osteopathic Medicine] - 12/03/21
[2021-12-03 03:38] LABS: Basophils % (A) 1 %; Eosinophils # (A) 0.1 k/uL (0-0.7); Eosinophils % (A) 2 %; HCT 37.5 % (39.0-53.0); HGB 12.6 gm/dL (13.0-17.5); Lymphocytes # (A) 1.1 k/uL (1.0-4.8); Lymphocytes % (A) 16 %; MCH 30.5 pg (25.0-35.0); MCHC 33.7 g/dL (31.0-37.0); MCV 90.5 fL (80.0-100.0); Mean Platelet Volume 7.5; Monocytes # (A) 0.3 k/uL (0-1.0); Monocytes % (A) 5 %; Neutrophils % (A) 75 %; Platelet Count 226 k/uL (150-450); RBC 4.14 m/uL (4.30-5.90); RDW 13.1 % (11.5-15.5); WBC 6.6 k/uL (3.8-10.6)
[2021-12-03 03:50] LABS: Albumin 3.9 g/dL (3.5-5.0); Appearance,Urine Cloudy (Clear); Bilirubin,Urine Negative (Negative); Blood,Urine Negative (Negative); Budding Yeast,Urine Rare /hpf; Calcium 8.6 mg/dL (8.4-10.2); Calcium Oxalate Crystals,Urine Many /hpf; Color,Urine Yellow; Glucose,Urine (UA) Negative (Negative); Hyaline Casts,Urine 67 /lpf (0-2); Ketones,Urine 1+ (Negative); Leukocyte Esterase,Urine Negative (Negative); Mucus,Urine Moderate /hpf; Nitrite,Urine Negative (Negative); PH, Urine 5.5 (5.0-8.0); Potassium 4.3 mmol/L (3.5-5.1); Protein,Urine Trace (Negative); RBC,Urine 2 /hpf (0-5); Specific Gravity,Urine 1.026 (1.001-1.035); Squamous Epithelial Cell,Urine <1 /hpf (0-4); Total Bilirubin 0.7 mg/dL (0.2-1.3); Total Protein 6.3 g/dL (6.3-8.2); WBC,Urine 1 /hpf (0-5)
== END 2021-12-03 05:08 | disposition home or self-care (01) ==
LOC: EC 00:18
DX: K40.90 Unilateral inguinal hernia, without obstruction or gangrene, not specified as recurrent (principal); I25.10 Atherosclerotic heart disease of native coronary artery without angina pectoris; Z86.73 Personal history of transient ischemic attack (TIA), and cerebral infarction without residual deficits; E78.5 Hyperlipidemia, unspecified; I10 Essential (primary) hypertension; I25.2 Old myocardial infarction; Z91.048 Other nonmedicinal substance allergy status; Z88.8 Allergy status to other drugs, medicaments and biological substances
CPT/HCPCS: 36415; 80053; 83605; 83690; 85025; 81001; 74176; 96374; 96375; 96361; 99284; J2405; J1170

== ENCOUNTER 2021-12-31 16:57 | Inpatient (IN) | payer MEDICARE ==
[2021-12-31] MEDS ORDERED: SODIUM CHLORIDE 0.9% 500 ML 500 ML IV STA (17:20)
[2021-12-31 18:07] LABS: Appearance,Urine Clear (Clear); Bilirubin,Urine Negative (Negative); Blood,Urine Negative (Negative); Color,Urine Colorless; Glucose,Urine (UA) Negative (Negative); Ketones,Urine Negative (Negative); Leukocyte Esterase,Urine Negative (Negative); Nitrite,Urine Negative (Negative); Protein,Urine Negative (Negative); Specific Gravity,Urine 1.007 (1.001-1.035); Urobilinogen,Urine <2.0 mg/dL (<2.0)
--- NOTE | 2021-12-31 18:15 | XR ---
EXAMINATION TYPE: XR chest 1V portable DATE OF EXAM: 12/31/2021 COMPARISON: 06/03/2020 HISTORY: Syncope TECHNIQUE: 2 views FINDINGS: Heart is normal. Lungs are clear of consolidation. There are no hilar masses. There is left axillary pacemaker. No pleural effusion. IMPRESSION: No active cardiopulmonary disease. Normal heart. No change.
--- NOTE | 2021-12-31 18:18 | CT ---
EXAMINATION TYPE: CT brain linh wo con DATE OF EXAM: 12/31/2021 COMPARISON: 02/09/2019 HISTORY: Fall, AMS CT DLP: 1532.8 mGycm Automated exposure control for dose reduction was used. Images of the brain and cervical spine obtained with no contrast. There is some cerebral cortical atrophy. There is a 4 cm area of hypodensity right posterior temporal lobe and occipital lobe consistent with old infarct. There is some white matter hypodensity around t he occipital horns of the lateral ventricles. There is no midline shift. No sign of intracranial hemo rrhage. The calvarium is intact. There is normal aeration of the mastoid sinuses. The cervical vertebra have normal alignment. There is degenerative spurring anteriorly throughout the cervical spine. No compression fracture. There is mild cervical facet arthropathy. The prevertebral soft tissues are intact. IMPRESSION: Cervical spondylotic changes which are more noticeable at C5-6 and C6-7. No change. No evidence of acute traumatic injury of the brain and cervical spine. 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 Ch ronic small vessel ischemia similar to old exam.
--- NOTE | 2021-12-31 18:27 | ED ---
General Adult HPI - General Chief complaint: Syncope Stated complaint: AMS Time Seen by Provider: 12/31/21 17:09 Source: patient, family, RN notes reviewed, old records reviewed Mode of arrival: wheelchair Limitations: no limitations - History of Present Illness Initial comments: 76-year-old male had presented for evaluation of likely syncope. Patient just gotten out of the shower, he was found in his bedroom on the floor. Uncertain exactly how long he was unconscious. He does not have any specific pain complaints. He is currently anticoagulated and has history of pacemaker and previous history of CVA. He denies headache. Denies chest pain. - Related Data Home Medications Medication Instructions Recorded Confirmed Primidone [Mysoline] 50 mg PO TID 01/09/15 12/31/21 Tamsulosin [Flomax] 0.4 mg PO DAILY 01/09/15 12/31/21 Metoprolol Tartrate [Lopressor] 25 mg PO BID 04/19/17 12/31/21 Ferrous Sulfate [Iron (65 MG 325 mg PO DAILY 05/05/17 12/31/21 Elemental)] rOPINIRole HCL [Requip] 2 - 4 mg PO DAILY PRN 05/19/17 12/31/21 Rivaroxaban [Xarelto] 20 mg PO DAILY 10/22/17 12/31/21 Furosemide [Lasix] 40 mg PO DAILY 02/09/19 12/31/21 cloNIDine HCL [Catapres] 0.2 mg PO BID 02/09/19 12/31/21 Aspirin EC [Ecotrin Low Dose] 81 mg PO DAILY 11/15/19 12/31/21 Losartan Potassium 25 mg PO DAILY 11/15/19 12/31/21 rOPINIRole HCL [Requip] 4 mg PO HS@2100 PRN 04/25/21 12/31/21 Cholecalciferol [Vitamin D3 (25 50 mcg PO DAILY 12/31/21 12/31/21 Mcg = 1000 Iu)] Famotidine 40 mg PO DAILY 12/31/21 12/31/21 Allergies Allergy/AdvReac Type Severity Reaction Status Date / Time adhesive tape Allergy Rash/Hives Verified 12/31/21 20:03 lisinopril Allergy Rash/Hives Verified 12/31/21 20:03 Review of Systems ROS Statement: Those systems with pertinent positive or pertinent negative responses have been documented in the HPI. ROS Other: All systems not noted in ROS Statement are negative. Past Medical History Past Medical History: Atrial Fibrillation, Coronary Artery Disease (CAD), CVA/TIA, Hyperlipidemia, Hypertension, Myocardial Infarction (ME), Sleep Apnea/CPAP/BIPAP Additional Past Medical History / Comment(s): Restless Leg Syndrome. MILD STROKE 08/19/15-no effects, HAS PROSTHESIS on left hand. [place] X2. DEHYDRATION, BLE PVD and neuropathy, September 2017: dx with Bilateral inguinal hernia Last Myocardial Infarction Date:: 2014 History of Any Multi-Drug Resistant Organisms: None Reported Past Surgical History: Adenoidectomy, Bariatric Surgery, Coronary Bypass/CABG, Heart Catheterization With Stent, Joint Replacement, Orthopedic Surgery, Pacemaker, Tonsillectomy Additional Past Surgical History / Comment(s): STENTS X 3. [place] Knee replacements/later revision of left knee. 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, TRIPLE CABG 06/06/15, Sleeve gastrectomy 04/26/17 Past Anesthesia/Blood Transfusion Reactions: Motion Sickness Additional Past Anesthesia/Blood Transfusion Reaction / Comment(s): claustrophobia Date of Last Stent Placement:: 2004 Type of Cardiac Device: Permanent Pacemaker Device Placement Date:: Past Psychological History: No Psychological Hx Reported Smoking Status: Never smoker Past Alcohol Use History: None Reported Past Drug Use History: None Reported - Past Family History Father Family Medical History: Cancer Additional Family Medical History / Comment(s): bone cancer Mother Family Medical History: Myocardial Infarction ([place]) Additional Family Medical History / Comment(s): at age 80 General Exam Limitations: no limitations General appearance: alert, in no apparent distress Head exam: Present: atraumatic, normocephalic Eye exam: Present: normal appearance, PERRL ENT exam: Present: mucous membranes dry Neck exam: Present: normal inspection. Absent: tenderness, meningismus Respiratory exam: Present: normal lung sounds bilaterally. Absent: respiratory distress, wheezes Cardiovascular Exam: Present: regular rate, normal rhythm GI/Abdominal exam: Present: soft. Absent: distended, tenderness, guarding Extremities exam: Present: normal capillary refill, pedal edema Neurological exam: Present: alert, oriented X3, CN II-XII intact. Absent: motor sensory deficit Psychiatric exam: Present: normal affect, normal mood Skin exam: Present: warm, dry, intact Course Vital Signs 12/31/21 12/31/21 12/31/21 17:00 18:02 20:26 Temperature 97.5 F L 97.5 F L Pulse Rate 56 L 59 L 61 Respiratory 20 18 16 Rate Blood Pressure 132/73 154/82 167/85 O2 Sat by Pulse 98 100 Oximetry EKG Findings - EKG Comments: EKG Findings:: EKG: Paced rhythm rate 61 QRS duration 178, QTC 538 Medical Decision Making - Medical Decision Making 76-year-old male with likely syncopal episode. Patient has paced rhythm. He's hemodynamically stable upon arrival. There was concern for head injury, CT was performed which shows an evolving old right temporal infarct. No intracranial hemorrhage. Chest x-ray negative. Laboratory testing including CBC, CMP and urinalysis unremarkable. Patient does appear dehydrated. He will be observed admitted to Dr. Louis for hydration, telemetry, and evaluation by neurology. - Lab Data Result diagrams: 12/31/21 17:53 12/31/21 17:53 Lab Results 12/31/21 12/31/21 12/31/21 Range/Units 17:53 17:53 17:53 WBC 4.5 (3.8-10.6) k/uL RBC 4.09 L (4.30-5.90) m/uL Hgb 12.6 L (13.0-17.5) gm/dL Hct 36.6 L (39.0-53.0) % MCV 89.7 (80.0-100.0) fL MCH 30.7 (25.0-35.0) pg MCHC 34.3 (31.0-37.0) g/dL RDW 13.0 (11.5-15.5) % Plt Count 203 (150-450) k/uL MPV 7.4 Neutrophils % 63 % Lymphocytes % 27 % Monocytes % 5 % Eosinophils % 3 % Basophils % 1 % Neutrophils # 2.8 (1.3-7.7) k/uL Lymphocytes # 1.2 (1.0-4.8) k/uL Monocytes # 0.2 (0-1.0) k/uL Eosinophils # 0.1 (0-0.7) k/uL Basophils # 0.0 (0-0.2) k/uL PT 17.6 H (9.0-12.0) sec INR 1.7 H (<1.2) APTT 34.6 H (22.0-30.0) sec Sodium 136 L (137-145) mmol/L Potassium 4.1 (3.5-5.1) mmol/L Chloride 102 (98-107) mmol/L Carbon Dioxide 24 (22-30) mmol/L Anion Gap 10 mmol/L BUN 18 (9-20) mg/dL Creatinine 0.98 (0.66-1.25) mg/dL Est GFR (CKD-EPI)AfAm 88 (>60 ml/min/1.73 sqM) Est GFR (CKD-EPI)NonAf 76 (>60 ml/min/1.73 sqM) Glucose 112 H (74-99) mg/dL Calcium 9.1 (8.4-10.2) mg/dL Magnesium 1.9 (1.6-2.3) mg/dL Total Bilirubin 0.9 (0.2-1.3) mg/dL AST 28 (17-59) U/L ALT 17 (4-49) U/L Alkaline Phosphatase 68 (38-126) U/L Total Protein 6.7 (6.3-8.2) g/dL Albumin 4.1 (3.5-5.0) g/dL Urine Color Urine Appearance (Clear) Urine pH (5.0-8.0) Ur Specific [place] (1.001-1.035) Urine Protein (Negative) Urine Glucose (UA) (Negative) Urine Ketones (Negative) Urine Blood (Negative) Urine Nitrite (Negative) Urine Bilirubin (Negative) Urine Urobilinogen (<2.0) mg/dL Ur Leukocyte Esterase (Negative) 12/31/21 Range/Units 17:53 WBC (3.8-10.6) k/uL RBC (4.30-5.90) m/uL Hgb (13.0-17.5) gm/dL Hct (39.0-53.0) % MCV (80.0-100.0) fL MCH (25.0-35.0) pg MCHC (31.0-37.0) g/dL RDW (11.5-15.5) % Plt Count (150-450) k/uL MPV Neutrophils % % Lymphocytes % % Monocytes % % Eosinophils % % Basophils % % Neutrophils # (1.3-7.7) k/uL Lymphocytes # (1.0-4.8) k/uL Monocytes # (0-1.0) k/uL Eosinophils # (0-0.7) k/uL Basophils # (0-0.2) k/uL PT (9.0-12.0) sec INR (<1.2) APTT (22.0-30.0) sec Sodium (137-145) mmol/L Potassium (3.5-5.1) mmol/L Chloride (98-107) mmol/L Carbon Dioxide (22-30) mmol/L Anion Gap mmol/L BUN (9-20) mg/dL Creatinine (0.66-1.25) mg/dL Est GFR (CKD-EPI)AfAm (>60 ml/min/1.73 sqM) Est GFR (CKD-EPI)NonAf (>60 ml/min/1.73 sqM) Glucose (74-99) mg/dL Calcium (8.4-10.2) mg/dL Magnesium (1.6-2.3) mg/dL Total Bilirubin (0.2-1.3) mg/dL AST (17-59) U/L ALT (4-49) U/L Alkaline Phosphatase (38-126) U/L Total Protein (6.3-8.2) g/dL Albumin (3.5-5.0) g/dL Urine Color Colorless Urine Appearance Clear (Clear) Urine pH 7.0 (5.0-8.0) Ur Specific [place] 1.007 (1.001-1.035) Urine Protein Negative (Negative) Urine Glucose (UA) Negative (Negative) Urine Ketones Negative (Negative) Urine Blood Negative (Negative) Urine Nitrite Negative (Negative) Urine Bilirubin Negative (Negative) Urine Urobilinogen <2.0 (<2.0) mg/dL Ur Leukocyte Esterase Negative (Negative) Disposition Clinical Impression: CVA (cerebral vascular accident), Pacemaker, Multiple falls, Dehydration, Syncope Disposition: ADMITTED IP TO THIS [facility] Condition: Stable Is patient prescribed a controlled substance at d/c from ED?: No Time of Disposition: 20:28
[2021-12-31] MEDS ORDERED: NALOXONE 0.4 MG/ML 1 ML VIAL IV PRN (19:56)
[2021-12-31 20:08] LABS: Basophils % (A) 1 %; Eosinophils # (A) 0.1 k/uL (0-0.7); Eosinophils % (A) 3 %; HCT 36.6 % (39.0-53.0); HGB 12.6 gm/dL (13.0-17.5); Lymphocytes # (A) 1.2 k/uL (1.0-4.8); Lymphocytes % (A) 27 %; MCH 30.7 pg (25.0-35.0); MCHC 34.3 g/dL (31.0-37.0); MCV 89.7 fL (80.0-100.0); Mean Platelet Volume 7.4; Monocytes # (A) 0.2 k/uL (0-1.0); Monocytes % (A) 5 %; Neutrophils # (A) 2.8 k/uL (1.3-7.7); Neutrophils % (A) 63 %; Platelet Count 203 k/uL (150-450); RBC 4.09 m/uL (4.30-5.90); WBC 4.5 k/uL (3.8-10.6)
[2021-12-31] MEDS ORDERED: LORazepam 2 MG/ML INJ IV STA (20:15)
[2021-12-31 20:16] LABS: INR 1.7 (<1.2); Partial Thromboplastin Time 34.6 sec (22.0-30.0); Prothrombin Time 17.6 sec (9.0-12.0)
[2021-12-31 20:19] LABS: Albumin 4.1 g/dL (3.5-5.0); Calcium 9.1 mg/dL (8.4-10.2); Magnesium 1.9 mg/dL (1.6-2.3); Potassium 4.1 mmol/L (3.5-5.1); Total Bilirubin 0.9 mg/dL (0.2-1.3); Total Protein 6.7 g/dL (6.3-8.2)
[2021-12-31] MEDS: SODIUM CHLORIDE 0.9% 1,000 ML IV SCH (20:22)
[2022-01-01] MEDS ORDERED: LORazepam 1 MG TAB PO STA (05:45)
[2022-01-01] MEDS: SODIUM CHLORIDE 0.9% 1,000 ML IV SCH (08:42)
[2022-01-01] MEDS: ACETAMINOPHEN TAB 325 MG TAB PO PRN ×2 (09:05→20:11)
--- NOTE | 2022-01-01 10:47 | US ---
EXAMINATION TYPE: US carotid duplex BILAT DATE OF EXAM: 01/01/2022 COMPARISON: US 2016 CLINICAL HISTORY: stroke. Stroke. Hypertension, hyperlipidemia. TECHNIQUE: Carotid duplex ultrasound examination. Indirect Doppler criteria was utilized. FINDINGS: EXAM MEASUREMENTS: RIGHT: Peak Systolic Velocity (PSV) cm/sec ----- Right CCA: 62.5 ----- Right ICA: 73.8 ----- Right ECA: 66.8 ICA/CCA ratio: 1.2 RIGHT: End Diastole cm/sec ----- Right CCA: 7.5 ----- Right ICA: 14.5 ----- Right ECA: 13.6 LEFT: Peak Systolic Velocity (PSV) cm/sec ----- Left CCA: 75.7 ----- Left ICA: 114.7 ----- Left ECA: 118.9 ICA/CCA ratio: 1.5 LEFT: End Diastole cm/sec ----- Left CCA: 15.3 ----- Left ICA: 25.4 ----- Left ECA: 2.6 VERTEBRALS (direction of flow): Right Vertebral: Antegrade Left Vertebral: Antegrade Rhythm: Normal LACTATION NURSE NOTES: No elevated velocities at this time. Plaque seen within bilateral bulbs and bilate ral prox ICA. IMPRESSION: Atherosclerotic plaque with no significant hemodynamic stenosis. Criteria for Assigning % of Stenosis / Diameter reduction (Estimation based on the indirect measurements of the internal carotid artery velocities (ICA PSV). 1. Normal (no stenosis)=ICA PSV < 125 cm/s: ratio < 2.0: ICA EDV<40 cm/s. 2. Less than 50% stenosis=ICA PSV < 125 cm/s: ratio < 2.0: ICA EDV<40 cm/s. 3. 50 to 69% stenosis=ICA PSV of 125 to 230 cm/s: ration 2.0 ? 4.0: ICA EDV 40-100 cm/s. 4. Greater than 70% stenosis to near occlusion= ICA PSV > 230 cm/s: ratio > 4.0: ICA EDV > 100 cm/s. 5. Near occlusion= ICA PSV velocities may be low or undetectable: variable ratio and ICA EDV. 6. Total occlusion=unable to detect flow.
--- NOTE | 2022-01-01 11:17 | P.CNNES ---
History of Present Illness Consult date: 01/01/22 Requesting physician: Ajay Lamb Reason for Consult: subacute cva History of Present Illness: This is a 76-year-old gentleman with history of stroke, atrial fibrillation on Xarelto, coronary artery disease status post stent, CABG, restless leg syndrome, sick sinus syndrome status post pacemaker who presented emergency department because of visual hallucination and a syncopal episode. Patient's sons at bedside with help so with a history. According to the son yesterday early in the morning patient had visual hallucination and he stated that the he saw somebody is placing [place] trees, he also thought a neighbor was chasing after his gun. Around between 4:30- 5:00 patient's son now one to check up on his father and he found him on the floor to side and his eyes were initially closed no foaming around the mouth and no jerk in of any extremities but he did have urinary incontinence. Unknown downtime. Patient stated that he took a shower then was walking back to his bedroom and passed out. He denies any chest pain, palpitation, any dizziness prior to episode that. Denies feeling lightheadedness. He denies any history of seizures. Son felt the patient was slurring his speech yesterday which resolved. According to the patient's son and he has not had any visual hallucination prior to this. Denies having any prior syncopal episodes in the past that he recalls. Patient is on Xarelto, aspirin 81 mg. Some other workup during this hospital visit consisted of: Initial vital signs his blood pressure 132/73 with a heart rate of 56, respiratory of 20, pulse ox of 98% room air and temperature of 97.5 Fahrenheit oral. Initial white blood cells 4.5 thousand. Initial serum glucoses 112, calcium, magnesium AST and ALT is within normal limits. Sodium on presentation is 136. CT of the head is reported as old right posterior temporal occipital cortical infarct which has progressed compared to old exam and the comparison was 2019. Chronic small vessel ischemic as similar to old exam. I personally did not appreciate any acute or subacute ischemia or any intracerebral hemorrhage. I do not appreciate an old stroke over the right occipital temporal region and it's very hard for me to state that this is subacute comparing it from a 2019 I think his changes are old over the right occipital temporal region. CT cervical spine is reported as nuchal spondylitic changes which are more noticeable at C5-C6 and C6-C7. No change. Carotid Duplex was reported as atherosclerotic plaque with no significant hemodynamic stenosis. EKG is reported as left chronic and to clear pacemaker. Abnormal rhythm EKG. Review of Systems Review of system: The 12 point system was reviewed and apparent positive and negative per HPI. Past Medical History Past Medical History: Atrial Fibrillation, Coronary Artery Disease (CAD), CVA/TIA, Hyperlipidemia, Hypertension, Myocardial Infarction (CO), Sleep Apnea/CPAP/BIPAP Additional Past Medical History / Comment(s): Restless Leg Syndrome. MILD STROKE 08/19/15-no effects, HAS PROSTHESIS on left hand. [place] X2. DEHYDRATION, BLE PVD and neuropathy, September 2017: dx with Bilateral inguinal hernia Last Myocardial Infarction Date:: 2014 History of Any Multi-Drug Resistant Organisms: None Reported Past Surgical History: Adenoidectomy, Bariatric Surgery, Coronary Bypass/CABG, Heart Catheterization With Stent, Joint Replacement, Orthopedic Surgery, Pacemaker, Tonsillectomy Additional Past Surgical History / Comment(s): STENTS X 3. [place] Knee rep lacements/later revision of left knee. 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, TRIPLE CABG 06/06/15, Sleeve gastrectomy 04/26/17 Past Anesthesia/Blood Transfusion Reactions: Motion Sickness Additional Past Anesthesia/Blood Transfusion Reaction / Comment(s): cla ustrophobia Date of Last Stent Placement:: 2004 Type of Cardiac Device: Permanent Pacemaker Device Placement Date:: 2005-St Ed Past Psychological History: No Psychological Hx Reported Smoking Status: Never smoker Past Alcohol Use History: None Reported Past Drug Use History: None Reported - Past Family History Father Family Medical History: Cancer Additional Family Medical History / Comment(s): bone cancer Mother Family Medical History: Myocardial Infarction ([place]) Additional Family Medical History / Comment(s): at age 80 Medications and Allergies Home Medications Medication Instructions Recorded Confirmed Type Primidone [Mysoline] 50 mg PO TID 01/09/15 12/31/21 History Tamsulosin [Flomax] 0.4 mg PO DAILY 01/09/15 12/31/21 History Metoprolol Tartrate [Lopressor] 25 mg PO BID 04/19/17 12/31/21 History Ferrous Sulfate [Iron (65 MG 325 mg PO DAILY 05/05/17 12/31/21 History Elemental)] rOPINIRole HCL [Requip] 2 - 4 mg PO DAILY PRN 05/19/17 12/31/21 History Rivaroxaban [Xarelto] 20 mg PO DAILY 10/22/17 12/31/21 History Furosemide [Lasix] 40 mg PO DAILY 02/09/19 12/31/21 History cloNIDine HCL [Catapres] 0.2 mg PO BID 02/09/19 12/31/21 History Aspirin EC [Ecotrin Low Dose] 81 mg PO DAILY 11/15/19 12/31/21 History Losartan Potassium 25 mg PO DAILY 11/15/19 12/31/21 History rOPINIRole HCL [Requip] 4 mg PO HS@2100 PRN 04/25/21 12/31/21 History Cholecalciferol [Vitamin D3 (25 50 mcg PO DAILY 12/31/21 12/31/21 History Mcg = 1000 Iu)] Famotidine 40 mg PO DAILY 12/31/21 12/31/21 History Allergies Allergy/AdvReac Type Severity Reaction Status Date / Time adhesive tape Allergy Rash/Hives Verified 12/31/21 20:03 lisinopril Allergy Rash/Hives Verified 12/31/21 20:03 Physical Examination - Vital Signs Vital Signs: Vital Signs Temp Pulse Resp BP Pulse Ox 01/01/22 08:42 60 18 151/79 99 01/01/22 02:19 60 18 135/63 12/31/21 20:26 97.5 F L 61 16 167/85 12/31/21 18:02 59 L 18 154/82 100 12/31/21 17:00 97.5 F L 56 L 20 132/73 98 Intake and Output 12/31/21 01/01/22 01/01/22 22:59 06:59 14:59 Other: Weight 97.069 kg GENERAL: The patient is lying in bed and is not in acute distress. CHEST: The heart rate is regular rate rhythm. No murmurs to auscultation. No carotid bruit bilaterally. LUNG: Clear to auscultation bilaterally no wheezing noted throughout. Not la bored breathing. ABDOMEN/GI: Bowel sounds present in all 4 quadrants. No tenderness to palpation throughout. NEUROLOGICAL: Higher mental function: The patient is awake, alert, oriented to self, place and time. Patient is following commands. No aphasia and no neglect. Cranial nerves: The pupils are round, equal and reactive to light and accommodation. Visual retana are full to confrontation throughout. Extraocular movement is intact no nystagmus is noted. Facial sensation is normal to touch throughout. The facial strength is normal throughout. Hearing is normal bilaterally to hand rub. Tongue is midline and moved [id number] without any difficulty. No dysarthria is noted. Shoulder shrug is normal bilaterally. Motor: The strength is 5 over 5 throughout. He has old amputated left distal upper extremity (from old injury). Normal tone and bulk. Cerebellum: Normal finger to nose bilaterally. Sensation: Sensation is normal to touch throughout. Reflexes (right/left): 1+ throughout. Plantars are mute bilaterally. Results - Laboratory Findings CBC and BMP: 12/31/21 17:53 12/31/21 17:53 Abnormal Lab Findings: Abnormal Labs 12/31/21 12/31/21 12/31/21 17:53 17:53 17:53 RBC 4.09 L Hgb 12.6 L Hct 36.6 L PT 17.6 H INR 1.7 H APTT 34.6 H Sodium 136 L Glucose 112 H Assessment and Plan Assessment: Syncopal episode of unknown etiology rule out seizure especially with a history of stroke. Also rule out cardiac in etiology especially with significant cardiac etiology Acute Visual hallucination: Unknown etiology. Rule out seizure since his history of prior stroke can cause cortical irritability (occipital). Cannot rule out other causes. History of old stroke (right occipital/temporal region). I do not think he has subacute stroke from comparison imaging reported as progression (especially compared to 2019 imaging) and I feel old. History of atrial fibrillation on Xarelto History of coronary artery disease status post stent, CABG Restless leg syndrome Sick sinus syndrome status post pacemaker Plan: I ordered a routine EEG to rule out any seizure or discharges. If EEG is normal and the patient continues to have further visual hallucination or syncopal episodes recommend prolonged EEG as an outpatient Cannot obtain MRI since the patient has a pacemaker. Ordered 2-D echo, orthostatic vitals, vitamin B12, folate, TSH and lipid panel. From a neurology perspective Xarelto and his home dose of aspirin can be resumed. I started the patient on Lipitor 20mg qhs. Every 4 hours neuro checks Placed on cardiac monitoring Ordered PT and OT and [employer] Cardiology is consulted We'll defer rest of medical management to primary team For DVT prophylaxis Xarelto sufficient. Upon discharge recommend the patient to follow-up with a neurologist as outpatient within 1-2 weeks. Plan discussed with the patient and his son. Thank you for the consultation. Time with Patient: Greater than 30
[2022-01-01 12:51] LABS: Basophils % (A) 1 %; Eosinophils # (A) 0.3 k/uL (0-0.7); Eosinophils % (A) 5 %; HCT 37.1 % (39.0-53.0); HGB 12.4 gm/dL (13.0-17.5); Lymphocytes # (A) 1.4 k/uL (1.0-4.8); Lymphocytes % (A) 27 %; MCH 30.6 pg (25.0-35.0); MCHC 33.3 g/dL (31.0-37.0); MCV 91.6 fL (80.0-100.0); Monocytes # (A) 0.4 k/uL (0-1.0); Monocytes % (A) 7 %; Neutrophils % (A) 58 %; Platelet Count 195 k/uL (150-450); RBC 4.04 m/uL (4.30-5.90); RDW 13.1 % (11.5-15.5); WBC 5.1 k/uL (3.8-10.6)
[2022-01-01 13:04] LABS: African American GFR (CKD) >90 (>60 ml/min/1.73 sqM); Anion Gap 8 mmol/L; Blood Urea Nitrogen 19 mg/dL (9-20); Calcium 8.8 mg/dL (8.4-10.2); Carbon Dioxide 22 mmol/L (22-30); Chloride 105 mmol/L (98-107); Glucose 103 mg/dL (74-99); Magnesium 1.8 mg/dL (1.6-2.3); Non-African American GFR(CKD) 80 (>60 ml/min/1.73 sqM); Potassium 4.4 mmol/L (3.5-5.1); Sodium 135 mmol/L (137-145)
[2022-01-01] MEDS: FAMOTIDINE 20 MG TAB PO SCH (13:54)
[2022-01-01] MEDS: ASPIRIN 81 MG PO SCH (13:54)
[2022-01-01] MEDS: TAMSULOSIN 0.4 MG CAP.ER.24H PO SCH (13:54)
[2022-01-01] MEDS: LOSARTAN 25 MG TAB PO SCH (13:55)
[2022-01-01] MEDS: RIVAROXABAN 20 MG TAB PO SCH (13:55)
[2022-01-01] MEDS: METOPROLOL TARTRATE 25 MG TAB PO SCH ×2 (13:56→20:12)
[2022-01-01 18:41] LABS: HDL Cholesterol 54.7 mg/dL (40.00-60.00); Triglycerides 43.1 mg/dL (0.00-149.00)
[2022-01-01 19:16] LABS: Chol/HDL Ratio 2.72 Ratio; LDL Cholesterol,Direct Reflex 83.7 mg/dL (0.00-129.00)
[2022-01-01] MEDS: PANTOPRAZOLE 40 MG/10 ML VIAL IVP SCH (19:54)
[2022-01-01] MEDS: ATORVASTATIN 20 MG TAB PO SCH (20:11)
[2022-01-01] MEDS: PRIMIDONE 50 MG TAB PO SCH ×2 (20:12→21:29)
[2022-01-01] MEDS ORDERED: rOPINIRole HCL 4 MG TABLET PO PRN (21:00)
--- NOTE | 2022-01-02 05:00 | EEG ---
ELECTROENCEPHALOGRAM REPORT DATE OF SERVICE: 01/01/2022 CLINICAL HISTORY: This is a 76-year-old gentleman who had a syncopal episode and visual hallucination. The video EEG is obtained to evaluate for seizure epileptiform activity. RELEVANT MEDICATION: The patient is not on any antiepileptic drugs. EEG TYPE: A routine 21-channel EEG is performed with video using the 10/20 electrode placement system. DESCRIPTION: Wakefulness is only obtained. During awake state, the posterior-dominant rhythm consists of low to moderate voltage of 9-9.5 hertz activity. There is no physiological sleep architecture. There is no focal slowing. Interictal and ictal is none. ACTIVATION PROCEDURE: Photic stimulation and hyperventilation is not performed. CLINICAL INTERPRETATION: This is a normal routine EEG. There is no focal slowing, epileptiform discharges or seizure on the EEG. Clinical correlation is recommended. HOLLIE / NADEEN: [id number] / [id number]
[2022-01-02] MEDS: SODIUM CHLORIDE 0.9% 1,000 ML IV SCH ×2 (05:28→17:18)
[2022-01-02 09:44] LABS: African American GFR (CKD) >90 (>60 ml/min/1.73 sqM); Anion Gap 8 mmol/L; Blood Urea Nitrogen 21 mg/dL (9-20); Calcium 8.2 mg/dL (8.4-10.2); Carbon Dioxide 23 mmol/L (22-30); Chloride 104 mmol/L (98-107); Glucose 111 mg/dL (74-99); Non-African American GFR(CKD) 81 (>60 ml/min/1.73 sqM); Potassium 3.7 mmol/L (3.5-5.1); Sodium 135 mmol/L (137-145)
[2022-01-02] MEDS: PANTOPRAZOLE 40 MG/10 ML VIAL IVP SCH (10:39)
[2022-01-02] MEDS: TAMSULOSIN 0.4 MG CAP.ER.24H PO SCH (10:40)
[2022-01-02] MEDS: RIVAROXABAN 20 MG TAB PO SCH (10:40)
[2022-01-02] MEDS: CYANOCOBALAMIN 500 MCG TAB PO SCH (10:40)
[2022-01-02] MEDS: LOSARTAN 25 MG TAB PO SCH (10:40)
[2022-01-02] MEDS: FAMOTIDINE 20 MG TAB PO SCH (10:40)
[2022-01-02] MEDS: ASPIRIN 81 MG PO SCH (10:40)
[2022-01-02] MEDS: METOPROLOL TARTRATE 25 MG TAB PO SCH ×2 (10:40→20:04)
[2022-01-02] MEDS: FERROUS SULFATE 325 MG TAB PO SCH (10:40)
[2022-01-02] MEDS: PRIMIDONE 50 MG TAB PO SCH ×3 (10:40→20:04)
--- NOTE | 2022-01-02 11:28 | P.HPIM ---
History of Present Illness H&P Date: 01/01/22 This is a pleasant 76-year-old gentleman with history of recent hernia repair- states off of pain medication ,atrial fibrillation, CAD, CABG, catheterization with stent, sick sinus syndrome with permanent pacemaker ,CVA/TIA, hyperlipidemia, hypertension, [place], sleep apnea, restless leg syndrome, TIA, n europathy, sleeve gastrectomy brought into the ER secondary to syncope-downtime unknown, visual and auditory hallucinations. He reports he "heard two guys talking and approach his porch the day prior and then earlier this morning saw a police car, overheard their voices stating they were coming for him, also witnessed 2 guys putting his [place] tree in their car". Proceeded to shower ,ambulated into his bedroom, then "blacked out, landing on his left hip." Denied any chest pain, palpitations or shortness of breath,denied any lightheadedness, dizziness or focal deficits prior to event. Son had informed ER that patient had slurred speech, currently resolved. Patient also reports that "his mind continuously runs never stops, unable to sleep, can't turn it off". 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 Chest x-ray reported nonacute. Carotid Doppler reported no significant hemodynamic stenosis. EKG pending cardiology review. Afebrile, normal WBC, INR 1.7, sodium 135, potassium 4.5, renal function stable, blood sugars controlled, magnesium 1.8, UA negative. Review of Systems ROS Statement: Those systems with pertinent positive or pertinent negative responses have been documented in the HPI. ROS Other: All systems not noted in ROS Statement are negative. Past Medical History Past Medical History: Atrial Fibrillation, Coronary Artery Disease (CAD), CVA/TIA, Hyperlipidemia, Hypertension, Myocardial Infarction ([place]), Sleep Apnea/CPAP/BIPAP Additional Past Medical History / Comment(s): Restless Leg Syndrome. MILD STROKE 08/19/15-no effects, HAS PROSTHESIS on left hand. [place] X2. DEHYDRATION, BLE PVD and neuropathy, September 2017: dx with Bilateral inguinal hernia Last Myocardial Infarction Date:: 2015 History of Any Multi-Drug Resistant Organisms: None Reported Past Surgical History: Adenoidectomy, Bariatric Surgery, Coronary Bypass/CABG, Heart Catheterization With Stent, Joint Replacement, Orthopedic Surgery, Pacemaker, Tonsillectomy Additional Past Surgical History / Comment(s): STENTS X 3. [place] Knee replacements/later revision of left knee. 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, TRIPLE CABG 06/06/15, Sleeve gastrectomy 04/26/17 Past Anesthesia/Blood Transfusion Reactions: Motion Sickness Additional Past Anesthesia/Blood Transfusion Reaction / Comment(s): claustrophobia Date of Last Stent Placement:: 2004 Type of Cardiac Device: Permanent Pacemaker Device Placement Date:: 2005-[facility] Past Psychological History: No Psychological Hx Reported Smoking Status: Never smoker Past Alcohol Use History: None Reported Past Drug Use History: None Reported - Past Family History Father Family Medical History: Cancer Additional Family Medical History / Comment(s): bone cancer Mother Family Medical History: Myocardial Infarction ([place]) Additional Family Medical History / Comment(s): at age 80 Medications and Allergies Home Medications Medication Instructions Recorded Confirmed Type Primidone [Mysoline] 50 mg PO TID 01/09/15 12/31/21 History Tamsulosin [Flomax] 0.4 mg PO DAILY 01/09/15 12/31/21 History Metoprolol Tartrate [Lopressor] 25 mg PO BID 04/19/17 12/31/21 History Ferrous Sulfate [Iron (65 MG 325 mg PO DAILY 05/05/17 12/31/21 History Elemental)] rOPINIRole HCL [Requip] 2 - 4 mg PO DAILY PRN 05/19/17 12/31/21 History Rivaroxaban [Xarelto] 20 mg PO DAILY 10/22/17 12/31/21 History Furosemide [Lasix] 40 mg PO DAILY 02/09/19 12/31/21 History cloNIDine HCL [Catapres] 0.2 mg PO BID 02/09/19 12/31/21 History Aspirin EC [Ecotrin Low Dose] 81 mg PO DAILY 11/15/19 12/31/21 History Losartan Potassium 25 mg PO DAILY 11/15/19 12/31/21 History rOPINIRole HCL [Requip] 4 mg PO HS@2100 PRN 04/25/21 12/31/21 History Cholecalciferol [Vitamin D3 (25 50 mcg PO DAILY 12/31/21 12/31/21 History Mcg = 1000 Iu)] Famotidine 40 mg PO DAILY 12/31/21 12/31/21 History Allergies Allergy/AdvReac Type Severity Reaction Status Date / Time adhesive tape Allergy Rash/Hives Verified 12/31/21 20:03 lisinopril Allergy Rash/Hives Verified 12/31/21 20:03 Physical Exam Vitals: Vital Signs Temp Pulse Resp BP Pulse Ox 01/01/22 13:55 60 18 134/74 98 01/01/22 08:42 60 18 151/79 99 01/01/22 02:19 60 18 135/63 12/31/21 20:26 97.5 F L 61 16 167/85 12/31/21 18:02 59 L 18 154/82 100 VITAL SIGNS: [as above] GENERAL: sitting up in bed, no acute distress HEENT: Conjunctivae normal. eyes normal. NECK: Supple, No JVD. No thyroid enlargement. No LNs CARDIOVASCULAR: S1, S2 regular. No murmur. RESPIRATION: Nonlabored, Breath sounds diminished in the bases. No rhonchi or crackles. No wheezing. ABDOMEN: Soft, nontender, nondistended . No guarding. no masses palpable. Bowel sounds heard. LEGS: Discoloration of bilateral lower extremes, trace edema, pulses present, diminished . PSYCHIATRY: Alert and oriented X3, mood and affect normal. NERVOUS SYSTEM: Cranial N 2-12 grossly normal. Moves all limbs. No focal deficits. Strength and sensation grossly intact. Skin: bilateral lower leg pigmentation,Chronic left hand amputation. Lymphatic system. No LN neck axilla. Results CBC & Chem 7: 01/01/22 12:03 01/02/22 08:17 Labs: Abnormal Lab Results - Last 24 Hours (Table) 12/31/21 12/31/21 12/31/21 Range/Units 17:53 17:53 17:53 RBC 4.09 L (4.30-5.90) m/uL Hgb 12.6 L (13.0-17.5) gm/dL Hct 36.6 L (39.0-53.0) % PT 17.6 H (9.0-12.0) sec INR 1.7 H (<1.2) APTT 34.6 H (22.0-30.0) sec Sodium 136 L (137-145) mmol/L Glucose 112 H (74-99) mg/dL 01/01/22 01/01/22 Range/Units 12:03 12:03 RBC 4.04 L (4.30-5.90) m/uL Hgb 12.4 L (13.0-17.5) gm/dL Hct 37.1 L (39.0-53.0) % PT (9.0-12.0) sec INR (<1.2) APTT (22.0-30.0) sec Sodium 135 L (137-145) mmol/L Glucose 103 H (74-99) mg/dL Assessment and Plan Assessment: Syncope, etiology unclear, possible CVA, possible seizure, possible cardiac source, in a patient with history of CVA. Acute hallucinations, visual and auditory, accompanied by"racing, nonstop mind", sleep deprivation Recent hernia repair with Dr. Valenzuela,12/12/21-states has weaned off of pain meds. CAD, history of stent, CABG,PPM for sick sinus syndrome chronic atrial fibrillation, anticoagulated on Xarelto Hypertension Hyperlipidemia Restless leg syndrome Obesity, BMI 31.6 Sleep apnea, does not wear CPAP at home Peripheral vascular disease with Neuropathy Plan: Continue on current medication regime ,monitoring and symptomatic treatme nt. Cardiology consult in place, recommendations pending. Psychiatry consult initiated .Evaluated by neurology with workup in progress; EEG, echo, TSH pending. PT/OT. Prognosis guarded given multiple complex medical issues. The impression and plan of care has been dictated as directed. : I performed a history and examination of this patient, discussed the same with the dictator. I agree with the dictator's note ,documented as a scribe. Any additional findings or plans will be noted.
--- NOTE | 2022-01-02 11:43 | XR ---
Left hip HISTORY: Trauma and pain 2 views of the left hip, comparison CT scan 12/03/2021 Bone mineralization, joint spaces and alignment are stable. IMPRESSION: No acute fracture or dislocation.
--- NOTE | 2022-01-02 12:13 | P.CRDCN ---
History of Present Illness History of present illness: This is Dr. Scott dictating an H/P on this patient The patient was interviewed and examined IMPRESSION / ASSESSMENT: Episode of loss of consciousness after coming out of the shower Past history of atrial fibrillation permanent pacemaker [facility] history of CVA PLAN: Check orthostatics Interrogated pacemaker to look for any ventricular arrhythmias or pacemaker malfunction HPI Patient got out of the shower and possibly had a syncopal spell We are not sure how long he was unconscious He has underlying atrial fibrillation and a permanent pacemaker that was implanted several years back and the generator change was performed by Dr. Ron who was his primary physician He has a history of previous CVA At this time he is alert oriented Denies any chest discomfort dizziness lightheadedness ROS: No fever chills or rigors, no cough, phlegm or expectoration, no nausea, vomiting or diarrhea, no hematuria, dysuria, no musculoskeletal complaints, no strokes or seizures, no skin lesions. EXAMINATION: 135/66. His mercury pulse rate is in the 60s afebrile Heart sounds S1 and S2 are normal Pacemaker site is healed well Breath sounds are clear no rhonchi no crackles No lower extremity edema Above her wrist amputation left arm REVIEW OF LABS, ECG & MEDICAL DATA twelve-lead EKG shows underlying atrial fibrillation and atrial paced rhythm occasional PVC Hemoglobin 12.4 Electrolytes normal Troponin normal Past Medical History Past Medical History: Atrial Fibrillation, Coronary Artery Disease (CAD), CVA/ TIA, Hyperlipidemia, Hypertension, Myocardial Infarction ([place]), Sleep Apnea/CPAP/BIPAP Additional Past Medical History / Comment(s): Restless Leg Syndrome. MILD STROKE 08/19/15-no effects, HAS PROSTHESIS on left hand. [place] X2. DEHYDRATION, BLE PVD and neuropathy, September 2017: dx with Bilateral inguinal hernia Last Myocardial Infarction Date:: 2014 History of Any Multi-Drug Resistant Organisms: None Reported Past Surgical History: Adenoidectomy, Bariatric Surgery, Coronary Bypass/CABG, Heart Catheterization With Stent, Joint Replacement, Orthopedic Surgery, Pacemaker, Tonsillectomy Additional Past Surgical History / Comment(s): STENTS X 3. [place] Knee replacements/later revision of left knee. 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, TRIPLE CABG 06/06/15, Sleeve gastrectomy 04/26/17 Past Anesthesia/Blood Transfusion Reactions: Motion Sickness Additional Past Anesthesia/Blood Transfusion Reaction / Comment(s): claustrophobia Date of Last Stent Placement:: 2004 Type of Cardiac Device: Permanent Pacemaker Device Placement Date:: 2005-[facility] Past Psychological History: No Psychological Hx Reported Smoking Status: Never smoker Past Alcohol Use History: None Reported Past Drug Use History: None Reported - Past Family History Father Family Medical History: Cancer Additional Family Medical History / Comment(s): bone cancer Mother Family Medical History: Myocardial Infarction ([place]) Additional Family Medical History / Comment(s): at age 80 Medications and Allergies Home Medications Medication Instructions Recorded Confirmed Type Primidone [Mysoline] 50 mg PO TID 01/09/15 12/31/21 History Tamsulosin [Flomax] 0.4 mg PO DAILY 01/09/15 12/31/21 History Metoprolol Tartrate [Lopressor] 25 mg PO BID 04/19/17 12/31/21 History Ferrous Sulfate [Iron (65 MG 325 mg PO DAILY 05/05/17 12/31/21 History Elemental)] rOPINIRole HCL [Requip] 2 - 4 mg PO DAILY PRN 05/19/17 12/31/21 History Rivaroxaban [Xarelto] 20 mg PO DAILY 10/22/17 12/31/21 History Furosemide [Lasix] 40 mg PO DAILY 02/09/19 12/31/21 History cloNIDine HCL [Catapres] 0.2 mg PO BID 02/09/19 12/31/21 History Aspirin EC [Ecotrin Low Dose] 81 mg PO DAILY 11/15/19 12/31/21 History Losartan Potassium 25 mg PO DAILY 11/15/19 12/31/21 History rOPINIRole HCL [Requip] 4 mg PO HS@2100 PRN 04/25/21 12/31/21 History Cholecalciferol [Vitamin D3 (25 50 mcg PO DAILY 12/31/21 12/31/21 History Mcg = 1000 Iu)] Famotidine 40 mg PO DAILY 12/31/21 12/31/21 History Allergies Allergy/AdvReac Type Severity Reaction Status Date / Time adhesive tape Allergy Rash/Hives Verified 12/31/21 20:03 lisinopril Allergy Rash/Hives Verified 12/31/21 20:03 Physical Exam Vitals: Vital Signs Temp Pulse Pulse Resp BP BP Pulse Ox 01/02/22 08:00 98.5 F 58 L 17 157/92 98 01/02/22 04:00 97.8 F 67 19 135/66 97 01/02/22 00:00 64 18 127/64 99 01/01/22 20:00 60 19 103/63 100 01/01/22 18:15 97.2 F L 60 16 130/65 01/01/22 13:55 60 18 134/74 98 Intake and Output 01/01/22 01/02/22 01/02/22 22:59 06:59 14:59 Output Total 110 200 Balance -110 -200 Output: Urine 110 200 Other: Voiding Method Diaper Diaper Incontinent Incontinent # Voids 1 Weight 97.069 kg Results 01/01/22 12:03 01/02/22 08:17 Lipids 01/01/22 Range/Units 12:03 Triglycerides 43.10 (0.00-149.00) mg/dL Cholesterol 149.00 (0.00-200.00) mg/dL HDL Cholesterol 54.70 (40.00-60.00) mg/dL Cholesterol/HDL Ratio 2.72 Ratio CBC 01/01/22 Range/Units 12:03 WBC 5.1 (3.8-10.6) k/uL RBC 4.04 L (4.30-5.90) m/uL Hgb 12.4 L (13.0-17.5) gm/dL Hct 37.1 L (39.0-53.0) % Plt Count 195 (150-450) k/uL Comprehensive Metabolic Panel 01/01/22 01/02/22 Range/Units 12:03 08:17 Sodium 135 L 135 L (137-145) mmol/L Potassium 4.4 3.7 (3.5-5.1) mmol/L Chloride 105 104 (98-107) mmol/L Carbon Dioxide 22 23 (22-30) mmol/L BUN 19 21 H (9-20) mg/dL Creatinine 0.93 0.92 (0.66-1.25) mg/dL Glucose 103 H 111 H (74-99) mg/dL Calcium 8.8 8.2 L (8.4-10.2) mg/dL Current Medications Generic Name Dose Route Start Last Admin Trade Name Freq PRN Reason Stop Dose Admin Acetaminophen 650 mg 12/31/21 19:56 01/01/22 20:11 Acetaminophen Tab 325 Mg Tab PO 650 mg Q6HR PRN Administration Mild Pain or Fever > 100.5 Aspirin 81 mg 01/01/22 13:15 01/02/22 10:40 Aspirin 81 Mg PO 81 mg DAILY KRUNAL Administration Atorvastatin Calcium 20 mg 01/01/22 21:00 01/01/22 20:11 Atorvastatin 20 Mg Tab PO 20 mg HS KRUNAL Administration Cyanocobalamin 1,000 mcg 01/02/22 09:00 01/02/22 10:40 Cyanocobalamin 500 Mcg Tab PO 1,000 mcg DAILY KRUNAL Administration Famotidine 40 mg 01/01/22 13:15 01/02/22 10:40 Famotidine 20 Mg Tab PO 40 mg DAILY KRUNAL Administration Ferrous Sulfate 325 mg 01/02/22 09:00 01/02/22 10:40 Ferrous Sulfate 325 Mg Tab PO 325 mg DAILY KRUNAL Administration Sodium Chloride 1,000 mls @ 75 mls/hr 12/31/21 20:00 01/02/22 05:28 Saline 0.9% IV Not Given .[id number] KRUNAL Losartan Potassium 25 mg 01/01/22 13:15 01/02/22 10:40 Losartan 25 Mg Tab PO 25 mg DAILY KRUNAL Administration Melatonin 5 mg 01/02/22 21:00 Melatonin 5 Mg Tablet PO HS KRUNAL Metoprolol Tartrate 25 mg 01/01/22 13:15 01/02/22 10:40 Metoprolol Tartrate 25 Mg Tab PO 25 mg BID KRUNAL Administration Naloxone HCl 0.2 mg 12/31/21 19:56 Naloxone 0.4 Mg/Ml 1 Ml Vial IV Q2M PRN Opioid Reversal Pantoprazole Sodium 40 mg 01/01/22 18:00 01/02/22 10:39 Pantoprazole 40 Mg/10 Ml Vial IVP 01/02/22 23:00 40 mg DAILY KRUNAL Administration Pantoprazole Sodium 40 mg 01/03/22 07:30 Pantoprazole 40 Mg Tablet PO [id number] KRUNAL Primidone 50 mg 01/01/22 16:00 01/02/22 10:40 Primidone 50 Mg Tab PO 50 mg TID KRUNAL Administration Rivaroxaban 20 mg 01/01/22 13:15 01/02/22 10:40 Rivaroxaban 20 Mg Tab PO 20 mg DAILY KRUNAL Administration Protocol Ropinirole HCl 4 mg 01/01/22 21:00 Ropinirole Hcl 4 Mg Tablet PO HS@2100 PRN RESTLESS LEGS Tamsulosin HCl 0.4 mg 01/01/22 13:15 01/02/22 10:40 Tamsulosin 0.4 Mg Cap.Er.24h PO 0.4 mg DAILY KRUNAL Administration Intake and Output 01/01/22 01/02/22 01/02/22 22:59 06:59 14:59 Output Total 110 200 Balance -110 -200 Output: Urine 110 200 Other: Voiding Method Diaper Diaper Incontinent Incontinent # Voids 1 Weight 97.069 kg 01/01/22 12:03 01/02/22 08:17
--- NOTE | 2022-01-02 12:15 | P.PN ---
Subjective Progress Note Date: 01/02/22 The patient is seen at bedside and is accompanied with his son. Patient denies any further visual hallucination or any new neurological deficits. Denies any further episodes of slurring of speech. The son agrees with his father's statement. The son stated that patient has not been getting sleep at home because of health issues. Objective - Vital Signs Vital signs: Vital Signs Temp 98.5 F 01/02/22 08:00 Pulse 58 L 01/02/22 08:00 Resp 17 01/02/22 08:00 BP 157/92 01/02/22 08:00 Pulse Ox 98 01/02/22 08:00 FiO2 Intake & Output 01/01/22 01/02/22 01/02/22 18:59 06:59 18:59 Output Total 110 200 Balance -110 -200 Weight 97.069 kg Output: Urine 110 200 Other: Voiding Method Diaper Diaper Incontinent Incontinent # Voids 1 - Exam GENERAL: The patient is lying in bed and is not in acute distress. NEUROLOGICAL: Higher mental function: The patient is awake, alert, oriented to self, place and time. Patient is following commands. No aphasia and no neglect. Cranial nerves: The pupils are round, equal and reactive to light and accommodation. Visual retana are full to confrontation throughout. Extraocular movement is intact no nystagmus is noted. Facial sensation is normal to touch throughout. The facial strength is normal throughout. Hearing is normal bilaterally to hand rub. Tongue is midline and moved [id number] without any difficulty. No dysarthria is noted. Shoulder shrug is normal bilaterally. Motor: The strength is 5 over 5 throughout. He has old amputated left distal upper extremity (from old injury). Normal tone and bulk. Cerebellum: Normal finger to nose bilaterally. Sensation: Sensation is normal to touch throughout. Reflexes (right/left): 1+ throughout. Plantars are mute bilaterally. Some other workup during this hospital visit consisted of: Lipid panel: TG 43, Cholestrol 149, LDL 83 and HDL 54. Vitamin B12: 363 (low normal). Serum folate is 8.80 TSH: 0.991 CT of the head is reported as old right posterior temporal occipital cortical infarct which has progressed compared to old exam and the comparison was 2019. Chronic small vessel ischemic as similar to old exam. I personally did not appreciate any acute or subacute ischemia or any intracerebral hemorrhage. I do not appreciate an old stroke over the right occipital temporal region and it's very hard for me to state that this is subacute comparing it from a 2019 I think his changes are old over the right occipital temporal region. CT cervical spine is reported as nuchal spondylitic changes which are more noticeable at C5-C6 and C6-C7. No change. Carotid Duplex was reported as atherosclerotic plaque with no significant hemodynamic stenosis. EKG is reported as left chronic and to clear pacemaker. Abnormal rhythm EKG. Routine EEG is normal. There is no focal slowing, epileptiform discharges or seizure on the EEG. - Labs CBC & Chem 7: 01/01/22 12:03 01/02/22 08:17 Labs: Abnormal Lab Results - Last 24 Hours (Table) 01/01/22 01/01/22 01/02/22 Range/Units 12:03 12:03 08:17 RBC 4.04 L (4.30-5.90) m/uL Hgb 12.4 L (13.0-17.5) gm/dL Hct 37.1 L (39.0-53.0) % Sodium 135 L 135 L (137-145) mmol/L BUN 21 H (9-20) mg/dL Glucose 103 H 111 H (74-99) mg/dL Calcium 8.2 L (8.4-10.2) mg/dL Assessment and Plan Assessment: Syncopal episode of unknown etiology. Routine EEG is normal. Acute transient Visual hallucination: Unknown etiology. History of old stroke (right occipital/temporal region). I do not think he has subacute stroke from comparison imaging reported as progression (especially compared to 2019 imaging) and I feel old. Low normal vitamin B12. His ?dysarthria at home could be due to TIA vs related to his confusion. History of atrial fibrillation on Xarelto History of coronary artery disease status post stent, CABG Restless leg syndrome Sick sinus syndrome status post pacemaker Plan: If EEG is normal and the patient continues to have further visual hallucination or syncopal episodes recommend prolonged EEG as an outpatient Cannot obtain MRI since the patient has a pacemaker. Pending 2D echo. Because of low normal vitamin B12: I started the patient on B12 1000mcg daily. From a neurology perspective Xarelto and his home dose of aspirin can be resume d. I started the patient on Lipitor 20mg qhs. Every 4 hours neuro checks On cardiac monitoring PT and OT and SENIOR DATA MINING ANALYST are consulted Cardiology is consulted We'll defer rest of medical management to primary team For DVT prophylaxis Xarelto sufficient. Upon discharge recommend the patient to follow-up with a neurologist as outpatient within 1-2 weeks. If he has any memory loss, recommend detail cognitive testing as outpatient. Plan discussed with the patient and his son. Otherwise no additional work-up. Please notify neurology team if any further concerns. Time with Patient: Less than 30
--- NOTE | 2022-01-02 13:15 | P.PN ---
Subjective Progress Note Date: 01/02/22 H&P Date: 01/01/22 This is a pleasant 76-year-old gentleman with history of recent hernia repair- states off of pain medication ,atrial fibrillation, CAD, CABG, catheterization with stent, sick sinus syndrome with permanent pacemaker ,CVA/TIA, hyperlipidemia, hypertension, PA, sleep apnea, restless leg syndrome, TIA, neuropathy, sleeve gastrectomy brought into the ER secondary to syncope-downtime unknown, visual and auditory hallucinations. He reports he "heard two guys talking and approach his porch the day prior and then earlier this morning saw a police car, overheard their voices stating they were coming for him, also witnessed 2 guys putting his [place] tree in their car". Proceeded to shower ,ambulated into his bedroom, then "blacked out, landing on his left hip." Denied any chest pain, palpitations or shortness of breath,denied any lightheadedness, dizziness or focal deficits prior to event. Son had informed ER that patient had slurred speech, currently resolved. Patient also reports that "his mind continuously runs never stops, unable to sleep, can't turn it off". 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 Chest x-ray reported nonacute. Carotid Doppler reported no significant hemodynamic stenosis. EKG pending cardiology review. Troponin negative. Afebrile, normal WBC, INR 1.7, sodium 135, potassium 4.5, renal function stable, blood sugars controlled, magnesium 1.8, UA negative. 01/02/2022 evaluated by cardiology with recommendations noted, orthostatic vital signs pending, pacemaker interrogation pending. Telemetry atrial fibrillation with controlled ventricular rate. EEG reported normal , no focal slowing, epileptoform discharges or seizures. Hip x-ray reported no acute fracture or dislocation. Son at bedside, states father is back to baseline. No further visual or auditory hallucinations. Continues to complain of inability sleeping. Objective - Vital Signs Vital signs: Vital Signs Temp 97.8 F 01/02/22 04:00 Pulse 67 01/02/22 04:00 Resp 19 01/02/22 04:00 BP 135/66 01/02/22 04:00 Pulse Ox 97 01/02/22 04:00 FiO2 Intake & Output 01/01/22 01/02/22 01/02/22 18:59 06:59 18:59 Output Total 110 200 Balance -110 -200 Weight 97.069 kg Output: Urine 110 200 Other: Voiding Method Diaper Diaper Incontinent Incontinent # Voids 1 - Exam VITAL SIGNS: [as above] GENERAL: sitting up at bedside, no acute distress, conversing appropriately HEENT: Conjunctivae normal. eyes normal. MMM. NECK: Supple, No JVD. No thyroid enlargement. CARDIOVASCULAR: S1, S2 regular. No murmur. RESPIRATION: Nonlabored, Breath sounds diminished in the bases. No rhonchi or crackles. No wheezing. ABDOMEN: Soft, nontender, nondistended . No guarding. Positive Bowel sounds. LEGS: Discoloration of bilateral lower extremes, trace edema, pulses present, diminished. PSYCHIATRY: Alert and oriented X3, mood and affect normal. NERVOUS SYSTEM: Cranial N 2-12 grossly normal. No focal deficits. Strength and sensation grossly intact. Skin: bilateral lower leg pigmentation,Chronic left hand amputation. - Labs CBC & Chem 7: 01/01/22 12:03 01/02/22 08:17 Labs: Abnormal Lab Results - Last 24 Hours (Table) 01/01/22 01/01/22 01/02/22 Range/Units 12:03 12:03 08:17 RBC 4.04 L (4.30-5.90) m/uL Hgb 12.4 L (13.0-17.5) gm/dL Hct 37.1 L (39.0-53.0) % Sodium 135 L 135 L (137-145) mmol/L BUN 21 H (9-20) mg/dL Glucose 103 H 111 H (74-99) mg/dL Calcium 8.2 L (8.4-10.2) mg/dL Assessment and Plan Assessment: Syncope, etiology unclear, possible CVA,TIA, possible seizure, possible cardiac source, in a patient with history of CVA. Subacute stroke doubtful as per neurology. Acute hallucinations, visual and auditory, accompanied by"racing, nonstop mind", sleep deprivation Acute delirium, acute metabolic encephalopathy secondary to suspected sleep deprivation Recent hernia repair with Dr. Valenzuela,12/12/21-states has weaned off of pain meds. CAD, history of stent, CABG,PPM for sick sinus syndrome chronic atrial fibrillation, anticoagulated on Xarelto Hypertension Hyperlipidemia Restless leg syndrome Obesity, BMI 31.6 Sleep apnea, does not wear CPAP at home Peripheral vascular disease with Neuropathy Plan: Continue on current medication regime ,monitoring and symptomatic treatment.Echo pending.Pacemaker interrogations and orthostatic vital signs pending. Psychiatry consult in place, recommendations pending. PT/OT. Discha rge planning in progress for tomorrow. Prognosis guarded given multiple complex medical issues. The impression and plan of care has been dictated as directed. : I performed a history and examination of this patient, discussed the same with the dictator. I agree with the dictator's note ,documented as a scribe. Any additional findings or plans will be noted.
--- NOTE | 2022-01-02 13:16 | CA ---
Transthoracic Echo Report Name: Chava Spence Age: 76 Gender: M : 1945 Exam Date: 01/02/2022 09:11 Exam Location: [facility] Ht (in): 69 Wt (lb): 214 Ordering Physician: Judah Cruz MD Attending/Referring Phys: Ecommerce Marketing Manager Ashley Ellis RDCS Procedure CPT: Indications: Syncope Cardiac Hx: Technical Quality: Contrast 1: Total Dose (mL): Contrast 2: Total Dose (mL): MEASUREMENTS (Male / Female) Normal Values 2D ECHO LV Diastolic Diameter PLAX 4.5 cm 4.2 - 5.9 / 3.9 - 5.3 cm LV Systolic Diameter PLAX 3.5 cm IVS Diastolic Thickness 1.4 cm 0.6 - 1.0 / 0.6 - 0.9 cm LVPW Diastolic Thickness 2.0 cm 0.6 - 1.0 / 0.6 - 0.9 cm LV Relative Wall Thickness 0.8 RV Internal Dim ED PLAX 3.9 cm LA Systolic Diameter LX 5.4 cm 3.0 - 4.0 / 2.7 - 3.8 cm LA Volume 124.2 cm??? 18 - 58 / 22 - 52 cm??? M-MODE Aortic Root Diameter MM 3.0 cm LA Systolic Diameter MM 5.6 cm LA Ao Ratio MM 1.9 MV E Point Septal Separation 0.8 cm AV Cusp Separation MM 1.4 cm DOPPLER AI Peak Velocity 353.7 cm/s AI Peak Gradient 50.0 mmHg AI Pressure Half Time 812.5 ms TR Peak Velocity 281.9 cm/s TR Peak Gradient 31.8 mmHg Right Ventricular Systolic Press 36.8 mmHg FINDINGS Left Ventricle Left ventricular ejection fraction is estimated at 50%. Right Ventricle Normal right ventricular size and function. Mild pulmonary hypertension. Right Atrium Normal right atrial size. Left Atrium Severely increased left atrial diameter. Severely increased left atrial volume. Moderately increased left atrial area. Mitral Valve Structurally normal mitral valve. Mild mitral regurgitation. Aortic Valve Trileaflet aortic valve. Mild aortic regurgitation. Tricuspid Valve Structurally normal tricuspid valve. Pulmonic Valve Structurally normal pulmonic valve. Pericardium Normal pericardium. Aorta Normal size aortic root and proximal ascending aorta. CONCLUSIONS Left ventricular ejection fraction 50% RVSP 36 Moderate to severely dilated left atrium Mild mitral regurgitation Mild aortic regurgitation Previewed by: Dr. Kingsley Bourgeois DO (Electronically Signed) Final Date: 02 January 2022 13:15
[2022-01-02] MEDS ORDERED: QUEtiapine 25 MG TAB PO PRN (14:22)
--- NOTE | 2022-01-02 14:30 | P.CN ---
Psychiatric Consult - . Consult date: 01/02/22 Consult:: 01/02/22 11:52 IDENTIFYING DATA: This patient is a 76-year-old male, currently lives with his significant other in a mobile home, has 2 kids. REASON FOR REFERRAL: Psychiatry was consulted for racing thoughts, sleep deprivation and hallucinations. HISTORY OF PRESENT ILLNESS: The patient presented to the hospital on 12/31 for a syncopal episode. Apparently patient got out of the shower and fell at home according to ER report. Patient had a computed tomography scan which showed an evolving right temporal infarct and no acute hemorrhages. Urinalysis was negative. Patient was endorsing acute hallucinations and also racing thoughts and possibly delusions. Nursing care patient states that patient has been anxious at night and not sleeping well. She also claims that patient had delusions/paranoia however knows that this is not occurring. Patient was seen today in his bed and agreeable speech language specialist. His stepson was present and helpful with the information. Patient is alert and oriented 3, polite and appropriate. He states that for the past several weeks he has been gradually becoming more paranoid and also believes that someone was in his backyard and hiding from him. He claims that he tried to look for this person however "no one was there". Claims that this is the first time this is happened to him. He also apparently is made statements about the neighbors plotting against him and displaying some levels of paranoia at home about other people and "seeing things" that aren't really there. Patient also got his hold of his gun and was in defense however his stepson was able to retrieve the gun and lock it away from him. He claims that he realizes that people aren't there however still sees them. He is denying any anxiety or any depression at this time. There is reports that patient was having racing thoughts and anxiety at nighttime and not sleeping well. Patient has a fair appetite. Patient has no change in his gait and not displaying any tremors today. At this time patient denies any suicidal or homical ideations, intent or plan. Patient denies any auditory hallucinations. Patients admits to using no recreational drugs or cigarettes PAST PSYCHIATRIC HISTORY: Patient has no previous psychiatric history. Patient denies being on any psychiatric medications. Patient denies any previous psychiatric hospitalizations. Patient denies any psychiatric outpatient follow- up. Patient denies any history of suicide attempts in the past. Past Medical History: Atrial Fibrillation, Coronary Artery Disease (CAD), CVA/TIA, Hyperlipidemia, Hypertension, Myocardial Infarction (AK), Sleep Apnea/CPAP/BIPAP Additional Past Medical History / Comment(s): Restless Leg Syndrome. MILD STROKE 08/19/15-no effects, HAS PROSTHESIS on left hand. [place] X2. DEHYDRATION, BLE PVD and neuropathy, September 2017: dx with Bilateral inguinal hernia ALLERGIES: as per EMR. CHEMICAL DEPENDENCY HISTORY: as per HPI. FAMILY PSYCHIATRIC/SUBSTANCE USE HISTORY: denies SOCIAL HISTORY: Patient was born and raised in [place] and then moved to [place]. He states that he completed up to 10th grade in school. 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 He states that he has 2 kids. He currently lives with his significant other in a mobile home. He denies any legal history in the past. MENTAL STATUS EXAM: General Appearance: Patient appears to be polite, stated age is alert, pleasant, and attempts to be cooperative. Patient appears to have fair hygiene and grooming wearing hospital gown with fair eye contact. Behavior: Patient is calmly lying in bed without any agitated behavior. Cooperative Speech: Patient's speech is fluent and nonpressured. Mood/Affect: Patient reports their mood is "ok", affect is congruent Suicidality/Homicidality: Patient denies having any suicidal or homicidal ideation intent or plan. Perceptions: Patient admits to having visual hallucinations. Denying any auditory hallucinations at this time. Though content/process: There is no evidence of any delusional thought content and thought process is linear and goal-directed. Logical. Mild paranoia. Memory and concentration: AOX3, grossly intact for the purposes of this session. 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 -Delirium precautions recommended with patient including - avoiding use of narcotics and POLICE BOOKING OFFICER sedatives, limit anticholinergic medications when possible, frequent re-orientation, minimize use of restraints, open window shades during the day and close them at night -Would recommend the following medication changes/additions: seroquel 25 mg qhs scheduled for psychosis/anxiety/sleep. If patient isnt sleeping after an hour or so after dose then consider giving additional seroquel 25mg dose prn for insomnia. -mold loft worker to provide patient with outpatient mental health/psychiatry resources for appropriate follow up upon discharge -Communicated plan to patient's nurse -Will continue to follow along tomorrow. -Please contact with any questions. 01/02/22 14:23
[2022-01-02] MEDS: ATORVASTATIN 20 MG TAB PO SCH (20:04)
[2022-01-02] MEDS ORDERED: QUEtiapine 25 MG TAB PO SCH (21:00)
[2022-01-02] MEDS ORDERED: MELATONIN 5 MG TABLET PO SCH (21:00)
[2022-01-03] MEDS: ACETAMINOPHEN TAB 325 MG TAB PO PRN (06:28)
[2022-01-03] MEDS: SODIUM CHLORIDE 0.9% 1,000 ML IV SCH (06:29)
[2022-01-03] MEDS ORDERED: PANTOPRAZOLE 40 MG TABLET PO SCH (07:30)
[2022-01-03] MEDS: FAMOTIDINE 20 MG TAB PO SCH (08:52)
[2022-01-03] MEDS: METOPROLOL TARTRATE 25 MG TAB PO SCH (08:52)
[2022-01-03] MEDS: TAMSULOSIN 0.4 MG CAP.ER.24H PO SCH (08:52)
[2022-01-03] MEDS: FERROUS SULFATE 325 MG TAB PO SCH (08:52)
[2022-01-03] MEDS: CYANOCOBALAMIN 500 MCG TAB PO SCH (08:52)
[2022-01-03] MEDS: LOSARTAN 25 MG TAB PO SCH (08:52)
[2022-01-03] MEDS: PRIMIDONE 50 MG TAB PO SCH (08:52)
[2022-01-03] MEDS: RIVAROXABAN 20 MG TAB PO SCH (08:52)
[2022-01-03] MEDS: ASPIRIN 81 MG PO SCH (08:52)
[2022-01-03 09:00] VITALS: PULSE 60; RESP 18; TEMP 97.5
--- NOTE | 2022-01-03 11:43 | P.PN ---
Subjective Progress Note Date: 01/03/22 This is Augusto Morris NP, I'm dictating on behalf of Dr. Scott's H&P and A&P. Patient was interviewed and examined. This pleasant 76-year-old male who initially presented to the hospital with complaints of a syncopal episode after her shower. Patient has been walking on the unit, reporting no dizziness, lightheadedness, or any more episodes of syncope. GENERAL: Well-appearing, well-nourished and in no acute distress. NECK: Supple without JVD or thyromegaly. LUNGS: Breath sounds clear to auscultation bilaterally. Respiration equal and unlabored. No wheezes, rales or rhonchi. HEART: Regular rate and rhythm without murmurs, rubs or gallops. S1 and S2 heard. EXTREMITIES: Normal range of motion, no edema. No clubbing or cyanosis. Peripheral pulses intact and strong. VITALS: [Temp 97.5, pulse 60, respirations 18, blood pressure 138/84, O2 saturation 100% on room air] TELEMETRY: [Atrial fibrillation with controlled ventricular response] LABS: [Sodium 135, potassium 3.7, B1 21, creatinine 0.92, calcium 8.2, triglycerides 43.1, cholesterol 149, LDL 83.7, HDL 54.7, TSH 0.991] IMPRESSION: [Episode of loss of consciousness after coming out of the shower Past history of atrial fibrillation permanent pacemaker at [facility]'s medical History of CVA] PLAN: [Complete orthostatic vital signs If orthostatic vital signs were okay, patient may be discharged. Advised patient to use a chair while taking a shower. He should dry himself off of sitting and take his time getting out. Thank you for allowing us to participate in the care of this patient. Objective - Vital Signs Vital signs: Vital Signs Temp 97.5 F L 01/03/22 08:00 Pulse 60 01/03/22 08:00 Resp 18 01/03/22 08:00 BP 138/84 01/03/22 08:00 Pulse Ox 100 01/03/22 08:00 FiO2 Intake & Output 01/02/22 01/03/22 01/03/22 18:59 06:59 18:59 Intake Total 480 Output Total 200 Balance 280 Intake: Oral 480 Output: Urine 200 Other: Voiding Method Toilet Toilet Toilet Urinal Diaper Diaper # Voids 3 2 1 - Labs CBC & Chem 7: 01/01/22 12:03 01/02/22 08:17
--- NOTE | 2022-01-03 12:12 | P.DS ---
Providers Date of admission: 12/31/21 19:56 Expected date of discharge: 01/03/22 Attending physician: Chip Louis Consults: 12/31/21 19:56 Consult Physician Routine Consulting Provider: Judah Cruz Consult Reason/Comments: Subacute CVA Do you want consulting provider notified?: Yes 01/01/22 08:55 Consult Physician Routine Consulting Provider: Helena Johnson Consult Reason/Comments: syncope, pacer Do you want consulting provider notified?: Yes 01/01/22 17:47 Consult Physician Routine Consulting Provider: Gamaliel Nuñez Consult Reason/Comments: Racing continous mind, unable to sleep, hallucinations Do you want consulting provider notified?: Yes Primary care physician: Davey Srivastava - Discharge Diagnosis(es) (1) Sleep deprivation Current Visit: Yes Status: Acute (2) Syncope Current Visit: Yes Status: Acute (3) H/O: CVA (cerebrovascular accident) Current Visit: Yes Status: Acute (4) H/O myocardial infarction, greater than 8 weeks Current Visit: Yes Status: Acute (5) Atrial fibrillation Current Visit: No Status: Acute (6) CAD (coronary artery disease) Current Visit: No Status: Acute (7) HTN (hypertension) Current Visit: No Status: Acute (8) Hyperlipemia Current Visit: No Status: Acute Hospital Course: 01/01/22 This is a pleasant 76-year-old gentleman with history of recent hernia repair- states off of pain medication ,atrial fibrillation, CAD, CABG, catheterization with stent, sick sinus syndrome with permanent pacemaker ,CVA/TIA, hyperlipidemia, hypertension, VT, sleep apnea, restless leg syndrome, TIA, neuropathy, sleeve gastrectomy brought into the ER secondary to syncope-downtime unknown, visual and auditory hallucinations. He reports he "heard two guys talking and approach his porch the day prior and then earlier this morning saw a police car, overheard their voices stating they were coming for him, also witnessed 2 guys putting his [place] tree in their car". Proceeded to shower ,ambulated into his bedroom, then "blacked out, landing on his left hip." Denied any chest pain, palpitations or shortness of breath,denied any lightheadedness, dizziness or focal deficits prior to event. Son had informed ER that patient had slurred speech, currently resolved. Patient also reports that "his mind continuously runs never stops, unable to sleep, can't turn it off". 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 Chest x-ray reported nonacute. Carotid Doppler reported no significant hemodynamic stenosis. EKG pending cardiology review. Troponin negative. Afebrile, normal WBC, INR 1.7, sodium 135, potassium 4.5, renal function stable, blood sugars controlled, magnesium 1.8, UA negative. 01/02/2022 evaluated by cardiology with recommendations noted, orthostatic vital signs pending, pacemaker interrogation pending. Telemetry atrial fibrillation with controlled ventricular rate. EEG reported normal , no focal slowing, epileptoform discharges or seizures. Hip x-ray reported no acute fracture or dislocation. Son at bedside, states father is back to baseline. No further visual or auditory hallucinations. Continues to complain of inability sleeping. 01/03/2022: Patient is feeling well and without complaint at this time. He had a loss of consciousness coming out of the shower along with some visual hallucinations and racing thoughts. He has a pacer for atrial fibrillation. He is anticoagulated. He has a history of old CVA. He reports trouble sleeping and a great deal of insomnia over the past several days before this incident. Cardiology seen him and recommended pacemaker interrogation and orthostatic blood pressures along with 2-D echo. These results were as expected showing his atrial fibrillation. No significant changes in his 2-D echo. T Neurology feels that this is not a recurrent CVA. They have reviewed the CT brain Psych and seen him and recommended surgical bedtime. He reports he slept very well last night. He feels much improved. Patient Condition at Discharge: Stable Plan - Discharge Summary Discharge Rx Participant: No New Discharge Prescriptions: New Atorvastatin [Lipitor] 20 mg PO DAILY #90 tab QUEtiapine [SEROquel] 25 mg PO HS #60 tab Acetaminophen Tab [Tylenol] 650 mg PO Q6HR PRN tab PRN Reason: Mild Pain Or Fever > 100.5 Continue Tamsulosin [Flomax] 0.4 mg PO DAILY Primidone [Mysoline] 50 mg PO TID Metoprolol Tartrate [Lopressor] 25 mg PO BID Ferrous Sulfate [Iron (65 MG Elemental)] 325 mg PO DAILY rOPINIRole HCL [Requip] 2 - 4 mg PO DAILY PRN PRN Reason: RESTLESS LEGS Rivaroxaban [Xarelto] 20 mg PO DAILY Furosemide [Lasix] 40 mg PO DAILY cloNIDine HCL [Catapres] 0.2 mg PO BID Losartan Potassium 25 mg PO DAILY Aspirin EC [Ecotrin Low Dose] 81 mg PO DAILY rOPINIRole HCL [Requip] 4 mg PO HS@2100 PRN PRN Reason: RESTLESS LEGS Famotidine 40 mg PO DAILY Cholecalciferol [Vitamin D3 (25 Mcg = 1000 Iu)] 50 mcg PO DAILY Discharge Medication List Primidone [Mysoline] 50 mg PO TID 01/09/15 [History] Tamsulosin [Flomax] 0.4 mg PO DAILY 01/09/15 [History] Metoprolol Tartrate [Lopressor] 25 mg PO BID 04/19/17 [History] Ferrous Sulfate [Iron (65 MG Elemental)] 325 mg PO DAILY 05/05/17 [History] rOPINIRole HCL [Requip] 2 - 4 mg PO DAILY PRN 05/19/17 [History] Rivaroxaban [Xarelto] 20 mg PO DAILY 10/22/17 [History] Furosemide [Lasix] 40 mg PO DAILY 02/09/19 [History] cloNIDine HCL [Catapres] 0.2 mg PO BID 02/09/19 [History] Aspirin EC [Ecotrin Low Dose] 81 mg PO DAILY 11/15/19 [History] Losartan Potassium 25 mg PO DAILY 11/15/19 [History] rOPINIRole HCL [Requip] 4 mg PO HS@2100 PRN 04/25/21 [History] Cholecalciferol [Vitamin D3 (25 Mcg = 1000 Iu)] 50 mcg PO DAILY 12/31/21 [History] Famotidine 40 mg PO DAILY 12/31/21 [History] Acetaminophen Tab [Tylenol] 650 mg PO Q6HR PRN tab 01/03/22 [Rx] Atorvastatin [Lipitor] 20 mg PO DAILY #90 tab 01/03/22 [Rx] QUEtiapine [SEROquel] 25 mg PO HS #60 tab 01/03/22 [Rx] Follow up Appointment(s)/Referral(s): Davey Srivastava MD [Primary Care Provider] - 1-2 days Discharge Disposition: HOME SELF-CARE
[2022-01-03 14:13] VITALS: BP 165/77
== END 2022-01-03 14:10 | disposition home or self-care (01) | DRG 312 ==
LOC: EC 16:57 → 3SCARD 19:56
PROVIDERS: ADMIT Family Medicine; ATTEND Family Medicine
PROC: 4A10X4Z Monitoring of Central Nervous Electrical Activity, External Approach (ICD-10-PCS; principal; 2022-01-01)
DX: R55 Syncope and collapse (principal); G93.41 Metabolic encephalopathy; I48.20 Chronic atrial fibrillation, unspecified; R44.0 Auditory hallucinations; I48.21 Permanent atrial fibrillation; I73.9 Peripheral vascular disease, unspecified; I49.5 Sick sinus syndrome; E86.0 Dehydration; R44.1 Visual hallucinations; R32 Unspecified urinary incontinence; R47.81 Slurred speech; W18.30XA Fall on same level, unspecified, initial encounter; Y92.013 Bedroom of single-family (private) house as the place of occurrence of the external cause; I10 Essential (primary) hypertension; I25.10 Atherosclerotic heart disease of native coronary artery without angina pectoris; E78.5 Hyperlipidemia, unspecified; G62.9 Polyneuropathy, unspecified; G25.81 Restless legs syndrome; E66.9 Obesity, unspecified; Z72.820 Sleep deprivation; G47.30 Sleep apnea, unspecified; R29.6 Repeated falls; I25.2 Old myocardial infarction; Z68.31 Body mass index [BMI] 31.0-31.9, adult; Z98.84 Bariatric surgery status; Z95.1 Presence of aortocoronary bypass graft; Z95.0 Presence of cardiac pacemaker; Z96.698 Presence of other orthopedic joint implants; Z96.653 Presence of artificial knee joint, bilateral; Z88.8 Allergy status to other drugs, medicaments and biological substances; Z91.048 Other nonmedicinal substance allergy status; Z79.899 Other long term (current) drug therapy; Z79.01 Long term (current) use of anticoagulants; Z79.82 Long term (current) use of aspirin; Z86.73 Personal history of transient ischemic attack (TIA), and cerebral infarction without residual deficits; Z82.49 Family history of ischemic heart disease and other diseases of the circulatory system; Z80.8 Family history of malignant neoplasm of other organs or systems; F40.240 Claustrophobia; G47.00 Insomnia, unspecified; M47.812 Spondylosis without myelopathy or radiculopathy, cervical region; Z95.5 Presence of coronary angioplasty implant and graft; Z87.19 Personal history of other diseases of the digestive system; Z89.112 Acquired absence of left hand
CPT/HCPCS: 36415; 70450; 71045; 72125; 73502; 80048; 80053; 80061; 81003; 82607; 82746; 83721; 83735; 84443; 84484; 85025; 85610; 85730; 93005; 93306; 93880; 95816; 96365; 96366; 96367; 96375; 99285

== ENCOUNTER 2022-06-02 10:06 | Inpatient (IN) | payer MEDICARE ==
[2022-06-02] MEDS ORDERED: SODIUM CHLORIDE 0.9% 1,000 ML IV ONE (10:28)
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
[2022-06-02 11:10] LABS: Glucose,Whole Blood 86 mg/dL (70-110)
[2022-06-02 11:14] LABS: Basophils # (A) 0.1 k/uL (0-0.2); Basophils % (A) 1 %; Eosinophils # (A) 0.3 k/uL (0-0.7); Eosinophils % (A) 7 %; HCT 43.2 % (39.0-53.0); HGB 14.6 gm/dL (13.0-17.5); Lymphocytes # (A) 1.5 k/uL (1.0-4.8); Lymphocytes % (A) 30 %; MCH 30.3 pg (25.0-35.0); MCHC 33.7 g/dL (31.0-37.0); MCV 89.9 fL (80.0-100.0); Mean Platelet Volume 7.3; Monocytes # (A) 0.3 k/uL (0-1.0); Monocytes % (A) 6 %; Neutrophils # (A) 2.8 k/uL (1.3-7.7); Neutrophils % (A) 54 %; Platelet Count 206 k/uL (150-450); RBC 4.81 m/uL (4.30-5.90); RDW 13.7 % (11.5-15.5); WBC 5.1 k/uL (3.8-10.6)
[2022-06-02 11:29] LABS: ALT 31 U/L (4-49); AST 41 U/L (17-59); Acetaminophen <10.0 ug/mL; African American GFR (CKD) 82 (>60 ml/min/1.73 sqM); Albumin 3.1 g/dL (3.5-5.0); Alcohol <10 mg/dL; Alkaline Phosphatase 187 U/L (38-126); Anion Gap 3 mmol/L; Blood Urea Nitrogen 34 mg/dL (9-20); Calcium 8.3 mg/dL (8.4-10.2); Carbon Dioxide 34 mmol/L (22-30); Chloride 97 mmol/L (98-107); Glucose 90 mg/dL (74-99); Non-African American GFR(CKD) 71 (>60 ml/min/1.73 sqM); Potassium 3.6 mmol/L (3.5-5.1); Salicylate <1.0 mg/dL; Sodium 134 mmol/L (137-145); Total Protein 6.6 g/dL (6.3-8.2)
[2022-06-02 11:39] LABS: Amorphous Sediment,Urine Occasional /hpf; Appearance,Urine Turbid (Clear); Bacteria,Urine Rare /hpf; Bilirubin,Urine Negative (Negative); Blood,Urine Moderate (Negative); Color,Urine Yellow; Glucose,Urine (UA) Negative (Negative); Hyaline Casts,Urine 3 /lpf (0-2); Ketones,Urine Negative (Negative); Leukocyte Esterase,Urine Negative (Negative); Mucus,Urine Moderate /hpf; Nitrite,Urine Negative (Negative); PH, Urine 6.5 (5.0-8.0); Protein,Urine Trace (Negative); RBC,Urine 21 /hpf (0-5); Squamous Epithelial Cell,Urine 1 /hpf (0-4); Urobilinogen,Urine <2.0 mg/dL (<2.0); WBC,Urine 2 /hpf (0-5)
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
[2022-06-02 11:44] LABS: Amphetamine Screen,Urine Not Detected (NotDetected); Barbiturate Screen,Urine Detected (NotDetected); Benzodiazepines Screen,Urine Not Detected (NotDetected); Cocaine Screen,Urine Not Detected (NotDetected); Methadone Screen, Urine Not Detected (NotDetected); Opiate Screen,Urine Not Detected (NotDetected); Oxycodone Screen, Urine Detected (NotDetected); Phencyclidine Screen,Urine Not Detected (NotDetected); Tricyclic Antidepressant,Urine Not Detected (NotDetected); Urn Cannabinoid Scrn Not Detected (NotDetected)
[2022-06-02 11:48] LABS: INR 1.9 (<1.2); Partial Thromboplastin Time 34.8 sec (22.0-30.0); Prothrombin Time 18.8 sec (9.0-12.0)
--- NOTE | 2022-06-02 11:54 | XR ---
EXAMINATION TYPE: XR chest 2V DATE OF EXAM: 06/02/2022 11:49 AM COMPARISON: Chest radiographs from 05/04/2022 TECHNIQUE: XR chest 2V Frontal and lateral views of the chest. CLINICAL INDICATION:Male, 76 years old with history of altered mental status; FINDINGS: Lungs/Pleura: Small left pleural effusion with associated atelectasis. Pulmonary vascularity: Unremarkable. Heart/mediastinum: Cardiomediastinal silhouette is enlarged and stable. Post-CABG changes. Two lead cardiac conduction device overlying the left hemithorax with lead tips projecting over the right vent ricle and right atrium. Musculoskeletal: Multiple level degenerative disc disease changes seen throughout the spine. No acute osseous abnormality. Median sternotomy wires. IMPRESSION: Cardiomegaly with development of small left pleural effusion with associated atelectasis.
[2022-06-02] MEDS ORDERED: NALOXONE 0.4 MG/ML 1 ML VIAL IV PRN (12:49)
[2022-06-02] MEDS: SODIUM CHLORIDE 0.9% 1,000 ML IV SCH ×2 (13:09→21:13)
[2022-06-02] MEDS: GABAPENTIN 400 MG CAP PO SCH ×2 (15:07→21:14)
[2022-06-02] MEDS: PRIMIDONE 50 MG TAB PO SCH ×2 (15:07→21:14)
[2022-06-02] MEDS ORDERED: GABAPENTIN 100 MG CAP PO SCH (16:00)
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
[2022-06-02] MEDS: levETIRAcetam 500 MG TAB PO SCH (21:14)
[2022-06-02] MEDS: METOPROLOL TARTRATE 25 MG TAB PO SCH (21:14)
[2022-06-02] MEDS: TAMSULOSIN 0.4 MG CAP.ER.24H PO SCH (21:14)
[2022-06-02] MEDS: cloNIDine HCL 0.2 MG TAB PO SCH (21:14)
[2022-06-02] MEDS: RIVAROXABAN 20 MG TAB PO SCH (21:14)
[2022-06-02] MEDS: ATORVASTATIN 20 MG TAB PO SCH (21:14)
[2022-06-03] MEDS: ACETAMINOPHEN TAB 325 MG TAB PO PRN (00:13)
[2022-06-03] MEDS ORDERED: traMADol 50 MG TAB PO PRN (03:07)
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
[2022-06-03] MEDS: FUROSEMIDE 40 MG TAB PO SCH (08:41)
[2022-06-03] MEDS: ASPIRIN 81 MG PO SCH (08:42)
[2022-06-03] MEDS: MECLIZINE 25 MG TAB PO SCH (08:42)
[2022-06-03] MEDS: METOPROLOL TARTRATE 25 MG TAB PO SCH ×2 (08:42→21:47)
[2022-06-03] MEDS: GABAPENTIN 400 MG CAP PO SCH ×3 (08:42→21:47)
[2022-06-03] MEDS: LOSARTAN 50 MG TAB PO SCH (08:42)
[2022-06-03] MEDS: cloNIDine HCL 0.2 MG TAB PO SCH ×2 (08:42→21:47)
[2022-06-03] MEDS: levETIRAcetam 500 MG TAB PO SCH ×2 (08:42→21:47)
[2022-06-03] MEDS: CYANOCOBALAMIN 500 MCG TAB PO SCH (08:43)
[2022-06-03] MEDS: SODIUM CHLORIDE 0.9% 1,000 ML IV SCH ×2 (09:22→21:48)
[2022-06-03] MEDS: PRIMIDONE 50 MG TAB PO SCH ×3 (09:22→21:47)
[2022-06-03 09:50] LABS: Basophils # (A) 0.06 X 10*3/uL (0.00-0.10); Eosinophils # (A) 0.32 X 10*3/uL (0.04-0.35); Eosinophils % (A) 5.5 %; HGB 13.5 g/dL (13.0-17.0); Immature Grans, Automated 0.3 %; Lymphocytes # (A) 2.25 X 10*3/uL (0.90-5.00); Lymphocytes % (A) 38.9 %; MCH 29.2 pg (27.0-32.0); MCHC 32.1 g/dL (32.0-37.0); MCV 90.9 fL (80.0-97.0); Monocytes # (A) 0.45 X 10*3/uL (0.20-1.00); Monocytes % (A) 7.8 %; NRBC Per 100 WBC 0 /100 WBCS (0.0-0.0); Neutrophils # (A) 2.69 X 10*3/uL (1.80-7.70); Neutrophils % (A) 46.5 %; Platelet Count 207 X 10*3/uL (140-440); RBC 4.62 X 10*6/uL (4.40-5.60); RDW 13.2 % (11.5-14.5); WBC 5.79 X 10*3/uL (4.50-10.00)
[2022-06-03 10:04] LABS: Albumin 2.9 g/dL (3.8-4.9); Albumin/Globulin Ratio 0.94 (1.60-3.17); Anion Gap 6.7 mmol/L (10.00-18.00); Calcium 8.6 mg/dL (8.7-10.3); Carbon Dioxide 27.3 mmol/L (20.0-27.5); Globulin 3.1 g/dL (1.6-3.3); Magnesium 1.9 mg/dL (1.5-2.4); Non-African American GFR(CKD) 73.3 (60.0-200.0); Potassium 3.8 mmol/L (3.5-5.5); Total Bilirubin 0.9 mg/dL (0.30-1.20)
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
--- NOTE | 2022-06-03 21:18 | EEG ---
ELECTROENCEPHALOGRAM REPORT CLINICAL HISTORY: This is a 76-year-old gentleman with a syncopal episode outside of our facility. The video EEG is obtained to evaluate for seizure epileptiform activity. RELEVANT MEDICATION: Keppra. EEG TYPE: A routine 21-channel EEG was performed with video using the 10/20 electrode placement system. DESCRIPTION: Wakefulness is obtained. During awake state, the posterior-dominant rhythm consists of sqe-kd-[id number] voltage of 8.5 to 9.5 hertz activity that is well modulated and well sustained. At times, the background consists of egw-wx-fzmaizis voltage nonrhythmic delta activity. So, at times the background consists of diffuse xav-ld-[id number] voltage delta activity. There was no physiological stage 2 sleep architecture. There is no focal slowing. Interictal and ictal is none. ACTIVATION PROCEDURE: Photic stimulation did not evoke a posterior driving response. There is no abnormality during the photic stimulation. Hyperventilation is not performed. CLINICAL INTERPRETATION: This is an abnormal routine EEG. The background slowing is suggestive of mild encephalopathy. Otherwise, there is no focal slowing, epileptiform discharge, or seizure on the EEG. Clinical correlation is recommended. MMODL / IJN: [id number] /
[2022-06-03] MEDS: RIVAROXABAN 20 MG TAB PO SCH (21:47)
[2022-06-03] MEDS: ATORVASTATIN 20 MG TAB PO SCH (21:47)
[2022-06-03] MEDS: MELATONIN 5 MG TABLET PO PRN (21:47)
[2022-06-03] MEDS: TAMSULOSIN 0.4 MG CAP.ER.24H PO SCH (21:47)
[2022-06-04] MEDS: SODIUM CHLORIDE 0.9% 1,000 ML IV SCH ×2 (06:34→21:12)
[2022-06-04] MEDS: levETIRAcetam 500 MG TAB PO SCH ×2 (09:29→21:12)
[2022-06-04] MEDS: CYANOCOBALAMIN 500 MCG TAB PO SCH (09:29)
[2022-06-04] MEDS: PRIMIDONE 50 MG TAB PO SCH ×3 (09:29→21:12)
[2022-06-04] MEDS: GABAPENTIN 400 MG CAP PO SCH ×3 (09:29→21:11)
[2022-06-04] MEDS: LOSARTAN 50 MG TAB PO SCH (09:29)
[2022-06-04] MEDS: ASPIRIN 81 MG PO SCH (09:29)
[2022-06-04] MEDS: FUROSEMIDE 40 MG TAB PO SCH (09:29)
[2022-06-04] MEDS: MECLIZINE 25 MG TAB PO SCH (09:38)
[2022-06-04] MEDS ORDERED: SODIUM CHLORIDE 0.9% 500 ML 500 ML IV ONE (10:20)
[2022-06-04 10:22] LABS: Glucose,Whole Blood 79 mg/dL (70-110)
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
[2022-06-04] MEDS: cloNIDine HCL 0.2 MG TAB PO SCH (10:59)
[2022-06-04] MEDS: METOPROLOL TARTRATE 25 MG TAB PO SCH ×2 (10:59→21:13)
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
[2022-06-04 12:18] LABS: Basophils # (A) 0.1 k/uL (0-0.2); Basophils % (A) 0 %; Eosinophils # (A) 0.1 k/uL (0-0.7); Eosinophils % (A) 0 %; HGB 13.8 gm/dL (13.0-17.5); Lymphocytes # (A) 0.9 k/uL (1.0-4.8); Lymphocytes % (A) 5 %; MCH 29.8 pg (25.0-35.0); MCHC 32.2 g/dL (31.0-37.0); MCV 92.7 fL (80.0-100.0); Mean Platelet Volume 8.1; Monocytes # (A) 0.9 k/uL (0-1.0); Monocytes % (A) 5 %; Neutrophils # (A) 17.3 k/uL (1.3-7.7); Neutrophils % (A) 90 %; Platelet Count 159 k/uL (150-450); RBC 4.64 m/uL (4.30-5.90); RDW 13.6 % (11.5-15.5); WBC 19.2 k/uL (3.8-10.6)
[2022-06-04 12:31] LABS: Albumin 2.7 g/dL (3.5-5.0); Calcium 7.7 mg/dL (8.4-10.2); Magnesium 1.6 mg/dL (1.6-2.3); Potassium 4.3 mmol/L (3.5-5.1); Total Bilirubin 1.6 mg/dL (0.2-1.3)
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
--- NOTE | 2022-06-04 18:40 | XR ---
EXAMINATION TYPE: XR chest 2V DATE OF EXAM: 06/04/2022 6:28 PM COMPARISON: Chest radiographs from 06/02/2022 TECHNIQUE: XR chest 2V Frontal and lateral views of the chest. CLINICAL INDICATION:Male, 76 years old with history of episode of syncope; FINDINGS: Lungs/Pleura: Low lung volumes are present. There is no evidence of pleural effusion, focal consolida tion, or pneumothorax. Pulmonary vascularity: Unremarkable. Heart/mediastinum: Cardiomediastinal silhouette is unremarkable. Two lead cardiac conduction device o verlying the left hemithorax with lead tips projecting over the right ventricle and right atrium. Musculoskeletal: No acute osseous pathology. Midline sternotomy wires are noted. IMPRESSION: Low lung volumes, No acute cardiopulmonary disease/process.
[2022-06-04] MEDS: PIPERACILLIN-TAZOBACTAM 3.375 GM in SODIUM CHLORIDE 0.9% 100 ML IVPB SCH ×2 (19:18→23:17)
[2022-06-04] MEDS: RIVAROXABAN 20 MG TAB PO SCH (21:12)
[2022-06-04] MEDS: TAMSULOSIN 0.4 MG CAP.ER.24H PO SCH (21:12)
[2022-06-04] MEDS: ATORVASTATIN 20 MG TAB PO SCH (21:12)
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
[2022-06-05] MEDS: SODIUM CHLORIDE 0.9% 1,000 ML IV SCH ×3 (04:42→20:23)
[2022-06-05 07:42] LABS: Basophils % (A) 0 %; Eosinophils # (A) 0.1 k/uL (0-0.7); Eosinophils % (A) 1 %; HCT 36.2 % (39.0-53.0); HGB 12.2 gm/dL (13.0-17.5); Lymphocytes # (A) 1.4 k/uL (1.0-4.8); Lymphocytes % (A) 14 %; MCH 30.6 pg (25.0-35.0); MCHC 33.7 g/dL (31.0-37.0); MCV 90.8 fL (80.0-100.0); Mean Platelet Volume 8.3; Monocytes # (A) 0.5 k/uL (0-1.0); Monocytes % (A) 5 %; Neutrophils # (A) 8.2 k/uL (1.3-7.7); Neutrophils % (A) 79 %; Platelet Count 145 k/uL (150-450); RBC 3.98 m/uL (4.30-5.90); RDW 13.8 % (11.5-15.5); WBC 10.3 k/uL (3.8-10.6)
[2022-06-05 08:12] LABS: Albumin 2.3 g/dL (3.5-5.0); Calcium 7.7 mg/dL (8.4-10.2); Magnesium 1.7 mg/dL (1.6-2.3); Potassium 3.5 mmol/L (3.5-5.1); Total Protein 5.3 g/dL (6.3-8.2)
[2022-06-05] MEDS ORDERED: REGADENOSON 0.4 MG/5 ML SYRINGE IV PRN (08:38)
[2022-06-05] MEDS ORDERED: AMINOPHYLLINE 500 MG/20 ML VIAL IV PRN (08:38)
[2022-06-05] MEDS ORDERED: CAFFEINE CITRATE 60 MG/3 ML VIAL IV PRN (08:38)
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
[2022-06-05] MEDS: PIPERACILLIN-TAZOBACTAM 3.375 GM in SODIUM CHLORIDE 0.9% 100 ML IVPB SCH ×2 (08:53→16:14)
[2022-06-05] MEDS: PRIMIDONE 50 MG TAB PO SCH ×3 (08:54→20:23)
[2022-06-05] MEDS: FUROSEMIDE 40 MG TAB PO SCH (08:54)
[2022-06-05] MEDS: CYANOCOBALAMIN 500 MCG TAB PO SCH (08:54)
[2022-06-05] MEDS: ASPIRIN 81 MG PO SCH (08:54)
[2022-06-05] MEDS: levETIRAcetam 500 MG TAB PO SCH ×2 (08:54→20:23)
[2022-06-05] MEDS: GABAPENTIN 400 MG CAP PO SCH ×3 (08:55→20:22)
[2022-06-05] MEDS ORDERED: Magnesium Replacement Protocol 1 EACH MISC MISCELLANE PRN (10:02)
[2022-06-05] MEDS ORDERED: Potassium Replacement Protocol 1 EACH MISC MISCELLANE PRN (10:02)
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
[2022-06-05] MEDS ORDERED: AMINOPHYLLINE 500 MG/20 ML VIAL IV ONE (12:23)
--- NOTE | 2022-06-05 12:50 | CA ---
Pavel Nuclear Stress Test Report Name: Chava Spence Exam Date: 06/05/2022 11:52 Exam Location: [facility] Ht (in): 67 Wt (lb): 194 BSA: 2.00 Ordering Phys: Kingsley Bourgeois DO Referring Phys: MIMI, Technologist: Sachin Conti Age: 76 Gender: M : 1945 Procedure CPT: Indications: Reflex order-Stress test ICD-10 Codes: Patient History: CHEST PAIN, DIFFICULTY IN BREATHING, HTN, ELEVATED CHOLESTEROL LEVELS, PRIOR CABG Medications: Meds past 24 hrs: Pretest Chest Pain: STRESS TEST Lexiscan Protocol Exercise Duration (min:sec): 01:[address] Depressions (mm): Angina Score: Payne Score: Resting HR (bpm): 60 Peak HR (bpm): 62 Resting BP (mmHg): 149 / 75 Peak BP (mmHg): 149 / 75 MPHR: 145 Target HR: 123 % MPHR: 43 METS: 1.0 Total Dose: Peak Dose: Atropine: Double Product: 9238 BP Response: Stress Termination: INFUSION COMPLETE Stress Symptoms: DIFFICULTY IN BREATHING Stress Summary: ECG ANALYSIS Resting ECG: Stress ECG: CONCLUSIONS None diagnostic electrocardiogram stress testing r in silviae to Pavel Jacobs MD (Electronically Signed) Final Date: 05 June 2022 12:49
[2022-06-05] MEDS: METOPROLOL TARTRATE 25 MG TAB PO SCH ×2 (13:00→20:23)
--- NOTE | 2022-06-05 13:16 | NM ---
EXAMINATION TYPE: NM stress lexiscan cardiolite DATE OF EXAM: 06/05/2022 COMPARISON: NONE HISTORY: Chest pain TECHNIQUE: After the intravenous administration of 9.9 mCi Tc 99m Sestamibi - Cardiolite resting SPE CT images acquired 45 minutes post injection. The patient received 0.4mg Lexiscan, 24.7 mCi Tc 99m Sestamibi - Stress images obtained [address] injection FINDINGS: Review of stress and rest SPECT images demonstrates no distinct perfusion abnormality. Gated analysi s shows normal wall motion with an estimated left ventricular ejection fraction of 52 %. IMPRESSION: No scintigraphic evidence for reversible ischemia.
[2022-06-05] MEDS: ONDANSETRON 4 MG/2 ML VIAL IVP PRN (15:51)
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
[2022-06-05] MEDS: ACETAMINOPHEN TAB 325 MG TAB PO PRN (18:11)
[2022-06-05] MEDS: TAMSULOSIN 0.4 MG CAP.ER.24H PO SCH (20:22)
[2022-06-05] MEDS: RIVAROXABAN 20 MG TAB PO SCH (20:23)
[2022-06-05] MEDS: ATORVASTATIN 20 MG TAB PO SCH (20:23)
[2022-06-05] MEDS ORDERED: ACETAMINOPHEN IV (For NPO) 1,000 MG in EMPTY BAG 1 BAG IVPB STA (20:28)
[2022-06-05] MEDS: MELATONIN 5 MG TABLET PO PRN (21:16)
[2022-06-06] MEDS: PIPERACILLIN-TAZOBACTAM 3.375 GM in SODIUM CHLORIDE 0.9% 100 ML IVPB SCH ×3 (01:00→16:26)
[2022-06-06] MEDS: PRIMIDONE 50 MG TAB PO SCH ×3 (09:37→20:23)
[2022-06-06] MEDS: ASPIRIN 81 MG PO SCH (09:37)
[2022-06-06] MEDS: METOPROLOL TARTRATE 25 MG TAB PO SCH ×2 (09:37→20:23)
[2022-06-06] MEDS: levETIRAcetam 500 MG TAB PO SCH ×2 (09:37→20:23)
[2022-06-06] MEDS: CYANOCOBALAMIN 500 MCG TAB PO SCH (09:37)
[2022-06-06] MEDS: FUROSEMIDE 40 MG TAB PO SCH (09:37)
[2022-06-06] MEDS: GABAPENTIN 400 MG CAP PO SCH ×3 (09:37→20:23)
[2022-06-06] MEDS: SODIUM CHLORIDE 0.9% 1,000 ML IV SCH ×2 (09:38→10:00)
[2022-06-06] MEDS: ONDANSETRON 4 MG/2 ML VIAL IVP PRN ×2 (10:47→12:42)
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
[2022-06-06 17:04] LABS: Appearance,Urine Clear (Clear); Bilirubin,Urine Negative (Negative); Blood,Urine Large (Negative); Color,Urine Yellow; Glucose,Urine (UA) Negative (Negative); Hyaline Casts,Urine 4 /lpf (0-2); Ketones,Urine Negative (Negative); Leukocyte Esterase,Urine Large (Negative); Mucus,Urine Rare /hpf; Nitrite,Urine Negative (Negative); Protein,Urine Negative (Negative); RBC,Urine 54 /hpf (0-5); Specific Gravity,Urine 1.012 (1.001-1.035); Squamous Epithelial Cell,Urine 1 /hpf (0-4); WBC,Urine 51 /hpf (0-5)
[2022-06-06 18:07] VITALS: RESP 18
[2022-06-06] MEDS: RIVAROXABAN 20 MG TAB PO SCH (20:23)
[2022-06-06] MEDS: TAMSULOSIN 0.4 MG CAP.ER.24H PO SCH (20:23)
[2022-06-06] MEDS: ATORVASTATIN 20 MG TAB PO SCH (20:23)
[2022-06-07] MEDS: SODIUM CHLORIDE 0.9% 1,000 ML IV SCH ×2 (00:01→14:13)
[2022-06-07 09:08] LABS: Basophils % (A) 0 %; Eosinophils # (A) 0.3 k/uL (0-0.7); Eosinophils % (A) 5 %; HCT 42.9 % (39.0-53.0); HGB 14.8 gm/dL (13.0-17.5); Lymphocytes # (A) 1.6 k/uL (1.0-4.8); Lymphocytes % (A) 25 %; MCH 30.6 pg (25.0-35.0); MCHC 34.4 g/dL (31.0-37.0); MCV 88.8 fL (80.0-100.0); Mean Platelet Volume 8.4; Monocytes # (A) 0.4 k/uL (0-1.0); Monocytes % (A) 7 %; Neutrophils # (A) 3.8 k/uL (1.3-7.7); Neutrophils % (A) 61 %; Platelet Count 129 k/uL (150-450); RBC 4.83 m/uL (4.30-5.90); RDW 13.7 % (11.5-15.5); WBC 6.3 k/uL (3.8-10.6)
[2022-06-07 09:10] LABS: African American GFR (CKD) >90 (>60 ml/min/1.73 sqM); Anion Gap 5 mmol/L; Blood Urea Nitrogen 17 mg/dL (9-20); C Reactive Protein 6.1 mg/dL (<1.0); Calcium 7.7 mg/dL (8.4-10.2); Carbon Dioxide 25 mmol/L (22-30); Chloride 104 mmol/L (98-107); Glucose 84 mg/dL (74-99); Non-African American GFR(CKD) 88 (>60 ml/min/1.73 sqM); Sodium 134 mmol/L (137-145)
[2022-06-07 09:15] LABS: Magnesium 1.5 mg/dL (1.6-2.3)
[2022-06-07] MEDS: PIPERACILLIN-TAZOBACTAM 3.375 GM in SODIUM CHLORIDE 0.9% 100 ML IVPB SCH ×4 (09:18→16:25)
[2022-06-07] MEDS: PRIMIDONE 50 MG TAB PO SCH ×2 (09:21→16:27)
[2022-06-07] MEDS: METOPROLOL TARTRATE 25 MG TAB PO SCH (09:21)
[2022-06-07] MEDS: CYANOCOBALAMIN 500 MCG TAB PO SCH (09:21)
[2022-06-07] MEDS: FUROSEMIDE 40 MG TAB PO SCH (09:21)
[2022-06-07] MEDS: GABAPENTIN 400 MG CAP PO SCH ×2 (09:21→16:27)
[2022-06-07] MEDS: levETIRAcetam 500 MG TAB PO SCH (09:21)
[2022-06-07] MEDS: ASPIRIN 81 MG PO SCH (09:21)
[2022-06-07] MEDS: MAGNESIUM SULFATE-D5W PMX 1 GM in DEXTROSE/WATER 1 100ML.BAG IVPB SCH ×2 (12:36→14:13)
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
[2022-06-07 16:11] VITALS: BP 149/70; PULSE 61; TEMP 98
--- NOTE | 2022-06-09 11:01 | CDI ---
Documentation Clarification Form Date: 06/09/2022 10:27:16 AM From: Vidya Chambers Phone: Admit Date: 06/02/2022 12:50:00 PM Patient Name: Chava Spence Visit Number: [id number] Discharge Date: 06/07/2022 5:42:00 PM ATTENTION: The Clinical Documentation Specialists (CDI) and [facility] Coding Staff appreciate your assistance in clarifying documentation. Please respond to the clarification below the line at the bottom and electronically sign. The CDI & [facility] Coding staff will review the response and follow-up if needed. Please note: Queries are made part of the Legal Health Record. If you have any questions, please contact the author of this message via ITS. Dr. Kingsley Bourgeois NSTEMI is documented Progress Note 06/04/22. Additional clarification regarding the type of DC is requested. History/Risk Factors: 76yo M, syncope, hypotension, Permanent A Fib, SSS w PPM, HTN, HLD, seizure, NSTEMI, CAD, Hx CABG Clinical Indicators: Troponin: 06/02 0.019 06/04 serial troponins posthypotensiveevent, 0.124, 0.111, and 0.095. EKG Results: EKGshowed noobvious acuteischemicprocess. 06/02/22 ED Note EKG and that showed underlyingatrial fibrillationwith a ventricular pacedrhythm Consult Note 06/03/22 NMstresslexiscan cardiolite: Review ofstressand rest SPECT images demonstratesnodistinctperfusion abnormality. Gatedanalysisshows normal wall motion with an estimated left ventricular ejection fraction of 52 %. Treatment: Patient is doing well,nochest pain,nofurthersyncopalepisodes. Stresstest is negative, no signs of blockages. Symptomslikelyrelated tohypotensive episodes. No further cardiac work-up indicated at this timework to [place] from cardiology standpoint. Please clarify the type of DC, if known: [ ] NSTEMI (type 1) [X ] Type II DC due to (please specify etiology) _Hypotension [ ] Unable to determine [ ] Other Condition, please specify (Template Last Revised: May 2020) MTDD
== END 2022-06-07 17:42 | disposition home health service (06) | DRG 280 ==
LOC: EC 10:06 → 5NMEDONC 12:50 → 3SCARD 06-04 10:40
PROVIDERS: ADMIT Family Medicine; ATTEND Family Medicine
DX: I95.9 Hypotension, unspecified (principal); G93.41 Metabolic encephalopathy; I21.A1 Myocardial infarction type 2; D68.9 Coagulation defect, unspecified; I48.21 Permanent atrial fibrillation; I49.5 Sick sinus syndrome; F03.90 Unspecified dementia, unspecified severity, without behavioral disturbance, psychotic disturbance, mood disturbance, and anxiety; R56.9 Unspecified convulsions; E86.0 Dehydration; G25.81 Restless legs syndrome; I10 Essential (primary) hypertension; I73.9 Peripheral vascular disease, unspecified; G62.9 Polyneuropathy, unspecified; E78.5 Hyperlipidemia, unspecified; I25.10 Atherosclerotic heart disease of native coronary artery without angina pectoris; M50.30 Other cervical disc degeneration, unspecified cervical region; M47.812 Spondylosis without myelopathy or radiculopathy, cervical region; M85.88 Other specified disorders of bone density and structure, other site; R01.1 Cardiac murmur, unspecified; G47.30 Sleep apnea, unspecified; Z20.822 Contact with and (suspected) exposure to COVID-19; Z96.653 Presence of artificial knee joint, bilateral; S12.600D Unspecified displaced fracture of seventh cervical vertebra, subsequent encounter for fracture with routine healing; S22.49XD Multiple fractures of ribs, unspecified side, subsequent encounter for fracture with routine healing; S27.0XXD Traumatic pneumothorax, subsequent encounter; V89.2XXD Person injured in unspecified motor-vehicle accident, traffic, subsequent encounter; Z89.212 Acquired absence of left upper limb below elbow; Z95.1 Presence of aortocoronary bypass graft; Z95.5 Presence of coronary angioplasty implant and graft; Z95.0 Presence of cardiac pacemaker; Z86.73 Personal history of transient ischemic attack (TIA), and cerebral infarction without residual deficits; I25.2 Old myocardial infarction; Z88.8 Allergy status to other drugs, medicaments and biological substances; Z91.048 Other nonmedicinal substance allergy status; Z79.891 Long term (current) use of opiate analgesic; Z79.899 Other long term (current) drug therapy; Z79.82 Long term (current) use of aspirin; Z79.01 Long term (current) use of anticoagulants
CPT/HCPCS: 36415; 70450; 71046; 72125; 78452; 80048; 80053; 80143; 80179; 80306; 80320; 81001; 82140; 82533; 83605; 83735; 84145; 84443; 84484; 85025; 85610; 85652; 85730; 86140; 87040; 87086; 87636; 93005; 93017; 94760; 95816; 96360; 96361; 99285